=== PATIENT | female | born 1955 | race Caucasian/White ===

== ENCOUNTER 2020-02-04 13:52 | Emergency (ER) | payer OTHER, SELFPAY ==
[2020-02-04 14:08] VITALS: BP 178/94; PULSE 66; RESP 18; TEMP 35.6; O2SAT 98; BMI 22.8
--- NOTE | 2020-02-04 14:20 | ED.ALCOHOL ---
HPI - Alcohol General Chief Complaint: ETOH/Substance Use Stated Complaint: etoh Time Seen by Provider: 02/04/20 13:58 Source: EMS Mode of arrival: EMS History of Present Illness HPI narrative: 64-year-old female with a past medical history of ETOH abuse presenting to ED brought in by EMS after being found intoxicated in front of liquor store. Patient was with a friend who reported patient had been drinking all day. Patient reports ETOH use, denies illicit drugs. Denies fall/trauma, abdominal pain, nausea/vomiting, CP/SOB, SI/HI MD complaint: alcohol intoxication Related Data Allergies Allergy/AdvReac Type Severity Reaction Status Date / Time No Known Allergies Allergy Verified 02/04/20 14:13 [No Known Allergies*] Review of Systems Review of Systems: Constitutional: No Weight loss, No Fever, No Chills Cardiovascular: No Chest Pain, No SOB Respiratory: No Cough, No Dyspnea Gastrointestinal: No Nausea, No Vomiting, No Diarrhea, No Constipation, No Abdominal pain Musculoskeletal: No joint pain Skin: No Skin Lesions, No rash Neuro: No Headache Psych: No SI/HI Yes all other systems are reviewed and are negative [facility] Past Medical History Medical History (Updated 02/04/20 @ 17:01 by JASON Eddy) No known health problems Social History Social History Advance Directives: No Advance Directives Information Provided: No Physical Exam Vital Signs: Vital Signs: Last Vital Signs Temp 96.0 F L 02/04/20 14:08 Pulse 66 02/04/20 14:08 Resp 18 02/04/20 14:08 BP 178/94 H 02/04/20 14:08 Pulse Ox 98 02/04/20 14:08 Body Mass Index 22.8 Const: Other: Intoxicated General: cooperative Orientation/consciousness: patient oriented x3 Limitations: no limitations HENMT: Head: Yes normal to inspection Ears: hearing grossly normal bilaterally General nose exam: Normal external nose present Face and sinus: Yes normal facial exam Eyes: General: appearance normal, both eyes and all related structures Pupils: Equal, round and reactive pupils present EOM: EOMs intact bilaterally Neck: Neck: Yes normal visual inspection Resp: Effort & Inspection: normal respiratory effort Cardio: Rate: regular rate GI: Inspection: Yes normal to inspection Palpation (GI): Soft to palpation, nontender, no guarding and not rigid Skin: Rashes: no rashes Wounds: no wounds Neuro: General: patient oriented x3 Cranial nerves: Yes Equal, round and reactive pupils present Extrem: General: Yes normal to inspection Course Course Course Narrative: -patient awake and alert, ambulating with steady gait in the ED with her walker Patient's son is picking her up MDM - Alcohol MDM Narrative Medical decision making narrative: 64-year-old female with a past medical history of ETOH abuse presenting to ED brought in by EMS after being found intoxicated in front of liquor store. On exam VSS, NAD, intoxicated, no evidence of trauma. Plan: Observe and reassess for clinical sobriety Discharge Plan Discharge Clinical Impression: Alcoholic intoxication Patient Disposition: Home, Self-Care Instructions: Abuse of Alcohol (ED) Additional Instructions: Do not drink alcohol or take drugs as a can kill you Follow up with her doctor If you have thoughts of hurting herself or hurting others return to the ED Referrals: Physician,Unknown [Primary Care Provider] - 2 days
--- NOTE | 2020-02-04 15:56 | MHC.CARE ---
Recovery Support note: Patient is a 64 year old [place]an speaking Female who presented to [facility] ED via EMS after being found outside a liquor store intoxicated. This screenplay writer offered patient the opportunity to go to detox and patient declined. Offered patient resources on recovery supports and patient declined. Informed patient to let RN know if she changes her mind about treatment.
== END 2020-02-04 17:21 | disposition home or self-care (01) ==
PROVIDERS: Emergency Provider Emergency Medicine Emergency Medical Services
DX: F10.129 Alcohol abuse with intoxication, unspecified (principal); Y90.9 Presence of alcohol in blood, level not specified; Z71.41 Alcohol abuse counseling and surveillance of alcoholic
CPT/HCPCS: 99283

== ENCOUNTER 2020-04-18 08:57 | Outpatient (REF) | payer OTHER, SELFPAY ==
--- NOTE | ~2020-04-18 | US_ITS ---
EXAMINATION: US COMPLETE ABDOMEN WITH LIVER ELASTOGRAPHY CLINICAL INFORMATION: Hepatitis C COMPARISON: Previous abdominal ultrasound April 2016 TECHNIQUE: Real-time imaging of the abdominal viscera. Noninvasive ultrasound liver fibrosis assessment is performed using Damien ElastPQ point quantification shear wave elastography (pSWE) with a 5 MHz transducer. Multiple elastography samples are obtained. FINDINGS: PANCREAS: Normal. ABDOMINAL AORTA: There is evidence of atherosclerotic disease. The proximal, middle, and distal aortic segments are normal in caliber. INFERIOR VENA CAVA: Visualized portions are normal. LIVER: Liver echotexture is increased. The liver is normal in contour. No focal lesion or intrahepatic biliary duct dilatation. The right lobe measures 16 cm in length. The left lobe measures 10 cm in length. Portal flow is normal/hepatopedal. Shear wave liver elastography median stiffness is 2.4 m/s (reference: normal median stiffness is 1.3 m/s or less). IQR/median stiffness to assess sampling precision is 0.1 (reference: optimal IQR/median stiffness is 0.15 or less). GALLBLADDER: Surgically removed. COMMON BILE DUCT: Normal in caliber post cholecystectomy measuring 1 cm in diameter. RIGHT KIDNEY: Normal. No hydronephrosis. No renal calculi or focal parenchymal lesions. The kidney measures 9.8 cm in maximum dimension. LEFT KIDNEY: Normal. No hydronephrosis. No renal calculi or focal parenchymal lesions. The kidney measures 9.7 cm in maximum dimension. SPLEEN: Normal. The spleen measures 7.4 cm in maximum dimension. FREE FLUID: None. US/US abdomen comp w elastography IMPRESSION: 1. Impression; Echogenic liver. Post cholecystectomy. Atherosclerotic disease. 2. Liver elastography: Metavir score F3 to F4 suggestive of moderate to severe increased risk of developing liver fibrosis.
[2020-04-18 09:23] LABS: MANUAL DIFF FLAG NO
[2020-04-18 09:27] LABS: Basophils Absolute Auto 0.1 X10*3/uL (0.0-0.2); Basophils Percent Auto 0.4 % (0-2); Eosinophils Percent Auto 0.3 % (0-4); Hematocrit 45.6 % (37-47); Hemoglobin 15.8 g/dl (12.0-16.0); Imm Gran Abs Auto 0.08 X10*3/uL (0.00-0.03); Imm Gran Pct Auto 0.6 % (0.0-0.4); Lymphocytes Percent Auto 15.7 % (20-40); Mean Corpuscular HGB Conc 34.6 g/dl (31.0-35.0); Mean Corpuscular Volume 92.3 fL (80-98); Mean Platelet Volume 10.5 fL (9.4-12.3); Monocytes Absolute Auto 1.1 X10*3/uL (0.1-1.2); Monocytes Percent Auto 8.7 % (2-11); Neutrophils Absolute Auto 9.3 X10*3/uL (2.0-8.3); Neutrophils Percent Auto 74.3 % (45-73); Platelet Count 262 X10*3/uL (160-400); Red Blood Count 4.94 X10*6/uL (4.20-5.50); Red Cell Distribution Width 13.6 % (11.0-16.0); White Blood Count 12.5 X10*3/uL (4.8-10.8)
[2020-04-18 09:48] LABS: Ammonia 30 umol/L (13-55)
== END 2020-04-18 08:58 | disposition home or self-care (01) ==
LOC: HO.LAB 08:57
PROVIDERS: PCP Emergency Medicine; Visit Provider Emergency Medicine
DX: B17.10 Acute hepatitis C without hepatic coma (principal); F10.20 Alcohol dependence, uncomplicated
CPT/HCPCS: 36415; 76705; 76981; 82140; 82693; 85025

== ENCOUNTER → 2020-05-17 15:48 | Outpatient (BNVA) | payer OTHER, SELFPAY | PROVIDERS: PCP Emergency Medicine; Visit Provider Internal Medicine Gastroenterology | DX: Z13.89 Encounter for screening for other disorder (principal) | CPT/HCPCS: Q3014 ==

== ENCOUNTER 2020-05-26 10:16 | Outpatient (REF) | payer OTHER, SELFPAY ==
[2020-05-26 10:49] LABS: MANUAL DIFF FLAG NO
[2020-05-26 11:05] LABS: Basophils Absolute Auto 0.1 X10*3/uL (0.0-0.2); Basophils Percent Auto 0.5 % (0-2); Eosinophils Percent Auto 0.3 % (0-4); Hematocrit 42.3 % (37-47); Hemoglobin 14.1 g/dl (12.0-16.0); Imm Gran Abs Auto 0.06 X10*3/uL (0.00-0.03); Imm Gran Pct Auto 0.6 % (0.0-0.4); Lymphocytes Absolute Auto 1.5 X10*3/uL (1.2-4.9); Lymphocytes Percent Auto 16.6 % (20-40); Mean Corpuscular HGB Conc 33.3 g/dl (31.0-35.0); Mean Corpuscular Hemoglobin 31.3 pg (27.0-33.0); Mean Platelet Volume 10.3 fL (9.4-12.3); Monocytes Absolute Auto 0.8 X10*3/uL (0.1-1.2); Monocytes Percent Auto 8.5 % (2-11); Neutrophils Absolute Auto 6.8 X10*3/uL (2.0-8.3); Neutrophils Percent Auto 73.5 % (45-73); Platelet Count 328 X10*3/uL (160-400); Red Cell Distribution Width 13.5 % (11.0-16.0); White Blood Count 9.2 X10*3/uL (4.8-10.8)
[2020-05-26 11:10] LABS: INTERNATIONAL NORM RATIO 1.1 (0.9-1.1); Prothrombin Time 13.6 SEC (10.8-13.0)
[2020-05-26 11:16] LABS: Ammonia 37 umol/L (13-55)
[2020-05-26 11:23] LABS: Alanine Aminotransferase 37 U/L (0-31); Albumin Level 3.9 g/dL (3.5-5.0); Alkaline Phosphatase 165 U/L (39-117); Anion Gap 12 (12-20); Aspartate Amino Transferase 77 U/L (5-31); Bilirubin Total 0.9 mg/dL (0.0-1.0); Blood Urea Nitrogen 21 mg/dL (9-16); Calcium 9.5 mg/dL (8.4-10.2); Carbon Dioxide 31 mmol/L (22-29); Chloride 99 mmol/L (96-108); Estimated Glomerular Filt Rate > 60; Gamma Glutamyl Transpeptidase 490 U/L (7-33); Glucose Random 112 mg/dL (60-115); Potassium 4.8 mmol/L (3.3-5.1); Sodium 137 mmol/L (135-145); Total Protein 7.8 g/dL (6.5-8.0)
[2020-05-26 11:48] LABS: Vitamin D 25-OH Total 28.9 ng/mL (>30)
[2020-05-26 11:51] LABS: Ferritin 492 ng/mL (10-250)
[2020-05-28 18:52] LABS: HCV Log PCR 5.32 Log IU/mL (NOT DETECTED); HepC Viral Load 209000 IU/mL (NOT DETECTED)
[2020-05-29 14:37] LABS: Alpha Fetoprotein 2.8 ng/mL
[2020-06-01 10:12] LABS: Vitamin B1 <6 nmol/L (8-30)
== END 2020-05-26 10:17 | disposition home or self-care (01) ==
LOC: HO.LAB 10:16
PROVIDERS: PCP Internal Medicine; Visit Provider Internal Medicine Gastroenterology
DX: B17.10 Acute hepatitis C without hepatic coma (principal); F10.20 Alcohol dependence, uncomplicated
CPT/HCPCS: 36415; 80053; 82105; 82140; 82306; 82728; 82977; 84425; 85025; 85610; 87522

== ENCOUNTER 2020-06-01 11:32 | Outpatient (REF) | payer OTHER, SELFPAY ==
--- NOTE | ~2020-06-01 | MM_ITS ---
EXAMINATION: BONE DENSITOMETRY CLINICAL INDICATION: Screening for osteoporosis. COMPARISON: None (current study represents initial baseline exam). TECHNIQUE: Using a [employer] DXA System (software version: 13.1) manufactured by [employer], dual-energy x-ray absorptiometry was performed of the lumbar spine and left hip. The images are of good technical quality. Summary results are attached. FINDINGS: AP SPINE L1-L3: Vertebral body L4 is excluded from final measurement calculation due generative changes which may cause overestimation of lumbar spine density. BMD 1.020 g/cm2, Z-score 0.8, T-score -1.3, osteopenia. LEFT FEMUR, NECK: BMD 0.775 g/cm2, Z-score -0.1, T-score -1.9, osteopenia. LEFT FEMUR, TOTAL: BMD 0.857 g/cm2, Z-score 0.3, T-score -1.2, osteopenia. IDENTIFIED RISK FACTORS: Early menopause, family history (parent hip fracture), osteoporosis, recurrent falls, secondary osteoporosis, tobacco use (current smoker). HISTORY OF FRACTURE: None listed. MEDICATIONS: None listed. MM/XR DEXA axial skeleton IMPRESSION: 1. DIAGNOSIS: Osteopenia based on the lowest T-score value of -1.9 in the femoral neck applying World Health Organization criteria. 2. 10-YEAR FRACTURE RISK PREDICTION, FRAX: Major osteoporotic fracture (clinical spine, forearm, hip or shoulder) 10.4%. Hip fracture 1.6%. 3. Treatment Recommendations: NOF guidelines recommend consideration for treatment in postmenopausal women and men age 50 and older presenting with the following: -A hip or vertebral (clinical or morphometric) fracture. -T-score less than or equal to -2.5 at the femoral neck or spine after appropriate evaluation to exclude secondary causes. -Low bone mass at the hip or spine and a 10-year fracture probability by FRAX of greater than or equal to 3% for hip fracture or greater than or equal to 20% for major osteoporotic fracture based on the [place] adapted WHO algorithm. 4. Other Recommendations: All treatment decisions require clinical judgment and consideration of individual patient factors, including patient preferences, comorbidities, previous drug use, risk factors not captured in the FRAX model (e.g. frailty, falls, vitamin D deficiency, increased bone turnover, interval significant decline in bone density) and possible under or overestimation of fracture risk by FRAX. Additional medical evaluation for secondary cause of low bone mineral density may be appropriate. FUTURE SCAN RECOMMENDATION: People with diagnosed cases of osteoporosis or at high risk for fracture should have regular bone mineral density tests. For patients eligible for Medicare, routine testing is allowed once every 2 years. The testing frequency can be increased to one year for patients who have rapidly progressing disease, those who are receiving or discontinuing medical therapy to restore bone mass, or have additional risk factors.
--- NOTE | ~2020-06-01 | MM_ITS ---
EXAMINATION: MM SCREENING DIGITAL BREAST TOMOSYNTHESIS, BILATERAL CLINICAL INFORMATION: Screening. Asymptomatic. The lifetime risk of breast cancer based on the Tyrer-Cuzick Model is 4.0%. COMPARISON: Mammography: December 20, 2016 and studies dating back to December 07, 2009 TECHNIQUE: Digital breast tomosynthesis is performed in both the craniocaudal and mediolateral oblique views along with computer-aided detection (CAD). Synthesized 2D images are generated from the tomosynthesis. FINDINGS: The breasts are almost entirely fatty (ACR BI-RADS breast composition Category a). There are no significant masses, abnormal calcifications, or other abnormalities. MM/MM tomosynthesis screening BI IMPRESSION: There are no significant changes from prior study. ASSESSMENT: BI-RADS 1: Negative RECOMMENDATION: Routine annual mammography screening. This patient's information was entered into a reminder system with a target due date for their next mammogram.
== END 2020-06-01 11:33 | disposition home or self-care (01) ==
LOC: HO.MAMMO 11:32
PROVIDERS: Visit Provider Internal Medicine
DX: Z12.31 Encounter for screening mammogram for malignant neoplasm of breast (principal); M81.0 Age-related osteoporosis without current pathological fracture; F17.210 Nicotine dependence, cigarettes, uncomplicated; Z78.0 Asymptomatic menopausal state
CPT/HCPCS: 77063; 77067; 77080

== ENCOUNTER 2020-07-24 09:08 | Outpatient (REF) | payer OTHER, SELFPAY ==
--- NOTE | ~2020-07-24 | XR_ITS ---
EXAMINATION: XR FOOT, LEFT CLINICAL INFORMATION: Dropped car battery on the foot COMPARISON: None TECHNIQUE: AP, lateral, and oblique views of the left foot. FINDINGS: There is a nondisplaced fracture distal phalanx great toe with mild dorsal soft tissue swelling. Also visualized is minimally displaced fracture with intra-articular extension distal segment proximal phalanx first digit. No additional fractures seen. There is a small retrocalcaneal enthesophyte. The ankle mortise and subtalar joints are normal. XR/XR foot LT min 3V IMPRESSION: There are 2 fractures. A nondisplaced fracture terminal phalanx mid segment first digit. A oblique fracture distal segment proximal phalanx first digit with intra-articular extension.
== END 2020-07-24 09:09 | disposition home or self-care (01) ==
LOC: HO.XRAY 09:08
PROVIDERS: PCP Internal Medicine; Visit Provider Nurse Practitioner Primary Care
DX: M79.672 Pain in left foot (principal)
CPT/HCPCS: 73630

== ENCOUNTER 2020-08-31 11:06 | Outpatient (REF) | payer OTHER, SELFPAY ==
[2020-09-01 08:02] LABS: Hepatitis A Antibody IgG REACTIVE (Nonreactive); ~Hepatitis A Antibody IgG 11.85 S/CO (0.00-0.99)
[2020-09-01 08:06] LABS: HIV AB/AG Nonreactive (Nonreactive); HIV Num 1 0.08 S/CO (0.00-0.99)
[2020-09-01 09:01] LABS: Hepatitis A Antibody IgM 0.29 Index (0-0.79); ~Hepatitis A Antibody IgM Nonreactive (Nonreactive)
== END 2020-08-31 11:07 | disposition home or self-care (01) ==
LOC: HO.LAB 11:06
PROVIDERS: PCP Internal Medicine; Visit Provider Nurse Practitioner
DX: Z01.84 Encounter for antibody response examination (principal); Z11.4 Encounter for screening for human immunodeficiency virus [HIV]; B18.2 Chronic viral hepatitis C
CPT/HCPCS: 36415; 86708; 86709; 87389; 99212

== ENCOUNTER 2020-09-12 13:00 | Outpatient (REF) | payer OTHER, SELFPAY ==
[2020-09-14 11:38] LABS: HBc Num1 0.41 S/CO (0.00-0.79); Hepatitis B Core Antibody Nonreactive (Nonreactive)
[2020-09-15 08:42] LABS: HBS Num1 29.18 mIU/mL (0-7.99); ~Hepatitis B Surface Antibody REACTIVE (Nonreactive)
[2020-09-17 23:57] LABS: Hepatitis C Genotype 1
== END 2020-09-12 13:01 | disposition home or self-care (01) ==
LOC: HO.LAB 13:00
PROVIDERS: Visit Provider Nurse Practitioner
DX: B18.2 Chronic viral hepatitis C (principal)
CPT/HCPCS: 36415; 86704; 86706; 87902

== ENCOUNTER → 2020-10-10 14:12 | Outpatient (BNVA) | payer OTHER, SELFPAY | PROVIDERS: Visit Provider Nurse Practitioner | DX: Z13.89 Encounter for screening for other disorder (principal) | CPT/HCPCS: Q3014 ==

== ENCOUNTER 2021-06-27 09:37 | Outpatient (REF) | payer OTHER, SELFPAY ==
--- NOTE | ~2021-06-27 | MM_ITS ---
EXAMINATION: MM SCREENING DIGITAL BREAST TOMOSYNTHESIS, BILATERAL CLINICAL INFORMATION: Screening. Asymptomatic. The lifetime risk of breast cancer based on the Tyrer-Cuzick Model is 4%. COMPARISON: Mammography: 06/01/2020, 12/20/2016, 12/05/2015 TECHNIQUE: Digital breast tomosynthesis is performed in both the craniocaudal and mediolateral oblique views along with computer-aided detection (CAD). Synthesized 2D images are generated from the tomosynthesis. Additional bilateral CC views are provided. FINDINGS: The breasts are almost entirely fatty (ACR BI-RADS breast composition Category a). There are no significant masses, abnormal calcifications, or other abnormalities. Background stromal and fibroglandular densities are stable. There are bilateral vascular calcifications. Biopsy clip marker again seen posterior upper inner left breast. MM/MM tomosynthesis screening BI IMPRESSION: No mammographic evidence of malignancy. ASSESSMENT: BI-RADS 1: Negative RECOMMENDATION: Routine annual mammography screening. This patient's information was entered into a reminder system with a target due date for their next mammogram.
== END 2021-06-27 09:38 | disposition home or self-care (01) ==
LOC: HO.MAMMO 09:37
PROVIDERS: Visit Provider Emergency Medicine
DX: Z12.31 Encounter for screening mammogram for malignant neoplasm of breast (principal)
CPT/HCPCS: 77063; 77067

== ENCOUNTER 2022-10-24 10:10 | Emergency (ER) | payer OTHER, SELFPAY ==
--- NOTE | ~2022-10-24 | CT_ITS ---
EXAMINATION: CT HEAD WITHOUT CONTRAST CLINICAL INFORMATION: Headache, hypertension. COMPARISON: Head CT scan dated 11/27/2019. TECHNIQUE: Contiguous axial imaging was performed from the skull base to vertex without intravenous administration of contrast. Coronal and sagittal reformatted images were obtained. This CT examination was performed using dose optimization techniques as appropriate, variously including the following: *Automated exposure control *Adjustment of mA and/or kV according to patient size (this includes techniques or standardized protocols for targeted exams where dose is matched to indication/reason for exam; i.e. extremities or head) *Use of iterative reconstruction technique DLP: 560 mGy-cm FINDINGS: There is mild widening of the cortical sulci and associated ventriculomegaly. The lateral ventricles are symmetrical. The third and fourth ventricles are in their normal midline position. The basilar and prepontine cisterns are unremarkable. Minimal periventricular microvascular changes are seen. There is no acute intra or extracerebral abnormality. There is no mass effect or midline shift. Sections through the bony calvarium are unremarkable. The orbits are intact. The paranasal sinuses are clear. The mastoid air cells are clear. CT/CT head/brain wo IV con IMPRESSION: No acute intracranial pathology.
--- NOTE | 2022-10-24 10:16 | ECG_ITS ---
Test Reason : H/A, HTN Blood Pressure : / mmHG Vent. Rate : 063 BPM Atrial Rate : 063 BPM P-R Int : 126 ms QRS Dur : 090 ms QT Int : 452 ms P-R-T Axes : -21 039 040 degrees QTc Int : 462 ms Normal sinus rhythm Minimal voltage criteria for LVH, may be normal variant ( Sokolow-Bingham ) Borderline ECG When compared with ECG of 15-NOV-2014 14:50, No significant change was found Referred By: Generic ED Physician Electronically Signed By:AKIRA LUBIN
[2022-10-24 11:10] VITALS: BP 236/99; PULSE 59; RESP 17; TEMP 36.2; O2SAT 98; BMI 26.3
--- NOTE | 2022-10-24 11:11 | ED_ITS ---
HPI - General Adult General Chief complaint: Headache Stated complaint: HBP, headache Time Seen by Provider: 10/24/22 12:35 Source: patient and old records reviewed Mode of arrival: ambulatory Limitations: no limitations History of Present Illness HPI narrative: Patient is a 66 year old assigned female at with a history of HTN presenting to the emergency department today with a headache. Patient states that she has not taken her blood pressure medication for 2 days and now she has a headache. Patient denies any dizziness, lightheadedness, abdominal pain, nausea, vomiting, fever, chills, blurry vision, double vision, loss of vision, chest pain, difficulty breathing, shortness of breath, back pain, night sweats, pain with urination, increased urinary frequency, increased urinary urgency, blood in her urine or stool, syncope or a near syncopal episode, recent trauma or falls, bowel incontinence, bladder incontinence, bowel retention, bladder retention, or any other complaints at this time. Location: head Radiation: non-radiation Severity: mild Severity scale (1-10): 3 Quality: aching Pain Consistency: constant Relieving factors: none Exacerbating factors: none Associated symptoms: denies other symptoms Treatments prior to arrival: none Related Data Home Medications Medication Instructions Recorded Confirmed buprenorphine 8 mg-naloxone 2 mg 1 film buccal DAILY 05/17/20 10/10/20 sublingual film (Suboxone) lisinopril 20 1 tab PO DAILY 05/17/20 10/10/20 mg-hydrochlorothiazide 25 mg tablet albuterol sulfate 90 mcg/actuation 2 puff PO Q4-6H PRN 08/31/20 10/10/20 aerosol inhaler clonazepam 1 mg tablet 0 mg PO 08/31/20 10/10/20 cyclobenzaprine 5 mg tablet 5 mg PO TID PRN muscle spasm 08/31/20 10/10/20 fluoxetine 20 mg capsule 20 mg PO QAM 08/31/20 10/10/20 fluticasone propionate 50 1 spray intranasal DAILY PRN 08/31/20 10/10/20 mcg/actuation nasal allergies spray,suspension ibuprofen 400 mg tablet 400 mg PO Q6-8H PRN 08/31/20 10/10/20 oxcarbazepine 300 mg tablet 300 mg PO TID 08/31/20 10/10/20 zolpidem 5 mg tablet 5 mg PO BEDTIME PRN 08/31/20 10/10/20 omeprazole magnesium 20 mg 20 mg PO DAILY PRN heartburn 10/10/20 10/10/20 tablet,delayed release (Prilosec OTC) Previous Rx's Medication Instructions Recorded sofosbuvir 400 mg-velpatasvir 100 1 tab PO DAILY 28 days #28 tabs 10/11/20 mg-voxilaprevir 100 mg tablet (Vosevi) Allergies Allergy/AdvReac Type Severity Reaction Status Date / Time No Known Allergies Allergy Verified 10/10/20 14:12 [No Known Allergies*] Review of Systems Constitutional: Constitutional: Reports no additional constitutional complaints, Denies chills, Denies fever(s), Reports headache(s) and Denies night sweats Eyes: Eyes: Reports no additional eye complaints, Denies blurry vision, Denies change in vision, Denies diplopia, Denies eye discharge, Denies loss of vision and Denies eye pain ENT: Denies dizziness and Reports headache(s) Cardiovascular: Cardiovascular: Reports no additional cardiovascular complaints, Denies chest pain, Denies lightheadedness, Denies Loss of Conscio usness and Denies dyspnea Respiratory: Respiratory: Reports no additional respiratory complaints and Denies dyspnea Gastrointestinal: Gastrointestinal: Reports no additional gastrointestinal c omplaints, Denies abdominal pain, Denies melena, Denies hematochezia, Denies change in bowel habits and Denies change in stool character Genitourinary: Genitourinary: Denies hematuria, Denies urinary frequency, Denies dysuria, Denies urinary incontinence, Denies urinary hesitancy and Denies urinary urgency Musculoskeletal: Musculoskeletal: Reports no additional musculoskeletal complaints, Denies numbness and Denies tingling Neurologic: Denies dizziness, Reports headache(s), Denies loss of vision, Denies numbness and Denies tingling Psychiatric: Psychiatric: Reports no additional psychiatric complaints Endocrine: Endocrine: Reports no additional endocrine complaints Hematologic/Lymphatic: Hematologic/Lymphatic: Reports no additional hematologic/lymphatic complaints Allergic/Immunologic: Allergic/Immunologic: Reports no additional aller gic/immunologic complaints PMFSH Past Medical History Attestation statement: The following information was validated with the patient. Source: old records reviewed and nursing notes reviewed Medical History Bipolar 1 disorder Bipolar disorder Chronic hepatitis C virus infection Chronic pain Cigarette smoker Hx of substance abuse Hypertension No known health problems Surgical History H/O colonoscopy History of esophagogastroduodenoscopy (EGD) Social History Social History Household Members: Other Household Members Other:: homeless, stays with someone Alcohol intake: current Alcohol intake frequency: does not drink Advance Directives: No Physical Exam ED Vital Signs: Vital Signs - 24 hr 10/24/22 11:10 10/24/22 12:14 10/24/22 13:52 Temperature 97.2 F 98.5 F Pulse Rate 59 54 59 Respiratory Rate 17 18 12 Blood Pressure 236/99 H 184/88 H 169/84 H Pulse Oximetry 98 98 97 Oxygen Delivery Method Room Air Room Air BMI result Body Mass Index 26.3 Const General: cooperative, no acute distress, alert and awake Nutritional Appearance: well nourished Orientation/consciousness: patient oriented x3 Limitations: no limitations HENMT Head: Yes normal to inspection and Yes atraumatic Ears: hearing grossly normal bilaterally and external ears normal General nose exam: Normal external nose present, no nasal discharge noted and no epistaxis Face and sinus: Yes normal facial exam, No abrasion and No laceration Mouth: Normal oral and palatal mucosa present, no drooling and no muffled voice Eyes General: appearance normal, both eyes and all related structures Periorbital: periorbital findings normal Eyelids: Yes eyelids normal Conjunctivae: conjunctivae normal Pupils: Equal, round and reactive pupils present EOM: EOMs intact bilaterally Neck Neck: Yes normal visual inspection, Yes full ROM and Yes no lymphadenopathy Chest Chest palpation & inspection: normal inspection of the chest Resp Effort & Inspection: normal respiratory effort and able to speak in complete sentences Auscultation: clear to auscultation bilaterally Cardio Rate: regular rate Rhythm: regular rhythm GI Inspection: Yes normal to inspection Palpation (GI): Soft to palpation, not firm, nontender and no guarding Neuro General: patient oriented x3 and moves all extremities Cranial nerves: Yes Equal, round and reactive pupils present Cognition (Neuro): normal cognition Motor exam (neuro): 5/5 motor strength present throughout Sensory Exam: Normal double simultaneous stimulation for sensation Coordination: [id number] test normal Extrem General: Yes normal to inspection, Yes full ROM and Yes capillary refill normal Psych Appearance: grossly normal Mental Status: mental status grossly normal Affect: normal affect Attitude: cooperative Thought process: Normal thought process present Thought content: Normal thought content present Insight: Good insight present (Psych) Course Course Course Narrative: RME: 66yo F w/PMHx HTN, DM c/o WATTS and elevated BP in PCP's office today sent to ED for HTN. Admits to headache since waking this morning w/ nausea. WATTS not maximal at onset. Denies taking her BP meds this AM. Denies taking AC. Admits was previously on Lisinopril 20mg but was reduced after being in DM Coma at [facility] x months. BP 236/99 in triage EKG, Labs, Head CT ordered 20mn PO Lisinopril ordered Full HPI, ROS and PE to be performed by primary ED provider. Medications Administered Discontinued Medications Generic Name Dose Route Start Last Admin Trade Name Freq PRN Reason Stop Dose Admin Lisinopril 20 mg 10/24/22 11:17 10/24/22 11:23 Lisinopril 20 Mg Tablet PO 10/24/22 11:18 20 mg ONCE ONE Administration Protocol Medical Decision Making Medical Decision Making [facility] Narrative: Patient is a 66 year old assigned female at with a history of HTN presenting to the emergency department today with a headache and medication non- compliance. Patient's physical exam was unremarkable. Patient's blood work was unremarkable. Patient's EKG was unremarkable. Patient's head CT showed no acute process. I explained my physical exam findings as well as all test results to the patient. I answered all questions asked by the patient. Patient received a dose of her HTN medication which she stated helped her symptoms significantly. I stressed the importance of the patient taking her medication as prescribed. I stressed the importance of the patient following up with her primary care provider. I stressed the importance of the patient returning to the emergency department immediately if her symptoms were to worsen or if she were to develop any dizziness, shortness of breath, difficulty breathing, chest pain, blurry vision, loss of vision, nausea, vomiting, abdominal pain, fever, chills, back pain, or any other complaints. Patient verbalized agreement and understanding with this treatment plan and discharge. Differential Diagnosis Differential Diagnoses: The differential diagnosis associated with the presentation includes HTN Headache Medication non-compliance Admission/Observation Consideration of admission/observation: Escalation of care including admission/observation considered Patient would have been admitted to the hospital had her work up had any findings where hospital admission was appropriate and her clinical presentation warranted hospital admission. Lab Data MDM Lab Attestation statement: I reviewed the patient's lab results. My interpretation of these studies and their corresponding values is that they are grossly normal. 10/24/22 11:38 10/24/22 11:38 Labs: Lab Results 10/24/22 10/24/22 10/24/22 Range/Units 11:38 11:38 11:38 WBC 8.3 (4.8-10.8) X10*3/uL RBC 4.93 (4.20-5.50) X10*6/uL Hgb 14.3 (12.0-16.0) g/dl Hct 42.5 (37.0-47.0) % MCV 86.2 (80.0-98.0) fL MCH 29.0 (27.0-33.0) pg MCHC 33.6 (31.0-35.0) g/dl RDW 15.6 (11.0-16.0) % Plt Count 189 (160-400) X10*3/uL MPV 10.8 (9.4-12.3) fL Immature Gran % (Auto) 0.4 (0.0-0.4) % Neut % (Auto) 67.4 (45-73) % Lymph % (Auto) 22.5 (20-40) % [place] % (Auto) 8.2 (2-11) % Eos % (Auto) 0.8 (0-4) % Baso % (Auto) 0.7 (0-2) % Lymph # (Auto) 1.9 (1.2-4.9) X10*3/uL [place] # (Auto) 0.7 (0.1-1.2) X10*3/uL Eos # (Auto) 0.1 (0.0-0.4) X10*3/uL Baso # (Auto) 0.1 (0.0-0.2) X10*3/uL Abs Immat Gran (auto) 0.03 (0.00-0.03) X10*3/uL Absolute Neuts (auto) 5.6 (2.0-8.3) x10*3/uL Absolute Nucleated RBC 0.000 (0.0-0.012) X10*3/uL Nucleated RBC % (auto) 0.0 (0.0-0.2) /100WBC PT 15.7 H (11.1-13.3) SEC INR 1.3 H (0.9-1.1) Sodium 142 (135-145) mmol/L Potassium 5.0 (3.3-5.1) mmol/L Chloride 106 (96-108) mmol/L Carbon Dioxide 27 (22-29) mmol/L Anion Gap 14 (12-20) BUN 8 L (9-16) mg/dL Creatinine 0.75 (0.5-1.4) mg/dL Estim Creat Clear Calc 59.4 Estimated GFR > 60 Random Glucose 150 H (60-115) mg/dL Calcium 9.8 (8.4-10.2) mg/dL Troponin I High Sens (<3.5-17.0) ng/L 10/24/22 Range/Units 11:38 WBC (4.8-10.8) X10*3/uL RBC (4.20-5.50) X10*6/uL Hgb (12.0-16.0) g/dl Hct (37.0-47.0) % MCV (80.0-98.0) fL MCH (27.0-33.0) pg MCHC (31.0-35.0) g/dl RDW (11.0-16.0) % Plt Count (160-400) X10*3/uL MPV (9.4-12.3) fL Immature Gran % (Auto) (0.0-0.4) % Neut % (Auto) (45-73) % Lymph % (Auto) (20-40) % [place] % (Auto) (2-11) % Eos % (Auto) (0-4) % Baso % (Auto) (0-2) % Lymph # (Auto) (1.2-4.9) X10*3/uL [place] # (Auto) (0.1-1.2) X10*3/uL Eos # (Auto) (0.0-0.4) X10*3/uL Baso # (Auto) (0.0-0.2) X10*3/uL Abs Immat Gran (auto) (0.00-0.03) X10*3/uL Absolute Neuts (auto) (2.0-8.3) x10*3/uL Absolute Nucleated RBC (0.0-0.012) X10*3/uL Nucleated RBC % (auto) (0.0-0.2) /100WBC PT (11.1-13.3) SEC INR (0.9-1.1) Sodium (135-145) mmol/L Potassium (3.3-5.1) mmol/L Chloride (96-108) mmol/L Carbon Dioxide (22-29) mmol/L Anion Gap (12-20) BUN (9-16) mg/dL Creatinine (0.5-1.4) mg/dL Estim Creat Clear Calc Estimated GFR Random Glucose (60-115) mg/dL Calcium (8.4-10.2) mg/dL Troponin I High Sens < 2.7 (<3.5-17.0) ng/L Independent Interpretation I performed an independent interpretation of an: CT Scan Interpretation: My interpretation is in agreement with the radiologist's impression of this imaging study. EXAMINATION: CT HEAD WITHOUT CONTRAST CLINICAL INFORMATION: Headache, hypertension. COMPARISON: Head CT scan dated 11/27/2019. TECHNIQUE: Contiguous axial imaging was performed from the skull base to vertex without intravenous administration of contrast. Coronal and sagittal reformatted images were obtained. This CT examination was performed using dose optimization techniques as appropriate, variously including the following: *Automated exposure control *Adjustment of mA and/or kV according to patient size (this includes techniques or standardized protocols for targeted exams where dose is matched to indication/reason for exam; i.e. extremities or head) *Use of iterative reconstruction technique DLP: 560 mGy-cm FINDINGS: There is mild widening of the cortical sulci and associated ventriculomegaly. The lateral ventricles are symmetrical. The third and fourth ventricles are in their normal midline position. The basilar and prepontine cisterns are unremarkable. Minimal periventricular microvascular changes are seen. There is no acute intra or extracerebral abnormality. There is no mass effect or midline shift. Sections through the bony calvarium are unremarkable. The orbits are intact. The paranasal sinuses are clear. The mastoid air cells are clear. IMPRESSION: No acute intracranial pathology. Read by Abel Jones. Radiology Impression Discussion of test interpretation with radiology: I have reviewed the radiologist's reading. Discharge Plan Discharge Clinical Impression: Hypertension Patient Disposition: Home, Self-Care Instructions: Hypertension (ED) Additional Instructions: TAKE YOUR MEDICATION PRESCRIBED. Follow up with your primary care provider. Return to the emergency department immediately if your symptoms worsen or if you develop any dizziness, shortness of breath, difficulty breathing, chest pain, blurry vision, loss of vision, nausea, vomiting, abdominal pain, fever, chills, back pain, or any other complaints. Prescriptions: No Action Vosevi 400-100-100 mg tablet 1 tab PO DAILY 28 Days Qty: 28 2RF Rx Instructions: must administer with a meal/food albuterol sulfate 90 mcg/actuation HFA aerosol inhaler 2 puff PO Q4-6H PRN ibuprofen 400 mg tablet 400 mg PO Q6-8H PRN fluoxetine 20 mg capsule 20 mg PO QAM cyclobenzaprine 5 mg tablet 5 mg PO TID PRN (Reason: muscle spasm) fluticasone propionate 50 mcg/actuation spray,suspension 1 spray intranasal DAILY PRN (Reason: allergies) clonazepam 1 mg tablet 0 mg PO zolpidem 5 mg tablet 5 mg PO BEDTIME PRN oxcarbazepine 300 mg tablet 300 mg PO TID omeprazole magnesium [Prilosec OTC] 20 mg tablet,delayed release (DR/EC) 20 mg PO DAILY PRN (Reason: heartburn) Patient Comments: Patient buys OTC she was instructed to keep this far away from her hepatitis C medications because it can activate treatment. She should take this in the morning if she needs it and hep C medications at night before bed lisinopril-hydrochlorothiazide 20-25 mg tablet 1 tab PO DAILY buprenorphine-naloxone [Suboxone] 8-2 mg film 1 film buccal DAILY Referrals: Deana Warren STUDENT LOAN COUNSELOR [Primary Care Provider] - Print Language: Trinidadian
[2022-10-24] MEDS: lisinopriL 20 MG TABLET PO (11:23)
[2022-10-24 11:45] LABS: MANUAL DIFF FLAG NO
[2022-10-24 11:46] LABS: Basophils Absolute Auto 0.1 X10*3/uL (0.0-0.2); Basophils Percent Auto 0.7 % (0-2); Eosinophils Absolute Auto 0.1 X10*3/uL (0.0-0.4); Eosinophils Percent Auto 0.8 % (0-4); Hematocrit 42.5 % (37.0-47.0); Hemoglobin 14.3 g/dl (12.0-16.0); Imm Gran Abs Auto 0.03 X10*3/uL (0.00-0.03); Imm Gran Pct Auto 0.4 % (0.0-0.4); Lymphocytes Absolute Auto 1.9 X10*3/uL (1.2-4.9); Lymphocytes Percent Auto 22.5 % (20-40); Mean Corpuscular HGB Conc 33.6 g/dl (31.0-35.0); Mean Corpuscular Volume 86.2 fL (80.0-98.0); Mean Platelet Volume 10.8 fL (9.4-12.3); Monocytes Absolute Auto 0.7 X10*3/uL (0.1-1.2); Monocytes Percent Auto 8.2 % (2-11); Neutrophils Absolute Auto 5.6 x10*3/uL (2.0-8.3); Neutrophils Percent Auto 67.4 % (45-73); Platelet Count 189 X10*3/uL (160-400); Red Blood Count 4.93 X10*6/uL (4.20-5.50); Red Cell Distribution Width 15.6 % (11.0-16.0); White Blood Count 8.3 X10*3/uL (4.8-10.8)
[2022-10-24 11:51] LABS: INTERNATIONAL NORM RATIO 1.3 (0.9-1.1); Prothrombin Time 15.7 SEC (11.1-13.3)
[2022-10-24 11:58] LABS: Anion Gap 14 (12-20); Blood Urea Nitrogen 8 mg/dL (9-16); Calcium 9.8 mg/dL (8.4-10.2); Carbon Dioxide 27 mmol/L (22-29); Chloride 106 mmol/L (96-108); Creatinine Clr Calc Pharmacy 59.4; Estimated Glomerular Filt Rate > 60; Glucose Random 150 mg/dL (60-115); Sodium 142 mmol/L (135-145)
--- OUTSIDE RECORDS SUMMARY | 2022-10-24 12:05 | XMS_ITS | Continuity of Care Document ---
Author Name Unknown Organization [facility] ter Address [address] [place] [address]- Care Team Providers Care Poultry Cleaner Name Role Phone Not on Staff, PCP Primary Care Physician Unavail able [place] [facility] [place] - 12/19/[address] [address]- [facility] Discharge Disposition: A-D/C Home Attending Physician: Tenzin Jaquez DO Admitting Physician: Tenzin Jaquez DO Referring Physician: Not on Staff, Referring MD Allergies, Adverse Reactions, Alerts Substance Reaction Severity Status codeine Active naproxen Active Immunizations Given and Recorded Vaccine Date Status Refusal Reason FluLaval (oldterm) 1 11/30/10 Given pneumococcal 23-valent vaccine 09/16/10 Given 1Admin Note: vis given Medications fluoxetine 20 mg oral capsule 1 capsule = 20 mg, By Mouth, Daily, # 30 capsule, 5 Refills, Maintenance, 08/24/13 10:56:30, Capsule, 1 capsule By Mouth Daily Start Date: 08/24/13 Status: Ordered hydrochlorothiazide-lisinopril 25 mg-20 mg oral tablet 1 tablet, By Mouth, Daily, # 30 tablet, 11 Refills, Maintenance, Tablet, 1 tablet By Mouth Daily,x30 days Start Date: 03/26/13 Stop Date: 03/21/14 Status: Ordered naproxen 500 mg oral tablet 1 tablet = 500 mg, By Mouth, 2 times a day, with food, # 60 tablet, 0 Refills, Maintenance, 01/25/14 10:51:12, Tablet, 1 tablet By Mouth 2 times a day,Instr:with food Start Date: 01/25/14 Status: Ordered omeprazole 40 mg oral enteric coated capsule 1 capsule = 40 mg, By Mouth, Daily, # 30 capsule, 1 Refills, Maintenance, 01/17/14 20:05:58, EC Capsule, 1 capsule By Mouth Daily Start Date: 01/17/14 Status: Ordered oxcarbazepine 150 mg oral tablet 1 tablet = 150 mg, By Mouth, 2 times a day, # 60 tablet, 0 Refills, Maintenance, 08/24/13 10:57:59,Tablet Start Date: 08/24/13 Status: Ordered ProAir HFA 90 mcg/inh inhalation aerosol with adapter 1 puffs, Inhalation, Every 4 hours, PRN for wheezing, # 8.5 Gm, 2 Refills, Maintenance, Aerosol, 1 puffs Inhalation Every 4 hours,PRN:for wheezing Start Date: 03/26/13 Status: Ordered Problem List Condition Effective Dates Status Health Status Inform ant Abnormal glucose level(Confirmed) Active Bipolar disorder(Confirmed) Active Chronic pain(Confirmed) Active Essential hypertension(Confirmed) Active GERD - Gastro-esophageal ref lux disease(Confirmed) Active Viral hepatitis C-genotype 1b(Confirmed) Active Vital Signs Most recent to oldest [Reference Range]: 1 2 Oxygen Saturation [94-100 %] 98 % (12/19/19 7:12 PM) 97 % (12/19/19 2:48 PM) Pulse Rate [55-90 bpm] 82 bpm (12/19/19 7:12 PM) 68 bpm (12/19/19 2:48 PM) Blood Pressure [90-138/55-84 mm Hg] 185/ 82mm Hg *H* (12/19/19 7:12 PM) 127/74mm Hg (12/19/19 2:48 PM) Respiratory Rate [16-30 br/min] 18 br/mi n (12/19/19 7:12 PM) 16 br/min (12/19/19 2:48 PM) Temperature [96.8-100.4 DegF] 98.0 DegF (12/19/19 7:12 PM) 98.9 DegF (12/19/19 2:48 PM) Mode of Delivery (Oxygen) Room air (12/19/19 7:12 PM) Room air (12/19/19 2:48 PM) Blood pressure sites Arm, right (12/19/19 7:12 PM) Arm, left (12/19/19 2:48 PM) Temperature Route Oral (12/19/19 7:12 PM) Oral (12/19/19 2:48 PM)
--- OUTSIDE RECORDS SUMMARY | 2022-10-24 12:05 | XMS_ITS | Continuity of Care Document ---
Author Name Unknown Organization [facility] ter Address [address] [place] [id number]- Care Team Providers Care Tower Director Name Role Phone Not on Staff, PCP Primary Care Physician Unavail able [place] [facility] [facility] [place] 07/03/[address] [address]- Discharge Disposition: A-D/C Home Attending Physician: Karri Cheek MD Admitting Physician: Karri Cheek MD Referring Physician: Not on Staff, Referring MD [...] Range]: 1 2 Oxygen Saturation [94-100 %] 100 % (07/03/21 6:59 PM) 97 % (07/03/21 2:24 PM) Pulse Rate [55-90 bpm] 72 bpm (07/03/21 6:59 PM) 74 bpm (07/03/21 2:24 PM) Blood Pressure [90-138/55-84 mm Hg] 117/ 72mm Hg (07/03/21 6:59 PM) 106/63mm Hg (07/03/21 2:24 PM) Respiratory Rate [16-30 br/min] 20 br/mi n (07/03/21 6:59 PM) 18 br/min (07/03/21 2:24 PM) Temperature [96.8-100.4 DegF] 98.4 DegF (07/03/21 2:24 PM) Mode of Delivery (Oxygen) Room air (07/03/21 6:59 PM) Room air (07/03/21 2:24 PM) Blood pressure sites Arm, right (07/03/21 2:24 PM) Temperature Route Oral (07/03/21 2:24 PM)
--- OUTSIDE RECORDS SUMMARY | 2022-10-24 12:06 | XMS_ITS | Continuity of Care Document ---
Author Name Unknown Organization [facility] ter Address [address] [place] [id number]- Care Team Providers Care Regional Engineer Name Role Phone Not on Staff, PCP Primary Care Physician Unavail able [place] [facility] [place] [facility] [place] - 09/18/[address] [address]- Encounter Diagnosis Opiate overdose(Final) - 09/15/21 Discharge Disposition: Transfer to [facility] Facility Attending Physician: Abner Maradiaga MD Admitting Physician: Abner Maradiaga MD Referring Physician: Not on Staff, Referring [...] recent to oldest [Reference Range]: 1 2 3 Weight 54.5 kg (09/18/21 3:59 PM) 54.5 kg (09/17/21 8:00 AM) Oxygen Saturation [94-100 %] 95 % (09/18/21 3:59 PM) 97 % (09/18/21 9:32 AM) 95 % (09/18/21 5:12 AM) Pulse Rate [55-90 bpm] 77 bpm (09/18/21 3:59 PM) 85 bpm (09/18/21 9:32 AM) 74 bpm (09/18/21 5:12 AM) Blood Pressure [90-138/55-84 mm Hg] 157/81mm Hg *H* (09/18/21 3:59 PM) 142/86mm Hg *H* (09/18/21 9:32 AM) 134/78mm Hg (09/18/21 5:12 AM) Respiratory Rate [16-30 br/min] 18 br/min (09/18/21 3:59 PM) 18 br/min (09/18/21 9:32 AM) 16 br/min (09/18/21 5:12 AM) Temperature [96.8-100.4 DegF] 98.2 DegF (09/18/21 3:59 PM) 98.3 DegF (09/18/21 9:32 AM) 98 DegF (09/18/21 5:12 AM) Liters per Minute 2 L/min (09/16/21 4:45 AM) 2 L/min (09/16/21 2:50 AM) 2 L/min (09/15/21 11:28 PM) Mode of Delivery (Oxygen) Room air (09/18/21 3:59 PM) Room air (09/18/21 9:32 AM) Room air (09/18/21 5:12 AM) Blood pressure sites Arm, right (09/18/21 3:59 PM) Arm, right (09/18/21 5:12 AM) Arm, right (09/17/21 8:14 PM) Temperature Route Oral (09/18/21 3:59 PM) Oral (09/18/21 9:32 AM) Oral (09/18/21 5:12 AM)
[2022-10-24 12:07] LABS: Troponin-I High Sensitivity < 2.7 ng/L (<3.5-17.0)
[2022-10-24 12:14] VITALS: BP 184/88; PULSE 54; RESP 18; O2SAT 98
[2022-10-24 13:52] VITALS: BP 169/84; PULSE 59; RESP 12; TEMP 36.9; O2SAT 97
[2022-10-24 14:25] VITALS: BP 164/82; PULSE 68; RESP 19; O2SAT 98
== END 2022-10-24 15:03 | disposition home or self-care (01) ==
PROVIDERS: Physician Assistant; Emergency Provider Emergency Medicine; PCP Nurse Practitioner Primary Care
DX: I10 Essential (primary) hypertension (principal); F19.10 Other psychoactive substance abuse, uncomplicated; F11.20 Opioid dependence, uncomplicated; B18.2 Chronic viral hepatitis C; F17.210 Nicotine dependence, cigarettes, uncomplicated; Z79.899 Other long term (current) drug therapy
CPT/HCPCS: 36415; 70450; 80048; 84484; 85025; 85610; 93005; 99284

== ENCOUNTER 2022-11-04 13:19 | Outpatient (REF) | payer OTHER, SELFPAY ==
--- NOTE | ~2022-11-04 | XR_ITS ---
EXAMINATION: XR SHOULDER, RIGHT CLINICAL INFORMATION: 1 week right shoulder pain COMPARISON: None available. TECHNIQUE: Four views of the right shoulder. FINDINGS: No acute visible fracture or dislocation. Arthritic changes of the acromioclavicular glenohumeral joint greatest along the distal clavicle. Joint spaces and alignment are otherwise maintained. Soft tissues are unremarkable. Utilized portions of the right chest are unremarkable. XR/XR shoulder RT min 2V IMPRESSION: 1. No acute visible fracture or dislocation. 2. Arthritic changes of the acromioclavicular glenohumeral joint greatest along the distal clavicle.
== END 2022-11-04 13:20 | disposition home or self-care (01) ==
LOC: HO.HHCX 13:19
PROVIDERS: Visit Provider Nurse Practitioner Primary Care
DX: M25.511 Pain in right shoulder (principal); F10.20 Alcohol dependence, uncomplicated
CPT/HCPCS: 73030

== ENCOUNTER 2022-11-29 14:26 | Outpatient (REF) | payer OTHER, SELFPAY ==
[2022-11-29 16:12] LABS: INTERNATIONAL NORM RATIO 1.2 (0.9-1.1); Prothrombin Time 14.5 SEC (11.1-13.3)
[2022-11-29 16:33] LABS: Alanine Aminotransferase 35 U/L (0-31); Alkaline Phosphatase 147 U/L (39-117); Anion Gap 14 (12-20); Aspartate Amino Transferase 61 U/L (5-31); Bilirubin Total 0.4 mg/dL (0.0-1.0); Blood Urea Nitrogen 12 mg/dL (9-16); Calcium 9.3 mg/dL (8.4-10.2); Carbon Dioxide 22 mmol/L (22-29); Chloride 107 mmol/L (96-108); Estimated Glomerular Filt Rate > 60; Glucose Random 214 mg/dL (60-115); Potassium 3.4 mmol/L (3.3-5.1); Sodium 140 mmol/L (135-145); Total Protein 8.7 g/dL (6.5-8.0)
[2022-11-29 16:57] LABS: Folate 7.7 ng/mL (> or = 4.0); Vitamin B12 547 pg/mL (200-900)
[2022-12-01 22:28] LABS: TS Negative Control Passed; TS Panel A 0; TS Panel B 0; TS Positive Control Passed; TSpotTB Negative (Negative)
[2022-12-02 03:49] LABS: ~HepC Num1 8.99 S/CO (0.00-0.79); ~Hepatitis C Antibody Reactive (Nonreactive)
[2022-12-04 14:54] LABS: HCV Log PCR 4.89 Log IU/mL (NOT DETECTED); HepC Viral Load 78400 IU/mL (NOT DETECTED)
== END 2022-11-29 14:27 | disposition home or self-care (01) ==
LOC: HO.HHCL 14:26
PROVIDERS: Visit Provider Family Medicine
DX: F10.20 Alcohol dependence, uncomplicated (principal); Z11.1 Encounter for screening for respiratory tuberculosis
CPT/HCPCS: 36415; 80053; 82607; 82746; 85610; 86481; 86803; 87522

== ENCOUNTER 2022-12-27 13:38 | Outpatient (REF) | payer OTHER, SELFPAY ==
[2022-12-27 16:24] LABS: INTERNATIONAL NORM RATIO 1.2 (0.9-1.1); Prothrombin Time 14.6 SEC (11.1-13.3)
[2022-12-30 03:45] LABS: HIV AB/AG Nonreactive (Nonreactive); HIV Num 1 0.09 S/CO (0.00-0.99)
[2022-12-30 12:52] LABS: Alpha Fetoprotein 3.8 ng/mL
[2023-01-03 01:39] LABS: FIB-ALT 30 U/L (6-29); FIB-Alpha-2-Macroglobulin 311 mg/dL (106-279); FIB-Apolipoprotein A1 128 mg/dL (101-198); FIB-GGT 330 U/L (3-65); FIB-Haptoglobin 124 mg/dL (43-212); FIB-Total Bilirubin 0.5 mg/dL (0.2-1.2); Liver Fibrosis Score 0.75; Liver Fibrosis Stage F4; Nec Inflam Act Grade A0-A1; Nec Inflam Act Score 0.26
== END 2022-12-27 13:39 | disposition home or self-care (01) ==
LOC: HO.HHCL 13:38
PROVIDERS: Visit Provider Nurse Practitioner Primary Care
DX: Z11.4 Encounter for screening for human immunodeficiency virus [HIV] (principal); B18.2 Chronic viral hepatitis C
CPT/HCPCS: 36415; 81596; 82105; 85610; 87389

== ENCOUNTER 2023-04-24 08:57 | Outpatient (REF) | payer OTHER, SELFPAY ==
--- NOTE | ~2023-04-24 | US_ITS ---
EXAMINATION: US COMPLETE ABDOMEN WITH LIVER ELASTOGRAPHY CLINICAL INFORMATION: Chronic viral hepatitis C. COMPARISON: None available. TECHNIQUE: Real-time imaging of the abdominal viscera. Noninvasive ultrasound liver fibrosis assessment is performed using Damien ElastPQ point quantification shear wave elastography (2D-SWE) with a C5-2 MHz transducer. Multiple elastography samples are obtained. FINDINGS: PANCREAS: The pancreas is obscured by overlying gas. ABDOMINAL AORTA: The proximal and middle aortic segments are normal in caliber. The distal segment is not visualized. INFERIOR VENA CAVA: Visualized portions are normal. LIVER: The liver demonstrates normal size, lobulated contour left hepatic lobe and diffuse increased echogenicity. No focal lesion or intrahepatic biliary duct dilatation. The right lobe measures 18.5 cm in length. The left lobe measures 11.3 cm in length. Portal flow is hepatopedal. Shear wave liver elastography median stiffness is 1.89 m/s (reference: normal median stiffness is 1.3 m/s or less). IQR/median stiffness to assess sampling precision is 0.07 (reference: good quality data set is IQR/median stiffness of 0.15 or less). GALLBLADDER: Normal. The gallbladder is physiologically distended without evidence of stones, sludge, polyps, wall thickening or pericholecystic fluid. COMMON BILE DUCT: Normal in caliber measuring 1.0 cm in diameter. RIGHT KIDNEY: Normal. No hydronephrosis. No renal calculi or focal parenchymal lesions. The kidney measures 10.0 cm in maximum dimension. LEFT KIDNEY: Normal. No hydronephrosis. No renal calculi or focal parenchymal lesions. The kidney measures 9.1 cm in maximum dimension. SPLEEN: Normal. The spleen measures 8.2 cm in maximum dimension. FREE FLUID: None. US/US abdomen comp w elastography IMPRESSION: 1. Mild hepatic steatosis without focal lesion. Slightly lobulated left hepatic lobe contour was noted. Rest of the abdominal ultrasound is unremarkable. 2. Liver elastography: Median liver stiffness measured 1.89 m/s corresponding to cACLD (suggestive). REFERENCE: Society of Radiologists in Ultrasound Liver Stiffness Thresholds (2020): LIVER STIFFNESS THRESHOLDS: *Liver Stiffness equal or less than 1.3 m/s: High probability of being normal. *Liver Stiffness less than 1.7 m/s: In the absence of other known clinical signs, rules out compensated advanced chronic liver disease. *Liver Stiffness 1.7-2.1 m/s: Suggestive of compensated advanced chronic liver disease but need further test for confirmation. *Liver Stiffness over 2.1 m/s: Rules in compensated advanced chronic liver disease. *Liver Stiffness over 2.4 m/s: Suggestive of clinically significant portal hypertension. QUALITY OF DATA SET: *IQR/Median value equal or less than 0.15 implies a quality data set. *IQR/Median value over 0.15 implies a poor quality data set. SIGNIFICANT CHANGE FROM PRIOR EXAM: Significant change if liver stiffness measurement is 10% or greater from prior exam. OTHER CONSIDERATIONS: The stage of liver fibrosis may be overestimated in the setting of acute hepatitis, liver inflammation, liver function tests, hepatic vascular congestion, obstructive cholestasis, non-fasting state, and infiltrative diseases such as amyloidosis and lymphoma. In some patients with NAFLD, the liver stiffness thresholds for compensated advanced chronic liver disease may be lower. In causes other than viral hepatitis and NAFLD, liver stiffness thresholds are not well established.
== END 2023-04-24 08:58 | disposition home or self-care (01) ==
LOC: HO.US 08:57
PROVIDERS: PCP Nurse Practitioner Primary Care; Visit Provider Nurse Practitioner Primary Care
DX: B18.2 Chronic viral hepatitis C (principal)
CPT/HCPCS: 76700; 76981

== ENCOUNTER 2023-05-15 09:48 | Outpatient (REF) | payer OTHER, SELFPAY ==
[2023-05-15 12:19] LABS: Alanine Aminotransferase 19 U/L (0-31); Albumin Level 3.9 g/dL (3.5-5.0); Alkaline Phosphatase 122 U/L (39-117); Anion Gap 12 (12-20); Aspartate Amino Transferase 28 U/L (5-31); Bilirubin Total 0.4 mg/dL (0.0-1.0); Blood Urea Nitrogen 16 mg/dL (9-16); Calcium 9.8 mg/dL (8.4-10.2); Carbon Dioxide 29 mmol/L (22-29); Chloride 103 mmol/L (96-108); Estimated Glomerular Filt Rate > 60; Glucose Random 120 mg/dL (60-115); Magnesium 1.8 mg/dL (1.6-2.6); Phosphorus 3.2 mg/dL (2.7-4.5); Potassium 3.7 mmol/L (3.3-5.1); Sodium 140 mmol/L (135-145); Total Protein 8.4 g/dL (6.5-8.0)
== END 2023-05-15 09:49 | disposition home or self-care (01) ==
LOC: HO.HHCL 09:48
PROVIDERS: Visit Provider Nurse Practitioner Primary Care
DX: E83.42 Hypomagnesemia (principal); E83.39 Other disorders of phosphorus metabolism; E11.59 Type 2 diabetes mellitus with other circulatory complications; I15.2 Hypertension secondary to endocrine disorders; E87.6 Hypokalemia
CPT/HCPCS: 36415; 80053; 83735; 84100

== ENCOUNTER 2024-01-23 09:59 | Outpatient (REF) | payer OTHER, SELFPAY ==
[2024-01-23 11:32] LABS: Alanine Aminotransferase 27 U/L (0-31); Alkaline Phosphatase 136 U/L (39-117); Anion Gap 13 (12-20); Aspartate Amino Transferase 38 U/L (5-31); Bilirubin Direct 0.2 mg/dL (0.0-0.5); Bilirubin Total 0.5 mg/dL (0.0-1.0); Blood Urea Nitrogen 17 mg/dL (9-16); Calcium 9.9 mg/dL (8.4-10.2); Carbon Dioxide 25 mmol/L (22-29); Chloride 106 mmol/L (96-108); Cholesterol 174 mg/dL (<200); Estimated Glomerular Filt Rate > 60; Glucose Random 144 mg/dL (60-115); HDL Cholesterol 53 mg/dL (>40); LDL Cholesterol Calculated 110 mg/dL (<100); Magnesium 1.9 mg/dL (1.6-2.6); Sodium 140 mmol/L (135-145); Total Protein 8.2 g/dL (6.5-8.0); Triglycerides 59 mg/dL (<150)
[2024-01-23 11:51] LABS: TSH reflex Free T4 2.18 uIU/mL (0.32-4.0)
== END 2024-01-23 10:00 | disposition home or self-care (01) ==
LOC: HO.HHCL 09:59
PROVIDERS: Visit Provider Nurse Practitioner Primary Care
DX: I15.2 Hypertension secondary to endocrine disorders (principal); E11.59 Type 2 diabetes mellitus with other circulatory complications
CPT/HCPCS: 36415; 80048; 80061; 80076; 83735; 84443

== ENCOUNTER 2024-05-24 14:36 | Outpatient (REF) | payer OTHER, SELFPAY ==
[2024-05-27 04:58] LABS: TS Negative Control Passed; TS Panel A 0; TS Panel B 1; TS Positive Control Passed; TSpotTB Negative (Negative)
== END 2024-05-24 14:37 | disposition home or self-care (01) ==
LOC: HO.HHCL 14:36
PROVIDERS: Visit Provider Internal Medicine
DX: Z11.1 Encounter for screening for respiratory tuberculosis (principal)
CPT/HCPCS: 36415; 86481

== ENCOUNTER 2024-06-04 13:12 | Outpatient (REF) | payer OTHER, SELFPAY ==
[2024-06-04 16:59] LABS: Creatinine Urine 207.63 mg/dL; Microalbum/Creatinine Ratio Ur 16.8 ug/mg cr (<30)
== END 2024-06-04 13:13 | disposition home or self-care (01) ==
LOC: HO.HHCL 13:12
PROVIDERS: Visit Provider Internal Medicine
DX: E11.65 Type 2 diabetes mellitus with hyperglycemia (principal)
CPT/HCPCS: 82043; 82570

== ENCOUNTER 2024-07-14 08:51 | Outpatient (REF) | payer OTHER, SELFPAY ==
--- OUTSIDE RECORDS SUMMARY | 2024-07-14 09:18 | XMS_ITS | Encounter Summary ---
Author Organization [employer] Address [address] [facility] 7t [place] [address] Care Team Providers Care Hot Mill Observer Name Role Phone Deana Warren Primary Care Provider [phone] Reason for Visit * Reason Onset Date Comments Nurse Triage 12/30/2023 Encounter Details Date Type Department Care Team ([facility] st Contact Info) Description 12/30/2023 Telephone [facility] [address] [place], [place] [phone] Deana Warren ANP 230 [place], [place] [phone] Nurse Triage Social History Tobacco Use Types Packs/Day Years Used Date Smoking Tobacco: Every Day Cigarettes Smokeless Tobacco: Never Alcohol Use Standard Drinks/Week Comments Not Currently 0 (1 standard drink = 0.6 oz pur e alcohol) Housing Stability Answer Date Recorded What is your housing situation today? I have adeline coles 12/27/[address] you li ve. Do you have problems with any of the following? None of the above 12/27/2022 Food Insecurity Answer Date Recorded Within the past 12 months, y ou worried that your food would run out before you got money to buy more: Never True 12/27/2022 Within the past 12 months,th e food you bought just didn't last and you didn't have enough money to get more: Never True Transportation Answer Date Recorded In the past 12 months, has l ack of transportation kept you from medical appts, meetings, work or from getting things needed for daily living? No 12/27/2022 Utilities Answer Date Recorded In the past 12 months, has t he electric, gas, oil or water company threatened to shut off services in your home? No 12/27/2022 Depression Answer Date Recorded Patient Health Questionnaire-2 Score 0 05/15/2023 Comments No Sex and Gender Information Value Date Recorded Sex Assigned at Female 01/07/2022 10:18 AM EDT Legal Sex Female 10:18 AM EDT Gender Identity Female 01/07/2022 10:18 AM EDT Sexual Orientation Straight 01/07/2022 10 :18 AM EDT documented as of this encounter Miscellaneous Notes * Telephone Encounter - Katherine Funes RN - 12/30/2023 1:48 PM EDT Triage call Pt reports headache for 2 days or more, Am and PM Pt has this headache. Pt is diabetic and hasn't checked BS yet today. Advised to check BS first thing in the morning and Pt agrees. Pt reports drinking adequate liquids. Pt reports pain is constant over the forehead area and sides of head over ears. Pt has not vomited but, is experiencing nausea. Pt is neg for fever. Pt is taking tylenol which doesn't reduce pain at all. ASK apt with SUSAN May 01/02/24 @ 915am. Pt is offered to come to [facility] today but, declines due to lack of transportation. Pt agrees with disposition and homecare is reviewed. Protocol Used: Headache (Adult) Protocol-Based Disposition: See in Office or Video Visit within 3 Days Video visit not offered Positive Triage Question: * Mild - Moderate headache present > 3 days (72 hours) * All higher-acuity triage questions were negative Care Advice Discussed: * Pain Medicines * Cold Pack for Headache * Reasons To Call Back - Severe headache lasts over 2 hours after pain medicine - Headache lasts over 72 hours - Stiff neck occurs (can't touch chin to chest) - You become worse * Telephone Encounter - Christie Umaña - 12/30/2023 1:17 PM EDT Symptom: Headache Outcome: Schedule an urgent appointment (within 4 hours) or talk to a nurse or provider soon Reason: Started within the past 3 days The caller accepted this outcome. documented in this encounter Plan of Treatment Upcoming Encounters Date Type Department Care Team (Late st Contact Info) Description 07/19/2024 9:15 AM EDT Office Visit [facility] [address] [place] [address] Katt Lazcano, OD [address] [place] [address] 08/10/2024 11:30 AM EDT Office Visit [facility] [address] [place] [address] Deana Warren ANP 230 [place] [address] 10/08/2024 4:00 PM EDT Office Visit [facility] [address] [place] [address] Troy Cueto MD 230 [place] [address] documented as of this encounter Visit Diagnoses Not on filedocumented in this encounter Care Teams Hot Mill Observer Relationship Specialty Start Date End Date Deana Warren ANP [address] [place] [address] PCP - General Family Medicine 03/29/22 documented as of this encounter
--- OUTSIDE RECORDS SUMMARY | 2024-07-14 09:18 | XMS_ITS | Encounter Summary ---
Author Organization [employer] Address [address] [facility] 7t [place] [address] Care Team Providers Care Regulator Tester Name Role Phone Deana Warren Primary Care Provider [phone] Reason for Visit * Reason Onset Date Comments Appointment Request 09/02/2023 Encounter Details Date Type Department Care Team ([facility] st Contact Info) Description 09/02/2023 Telephone [facility] [address] [place], [place] [phone] Deana Warren ANP 230 [place], [place] [phone] Appointment Request Social History Tobacco Use Types Packs/Day Years [...] encounter Miscellaneous Notes * Telephone Encounter - Grupo Geoffrey - 09/02/2023 4:21 PM EDT Tc from pt requesting to reschedule OV ext 07/16. Assembler Arranger offered 12/03 but pt refused and is requesting a sooner appt if possible. Please contact pt at [phone]. documented in this encounter Plan of Treatment Upcoming Encounters Date Type Department Care Team (Late st Contact Info) Description 07/19/2024 9:15 AM EDT Office Visit [facility] [address] [place] [address] Katt Lazcano, MARLENE [address] [place] [address] 08/10/2024 11:30 AM EDT Office Visit [facility] [address] [place] [address] Deana Warren ANP [address] [place] [address] 10/08/2024 4:00 PM EDT Office Visit [facility] [address] [place] [address] Troy Cueto MD [address] [place] [address] documented as of this encounter Visit Diagnoses Not on filedocumented in this encounter Care Teams Regulator Tester Relationship Specialty Start Date End Date Deana Warren ANP [address] [place] [phone] PCP - General Family Medicine 03/29/22 documented as of this encounter
--- OUTSIDE RECORDS SUMMARY | 2024-07-14 09:18 | XMS_ITS | Encounter Summary ---
Author Organization [employer] Address [address] [facility] 7t [place] [address] Care Team Providers Care Global Position System Technician Name Role Phone Deana Warren Primary Care Provider [phone] Reason for Visit * Reason Onset Date Comments triage 05/22/2022 Encounter Details Date Type Department Care Team (Late st Contact Info) Description 05/22/2022 Telephone [facility] 230 [place], [place] [phone] Deana Warren ANP 230 [place] [address] triage Social History Tobacco Use Types Packs/Day Years Used Date Smoking Tobacco: Never Assessed Comments Unknown Sex and Gender Information Value Date Recorded Sex Assigned at Female 01/07/2022 10:18 AM EDT Legal Sex Female 10:18 AM EDT Gender Identity Female 01/07/2022 10:18 AM EDT Sexual Orientation Straight 01/07/2022 10 :18 AM EDT documented as of this encounter Miscellaneous Notes * Telephone Encounter - Nicho Calhoun - 05/22/2022 11:24 AM EDT Symptom: Medication Question Outcome: Schedule a same-day appointment or talk to a nurse or provider today Reason: No high acuity concerns reported by caller The caller accepted this outcome documented in this encounter Plan of Treatment Upcoming Encounters Date Type Department Care Team (Late st Contact Info) Description 07/19/2024 9:15 AM EDT Office Visit [facility] [address] [place], [place] [phone] Katt Lazcano, OD [address] [place], [place] [phone] 08/10/2024 11:30 AM EDT Office Visit [address] [address] Deana Warren ANP [address] [place] [address] 10/08/2024 4:00 PM EDT Office Visit [address] [address] Troy Cueto MD [address] [place] [address] documented as of this encounter Visit Diagnoses Not on filedocumented in this encounter Care Teams Global Position System Technician Relationship Specialty Start Date End Date Deana Warren ANP [address] [place] [phone] PCP - General Family Medicine 03/29/22 documented as of this encounter
--- OUTSIDE RECORDS SUMMARY | 2024-07-14 09:18 | XMS_ITS | Encounter Summary ---
Author Organization [employer] Address [address] [facility] 7t [place] [address] Care Team Providers Care Salt Maker Name Role Phone Deana Warren Primary Care Provider [phone] Reason for Visit * Reason Onset Date Comments Nurse Triage 10/13/2023 Encounter Details Date Type Department Care Team ([facility] st Contact Info) Description 10/13/2023 Telephone [facility] 230 [place], [place] [phone] Deana Warren ANP [address] [place], [place] [phone] Nurse Triage Social History Tobacco Use Types [...] encounter Miscellaneous Notes * Telephone Encounter - Jose Keller - 10/13/2023 2:44 PM EDT Symptom: Urination Pain Outcome: Schedule an urgent appointment (within 1 hour) or talk to a nurse or provider soon Reason: Severe pain now The caller accepted this outcome documented in this encounter Plan of Treatment Upcoming Encounters Date Type Department Care Team (Late st Contact Info) Description 07/19/2024 9:15 AM EDT Office Visit [facility] [address] [place] [address] Katt Lazcano OD [address] [place] [address] 08/10/2024 11:30 AM EDT Office Visit [facility] [address] [place] [address] Deana Warren ANP [address] [place] [address] 10/08/2024 4:00 PM EDT Office Visit [facility] [address] [place] [address] Troy Cueto MD [address] [place] [address] documented as of this encounter Visit Diagnoses Not on filedocumented in this encounter Care Teams Salt Maker Relationship Specialty Start Date End Date Deana Warren ANP [address] [place] [address] PCP - General Family Medicine 03/29/22 documented as of this encounter
--- OUTSIDE RECORDS SUMMARY | 2024-07-14 09:18 | XMS_ITS | Encounter Summary ---
Author Organization [employer] Address [address] [facility] 7t [place] [address] Care Team Providers Care Director Market Intelligence Name Role Phone Deana Warren Primary Care Provider Reason for Visit * Reason Onset Date Comments new script 06/21/2022 Encounter Details Date Type Department Care Team ([facility] st Contact Info) Description 06/21/2022 Telephone [facility] [address] [place], [place] [phone] Deana Warren ANP 230 [place], [place] [phone] new script Social History Tobacco Use Types Packs/Day Years Used Date Smoking Tobacco: Every Day Cigarettes Smokeless Tobacco: Never Alcohol Use Standard Drinks/Week Comments Not Currently 0 (1 standard drink = 0.6 oz pur e alcohol) Comments Unknown Sex and Gender Information Value Date Recorded Sex Assigned at Female 01/07/2022 10:18 AM EDT Legal Sex Female 10:18 AM EDT Gender Identity Female 01/07/2022 10:18 AM EDT Sexual Orientation Straight 01/07/2022 10 :18 AM EDT COVID-19 Exposure Response Date Recorded In the last 10 days, have yo u been in contact with someone who was confirmed or suspected to have Coronavirus/COVID-19? No / Unsure 06/13/2022 10:51 AM EDT documented as of this encounter Miscellaneous Notes * Telephone Encounter - Roro Ng - 06/21/2022 11:18 AM EDT TC from [facility] Pharmacy stated insurance do not covered admelog insulin but insurance will be cover Novolog flexpen. Pt without insulin. PCP DR. Warren documented in this encounter Plan of Treatment Upcoming Encounters Date Type Department Care Team (Late st Contact Info) Description 07/19/2024 9:15 AM EDT Office Visit [facility] [address] [place] [address] Katt Lazcano, OD [address] [place] [address] 08/10/2024 11:30 AM EDT Office Visit [facility]INE [address] [place] [address] Deana Warren ANP [address] [place] [address] 10/08/2024 4:00 PM EDT Office Visit [facility] MEDICINE [address] [place] [address] Troy Cueto MD [address] [place] [address] documented as of this encounter Visit Diagnoses Not on filedocumented in this encounter Care Teams Director Market Intelligence Relationship Specialty Start Date End Date Deana Warren ANP [address] [place] [phone] PCP - General Family Medicine 03/29/22 documented as of this encounter
--- OUTSIDE RECORDS SUMMARY | 2024-07-14 09:19 | XMS_ITS | Encounter Summary ---
Author Organization [employer] Address [address] [facility] 7t [place] [address] Care Team Providers Care Hall Director Name Role Phone Deana Warren Primary Care Provider Encounter Details Date Type Department Care Team (Late st Contact Info) Description 04/04/2022 Telephone [facility] [address] [place] [address] Deana Warren ANP [address] [place] [address] Social History Tobacco Use Types Packs/Day Years [...] suspected to have Coronavirus/COVID-19? No / Unsure 04/03/2022 9:09 AM EST documented as of this encounter Plan of Treatment Upcoming Encounters Date Type Department Care Team (Late st Contact Info) Description 07/19/2024 9:15 AM EDT Office Visit [facility] [address] [place] [address] Katt Lazcano OD [address] [place] [address] 08/10/2024 11:30 AM EDT Office Visit [facility] [address] [place] [address] Deana Warren ANP 230 [place] [address] 10/08/2024 4:00 PM EDT Office Visit [facility] [address] [place], [place] [phone] Troy Cueto MD [address] [place], [place] [phone] documented as of this encounter Visit Diagnoses Not on filedocumented in this encounter Care Teams Hall Director Relationship Specialty Start Date End Date Deana Warren ANP [address] [place] [phone] PCP - General Family Medicine 03/29/22 documented as of this encounter
--- OUTSIDE RECORDS SUMMARY | 2024-07-14 09:19 | XMS_ITS | Encounter Summary ---
Author Organization [employer] Address [address] [facility] 7t [place] [address] Care Team Providers Care Stone Polisher Name Role Phone Deana Warren Primary Care Provider [phone] Encounter Details Date Type Department Care Team (Late st Contact Info) Description 04/20/2024 Orders Only [facility] [address] [place], [place] [phone] Deana Warren ANP [address] [place], [place] [phone] Social History Tobacco Use Types Packs/Day Years Used Date Smoking Tobacco: Every Day Cigarettes Smokeless Tobacco: Never Alcohol Use Standard Drinks/Week Comments Not Currently 0 (1 standard drink = 0.6 oz pur e alcohol) Depression Answer Date Recorded Patient Health Questionnaire-9 Score 24 03/16/2024 Patient Health Questionnaire-9 Score 24 03/16/2024 Last PHQ-9: Questionnaire Data Not on file 0 03/16/2024 Housing Stability Answer Date Recorded What is your housing situation today? I have adeline coles 03/16/[address] you li ve. Do you have problems with any of the following? None of the above 03/16/2024 Food Insecurity Answer Date Recorded Within the past 12 months, y ou worried that your food would run out before you got money to buy more: Never True 2024 Within the past 12 months,th e food you bought just didn't last and you didn't have enough money to get more: Sometimes True 03/16/2024 Transportation Answer Date Recorded In the past 12 months, has l ack of transportation kept you from medical appts, meetings, work or from getting things needed for daily living? I am not sure 03/16/2024 Utilities Answer Date Recorded In the past 12 months, has t he [email or web address], gas, oil or water company threatened to shut off services in your home? No 03/16/2024 Depression Answer Date Recorded Patient Health Questionnaire-2 Score 6 03/16/2024 Internet Access Answer Date Recorded Internet Access Q1 Yes 03/16/2024 Internet Access Q2 Not on file 03/16/2024 Comments No Sex and Gender Information Value Date Recorded Sex Assigned at Female 01/07/2022 10:18 AM EDT Legal Sex Female 10:18 AM EDT Gender Identity Female 01/07/2022 10:18 AM EDT Sexual Orientation Straight 01/07/2022 10 :18 AM EDT documented as of this encounter Plan of Treatment Upcoming Encounters Date Type Department Care Team (Late st Contact Info) Description 07/19/2024 9:15 AM EDT Office Visit [facility] [address] [place] [address] Katt Lazcano, OD [address] [place] [address] 08/10/2024 11:30 AM EDT Office Visit [facility] [address] [place] [address] Deana Warren ANP [address] [place] [address] 10/08/2024 4:00 PM EDT Office Visit [facility] [address] [place] [address] Troy Cueto MD [address] [place] [address] documented as of this encounter Visit Diagnoses Not on filedocumented in this encounter Additional Health Concerns Assessment Noted Time PHQ-9 Depression Total Score: 24 025 9:43 AM EST documented as of this encounter Care Teams Stone Polisher Relationship Specialty Start Date End Date Deana Warren ANP [address] [place] [address] PCP - General Family Medicine 03/29/22 documented as of this encounter
--- OUTSIDE RECORDS SUMMARY | 2024-07-14 09:19 | XMS_ITS | Encounter Summary ---
Author Organization [employer] Address [address] [facility] 7t [place] [address] Care Team Providers Care Insurance Representative Name Role Phone Deana Warren Primary Care Provider [phone] Encounter Details Date Type Department Care Team (Late st Contact Info) Description 07/08/2024 Telephone [facility] 230 [place], [place] [phone] Deana Warren ANP [address] [place], [place] [phone] Social History Tobacco Use Types Packs/Day Years [...] the past 12 months, has t he [employer], [employer], oil or water [place] threatened to shut off services in your [...] Description 07/19/2024 9:15 AM EDT Office Visit [facility] [address] [place] [address] Katt Lazcano, OD [address] [place] [address] 08/10/2024 11:30 AM EDT Office Visit [facility] [address] [place] [address] Deana Warren ANP [address] [place] [address] 10/08/2024 4:00 PM EDT Office Visit [facility] [address] [place] [address] Troy Cueto MD [address] [place] [address] documented as of this encounter Visit Diagnoses Not on filedocumented in this encounter Additional Health Concerns Assessment Noted Time PHQ-9 Depression Total Score: 24 025 9:43 AM EST documented as of this encounter Care Teams Insurance Representative Relationship Specialty Start Date End Date Deana Warren ANP [address] [place] [address] PCP - General Family Medicine 03/29/22 documented as of this encounter
--- OUTSIDE RECORDS SUMMARY | 2024-07-14 09:19 | XMS_ITS | Encounter Summary ---
Author Organization [employer] Address [address] [facility] [address] [place] [address] Care Team Providers Care Globe Changer Name Role Phone Deana Warren Primary Care Provider [phone] Reason for Visit * Reason Onset Date Comments Appointment Request 07/28/2023 Encounter Details Date Type Department Care Team ([facility] st Contact Info) Description 07/28/2023 Telephone [facility] [address] [place], [place] [phone] Deana Warren ANP [address] [place], [place] [phone] Appointment Request Social History Tobacco Use Types [...] * Telephone Encounter - Jose Keller - 07/28/2023 1:54 PM EDT Tc from patient calling to request a post-op appt stated had a procedure done on 07/20 [facility] patient had a Hip surgery and would like to follow up with the provider documented in this encounter Plan of Treatment Upcoming Encounters Date Type Department Care Team (Late st Contact Info) Description 07/19/2024 9:15 AM EDT Office Visit [facility] [address] [place] [address] Katt Lazcano, MARLENE [address] [place] [address] 08/10/2024 11:30 AM EDT Office Visit [facility] [address] [place] [phone] Deana Warren ANP [address] [place] [address] 10/08/2024 4:00 PM EDT Office Visit [facility] [address] [place] [phone] Troy Cueto MD [address] [place] [address] documented as of this encounter Visit Diagnoses Not on filedocumented in this encounter Care Teams Globe Changer Relationship Specialty Start Date End Date Deana Warren ANP [address] [place] [phone] PCP - General Family Medicine 03/29/22 documented as of this encounter
--- OUTSIDE RECORDS SUMMARY | 2024-07-14 09:19 | XMS_ITS | Data Portability ---
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 I have reviewed and agree with the Assessment and Plan as documented by the Peace Officer. Patient given the opportunity to ask questions. Our service contacted for an assessment of: Urinary symptom As per above, patient developed urinary symptoms of frequency dysuria last week. Things got better without treatment. Calls the service today for evaluation. Denies fever chills. Denies flank pain or abdominal pain. Resolved lower tract symptoms. Per human resources project manager on the scene, five hundred stable the patient is afebrile. UA as noted in human resources project manager evaluation is overall negative. Impression: Resolved urinary tract symptoms that were lower tract in nature and likely self resolve cystitis. Plan: Continue observation Allergies: Reviewed and updated PCP f/u: We discussed the diagnostic uncertainty of home visits and the risk associated with this. In this case, the patient and I felt this to be an acceptable and reasonable amount of risk given the benefit of avoiding an ED visit. We discussed the need to seek care urgently/emerge ntly in the setting of any new or worsening serious symptoms, particularly fever chills [email or web address] Not available 12/08/2023 21:18:11 Plan of Treatment Reminders Order Date Submit Date Provider Last Modified By Organization Details Last Modified Time Details Appointments None recorded. Lab urinalysis , dipstick 2023 024 [facility], [address] [place] [address], [phone] 21:17:32 Referral None recorded. Procedures None recorded. Surgeries None recorded. Imaging None recorded. Medication Orders None recorded. Patient TargetsNo targets recorded. Patient InstructionsNo instructions recorded. Reason for Referral None Reported. Results Created Date Observation Date Name Description Value Unit Range Abnormal Flag Note LastModifiedBy Organization Detail LastModifiedTime Result Notes None recorded. Medical Equipment None Reported. Allergies No known drug allergies Medications Name Sig Start Date Stop Date Status Note LastModified by Organization Details LastModified Time nicotine 14 mg/[address] patch [address] 1 PATCH ON THE SKIN 1 TIME EACH DAY AT THE SAME TIME. active Not Available Not Available N ot Available albuterol sulfate 2.5 mg/3 mL (0.083 %) solution for nebulization TAKE 3 ML (2.5 MG) VIA NEBULIZATIO N EVERY 6 HOURS NEEDED FOR WHEEZE active Not Available Not Available No t Available azithromycin 250 mg tablet TAKE 2 TABLETS BY MOUTH TODAY, THEN TAKE 1 TABLET DAILY FOR 4 DAYS DIRECTED active Not Available Not Available No t Available aspirin 325 mg tablet TAKE 1 TABLET BY MOUTH EVERY DAY active Not Available Not Available No t Available Glucagon Emergency Kit 1 mg solution for injection PLEASE SEE ATTACHED FOR DETAILED DIRECTIONS active Not Available Not Available N ot Available naltrexone 50 mg tablet TAKE 1/2 TAB (=25MG) BY MOUTH DAILY FOR 4 DAYS THEN INCREASE TO 1 TAB (=50MG) DAILY active Not Available Not Available No t Available thiamine HCl (vitamin B1) 100 mg tablet TAKE 1 TABLET BY MOUTH EVERY DAY IN THE MORNING active Not Available Not Available No t Available olanzapine 10 mg tablet TAKE 1 TABLET BY MOUTH EVERY DAY AT NIGHT active Not Available Not Available No t Available amlodipine 2.5 mg tablet active Not Available Not Available Not Available ciprofloxaci n 500 mg tablet TAKE 1 TABLET BY MOUTH TWICE A DAY active Not Available Not Available No t Available omeprazole 40 mg capsule,camlia yed release TAKE 1 CAPSULE BY MOUTH EVERY DAY BEFORE A MEAL active Not Available Not Available No t Available olanzapine 7.5 mg tablet TAKE 1 TABLET BY MOUTH AT BEDTIME. active Not Available Not Available No t Available OneTouch Ultra Test strips TEST BLOOD SUGAR THREE TIMES A DAY active Not Available Not Available Not Available erythromycin 5 mg/gram (0.5 %) eye ointment PLACE 0.5 INCHES INTO EACH EYE 2 (TWO) TIMES A DAY FOR 13 DOSES. active Not Available Not Available No t Available lisinopril 10 mg tablet TAKE 1 TABLET BY MOUTH EVERY DAY active Not Available Not Available No t Available nicotine 21 mg/[address]dermal patch [address]ACE 1 PATCH ON THE SKIN 1 TIME EACH DAY AT THE SAME TIME. active Not Available Not Available N ot Available ibuprofen 200 mg tablet TAKE 1 TABLET (200 MG TOTAL) BY MOUTH EVERY 6 (SIX) HOURS NEEDED. active Not Available Not Available N ot Available lisinopril 30 mg tablet TAKE 1 TABLET (30 MG) BY MOUTH IN THE MORNING active Not Available Not Available Not Available gabapentin 300 mg capsule TAKE 1 CAPSULE BY MOUTH TWICE A DAY active Not Available Not Available No t Available levetiraceta m 750 mg tablet TAKE 2 TABLETS (1,500 MG TOTAL) BY MOUTH 2 (TWO) TIMES A DAY. active Not Available Not Available No t Available lisinopril 5 mg tablet TAKE 1 TABLET BY MOUTH EVERY DAY active Not Available Not Available No t Available zolpidem 5 mg tablet TAKE 1 TABLET BY MOUTH EVERY DAY AT BEDTIME NEEDED active Not Available Not Available No t Available albuterol sulfate HFA 90 mcg/actuatio n aerosol inhaler INHALE 1 PUFF INTO THE LUNGS EVERY 4 HOURS NEEDED FOR WHEEZING. active Not Available Not Available No t Available oxycodone 5 mg tablet TAKE 1-2 TABLETS BY MOUTH EVERY 6 HOURS NEEDED *E* active Not Available Not Available N ot Available bupropion HCl SR 200 mg tablet,12 hr sustained-re lease TAKE 1 TABLET BY MOUTH EVERY DAY IN THE MORNING active Not Available Not Available No t Available Novolog FlexPen U-100 Insulin aspart 100 unit/mL (3 mL) subcutaneous INJECT 6 UNITS WITH MEALS, UP TO 3 TIMES A DAY. DO NOT ADMINISTER IF BLOOD SUGAR IS < 120. active Not Available Not Available No t Available BD Ultra-Fine Mini Pen Needle 31 gauge x 3/16 USE THREE TIMES DAILY WITH INSULIN active Not Available Not Available No t Available Glutose-15 40 % oral gel PLEASE SEE ATTACHED FOR DETAILED DIRECTIONS active Not Available Not Available N ot Available Lantus Solostar U-100 Insulin 100 unit/mL (3 mL) subcutaneous pen ADMINISTER 32 UNITS SUBCUTANEOU SLY AT BEDTIME active Not Available Not Available No t Available OneTouch Delica Plus Lancet 33 gauge TEST BLOOD SUGAR THREE TIMES A DAY active Not Available Not Available Not Available Semglee (insulin glargine-yfg n) Pen 100 unit/mL (3 mL) subcutaneous ADMINISTER 32 UNITS SUBCUTANEOU SLY AT BEDTIME active Not Available Not Available No t Available Vitals Date Recorded Body temperature Respiratory rate Heart rate Oxygen saturation Oxygen saturation in Arterial blood by Pulse oximetry Systolic blood pressure Diastolic blood pressure Provider Name and Address Organization Details Last Updated DateTime 4 97.9 [degF] 16 /min 92 /min 99 % 99 % 130 mm[Hg] 72 mm[Hg] Not Available [facility] - production 4 21:16:18 Social History None recorded. Functional Status None recorded. Mental Status None recorded. Family History Nothing Reported. Medical History No medical history recorded. Gynecological HistoryNo gynecological history recorded. Obstetrics History GPAL:G 0 P 0 0 0 0 Past Encounters Encounter ID Performer Location Encounter Start Date Encounter Closed Date Diagnosis/Indication Diagnosis SNOMED-CT Code Diagnosis ICD10 Code Diagnosis Note [id number] Anjana Obando MD [facility] [address] [place] [phone] 12/08/2023 21:16:16 12/09/2023 12:54:16 Urinary symptoms 300903860 R39.9 Health Concerns Section Related Observation LastModified by Organization Detai ls LastModified Time None Recorded Concern Status LastModified by Organization Details LastModified Time None Recorded Advance Directives Directive None Recorded Payers Insurance Date Sequence Insurance Name Policy Number Policy Blanca Covered Member ID Blanca Member ID Guarantor Name 12/10/2023 1 [facility] - DOS ON OR AFTER 2022 - DUAL ELIGIBLE - [employer] OPT[employer] AND ONE CARE (MEDICARE REPLACEMENT/ADV ANTAGE - HMO) Cora Moranana [id number] [facility] Notes Date Note Type Note Provider Name and Address Organization Details Recorded Time 12/08/2023 text/html HPI: PMHx: Chronic hep c, RANJIT, Call returned to Corajamarcus Smith to triage below. Reports having pain with passing urine x 1 week. Not dark color. Pt having flank pain. Denies any fever. Pt denies any blood in urine. Pt also endorses vaginal discharge. Per pt has been checking BS. Reports BS was 113mg/dL. Pt denies any nausea vomiting or fever. Pt advised of disposition, agrees to [facility] referral for exam. As not able to come into [facility]. Confirmed address and phone number. .................. .................. .................. .................. .................. .................. .................. ............... [facility] Nurse Triage Notes (Saleem Sears): Chief Complaints: UTI/Pyelonephritis PMH: COPD/Asthma, Hypertension, Diabetes Comments: Reviewed HPI Peace Officer Organization Information for Anjel Gracia Office [employer] Legal Name: [employer] ([employer] Address: [address] [place] [id number], Electrical Prospecting Engineer: Luis EMERY No.: [id number] Peace Officer POC Test Results from Anjel Gracia Urine Dipstick (19:54:02) Urine leukocytes: - MARIAM Urine nitrites: - NIT Urine urobilinogen: - URO Urine protein: - PRO Urine pH: - pH Urine blood: - BLO Urine specific gravity: 1.005 SG Urine ketones: + KET Urine bilirubin: - INOCENCIA Urine glucose: - GLU .................. .................. .................. .................. .................. .................. .................. ............... Peace Officer Note From Anjel Gracia: Dispatched to the call address for the female with UTI symptoms. Pt states for a week she had mild burning when urinating and lower back pain. She has been drinking as much water as she can tolerate and urinating a lot. Today she feels a lot better and no longer has that pain. She states she does get UTIs and had one last month. She denies n/v/d, CP, sob or abd pain at this time. Pt was found opening door, CAOx4, airway open and patent, breathing non labored, able to speak in full sentences, -JVD, -HEENT, skin WPD with good turgor, abd soft non tender/distended, pupils PERRL, -EDEMA, lungs CTA, mucous membranes pink and moist. UA (-). [facility] consulted. Red flags discussed. ALL times are approx. .................. .................. .................. .................. .................. .................. .................. ............... Disposition: Fulfilled Anjana Obando MD [address] [facility], [place], [phone], KILLIAN - [employer] 12/08/2023 21:18:40 OBGyn Episode No OBEpisode recorded.
--- OUTSIDE RECORDS SUMMARY | 2024-07-14 09:19 | XMS_ITS | Clinical Summary ---
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 acetaminophen (Tylenol) 325 MG tablet TAKE 2 TABLETS BY MOUTH EVERY 6 HOURS NEEDED FOR MILD PAIN 12/08/19 22 Active albuterol 108 (90 Base) MCG/ACT inhaler INHALE 1 PUFF BY MOUTH EVERY 4 HOURS NEEDED FOR WHEEZING 12/08/19 22 Active glucose (Glutose) 40 % gel oral gelIndications: Type 2 diabetes mellitus with hyperglycemia, with long-term current use of insulin ([facility]) Administer 15 g orally as needed for blood glucose < 60 mg/dl. Use glucagon if pt cannot swallow or is unresponsive. Call emergency if pt is lethargic or unresponsive. 45 g 3 03/30/19 23 Active glucagon (Gvoke HypoPen) 1 MG/0.2ML injectionIndica tions:Type 2 diabetes mellitus with hyperglycemia, with long-term current use of insulin ([facility]) Administer 1 mg subcutaneously when pt has low blood glucose and cannot swallow or is unresponsive. May repeat in 15 min. Call emergency service if pt is unresponsive or lethargic. 2 each 3 03/30/19 23 Active Blood Glucose Monitoring Suppl (ONE TOUCH ULTRA 2) w/Device kit USE TOCHECK BLOOD SUGAR THREE TIMES DAILY 03/30/19 23 Active insulin aspart FlexPen (NovoLOG) 100 UNIT/ML pen Inject 6 units with meals, up to TID. Do not administer if blood sugar is < 120. 15 mL 3 06/22/19 23 Active lidocaine (Lidoderm) 5 % patchIndication s:Acute pain of right shoulder Apply 1 patch topically in the morning. Remove & discard patch within 12 hours or as directed by MD. 30 patch 2 11/05/19 23 Active albuterol (2.5 MG/3ML) 0.083% nebulizer solutionIndicat ions:Shortness of breath Take 3 mL (2.5 mg) by nebulization every 6 (six) hours if needed for wheezing. 75 mL 11 11/05/19 23 Active nicotine (Nicoderm, Step 1) 21 MG/24HR patchIndication s:Nicotine Dependence Place 1 patch on the skin 1 (one) time each day at the same time. 28 patch 1 05/15/19 24 Active nicotine (Nicoderm, Step 2) 14 MG/24HR patchIndication s:Nicotine Dependence Place 1 patch on the skin 1 (one) time each day at the same time. 28 patch 05/15/19 24 Active aspirin 325 MG tablet Take 1 tablet by mouth Once per day. 07/01/19 24 Active amLODIPine (Norvasc) 2.5 MG tabletIndicatio ns:Hypertension associated with diabetes (CMS/HCC) TAKE 1 TABLET BY MOUTH EVERY DAY 90 tablet 1 12/16/19 24 Active gabapentin (Neurontin) 300 MG capsuleIndicati ons:Seizure (CMS/HCC) Take 1 capsule (300 mg) by mouth 2 times daily. 60 capsule 2 03/16/19 25 Active Continuous Glucose Top Cleaner (FreeStyle Nivia 2 [place]) deviceIndicatio ns:Hypertension associated with diabetes (CMS/HCC) Scan sensor every 8 hours 1 each 03/16/19 25 Active Continuous Glucose Sensor (FreeStyle Invia 2 Sensor) miscIndications :Hypertension associated with diabetes (CMS/HCC) Apply 1 sensor every 14 days 2 each 03/16/19 25 Active glucose blood (FreeStyle Precision Shin Test) test stripIndication s:Hypertension associated with diabetes (CMS/HCC) Use to test blood sugar 3 times daily 100 each 12 03/16/19 25 026 Active insulin pen needle (B-D UF III MINI PEN NEEDLES) 31G x 5 mm miscIndications :Type 2 diabetes mellitus with hyperglycemia, with long-term current use of insulin (CMS/HCC) USE THREE TIMES DAILY WITH INSULIN 100 each 3 03/16/19 25 Active omeprazole (PriLOSEC) [address] capsuleIndicati ons:Gastroesoph ageal reflux disease, unspecified whether esophagitis present TAKE 1 CAPSULE BY MOUTH EVERY DAY BEFORE A MEAL 90 capsule 1 03/16/19 25 Active rosuvastatin (Crestor) 20 MG tabletIndicatio ns:Dyslipidemia Take 1 tablet (20 mg) by mouth Once per day. 90 tablet 3 03/16/19 25 026 Active insulin degludec (Tresiba FlexTouch) 100 UNIT/ML injectionIndica tions:Type 2 diabetes mellitus with hyperglycemia, with long-term current use of insulin (CMS/HCC) Inject 32 Units under the skin Once daily. 15 mL 3 04/19/19 25 Active lisinopril 30 MG tabletIndicatio ns:Hypertension associated with diabetes (CMS/HCC) TAKE 1 TABLET BY MOUTH EVERY DAY 90 tablet 1 04/20/19 25 Active ciclopirox (Penlac) 8 % solutionIndicat ions:Onycholysi s Apply topically at bedtime. 6 mL 05/25/19 25 Active OneTouch Ultra test strip TEST BLOOD SUGAR THREE TIMES A DAY 300 strip 1 05/26/19 25 Active OLANZapine (ZyPREXA) 10 MG tabletIndicatio ns:Bipolar affective disorder, remission status unspecified (CMS/HCC) Take 1 tablet (10 mg) by mouth at bedtime. 30 tablet 1 06/01/19 25 025 Active zolpidem (Ambien) 5 MG tabletIndicatio ns:Insomnia, unspecified type Take 1 tablet (5 mg) by mouth if needed at bedtime for sleep. 30 tablet 06/01/19 25 Active FLUoxetine (PROzac) 10 MG capsuleIndicati ons:Severe episode of recurrent major depressive disorder, without psychotic features (CMS/HCC) Take 1 capsule (10 mg) by mouth in the morning. 30 capsule 1 06/01/19 25 025 Active Active Problems Problem Noted Date Diagnosed Date Asymptomatic menopausal state 05/24/2024 Onycholysis 05/24/2024 Tuberculosis screening 05/24/2024 Current severe episode of ma jason depressive disorder without psychotic features 03/16/2024 Assessment & Plan (03/16/2024 11:00 AM EST): During IBH Consult Cora presenting with depressed mood, Tearful, crying spells , hopelessness, irritable mood, loss of interests/pleasure , sense of isolation/loneliness , isolating, change in appetite or weight reduce appetite, changes in sleep difficulty falling asleep and difficulty staying asleep , psychomotor retardation, fatigue/loss of energy, worthlessness, inappropriate/excessive guilt , difficulty concentrating, indecisiveness; for a period of 0-6 mo, for most or all symptoms in the context of illness or family illness. Cora reported feeling overwhelmed with strong sadness emotions. She feels very depressed lately. It is difficult for patient to share with her emotions with family. Triggers associated with her medical condition. Pt was connected with a therapist and psychiatrist (agency unknown). Per patient's report they stopped calling. She didn't have more refills. PCP will do a month med supply until she gets connected with psychiatry. clinician engaged with active/reflective listening. Reviewed and assessed for risk, current stressors and protective factors using open-ended questions. Empathized and validated patient's emotions. Explored coping strategies that she can incorporate into her daily routine. Referral for OP therapy and psychiatry services will be place. Seizure 05/15/2023 RANJIT (acute kidney injury) 06/13/2022 Type 2 diabetes mellitus with hyperglycemia 03/11 Assessment & Plan (05/24/2024 4:12 PM EDT): Diabetes is: almost at goal - Lab Results Component Value Date HGBA1C 7.5 (A) 05/13/2024 HGBA1C 7.6 (A) 01/21/2024 HGBA1C 6.8 (A) 05/15/2023 - Lab Results Component Value Date CREATININE 0.70 01/23/2024 -Changes: None - Diabetic eye exam: Up-to-date - Diabetic foot exam: Pending- Continue lifestyle modifications - Continue current medications - Follow up: 3 months Assessment & Plan (04/03/2022 9:45 AM EST): New dx on admission 01/2022. Dishcarge from Rehab on with Insulin glargine dose was increased from 24 to 32 units daily Insulin lispro dose was changed from 0-12 units before meals to 6 units before meals; sliding scale did not change (6+2 scale). It is unclear dose she got this am. Will connect family with pharmacist today for insulin teaching. Hx of sepsis 04/03/2022 Hypoglycemia 04/03/2022 Assessment & Plan (04/03/2022 9:48 AM EST): BS 43 on arrival to clinic with altered mental status, weakness and diaphoresis. Glucose gel 15% given 1 and 1/2 and BS repeat 83 with improvment in mental status. It is unclear the dose and formulation of insulin pt got this am. Family repots they were not given any teaching on insulin use. Will connect family now with pharmacy for insulin teaching. -pt transferred to hospital for symptomatic Hypoglycemia in the setting of unknown insulin dose/formulation this am. Alcoholism 03/29/2022 Bipolar disorder 03/29/2022 Chronic hepatitis C 03/29/2022 Dyspnea on exertion 03/29/2022 Hypertension associated with diabetes 03/29/2022 Overview (03/29/2022): On lisinopril which she reports compliance to BP elevated today as did not take her pills continue current regimen Readings at home have been WNL. Will f/u in 6 months Assessment & Plan (03/29/2022 11:27 AM EST): On lisinopril which she reports compliance to BP elevated today as did not take her pills continue current regimen Readings at home have been WNL. Will f/u in 6 months Functional gait abnormality 03/29/2022 Hepatitis A immune 03/29/2022 Hepatitis B immune 03/29/2022 Hx of drug abuse 03/29/2022 Homeless 03/29/2022 Psychoactive substance use disorder 03/29/2022 Tobacco dependence 03/29/2022 COPD with exacerbation 03/29/2022 Overview (03/29/2022): + increased SOB and sputum. Rapid COVID negative O2 sat: 95% at rest Rx Azithro Z-adonis and 5 day prednisone burst Pt to continue w/ all home treatments - I have Rx'd Flovent and Flonase and counseled her to initiate these once she has completed the antibiotics and oral prednisone Counseled supportive measures including humidifier, honey and cough drops for sore throat, fluids, rest. Watch OTC meds containing APAP in conjunction w/ Tylenol. RTC if no improvement in 4 days, increased cough or SOB, fever, or severe headache. ED precautions reviewed. Assessment & Plan (03/29/2022 11:26 AM EST): + increased SOB and sputum. Rapid COVID negative O2 sat: 95% at rest Rx Azithro Z-adonis and 5 day prednisone burst Pt to continue w/ all home treatments - I have Rx'd Flovent and Flonase and counseled her to initiate these once she has completed the antibiotics and oral prednisone Counseled supportive measures including humidifier, honey and cough drops for sore throat, fluids, rest. Watch OTC meds containing APAP in conjunction w/ Tylenol. RTC if no improvement in 4 days, increased cough or SOB, fever, or severe headache. ED precautions reviewed. Mild intermittent asthma without complication Overview (03/29/2022): - Well controlled - Rarely uses her nebulizer machine Assessment & Plan (03/29/2022 11:27 AM EST): - Well controlled - Rarely uses her nebulizer machine Opioid dependence 03/29/2022 Encounters * This document contains information received from the source organization and may not represent a complete record from that organization. Date Type Department Care Team Description 07/08/[address] [address] Deana Warren ANP 07/05/[address] [address] Deana Warren ANP R/s pre-op appt 06/25/[address] [address] Deana Warren ANP No Show (Patient no show for pre-op ) 06/16/[address] [address] Deana Warren ANP Chart Prep 06/04/2024 Patient Outreach [address] [phone] Kristy Han Recovery Supports 05/31/[address] [facility] [address] [place] [address] Deana Warren ANP Pre-op Exam 05/25/2024 Refill [facility] [address] [place] [address] Deana Warren ANP 05/24/2024 2:00 PM EDT Office Visit [address] [phone] Meagan Brewer MD Asymptomatic menopausal state (Primary Dx); Type 2 diabetes mellitus with hyperglycemia, unspecified whether penitentiary insulin use (CMS/HCC); Onycholysis; Tuberculosis screening 05/24/2024 Travel 05/17/2024 9:00 AM EDT Office Visit [facility] [address] [place] [address] Katt Lazcano OD Type 2 diabetes mellitus without ophthalmic manifestations (CMS/HCC) (Primary Dx); Combined forms of age-related cataract of both eyes; Benign neoplasm of left lower eyelid; Presbyopia 05/17/2024 Refill [facility] [address] [place] [address] Deana Warren ANP 05/17/[address] [address] Deana Warren ANP Lab Orders; FYI 05/17/2024 Travel 05/13/2024 11:00 AM EST Office Visit [address] [address] Deana Warren ANP Screening mammogram for breast cancer (Primary Dx); Type 2 diabetes mellitus with hyperglycemia, with long-term current use of insulin (CMS/HCC); Smoking; Current severe episode of major depressive disorder without psychotic features, unspecified whether recurrent (CMS/HCC) 05/13/2024 Travel 05/13/2024 Patient Outreach [address] [address] Kristy Han Recovery Supports 04/20/[address] [facility] [address] [place] [phone] Deana Warren ANP 04/20/[address] [facility] [address] [place] [address] Deana Warren ANP Hypertension associated with diabetes ([facility]/HCC) ([facility]) 04/18/[address] [facility] [address] [place] [address] Deana Warren ANP Type 2 diabetes mellitus with hyperglycemia, with long-term current use of insulin ([facility]) from Last 3 Months Immunizations Name Administration Dates Next Due Influenza High-dose Quadriva lent Preservative Free 01/12/2023,12/21/2020 Influenza Quadrivalent Adjuvanted 12/24/2019 Influenza Whole 11/30/2010 Influenza injectable quadriv alent IIV4 with preservative 01/08/2019,12/16/2017,12/09/2016 Influenza injectable quadriv alent preservative free 11/30/2021 Influenza, High Dose Seasona l, Preservative Free 03/16/2024 Pfizer Covid-19 Vaccine 12+ 03/16/2024 Pneumococcal Conjugate PCV 20 03/16/2024 Pneumococcal Polysaccharide PPSV23 08/01/2015,,09/16/2010 TD (adult), 2 Lf tetanus tox oid, preservative free, adsorbed 11/14/2017 Td (adult), 5 Lf tetanus tox oid, preservative free, adsorbed 11/15/2014 Tdap 08/01/2015 Zoster, Recombinant 03/10/2020,01/08/2020 Zoster, live 08/01/2015 Social History Tobacco Use Types Packs/Day Years Used Date Smoking Tobacco: Every Day Cigarettes Smokeless Tobacco: Never Tobacco Cessation:Ready to Q uit: Not Asked; Counseling Given: Not Answered Alcohol Use Standard Drinks/Week Comments Not Currently [...] Orientation Straight 01/07/2022 10 :18 AM EDT Last Filed Vital Signs Vital Sign Reading Time Taken Comments Blood Pressure 143/78 05/24/2024 1:59 PM EDT Pulse 74 05/24/2024 1:59 PM EDT Temperature 36.6 ??C (97.9 ??F) 05/24/2024 1:59 PM ED T Respiratory Rate 16 05/24/2024 1:59 PM EDT Oxygen Saturation 96% 05/24/2024 1:59 PM EDT Inhaled Oxygen Concentration - - Weight 64.9 kg (143 lb 2 oz) 05/24/2024 1:59 PM EDT Height 152.4 cm (5') 05/24/2024 1:59 PM EDT Body Mass Index 27.95 05/24/2024 1:59 PM EDT Plan of Treatment Upcoming Encounters Date Type Department Care Team (Late st Contact Info) Description 07/19/2024 9:15 AM EDT Office Visit [facility] [address] [place] [address] Katt Lazcano, MARLENE [address] [place] [address] 08/10/2024 11:30 AM EDT Office Visit [facility] [address] [place], [place] [phone] Deana Warren ANP [address] [place], [place] [phone] 10/08/2024 4:00 PM EDT Office Visit [facility] [address] [place], [place] [phone] Troy Cueto MD [address] [place], [place] [phone] Health Maintenance Due Date Last Done Comments CT Colonography 1954 FIT DNA/Cologuard 1954 FIT 1954 FOBT 1954 Sigmoidoscopy 1954 Diabetes: Foot Exam 1964 Hepatitis A Vaccines (1 of 2 - Risk 2-dose series) 1973 Hepatitis B Vaccines (1 of 3 - Risk 3-dose series) 2014 RSV Patients and Patients Aged 60 years or older (1 - Risk 60-74 years 1-dose series) 2014 Mammogram 06/28/2023 06/27/2021, 05/09, 06/01/2020 Diabetes: Hemoglobin A1C 08/13/2024 025, 01/21/2024, 05/15/2023, Additional history exists Lipid Panel 01/22/2025 01/23/2024, 05/09, 05/22/2020 Depression Screening 03/16/2025 03/16/2024, 03/16/19 SDOH Screening 03/16/2025 03/16/2024 Alcohol/Substance Use Screening 05/13/2025 05/13/2024 Tobacco Screening 05/31/2025 05/31/2024 Diabetes: Urine Protein Screening 06/04/2025 06/04/2024 Eye Exam 05/17/2026 05/17/2024, 05/08, 05/17/2024, Additional history exists Colonoscopy 08/23/2026 08/23/2021, 08/23/2021 Colorectal Cancer Screening 08/23/2026 DTaP/Tdap/Td Vaccines (3 - Td or Tdap) 11/15/2027 11/14/2017, 08/01/2015, 11/15/2014 Zoster Vaccines Completed 03/10/2020, 12/10, 08/01/2015 COVID-19 Vaccine Completed 03/16/2024, , 07/20/2021, Additional history exists Influenza Vaccine Completed 03/16/2024, , 11/30/2021, Additional history exists Pneumococcal Vaccine: 50+ Years Completed 03/16/2024, 08/01/2015, 11/16/2014, Additional history exists HIB Vaccines Aged Out No longer eligi ble based on patient's age to complete this topic HPV Vaccines Aged Out No longer eligi ble based on patient's age to complete this topic IPV Vaccines Aged Out No longer eligi ble based on patient's age to complete this topic Meningococcal Vaccine Aged Out No julia shaheed eligible based on patient's age to complete this topic RSV under 20 months Aged Out No longe r eligible based on patient's age to complete this topic Rotavirus Vaccines Aged Out No longer eligible based on patient's age to complete this topic Procedures Procedure Name Priority Date/Time Associated Diagnosis Comments ALBUMIN, RANDOM URINE W/CREATININE Routine 06/04/2024 1:15 PM EDT Type 2 diabetes mellitus with hyperglycemia, unspecified whether terminal operator insulin use ([facility]) T-SPOT(R).TB Routine 05/24/2024 2:39 PM EDT Tuberculosis screening POCT GLUCOSE Routine 05/24/2024 2:06 PM EDT Type 2 diabetes mellitus with hyperglycemia, unspecified whether penitentiary insulin use (CMS/[facility]) SLIT LAMP PHOTOGRAPHY - OD - RIGHT EYE Routine 05/17/2024 10:36 AM EDT Benign neoplasm of left lower eyelid POCT GLYCATED HEMOGLOBIN, TOTAL Routine 05/13/2024 11:05 AM EST Type 2 diabetes mellitus with hyperglycemia, with long-term current use of insulin ([facility]) POCT GLUCOSE Routine 05/13/2024 11:05 AM EST Type 2 diabetes mellitus with hyperglycemia, with long-term current use of insulin ([facility]) LIPID PANEL, STANDARD Routine 01/23/2024 10:02 AM EST Hypertension associated with diabetes (CMS/HCC) ([facility]) HM COLONOSCOPY Routine 08/23/2021 MAMMOGRAM GENERIC Routine 06/27/2021 10: 03 AM EDT from Last 3 Months or Most Recently Relevant to Health Maintenance Results * Albumin, Random Urine W/Creatinine (06/04/2024 1:15 PM EDT) Creatinine, Urine 207.63 mg/dL [facility] Microalbumin Urine 35.0 mg/L [facility] Microalbum Creatinine Ratio Ur 16.8 <30 ug/mg cr [facility] Comment:Albumin/Creatinine R atio Reference Ranges: Normal: < 30 ug/mg creatinine Microalbuminuria: 30 - 300 ug/mg creatinineClinical Albuminuria: > 300 ug/mg creatinine Urine (Urine, Random) 06/04/2024 1:15 PM EDT 06/04/2024 4:09 PM EDT us Meagan Bello MD LAB URINE ORDERABLES Final Result [facility] [address] [place] [phone] * T-SPOT??.TB (05/24/2024 2:39 PM EDT) T Spot TB Negative Negative [facility] Comment:A negative test resu lt does not exclude the possibilityof exposure to or infection with Mycobacteriumtuberculosis (M. tuberculosis). Patients with recentexposure to TB infected individuals exhibiting anegative T-SPOT.TB result should be considered forretesting within 6 weeks or if other relevant clinicalsymptoms indicate. Results from T-SPOT.TB testing mustbe used in conjunction with each individual'sepidemiological history, current medical status,and results of other diagnostic evaluations.The T-SPOT.TB test is qualitative and results arereported as positive, borderline, or negative, giventhat the test controls perform as expected. In linewith the Centers for Disease Control and Prevention's2010 recommendation to report quantitative measurementsalongside the qualitative result, the laboratoryprovides spot counts for informational purposes only.The T-SPOT.TB test should not be interpreted as aquantitative test. TS PANEL A 0 [facility] TS PANEL B 1 [facility] Negative Control Passed [facility] Positive Control Passed [facility] Comment:For additional infor bhavin, please refer tohttp://education.Novafora/faq/MAT637(This link is being provided for informational/educational purposes only.)REPORT COMMENT:[facility] WAS PERFORMED AT:[employer] [id number] [place] [address]ORYKLLMKELLIE LOYA MD,PHD 05/24/2024 2:39 PM EDT 05/24/2024 4:24 PM EDT Meagan Bello MD LAB BLOOD ORDERABLES Final Result [facility] [address] [place] [phone] * POCT Glucose (05/24/2024 2:06 PM EDT) Only the most recent of2 resultswithin the time period is included. Glucose Blood, POC 108 60 - 200 mg/dL QC Media Lot # [id number] Lot# Expiration Date [id number] Blood Capillary blood specimen / Unknown 05/24/2024 2:06 PM EDT us Meagan Bello MD POINT OF CARE TEST EN TER/EDIT ORDERABLES Final Result * Slit Lamp Photography - OD - Right Eye (05/17/2024 10:36 AM EDT) Narrative Katt Lazcano, OD - 05/17/2024 10:36 AM EDT Anterior Segment Photo Interpretation Reliability: OS: Good quality image Test Details OS: 1mm nevus with variable pigmentation and irregular margins. (-) madarosis, (-) ulceration, (-) feeder vessels, (-) elevated Note that lid margin adjacent to photo appear injected/inflamed. This is an effect of the camera, does not appear like this on exam. 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 Monitor in 2 months. Katt Lazcano OD [employer]OTO[employer] Final Result * (ABNORMAL) POCT HGB A1C (05/13/2024 11:05 AM EST) Hemoglobin A1C 7.5(A) 4.0 - 6.0 % QC Media Lot # [id number] Lot# Expiration Date [id number] Blood 05/13/2024 11:0 5 AM EST Deana HENLEY POINT OF CARE TEST ENTER/EDIT OR DERABLES Final Result * (ABNORMAL) Lipid Panel, Standard (01/23/2024 10:02 AM EST) Triglycerides 59 <150 mg/dL [facility] Comment:Desirable Triglyceri de: less than 150 mg/dLBorderline High Triglyceride 150-199 mg/dLHigh Triglyceride: 200-499 mg/dLVery High Triglyceride: greater than or equal to 5OO mg/dL Cholesterol 174 <200 mg/dL [facility] Comment:Desirable Cholestero l: less than 200 mg/dLBorderline High Cholesterol: 200-239 mg/dLHigh Cholesterol: greater than 239 mg/dL LDL Cholesterol Calculated 110(H) <100 mg/dL [facility] Comment:Desirable LDL: less than 100 mg/dLNear Optimal/Above Optimal LDL: 110- 129 mg/dLBorderline High LDL: 130-159 mg/dLHigh LDL: 160-189 mg/dLVery High LDL: greater than or equal to 190 mg/dL HDL Cholesterol 53 >40 mg/dL [facility] Comment:Desirable HDL: great er than 40 mg/dL Note: This HDL assay may give artificially low results in patients with liver disease. Blood Venous blood specimen / Unknown 01/23/2024 10:02 AM EST 01/23/2024 11:00 AM EST Deana [facility] LAB BLOOD ORDERABLES Final Resul t [facility] [address] [place] [phone] * (ABNORMAL) Colonoscopy (08/23/2021) Colonoscopy Abnormal(A ) Normal [facility] Final Result * Mammography Report 1 (06/27/2021 10:03 AM EDT) Anatomical Region Laterality Modality Breast Bilateral Mammography 06/27/2021 10:0 3 AM EDT Narrative 06/28/2021 10:38 AM EDT Refer to the Notes tab for result details [facility] Procedure: Mammography Report 1 Procedure Note ProviderJemima MD - 06/02/2022 Refer to the Notes tab for result details [facility] Procedure: Mammography Report 1 Wilmar Norton MD IMG BI PROCEDURES Final Result from Last 3 Months or Most Recently Relevant to Health Maintenance Insurance [place] [id number] [facility] [employer]) JASON CAMEJO [id number] 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
--- OUTSIDE RECORDS SUMMARY | 2024-07-14 09:19 | XMS_ITS | Encounter Summary ---
Author Organization [employer] Address [address] [facility] 7t [place] [address] Care Team Providers Care Chinchilla Farmer Name Role Phone Deana Warren Primary Care Provider [phone] Reason for Visit * Reason Onset Date Comments FYI 02/12/2023 Encounter Details Date Type Department Care Team ([facility] st Contact Info) Description 02/12/2023 Telephone [facility] MEDICINE [address] [place], [place] [phone] Deana Warren ANP [address] [place], [place] [phone] FYI Social History Tobacco Use Types Packs/Day Years [...] off services in your home? No 12/27/2022 Comments Unknown Sex and Gender Information Value Date Recorded Sex Assigned at Female 01/07/2022 10:18 AM EDT Legal Sex Female 10:18 AM EDT Gender Identity Female 01/07/2022 10:18 AM EDT Sexual Orientation Straight 01/07/2022 10 :18 AM EDT documented as of this encounter Miscellaneous Notes * Telephone Encounter - Jason Spauldingro - 02/12/2023 2:36 PM EST Tc from [place] [facility] stating that pt missed her second appt today due to clinician being out and will be seeing pt today or tomorrow. If any questions please contact at [phone] documented in this encounter Plan of Treatment Upcoming Encounters Date Type Department Care Team (Late st Contact Info) Description 07/19/2024 9:15 AM EDT Office Visit [facility] OPTOMETRY [address] [place] [address] Katt Lazcano, MARLENE [address] [place] [address] 08/10/2024 11:30 AM EDT Office Visit [facility] MEDICINE [address] [place] [address] Deana Warren ANP [address] [place] [address] 10/08/2024 4:00 PM EDT Office Visit [facility] MEDICINE [address] [place] [address] Troy Cueto MD [address] [place] [address] documented as of this encounter Visit Diagnoses Not on filedocumented in this encounter Care Teams Chinchilla Farmer Relationship Specialty Start Date End Date eDana Warren ANP [address] [place] [phone] PCP - General Family Medicine 03/29/22 documented as of this encounter
--- OUTSIDE RECORDS SUMMARY | 2024-07-14 09:19 | XMS_ITS | Encounter Summary ---
Author Organization [employer] Address [address] [facility] 7t [place] [address] Care Team Providers Care Cardiovascular Tech Name Role Phone Deana Warren Primary Care Provider [phone] Reason for Visit * Reason Onset Date Comments Med Refill 03/29/2022 Encounter Details Date Type Department Care Team (Late st Contact Info) Description 03/29/2022 Telephone [facility] MEDICINE [address] [place], [place] [phone] Deana Warren ANP [address] [place], [place] [phone] Med Refill Social History Tobacco Use Types Packs/Day Years Used Date Smoking Tobacco: Never Assessed Comments Unknown Sex and Gender Information Value Date Recorded Sex Assigned at Female 01/07/2022 10:18 AM EDT Legal Sex Female 10:18 AM EDT Gender Identity Female 01/07/2022 10:18 AM EDT Sexual Orientation Straight 01/07/2022 10 :18 AM EDT documented as of this encounter Miscellaneous Notes * Telephone Encounter - Rosalva Barillas LPN - 03/29/2022 2:51 PM EST Patient was hospitalized in December 2021 at [facility] and was discharged on 12/18/21. Meds requested above were prescribed at discharge.Patient No showed on 12/26/21 For Hospital discharge appt.Please review and advise. * Telephone Encounter - Christie Umaña - 03/29/2022 2:26 PM EST Tc from pt requesting med refill for medication admelog insulin, olanzapine 7.5 , olanzapine 2.5 , gabapentin 100 , lisinopril and omeprazole 40 mg. documented in this encounter Plan of Treatment Upcoming Encounters Date Type Department Care Team ([facility] st Contact Info) Description 07/19/2024 9:15 AM EDT Office Visit [facility] OPTOMETRY [address] [place] [address] Katt Lazcano, OD [address] [place] [address] 08/10/2024 11:30 AM EDT Office Visit [facility] MEDICINE [address] [place] [address] Deana Warren ANP [address] [place] [address] 10/08/2024 4:00 PM EDT Office Visit [facility] MEDICINE [address] [place] [phone] Troy Cueto MD [address] [place] [address] documented as of this encounter Visit Diagnoses Not on filedocumented in this encounter Care Teams Cardiovascular Tech Relationship Specialty Start Date End Date Deana Warren ANP [address] [place] [address] PCP - General Family Medicine 03/29/22 documented as of this encounter
--- OUTSIDE RECORDS SUMMARY | 2024-07-14 09:19 | XMS_ITS | Encounter Summary ---
Author Organization [employer] Address 75 [facility] 7t [place] [address] Care Team Providers Care Poster Name Role Phone Deana Warren Primary Care Provider [phone] Reason for Visit * Reason Onset Date Comments FYI 07/25/2023 Encounter Details Date Type Department Care Team ([facility] st Contact Info) Description 07/25/2023 Telephone [facility] MEDICINE [address] [place], [place] [phone] Deana Warren ANP [address] [place], [place] [phone] Social History Tobacco Use Types Packs/Day Years [...] Miscellaneous Notes * Telephone Encounter - Grupo Hale - 07/25/2023 2:04 PM EDT Tc form [facility] with [facility] want to let pcp know pt's blood pressure Is 154/94 sittingup. Bethany stated per protocol they will call when pt's blood pressure is higher than 140/90. Bethany is unsure on pcps parameters or if he deems these calls necessary but requested investment underwriter forward as KAITLYNN. If any questions you can contact Bethany at [phone]. documented in this encounter Plan of Treatment Upcoming Encounters Date Type Department Care Team (Late st Contact Info) Description 07/19/2024 9:15 AM EDT Office Visit [facility] OPTOMETRY [address] [place] [address] Katt Lazcano OD [address] [place] [address] 08/10/2024 11:30 AM EDT Office Visit [facility] MEDICINE [address] [place] [address] Deana Warren ANP [address] [place] [address] 10/08/2024 4:00 PM EDT Office Visit [facility] MEDICINE [address] [place] [address] Troy Cueto MD [address] [place] [address] documented as of this encounter Visit Diagnoses Not on filedocumented in this encounter Care Teams Poster Relationship Specialty Start Date End Date Deana Warren ANP [address] [place] [address] PCP - General Family Medicine 03/29/22 documented as of this encounter
--- OUTSIDE RECORDS SUMMARY | 2024-07-14 09:19 | XMS_ITS | Encounter Summary ---
Author Organization [employer] Address [address] [facility] 7t [place] [address] Care Team Providers Care Production Control Clerk Name Role Phone Deana Warren Primary Care Provider [phone] Reason for Visit * Reason Comments Med Refill Encounter Details Date Type Department Care Team (Late st Contact Info) Description 01/04/2023 Refill [facility] MEDICINE [address] [place], [place] [phone] Sonia Chase MD 230 [place], [place] [phone] Type 2 diabetes mellitus with hyperglycemia, with long-term current use of insulin ([facility]) Social History Tobacco Use Types Packs/Day Years Used Date Smoking Tobacco: Every Day Cigarettes Smokeless Tobacco: Never Alcohol Use Standard Drinks/Week Comments Not Currently 0 (1 standard drink = 0.6 oz pur e alcohol) Housing Stability Answer Date Recorded What is your housing situation today? I have adelinejose coles 12/27/[address] you [...] 9:15 AM EDT Office Visit [facility] OPTOMETRY [address] [place] [address] Tarka Katt, OD [address] [place] [address] 08/10/2024 11:30 AM EDT Office Visit [facility] MEDICINE [address] [place] [address] Deana Warren ANP [address] [place] [address] 10/08/2024 4:00 PM EDT Office Visit [facility] MEDICINE [address] [place] [address] Troy Cueto MD [address] [place] [address] documented as of this encounter Visit Diagnoses Diagnosis Type 2 diabetes mellitus with hyperglycemia, with long-term current use of insulin ([facility]) documented in this encounter Care Teams Production Control Clerk Relationship Specialty Start Date End Date Deana Warren ANP [address] [place] [phone] PCP - General Family Medicine 03/29/22 documented as of this encounter
--- OUTSIDE RECORDS SUMMARY | 2024-07-14 09:19 | XMS_ITS | Encounter Summary ---
Author Organization [employer] Address [address] [facility] 7t [place] [address] Care Team Providers Care Employment Instructional Associate Name Role Phone Deana Warren Primary Care Provider [phone] Reason for Visit * Reason Onset Date Comments Med Refill 05/22/2022 Encounter Details Date Type Department Care Team (Late st Contact Info) Description 05/22/2022 Telephone [facility] MEDICINE 230 [place], [place] [phone] Deana Warren ANP [address] [place], [place] [phone] Med Refill Social History Tobacco Use Types [...] encounter Miscellaneous Notes * Telephone Encounter - Natasha Vale LPN - 05/22/2022 11:35 AM EDT Medications were sent to [id number] on 03/30/22 with 11 refills on Lantus and 3 refills on Lispro. * Telephone Encounter - Nicho Calhoun - 05/22/2022 11:18 AM EDT Tc from pt requesting med refill Insulin lispro Insulin glargine documented in this encounter Plan of Treatment Upcoming Encounters Date Type Department Care Team (Late st Contact Info) Description 07/19/2024 9:15 AM EDT Office Visit [facility] OPTOMETRY [address] [place] [address] Emiliojoy Katt, OD [address] [place] [address] 08/10/2024 11:30 AM EDT Office Visit [facility] MEDICINE 230 [place] [address] Deana Warren ANP [address] [place] [address] 10/08/2024 4:00 PM EDT Office Visit [facility] MEDICINE [address] [place] [address] Troy Cueto MD [address] [place] [address] documented as of this encounter Visit Diagnoses Not on filedocumented in this encounter Care Teams Employment Instructional Associate Relationship Specialty Start Date End Date Deana Warren ANP [address] [place] [phone] PCP - General Family Medicine 03/29/22 documented as of this encounter
== END 2024-07-14 08:52 | disposition home or self-care (01) ==
LOC: HO.MAMMO 08:51
PROVIDERS: PCP Internal Medicine; Visit Provider Nurse Practitioner Primary Care
DX: Z12.31 Encounter for screening mammogram for malignant neoplasm of breast (principal)
CPT/HCPCS: 77063; 77067

== ENCOUNTER → 2024-07-14 09:30 | Outpatient (BNV) | payer OTHER, SELFPAY | PROVIDERS: PCP Internal Medicine; Visit Provider Internal Medicine | DX: Z12.31 Encounter for screening mammogram for malignant neoplasm of breast (principal) | CPT/HCPCS: 77063; 77067 ==

== ENCOUNTER 2024-07-29 09:50 | Outpatient (REF) | payer OTHER, SELFPAY ==
--- NOTE | ~2024-07-29 | MM_ITS ---
EXAMINATION: DXA BONE DENSITY AXIAL HISTORY: osteoporosis screening TECHNIQUE: [employer] Dual energy absorptiometry (DEXA) of the lumbar spine, total right hip, and femoral neck was performed. COMPARISON: Comparison is made with the prior examination dated 06/01/2020. FINDINGS: The bone mineral density of the lumbar spine is 0.846, corresponding to a T-score of -2.7, and a Z-score of -0.9. This is indicative of osteoporosis. This represents a BMD change of -12.5% compared to the prior exam. This is statistically significant. The bone mineral density of the right total hip is 0.838, corresponding to a T-score of -1.3, and a Z-score of 0.1. This is indicative of osteopenia. The bone mineral density of the right femoral neck is 0.812, corresponding to a T-score of -1.6, and a Z-score of 0.1. This is indicative of osteopenia. MM/XR DEXA axial skeleton IMPRESSION: Based on bone mineral density, and according to World Health Organization (WHO) criteria, the diagnosis is consistent with osteoporosis. All bone density values are in grams per centimeter squared (g/cm2). Statistically, 68% of repeat scans fall within 1 SD (+/- 0.010 g/cm2 for AP spine L1-L4) and 1 SD (+/- 0.012 g/cm2 for femur total) FRAX is a trademark of the [employer]'s [place] for Metabolic Bone Disease, a World Health Organization (WHO) Collaborating Center. Electronically signed by: Mal Babin MD 07/29/2024 11:34 AM EDT
--- OUTSIDE RECORDS SUMMARY | 2024-07-29 10:10 | XMS_ITS | Encounter Summary ---
Author Organization [employer] Address [address] [facility] 7 [place] [address] Care Team Providers Care Fuel System Maintenance Supervisor Name Role Phone Deana Warren Primary Care Provider [phone] Reason for Visit * Reason Onset Date Comments new script 06/21/2022 Encounter Details Date Type Department Care Team ([facility] st Contact Info) Description 06/21/2022 Telephone [facility] MEDICINE [address] [place] [address] Deana Warren ANP [address] [place] [address] new script Social History Tobacco Use Types [...] - 06/21/2022 11:18 AM EDT TC from [facility] stated insurance do not covered admelog insulin but insurance will be cover Novolog flexpen. Pt without insulin. PCP DR. Warren documented in this encounter Plan of Treatment Upcoming Encounters Date Type Department Care Team (Late st Contact Info) Description 08/10/2024 11:15 AM EDT Office Visit [facility] MEDICINE [address] [place] [address] Deana Warren ANP [address] [place] [address] 10/08/2024 4:00 PM EDT Office Visit [address] [address] Troy Cueto MD [address] [place] [address] documented as of this encounter Visit Diagnoses Not on filedocumented in this encounter Care Teams Fuel System Maintenance Supervisor Relationship Specialty Start Date End Date Deana Warren ANP [address] [place] [address] [phone] PCP - General Family Medicine 03/29/22 documented as of this encounter
--- OUTSIDE RECORDS SUMMARY | 2024-07-29 10:11 | XMS_ITS | Clinical Summary ---
Author Organization [employer] Address [address] [facility] 7t [place] [address] Care Team Providers Care Integration Specialist Name Role Phone Rafia Mary Primary Care Provider [phone] Allergies No known active allergies Medications * This document contains information received from the source organization and may not represent a complete record from that organization. acetaminophen (Tylenol) 325 MG tablet TAKE 2 TABLETS BY MOUTH EVERY 6 HOURS NEEDED FOR MILD PAIN Active albuterol 108 (90 Base) MCG/ACT inhaler INHALE 1 PUFF BY MOUTH EVERY 4 HOURS NEEDED FOR WHEEZING 022 Active glucose (Glutose) 40 % gel oral gelIndications :Type 2 diabetes mellitus with hyperglycemia, with long-term current use of insulin ([facility]) Administer 15 g orally as needed for blood glucose < 60 mg/dl. Use glucagon if pt cannot swallow or is unresponsive. Call emergency if pt is lethargic or unresponsive. 45 g 3 023 Active glucagon (Gvoke HypoPen) 1 MG/0.2ML injectionIndic ations:Type 2 diabetes mellitus with hyperglycemia, with long-term current use of insulin ([facility]) Administer 1 mg subcutaneously when pt has low blood glucose and cannot swallow or is unresponsive. May repeat in 15 min. Call emergency service if pt is unresponsive or lethargic. 2 each 3 023 Active Blood Glucose Monitoring Suppl (ONE TOUCH ULTRA 2) w/Device kit USE TOCHECK BLOOD SUGAR THREE TIMES DAILY 023 Active insulin aspart FlexPen (NovoLOG) 100 UNIT/ML pen Inject 6 units with meals, up to TID. Do not administer if blood sugar is < 120. 15 mL 3 023 Active lidocaine (Lidoderm) 5 % patchIndicatio ns:Acute pain of right shoulder Apply 1 patch topically in the morning. Remove & discard patch within 12 hours or as directed by MD. 30 patch 2 023 Active albuterol (2.5 MG/3ML) 0.083% nebulizer solutionIndica tions:Shortnes s of breath Take 3 mL (2.5 mg) by nebulization every 6 (six) hours if needed for wheezing. 75 mL 11 023 Active nicotine (Nicoderm, Step 1) 21 MG/24HR patchIndicatio ns:Nicotine Dependence Place 1 patch on the skin 1 (one) time each day at the same time. 28 patch 1 024 Active nicotine (Nicoderm, Step 2) 14 MG/24HR patchIndicatio ns:Nicotine Dependence Place 1 patch on the skin 1 (one) time each day at the same time. 28 patch 024 Active aspirin 325 MG tablet Take 1 tablet by mouth Once per day. 024 Active amLODIPine (Norvasc) 2.5 MG tabletIndicati ons:Hypertensi on associated with diabetes (CMS/HCC) TAKE 1 TABLET BY MOUTH EVERY DAY 90 tablet 1 024 Active gabapentin (Neurontin) 300 MG capsuleIndicat ions:Seizure (CMS/HCC) Take 1 capsule (300 mg) by mouth 2 times daily. 60 capsule 2 025 Active Continuous Glucose Environmental Planner (FreeStyle Nivia 2 [place]) deviceIndicati ons:Hypertensi on associated with diabetes ([facility]/HCC) Scan sensor every 8 hours 1 each 025 Active Continuous Glucose Sensor (FreeStyle Nivia 2 Sensor) miscIndication s:Hypertension associated with diabetes (CMS/HCC) Apply 1 sensor every 14 days 2 each 025 Active glucose blood (FreeStyle Precision Shin Test) test stripIndicatio ns:Hypertensio n associated with diabetes ([facility]) Use to test blood sugar 3 times daily 100 each 12 025 2025 Active insulin pen needle (B-D UF III MINI PEN NEEDLES) 31G x 5 mm miscIndication s:Type 2 diabetes mellitus with hyperglycemia, with long-term current use of insulin ([facility]) USE THREE TIMES DAILY WITH INSULIN 100 each 3 Active omeprazole (PriLOSEC) [address] capsuleIndicat ions:Gastroeso phageal reflux disease, unspecified whether esophagitis present TAKE 1 CAPSULE BY MOUTH EVERY DAY BEFORE A MEAL 90 capsule 1 025 Active rosuvastatin (Crestor) 20 MG tabletIndicati ons:Dyslipidem ia Take 1 tablet (20 mg) by mouth Once per day. 90 tablet 3 025 2025 Active insulin degludec (Tresiba FlexTouch) 100 UNIT/ML injectionIndic ations:Type 2 diabetes mellitus with hyperglycemia, with long-term current use of insulin ([facility]) Inject 32 Units under the skin Once daily. 15 mL 3 025 Active lisinopril 30 MG tabletIndicati ons:Hypertensi on associated with diabetes (CMS/HCC) TAKE 1 TABLET BY MOUTH EVERY DAY 90 tablet 1 025 Active ciclopirox (Penlac) 8 % solutionIndica tions:Onycholy sis Apply topically at bedtime. 6 mL 025 Active OLANZapine (ZyPREXA) 10 MG tabletIndicati ons:Bipolar affective disorder, remission status unspecified (CMS/HCC) Take 1 tablet (10 mg) by mouth at bedtime. 30 tablet 1 025 2024 Active zolpidem (Ambien) 5 MG tabletIndicati ons:Insomnia, unspecified type Take 1 tablet (5 mg) by mouth if needed at bedtime for sleep. 30 tablet 025 Active FLUoxetine (PROzac) 10 MG capsuleIndicat ions:Severe episode of recurrent major depressive disorder, without psychotic features ([facility]CC) Take 1 capsule (10 mg) by mouth in the morning. 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 Glucose gel 15% given 1 and 03/11 and BS repeat 83 with improvment in [...] organization. 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) 07/19/2024 Travel 07/16/2024 Patient Outreach [facility] [address] [place] [address] Kristy Han Recovery Supports 07/14/2024 Orders Only [facility] [address] [place] [address] Rafia Mary ANP 07/08/2024 Telephone [facility] [address] [place] [address] Rafia Mary ANP 07/05/[address] [address] Rafia Mary ANP R/s pre-op appt 06/25/[address] [address] Rafia Mary ANP No Show (Patient no show for pre-op ) 06/16/[address] [address] Rafia Mary ANP Chart Prep 06/04/2024 Patient Outreach [address] [address] Kristy Han Recovery Supports 05/31/[address] [address] Rafia Mary ANP Pre-op Exam 05/25/2024 Refill [facility] [address] [place] [address] Rafia Mary ANP 05/24/2024 2:00 PM EDT Office Visit [facility] [address] [place] [address] Meagan Brewer MD Asymptomatic menopausal state (Primary Dx); Type 2 diabetes mellitus with hyperglycemia, 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 (CMS/HCC); Onycholysis; Tuberculosis screening 05/24/2024 Travel 05/17/2024 9:00 AM EDT Office Visit [facility] [address] [place] [address] Katt Lazcano, OD Type 2 diabetes mellitus without ophthalmic manifestations ([facility]/HCC) (Primary Dx); Combined forms of age-related cataract of both eyes; Benign neoplasm of left lower eyelid; Presbyopia 05/17/2024 Refill [facility] [address] [place], [place] [phone] Rafia Mary ANP 05/17/2024 Telephone [facility] [address] [place] [address] Rafia Mary ANP Lab Orders; FYI 05/17/2024 Travel 05/13/2024 11:00 AM EST Office Visit [facility] [address] [place] [address] Rafia Mary ANP Screening mammogram for breast cancer (Primary Dx); Type 2 diabetes mellitus with hyperglycemia, with long-term current use of insulin ([facility]); Smoking; Current severe episode of major depressive disorder without psychotic features, unspecified whether recurrent (CMS/HCC) 05/13/2024 Travel 05/13/2024 Patient Outreach [facility] [address] [place], [place] [phone] Kristy Han Recovery Supports from Last 3 Months Immunizations Immunization Administration Dates Next Due Influenza High-dose Quadriva [...] Description 08/10/2024 11:15 AM EDT Office Visit [facility] [address] [place] [address] [phone] Rafia Mary ANP [address] [place] [address] 10/08/2024 4:00 PM EDT Office Visit [facility] [address] [place] [address] Troy Cueto MD [address] [place], [place] [phone] Health Maintenance Due Date Last Done Comments CT Colonography 1955 FIT DNA/Cologuard 1955 FIT 1955 FOBT 1955 Sigmoidoscopy 1955 Diabetes: Foot Exam 1964 Hepatitis A Vaccines (1 of 2 - Risk 2-dose series) 1973 Hepatitis B Vaccines (1 of 3 - Risk 3-dose series) 2014 RSV Patients and Patients Aged 60 years or older (1 - Risk 60-74 years 1-dose series) 2014 Diabetes: Hemoglobin A1C 08/13/2024 025, 01/21/2024, 05/15/2023, Additional history exists COVID-19 Vaccine ( season) 2024 03/16/2024, 12/25/2021, 07/20/2021, Additional history exists Lipid Panel 01/22/2025 01/23/2024, 0303/2021, 05/22/2020 Depression Screening 03/16/2025 03/16/2024, 03/16/19 SDOH Screening 03/16/2025 03/16/2024 Alcohol/Substance Use Screening 05/13/2025 05/13/2024 Tobacco Screening 05/31/2025 05/31/2024 Diabetes: Urine Protein Screening 06/04/2025 06/04/2024 Mammogram 07/14/2025 07/14/2024, 042 , 06/01/2020, Additional history exists Eye Exam 05/17/2026 05/17/2024, 05/08, 05/17/2024, Additional history exists Colonoscopy 08/23/2026 08/23/2021, 08/23/2021 Colorectal Cancer Screening 08/23/2026 DTaP/Tdap/Td Vaccines (3 - Td or Tdap) 11/15/2027 11/14/2017, 08/01/2015, 11/15/2014 Zoster Vaccines Completed 03/10/2020, 12/10, 08/01/2015 Influenza Vaccine Completed 03/16/2024, , 11/30/2021, Additional [...] patient's age to complete this topic Meningococcal B Vaccine Aged Out No l onger eligible based on patient's age to complete [...] Procedure Name Priority Date/Time Associated Diagnosis Comments BI MAMMOGRAM SCREENING TOMOSYNTHESIS BILATERAL Routine 07/14/2024 8:55 AM EDT ALBUMIN, RANDOM URINE W/CREATININE Routine 06/04/2024 1:15 PM EDT Type 2 diabetes mellitus with hyperglycemia, 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 (CMS/HCC) T-SPOT(R).TB Routine 05/24/2024 2:39 PM EDT Tuberculosis screening POCT GLUCOSE Routine 05/24/2024 2:06 PM EDT Type 2 diabetes mellitus with hyperglycemia, 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 (CMS/HCC) SLIT LAMP PHOTOGRAPHY - OD - RIGHT EYE Routine 05/17/2024 10:36 AM EDT Benign neoplasm of left lower eyelid POCT GLYCATED HEMOGLOBIN, TOTAL Routine 05/13/2024 11:05 AM EST Type 2 diabetes mellitus with hyperglycemia, with long-term current use of insulin (CMS/HCC) POCT GLUCOSE Routine 05/13/2024 11:05 AM EST Type 2 diabetes mellitus with hyperglycemia, with long-term current use of insulin (CMS/HCC) LIPID PANEL, STANDARD Routine 01/23/2024 10:02 AM EST Hypertension associated with diabetes (CMS/HCC) (CMS/HCC) HM COLONOSCOPY Routine 08/23/2021 from Last 3 Months or Most Recently Relevant to Health Maintenance Results * BI Mammogram Screening Tomosynthesis Bilateral (07/14/2024 8:55 AM EDT) Anatomical Region Laterality Modality Breast Bilateral Mammography 07/14/2024 8:55 AM EDT Narrative 07/19/2024 3:20 PM EDT ? [facility] ? [address] ?[place] [address] ?[phone] ? Mammography Report ? Signed ? Patient: Sarah,Cora ?MR#: [id number] ? : 1955 ?Acct:[id number] ? Age/Sex: 68 / F ?ADM Date: 05/07/25 ? Loc: HO.MAMMO ? Attending Dr: Rafia Mary RAILROAD CROSSING PROTECTION MAINTAINER ? Ordering Physician: RAFIA MARY RAILROAD CROSSING PROTECTION MAINTAINER ?Results: 2Benign Fin ?? dings ? Date of Service: 07/14/24 ?Follow Up: 1 Year From Orig ?? inal Mammogram ? Procedure(s): MM tomosynthesis screening BI ?? Accession Number(s): [id number] ? cc: Meagan Brewer MD; RAFIA MARY NP ? EXAMINATION: ?? MM SCREENING DIGITAL BREAST TOMOSYNTHESIS, BILATERAL ? CLINICAL INFORMATION: ? Screening. Asymptomatic. ? COMPARISON: ?? Mammography: Comparison is made with available priors ? TECHNIQUE: ?? Digital breast mammography with tomosynthesis is performed in both the ?? craniocaudal and mediolateral oblique views along with computer-aided ?? detection (CAD). ? FINDINGS: ?? There are scattered areas of fibroglandular density (ACR BI-RADS breast ?? composition Category b). ?? Left marker clip. ?? There are no significant masses, abnormal calcifications, or other ?? abnormalities. ? MM/MM tomosynthesis screening BI ?? IMPRESSION: ?? No mammographic evidence of malignancy. ? ASSESSMENT: ? BI-RADS BI-RADS 2 - Benign Findings ? RECOMMENDATION: ?? Routine annual mammography screening. ? 1 year F/U ? This examination should not preclude the clinical evaluation of a ?? suspicious palpable abnormality. ? This patient's information was entered into a reminder system with a ?? target due date for their next mammogram. ? Electronically signed by: ??Sita Baker DO ??07/19/2024 03:17 PM EDT ? Dictated By: ?Sita Baker DO ? Signed By: ?<Electronically signed by Sita Baker, DO in OV> ? 07/19/241516 ? DD/ 0855 ? TD/TT: 07/14/24 0930 ? [employer]: ? Procedure Note Donotuseinterpreter, Image - 07/19/20[facility] [address] [place] [address] Mammography Report Signed Patient: Di Smith#: [id number] : 5Acct:[id number] Age/Sex: 68 / FADM Date: 07/14/24 Loc: HO.MAMMO Attending Dr: Rafia Mary NP Ordering Physician: RAFIA MARY NPResults: 2Benign Reginaldo izquierdo Date of Service: 07/14/24Follow Up: 1 Year From Orig inal Mammogram Procedure(s): MM tomosynthesis screening BI Accession Number(s): [id number] cc: Meagan Brewer MD; RAFIA MARY NP EXAMINATION: MM SCREENING DIGITAL BREAST TOMOSYNTHESIS, BILATERAL CLINICAL INFORMATION: Screening. Asymptomatic. COMPARISON: Mammography: Comparison is made with available priors TECHNIQUE: Digital breast mammography with tomosynthesis is performed in both the craniocaudal and mediolateral oblique views along with computer-aided detection (CAD). FINDINGS: There are scattered areas of fibroglandular density (ACR BI-RADS breast composition Category b). Left marker clip. There are no significant masses, abnormal calcifications, or other abnormalities. MM/MM tomosynthesis screening BI IMPRESSION: No mammographic evidence of malignancy. ASSESSMENT: BI-RADS BI-RADS 2 - Benign Findings RECOMMENDATION: Routine annual mammography screening. 1 year F/U This examination should not preclude the clinical evaluation of a suspicious palpable abnormality. This patient's information was entered into a reminder system with a target due date for their next mammogram. Electronically signed by: Sita Baker DO 07/19/2024 03:17 PM EDT RP Dictated By: Sita Baker DO Signed By: <Electronically signed by Sita Baker DO in OV> 07/19/24 1517 DD/ 0855 TD/TT: 07/14/24 0930 [employer]: us Rafia TOMLIN BI PROCEDURES Final Result * Albumin, Random Urine W/Creatinine (06/04/2024 1:15 PM EDT) Creatinine, Urine 207.63 mg/dL [facility] Microalbumin Urine 35.0 mg/L [facility] Microalbum Creatinine Ratio Ur 16.8 <30 ug/mg cr [facility] Comment:Albumin/Creatinine R atio Reference Ranges: Normal: < 30 ug/mg creatinine Microalbuminuria: 30 - 300 ug/mg creatinineClinical Albuminuria: > 300 ug/mg creatinine Urine (Urine, Random) 06/04/2024 1:15 PM EDT 06/04/2024 4:09 PM EDT us Meagan Bello MD LAB URINE ORDERABLES Final Result [facility] [address] [place] [phone] * T-SPOT??.TB (05/24/2024 2:39 PM EDT) T Spot TB Negative Negative [facility] Comment:A negative test resu lt does [...] as aquantitative test. TS PANEL A 0 [facility] TS PANEL B 1 [facility] Negative Control Passed [facility] Positive Control Passed [facility] Comment:For additional infor mation, please refer tohttp://education.Livelens/faq/GVX986(This link is being provided for informational/educational purposes only.)REPORT COMMENT:RECD IN BERYL TEST WAS PERFORMED AT:[email or web address] [id number] [place] [address]WRRECCX W. MASON,MD,PHD 05/24/2024 2:39 PM EDT 05/24/2024 4:24 PM EDT us Meagan Bello MD LAB BLOOD ORDERABLES Final Result [facility] [address] [place] [phone] * POCT Glucose (05/24/2024 2:06 PM EDT) Only the most recent of2 resultswithin the time period is included. Glucose Blood, POC 108 60 - 200 mg/dL QC Media Lot # [id number] Lot# Expiration Date [id number] Blood Capillary blood specimen / Unknown 05/24/2024 2:06 PM EDT Meagan Bello MD POINT OF CARE TEST [...] Media Lot # [id number] Lot# Expiration Date 584 Blood 05/13/2024 11:0 5 AM EST Critical access hospital POINT OF CARE TEST ENTER/EDIT OR DERABLES Final Result * (ABNORMAL) Lipid Panel, Standard (01/23/2024 10:02 AM EST) Triglycerides 59 <150 mg/dL [facility] Comment:Desirable Triglyceri de: less than 150 mg/dLBorderline High Triglyceride 150-199 mg/dLHigh Triglyceride: 200-499 mg/dLVery High Triglyceride: greater than or equal to 5OO mg/dL Cholesterol 174 <200 mg/dL [facility] Comment:Desirable Cholestero l: less than 200 mg/dLBorderline High Cholesterol: 200-239 mg/dLHigh Cholesterol: greater than 239 mg/dL LDL Cholesterol Calculated 110(H) <100 mg/dL [facility] Comment:Desirable LDL: less than 100 mg/dLNear Optimal/Above Optimal LDL: 110- 129 mg/dLBorderline High LDL: 130-159 mg/dLHigh LDL: 160-189 mg/dLVery High LDL: greater than or equal to 190 mg/dL HDL Cholesterol 53 >40 mg/dL [facility] Comment:Desirable HDL: great er than 40 mg/dL Note: This HDL assay may give artificially low results in patients with liver disease. Blood Venous blood specimen / Unknown 01/23/2024 10:02 AM EST 01/23/2024 11:00 AM EST Rafia HENLEY LAB BLOOD ORDERABLES Final Resul t [facility] [address] [place] [phone] * (ABNORMAL) Colonoscopy (08/23/2021) Colonoscopy Abnormal(A ) Normal [facility] Final Result from Last 3 Months or Most Recently Relevant to Health Maintenance Insurance [facility] CORRECTION OPTIONS (O D-SNP) JASON CAMEJO [id number] Care Teams Integration Specialist Relationship Specialty Start Date End Date Rafia Mary ANP [address] [place] [phone] PCP - General Family Medicine 03/29/22
--- OUTSIDE RECORDS SUMMARY | 2024-07-29 10:11 | XMS_ITS | Encounter Summary ---
Author Organization [employer] Address [address] [facility] [address]t [place] [address] Care Team Providers Care Court Worker Name Role Phone Deana Warren Primary Care Provider [phone] Encounter Details Date Type Department Care Team (Late st Contact Info) Description 07/08/2024 Telephone [facility] [address] [place], [place] [phone] Deana Warren ANP [address] [place] [address] Social History Tobacco Use Types Packs/Day Years [...] t he electric, gas, oil or water [employer] threatened to shut off services in your [...] 08/10/2024 11:15 AM EDT Office Visit [facility] [address] [place] [phone] Deana Warren ANP [address] [place] [address] 10/08/2024 4:00 PM EDT Office Visit [address] [address] Troy Cueto MD [address] [place] [phone] documented as of this encounter Visit Diagnoses Not on filedocumented in this encounter Additional Health Concerns Assessment Noted Time PHQ-9 Depression Total Score: 24 025 9:43 AM EST documented as of this encounter Care Teams Court Worker Relationship Specialty Start Date End Date Deana Warren ANP [address] [place] [phone] PCP - General Family Medicine 03/29/22 documented as of this encounter
--- OUTSIDE RECORDS SUMMARY | 2024-07-29 10:11 | XMS_ITS | Encounter Summary ---
Author Organization [employer] Address [address] [facility] 7t [place] [address] Care Team Providers Care Barrel Inspector Tight Name Role Phone Deana Warren Primary Care Provider [phone] Reason for Visit * Reason Comments Med Refill Encounter Details Date Type Department Care Team (Late st Contact Info) Description 01/04/2023 Refill [facility] [address] [place], [place] [phone] Sonia Chase MD [address] [place], [place] [phone] Type 2 diabetes mellitus with hyperglycemia, with long-term current use of insulin ([facility]) Social History Tobacco Use Types [...] Description 08/10/2024 11:15 AM EDT Office Visit [facility] [address] [place] [phone] Deana Warren ANP [address] [place] [address] 10/08/2024 4:00 PM EDT Office Visit [address] [address] Troy Cueto MD [address] [place] [address] documented as of this encounter Visit Diagnoses Diagnosis Type 2 diabetes mellitus with hyperglycemia, with long-term current use of insulin ([facility]) documented in this encounter Care Teams Barrel Inspector Tight Relationship Specialty Start Date End Date Deana Warren ANP [address] [place] [phone] PCP - General Family Medicine 03/29/22 documented as of this encounter
--- OUTSIDE RECORDS SUMMARY | 2024-07-29 10:11 | XMS_ITS | Encounter Summary ---
Author Organization [employer] Address [address] [facility] [address]t [place] [address] Care Team Providers Care Unindentured Apprentice Name Role Phone Deana Warren Primary Care Provider [phone] Reason for Visit * Reason Onset Date Comments Appointment Request 07/28/2023 Encounter Details Date Type Department Care Team ([facility] st Contact Info) Description 07/28/2023 Telephone [facility] [address] [place], [place] [phone] Deana Warren ANP [address] [place], [place] [phone] Appointment Request Social History Tobacco Use Types [...] stated had a procedure done on 07/20 [facility] patient had a Hip surgery and would like to follow up with the provider documented in this encounter Plan of Treatment Upcoming Encounters Date Type Department Care Team (Late st Contact Info) Description 08/10/2024 11:15 AM EDT Office Visit [facility] [address] [place] [phone] Deana Warren ANP [address] [place] [address] 10/08/2024 4:00 PM EDT Office Visit [facility] [address] [place] [phone] Troy Cueto MD [address] [place] [address] documented as of this encounter Visit Diagnoses Not on filedocumented in this encounter Care Teams Unindentured Apprentice Relationship Specialty Start Date End Date Deana Warren ANP [address] [place] [address] PCP - General Family Medicine 03/29/22 documented as of this encounter
--- OUTSIDE RECORDS SUMMARY | 2024-07-29 10:11 | XMS_ITS | Encounter Summary ---
Author Organization [employer] Address 75 [facility] 7 [place] [address] Care Team Providers Care Plant Chief Name Role Phone Deana Warren Primary Care Provider Reason for Visit * Reason Onset Date Comments Med Refill 03/29/2022 Encounter Details Date Type Department Care Team (Late st Contact Info) Description 03/29/2022 Telephone [facility] MEDICINE 230 [place], [place] [phone] Deana Warren ANP 230 [place], [place] [phone] Med Refill Social History Tobacco Use Types [...] Patient was hospitalized in December 2021 at [facility] and was discharged on 12/18/21. Meds requested [...] Description 08/10/2024 11:15 AM EDT Office Visit [address] [address] Deana Warren ANP [address] [place] [address] 10/08/2024 4:00 PM EDT Office Visit [address] [phone] Troy Cueto MD [address] [place] [address] documented as of this encounter Visit Diagnoses Not on filedocumented in this encounter Care Teams Plant Chief Relationship Specialty Start Date End Date Deana Warren ANP [address] [place] [address] PCP - General Family Medicine 03/29/22 documented as of this encounter
--- OUTSIDE RECORDS SUMMARY | 2024-07-29 10:11 | XMS_ITS | Encounter Summary ---
Author Organization [employer] Address 75 [facility] 7t [place] [address] Care Team Providers Care Dietary Manager Name Role Phone Deana Warren Primary Care Provider [phone] Reason for Visit * Reason Onset Date Comments Appointment Request 09/02/2023 Encounter Details Date Type Department Care Team ([facility] st Contact Info) Description 09/02/2023 Telephone [facility] MEDICINE 230 [place], [place] [phone] Deana Warren ANP 230 [place], [place] [phone] Appointment Request Social History Tobacco Use Types [...] pt requesting to reschedule OV ext 07/16. Manager Of Financial Planning offered 12/03 but pt refused and is requesting a sooner appt if possible. Please contact pt at [phone]. documented in this encounter Plan of Treatment Upcoming Encounters Date Type Department Care Team (Late st Contact Info) Description 08/10/2024 11:15 AM EDT Office Visit [facility] MEDICINE [address] [place] [address] Deana Warren ANP 230 [place] [address] 10/08/2024 4:00 PM EDT Office Visit [facility] MEDICINE [address] [place] [address] Troy Cueto MD [address] [place] [address] documented as of this encounter Visit Diagnoses Not on filedocumented in this encounter Care Teams Dietary Manager Relationship Specialty Start Date End Date Deana Warren ANP [address] [place] [address] PCP - General Family Medicine 03/29/22 documented as of this encounter
--- OUTSIDE RECORDS SUMMARY | 2024-07-29 10:11 | XMS_ITS | Encounter Summary ---
Author Organization [employer] Address 75 [facility] 7t [place] [address] Care Team Providers Care Manager Utilities Name Role Phone Deana Warren Primary Care Provider Reason for Visit * Reason Onset Date Comments Med Refill 05/22/2022 Encounter Details Date Type Department Care Team (Late st Contact Info) Description 05/22/2022 Telephone [facility] MEDICINE 230 [place], [place] [phone] Deana aWrren ANP 230 [place], [place] [phone] Med Refill Social History Tobacco Use Types [...] 11:35 AM EDT Medications were sent to [facility] #[id number] on 03/30/22 with 11 refills on Lantus and 3 refills on Lispro. * Telephone Encounter - Nicho Calhoun - 05/22/2022 11:18 AM EDT Tc from pt requesting med refill Insulin lispro Insulin glargine documented in this encounter Plan of Treatment Upcoming Encounters Date Type Department Care Team (Late st Contact Info) Description 08/10/2024 11:15 AM EDT Office Visit [address] [address] Deana Warren ANP [address] [place] [address] 10/08/2024 4:00 PM EDT Office Visit [address] [address] Troy Cueto MD [address] [place] [address] documented as of this encounter Visit Diagnoses Not on filedocumented in this encounter Care Teams Manager Utilities Relationship Specialty Start Date End Date Deana Warren ANP [address] [place] [address] [phone] PCP - General Family Medicine 03/29/22 documented as of this encounter
--- OUTSIDE RECORDS SUMMARY | 2024-07-29 10:11 | XMS_ITS | Encounter Summary ---
Author Organization [employer] Address 75 [facility] 7t [place] [address] Care Team Providers Care Free Lance Artist Name Role Phone Deana Warren Primary Care Provider [phone] Encounter Details Date Type Department Care Team (Late st Contact Info) Description 04/20/2024 Orders Only [facility] MEDICINE 230 [place], [place] [phone] Deana Warren ANP 230 [place] [address] Social History Tobacco Use Types Packs/Day Years [...] Description 08/10/2024 11:15 AM EDT Office Visit [facility] MEDICINE [address] [place] [address] Deana Warren ANP [address] [place] [address] 10/08/2024 4:00 PM EDT Office Visit [address] [address] Troy Cueto MD [address] [place] [address] documented as of this encounter Visit Diagnoses Not on filedocumented in this encounter Additional Health Concerns Assessment Noted Time PHQ-9 Depression Total Score: 24 025 9:43 AM EST documented as of this encounter Care Teams Free Lance Artist Relationship Specialty Start Date End Date Deana Warren ANP [address] [place] [address] PCP - General Family Medicine 03/29/22 documented as of this encounter
--- OUTSIDE RECORDS SUMMARY | 2024-07-29 10:11 | XMS_ITS | Encounter Summary ---
Author Organization [employer] Address 75 [facility] 7t [place] [address] Care Team Providers Care Instrument Maintenance Supervisor Name Role Phone Deana Warren Primary Care Provider Encounter Details Date Type Department Care Team (Late st Contact Info) Description 04/04/[address] [address] Deana Warren ANP [address] [place] [address] Social History Tobacco Use Types Packs/Day Years [...] Description 08/10/2024 11:15 AM EDT Office Visit [address] [address] Deana Warren ANP [address] [place] [address] 10/08/2024 4:00 PM EDT Office Visit [address] [address] Troy Cueto MD [address] [place] [address] documented as of this encounter Visit Diagnoses Not on filedocumented in this encounter Care Teams Instrument Maintenance Supervisor Relationship Specialty Start Date End Date Deana Warren ANP 230 [place] [address] PCP - General Family Medicine 03/29/22 documented as of this encounter
--- OUTSIDE RECORDS SUMMARY | 2024-07-29 10:11 | XMS_ITS | Data Portability ---
Author Organization [employer] [facility], [facility] [employer] Address [address] [place] [phone] Care Team Providers Care Travel Consultant Name Role Phone HIM CCA OTHER Assessment Encounter Date Assessment Date Assessment LastModified by Organization Details LastModified Time 12/08/2023 12/08/2023 I provided real -time medical direction via phone for this encounter and was available for additional phone-based assistance as needed. I have reviewed and agree with the Assessment and Plan as documented by the Associate Programmer Analyst. Patient given the opportunity to ask questions. Our service contacted for an assessment of: Urinary symptom As per above, patient developed urinary symptoms of frequency dysuria last week. Things got better without treatment. Calls the service today for evaluation. Denies fever chills. Denies flank pain or abdominal pain. Resolved lower tract symptoms. Per communications senior associate on the scene, five hundred stable the patient is afebrile. UA as noted in communications senior associate evaluation is overall negative. Impression: Resolved urinary [...] Lab urinalysis , dipstick 2023 024 ZULEIMA [facility], [address] [place] [address], [phone] 21:17:32 Referral None recorded. Procedures None recorded. [...] Available No t Available omeprazole 40 mg capsule,camila yed release TAKE 1 CAPSULE BY MOUTH [...] SNOMED-CT Code Diagnosis ICD10 Code Diagnosis Note 62082 Anjana Obando MD Main - instED [address] [place] [address] [id number] 12/08/2023 21:16:16 12/09/2023 12:54:16 Urinary symptoms 248875486 R39.9 Health Concerns Section Related Observation LastModified by Organization Detai ls LastModified Time None Recorded Concern Status LastModified by Organization Details LastModified Time None Recorded Advance Directives Directive None Recorded Payers Insurance Date Sequence Insurance Name Policy Number Policy Blanca Covered Member ID Blanca Member ID Guarantor Name 12/10/2023 1 [facility] - DOS ON OR AFTER 2022 - DUAL ELIGIBLE - SNF OPTIONS AND ONE CARE (MEDICARE REPLACEMENT/ADV ANTAGE - HMO) Cora Moranana [id number] [facility] Notes Date Note Type Note Provider Name [...] exam. As not able to come into [facility]. Confirmed address and phone number. .................. .................. .................. .................. .................. .................. .................. ............... CRC Nurse Triage Notes (Saleem Sears): Chief Complaints: UTI/Pyelonephritis PMH: COPD/Asthma, Hypertension, Diabetes Comments: Reviewed HPI Associate Programmer Analyst Organization Information for Anjel Gracia As[employer] Name: [employer]? Address: [address] [place] [address], Cloth Shearing Supervisor: Luis EMERY No.: [id number] Associate Programmer Analyst POC Test Results from Anjel Gracia Urine Dipstick (19:54:02) Urine leukocytes: - MARIAM Urine nitrites: - NIT Urine urobilinogen: - URO Urine protein: - PRO Urine pH: - pH Urine blood: - BLO Urine specific gravity: 1.005 SG Urine ketones: + KET Urine bilirubin: - INOCENCIA Urine glucose: - GLU .................. .................. .................. .................. .................. .................. .................. ............... Associate Programmer Analyst Note From Anjel Gracia: Dispatched to the [...] ............... Disposition: Fulfilled Anjana Obando MD [address] [facility],[address], [place], [address], KILLIAN - [employer] 12/08/2023 21:18:40 OBGyn Episode No OBEpisode recorded.
--- OUTSIDE RECORDS SUMMARY | 2024-07-29 10:11 | XMS_ITS | Encounter Summary ---
Author Organization [employer] Address 75 [facility] 7t [place] [address] Care Team Providers Care Section Forest Fire Warden Name Role Phone Deana Warren Primary Care Provider [phone] Reason for Visit * Reason Onset Date Comments FYI 07/25/2023 Encounter Details Date Type Department Care Team ([facility] st Contact Info) Description 07/25/2023 Telephone [facility] MEDICINE 230 [place], [place] [phone] Deana Warren ANP 230 [place], [place] [phone] Social History Tobacco Use Types Packs/Day Years [...] - 07/25/2023 2:04 PM EDT Tc form Bethany, [facility] with [facility] want to let pcp know pt's blood pressure Is 154/94 sittingup. Bethany stated per protocol they will call when pt's blood pressure is higher than 140/90. Bethany is unsure on pcps parameters or if he deems these calls necessary but requested insurance underwriter forward as KAITLYNN. If any questions you can contact Bethany at [phone]. documented in this encounter Plan of Treatment Upcoming Encounters Date Type Department Care Team (Late st Contact Info) Description 08/10/2024 11:15 AM EDT Office Visit [facility] MEDICINE [address] [place] [address] Deana Warren ANP 230 [place] [address] 10/08/2024 4:00 PM EDT Office Visit [facility] MEDICINE [address] [place] [address] Troy Cueto MD 230 [place] [address] documented as of this encounter Visit Diagnoses Not on filedocumented in this encounter Care Teams Section Forest Fire Warden Relationship Specialty Start Date End Date Deana Warren ANP [address] [place] [address] PCP - General Family Medicine 03/29/22 documented as of this encounter
--- OUTSIDE RECORDS SUMMARY | 2024-07-29 10:11 | XMS_ITS | Encounter Summary ---
Author Organization [employer] Address 75 [facility] 7t [place] [address] Care Team Providers Care Precision Assembler Bench Name Role Phone Deana Warren Primary Care Provider [phone] Reason for Visit * Reason Onset Date Comments Nurse Triage 10/13/2023 Encounter Details Date Type Department Care Team ([facility] st Contact Info) Description 10/13/2023 Telephone [facility] MEDICINE 230 [place], [place] [phone] Deana Warren ANP 230 [place], [place] [phone] Nurse Triage Social History Tobacco Use Types [...] Description 08/10/2024 11:15 AM EDT Office Visit [facility] MEDICINE [address] [place] [address] Deana Warren ANP 230 [place] [address] 10/08/2024 4:00 PM EDT Office Visit [facility] [address] [place] [address] Troy Cueto MD [address] [place] [address] documented as of this encounter Visit Diagnoses Not on filedocumented in this encounter Care Teams Precision Assembler Bench Relationship Specialty Start Date End Date Deana Warren ANP [address] [place] [address] PCP - General Family Medicine 03/29/22 documented as of this encounter
--- OUTSIDE RECORDS SUMMARY | 2024-07-29 10:11 | XMS_ITS | Encounter Summary ---
Author Organization [employer] Address 75 [facility] 7t [place] [address] Care Team Providers Care University Relations Director Name Role Phone Deana Warren Primary Care Provider [phone] Reason for Visit * Reason Onset Date Comments Nurse Triage 12/30/2023 Encounter Details Date Type Department Care Team ([facility] st Contact Info) Description 12/30/[address] [facility] MEDICINE 230 [place], [place] [phone] Deana Warren ANP 230 [place], [place] [phone] Nurse Triage Social History Tobacco Use Types [...] 915am. Pt is offered to come to [facility] today but, declines due to lack of [...] Description 08/10/2024 11:15 AM EDT Office Visit [address] [address] Deana Warren ANP 230 [place] [address] 10/08/2024 4:00 PM EDT Office Visit [address] [address] Troy Cueto MD 230 [place] [address] documented as of this encounter Visit Diagnoses Not on filedocumented in this encounter Care Teams University Relations Director Relationship Specialty Start Date End Date Deana Warren ANP [address] [place] [address] PCP - General Family Medicine 03/29/22 documented as of this encounter
--- OUTSIDE RECORDS SUMMARY | 2024-07-29 10:11 | XMS_ITS | Encounter Summary ---
Author Organization [employer] Address 75 [facility] 7t [place] [address] Care Team Providers Care Wood Stock Blank Handler Name Role Phone Deana Warren Primary Care Provider [phone] Reason for Visit * Reason Onset Date Comments FYI 02/12/2023 Encounter Details Date Type Department Care Team ([facility] st Contact Info) Description 02/12/2023 Telephone [facility] MEDICINE 230 [place], [place] [phone] Deana Warren ANP 230 [place], [place] [phone] FYI Social History Tobacco Use Types Packs/Day [...] Miscellaneous Notes * Telephone Encounter - Jason Schulz - 02/12/2023 2:36 PM EST Tc from [place] [facility] stating that pt missed her second appt today due to clinician being out and will be seeing pt today or tomorrow. If any questions please contact at [phone] documented in this encounter Plan of Treatment Upcoming Encounters Date Type Department Care Team (Late st Contact Info) Description 08/10/2024 11:15 AM EDT Office Visit [facility] MEDICINE [address] [place] [address] Deana Warren ANP 230 [place] [address] 10/08/2024 4:00 PM EDT Office Visit [facility] MEDICINE [address] [place] [address] Troy Cueto MD [address] [place] [address] documented as of this encounter Visit Diagnoses Not on filedocumented in this encounter Care Teams Wood Stock Blank Handler Relationship Specialty Start Date End Date Deana Warren ANP [address] [place] [address] PCP - General Family Medicine 03/29/22 documented as of this encounter
--- OUTSIDE RECORDS SUMMARY | 2024-07-29 10:11 | XMS_ITS | Encounter Summary ---
Author Organization [employer] Address [address] [place] [address] 7 [place] [address] Care Team Providers Care Motor Vehicle Field Representative Name Role Phone Deana Warern Primary Care Provider Reason for Visit * Reason Onset Date Comments triage 05/22/2022 Encounter Details Date Type Department Care Team (Late st Contact Info) Description 05/22/2022 Telephone [facility] MEDICINE [address] [place] [address] Deana Warren ANP [address] [place] [address] [phone] triage Social History Tobacco Use Types Packs/Day [...] 11:15 AM EDT Office Visit [facility] MEDICINE [address] [place] [address] Deana Warren ANP 230 [place] [address] 10/08/2024 4:00 PM EDT Office Visit [facility] MEDICINE 230 [place] [address] Troy Cueto MD 230 [place], [place] [phone] documented as of this encounter Visit Diagnoses Not on filedocumented in this encounter Care Teams Motor Vehicle Field Representative Relationship Specialty Start Date End Date Deana Warren ANP [address] [place] [address] [phone] PCP - General Family Medicine 03/29/22 documented as of this encounter
== END 2024-07-29 09:51 | disposition home or self-care (01) ==
LOC: HO.MAMMO 09:50
PROVIDERS: PCP Nurse Practitioner Primary Care; Visit Provider Internal Medicine
DX: Z13.820 Encounter for screening for osteoporosis (principal); Z78.0 Asymptomatic menopausal state
CPT/HCPCS: 77080

== ENCOUNTER → 2024-07-29 10:30 | Outpatient (BNV) | payer OTHER, SELFPAY | PROVIDERS: PCP Nurse Practitioner Primary Care; Visit Provider Radiology Diagnostic Radiology | DX: E28.39 Other primary ovarian failure (principal) | CPT/HCPCS: 77080 ==

== ENCOUNTER 2024-11-15 09:35 | Outpatient (REF) | payer OTHER, SELFPAY ==
--- OUTSIDE RECORDS SUMMARY | 2024-11-15 10:55 | XMS_ITS | Encounter Summary ---
Author Organization [facility] Address [address] [place] [address] Phone Care Team Providers Care Audio/Video Technician Name Role Phone Deana Warren NP Primary Care Provider Encounter Details Date Type Department Care Team (Late st Contact Info) Description 06/15/2023 Procedure Pass [facility], Ct Scan - [facility] [address] [place] [address] Social History Tobacco Use Types Packs/Day Years Used Date Smoking Tobacco: Every Day Cigarettes Smokeless Tobacco: Never Alcohol Use Standard Drinks/Week Comments Yes 0 (1 standard drink = 0.6 oz pure alcohol) Drinks Vodka, states only 1 with BAL of >250 Home Health Assessment: Transportation Answer Date Recorded Lack of Transportation (Medical) No 02/26/2023 Lack of Transportation (Non-Medical) No 02/26/2023 Patient Unable or Declines to Respond No 02/26/2023 Education Answer Date Recorded Are you interested in more education? Not on linda e 07/06/2022 Are you concerned about learning? Not on file 07/06/2022 No 07/06/2022 No 07/06/2022 Food Answer Date Recorded Within the past 6 months we worried whether our food would run out before we got money to buy more. Never True 06/15/2023 Within the past 6 months the food we bought just didn't last and we didn't have enough money to get more. Never True Residential Stability Answer Date Recor ded What is your housing situation today? I have adeline coles 06/15/2023 How many times have you move d in the past 12 months? Zero (I did not move) 06/15/2023 Paying for Meds Answer Date Recorded Do you have trouble paying for medicines? No 06/15/2023 Paying Utility Bills Answer Date Record ed Do you have trouble paying your heating or elect ricity bill? No 06/15/2023 Transportation Answer Date Recorded Has the lack of transportati on kept you from medical appointments or from getting medications? No 06/15/2023 Digital Access Answer Date Recorded No 06/15/2023 Yes 06/15/2023 Do you have reliable internet access at home? Ye s 06/15/2023 Do you have a device (e.g., phone, tablet, computer) with a working camera? Yes 06/15/2023 Comments Unknown Sex and Gender Information Value Date Recorded Sex Assigned at Female 01/09/2022 1:30 PM EDT Legal Sex Female 12:51 PM EDT Gender Identity Female 01/09/2022 1:30 PM EDT Sexual Orientation Straight 01/09/2022 5: 09 PM EDT documented as of this encounter Functional Status * Calculated C-SSRS Risk Score (Lifetime/Recent) Answer Date of Assessment Author No Risk Indicated 06/15/2023 12:48 PM EDT Addison Angulo RN * [place] Suicide Severity Rating Scale (Screener/Recent Self-Report) Question Answer Date of Assessment Author 1. Wish to be (Past 1 Month) No 06/15/2023 12:48 PM EDT Addison Angulo RN 2. Non-Specific Active Suicidal Thoughts (Past 1 Month) No 06/15/2023 12:48 PM EDT Addison Angulo RN 6. Suicidal Behavior (Lifetime) No 06/15/2023 12:48 PM EDT Addison Angulo RN documented as of this encounter Plan of Treatment Not on file documented as of this encounter Visit Diagnoses Not on filedocumented in this encounter Care Teams Audio/Video Technician Relationship Specialty Start Date End Date Deana Warren NP 230 [place] [address] PCP - General Nurse Practitioner 01/14/23 documented as of this encounter Additional Source Comments The information contained in this document represents components of the legal health record. It is not the complete legal health record.[facility]
--- OUTSIDE RECORDS SUMMARY | 2024-11-15 10:55 | XMS_ITS | Encounter Summary ---
Author Organization [facility] Address [address] [place] [address] Phone Care Team Providers Care Smasher Name Role Phone Deana Warren NP Primary Care Provider [phone] Encounter Details Date Type Department Care Team (Late st Contact Info) Description 06/17/2023 Procedure Pass [place] Admitting Dept - Virtual Department [address] [place] [address] Social History Tobacco Use Types Packs/Day Years [...] PM EDT documented as of this encounter Plan of Treatment Not on file documented as of this encounter Visit Diagnoses Not on filedocumented in this encounter Care Teams Smasher Relationship Specialty Start Date End Date Deana Warren NP 230 [place] [address] PCP - General Nurse Practitioner 01/14/23 documented as of this encounter Additional Source Comments The information contained in this document represents components of the legal health record. It is not the complete legal health record.[facility]
--- OUTSIDE RECORDS SUMMARY | 2024-11-15 10:55 | XMS_ITS | Encounter Summary ---
Author Organization [facility] Address [address] [place] [address] Phone Care Team Providers Care Bending Frame Operator Name Role Phone Deana Warren NP Primary Care Provider [phone] Encounter Details Date Type Department Care Team (Late st Contact Info) Description 11/16/2023 Procedure Pass [facility], Ct Scan - [facility] [address] [place] [address] Social History Tobacco Use Types Packs/Day Years Used Date Smoking Tobacco: Every Day Cigarettes Smokeless Tobacco: Never Alcohol Use Standard Drinks/Week Comments Yes 0 (1 standard drink = 0.6 oz pure alcohol) Drinks Vodka, states only 1 with BAL of >250 during her last visit, denies alcohol currently Home Health Assessment: Transportation Answer Date Recorded Lack of Transportation (Medical) No 09/15/2023 Lack of Transportation (Non-Medical) No 09/15/2023 Patient Unable or Declines to Respond No 09/15/2023 Education Answer Date Recorded Are you interested [...] computer) with a working camera? Yes 06/15/2023 Intimate Partner Violence Answer Date R ecorded Are you denied basic needs s uch as food, clothing, or medical care? No 11/16/2023 In the past 12 months have y ou been in a relationship with a person who hurts, threatens, or tries to control you? No 11/16/2023 Are you denied basic needs s uch as food, clothing, or medical care? No 11/16/2023 In the past 12 months have y ou been in a relationship with a person who hurts, threatens, or tries to control you? No 11/16/2023 Comments Unknown Sex and Gender Information Value Date Recorded Sex Assigned at Female 01/09/2022 1:30 PM EDT Legal Sex Female 12:51 PM EDT Gender Identity Female 01/09/2022 1:30 PM EDT Sexual Orientation Straight 01/09/2022 5: 09 PM EDT documented as of this encounter Functional Status * Calculated C-SSRS Risk Score (Lifetime/Recent) Answer Date of Assessment Author No Risk Indicated 11/16/2023 5:19 PM EDT Maribell Olguin RN * [place] Suicide Severity Rating Scale (Screener/Recent Self-Report) Question Answer Date of Assessment Author 1. Wish to be (Past 1 Month) No 11/16/2023 5:19 PM EDT Maribell Olguin RN 2. Non-Specific Active Suici shamika Thoughts (Past 1 Month) No 11/16/2023 5:19 PM EDT Kae Olguin RN 6. Suicidal Behavior (Lifetime) No 5:19 PM EDT Maribell Olguin RN documented as of this encounter Plan of Treatment Not on file documented as of this encounter Visit Diagnoses Not on filedocumented in this encounter Care Teams Bending Frame Operator Relationship Specialty Start Date End Date Deana Warren NP [address] [place] [id number] PCP - General Nurse Practitioner 01/14/23 documented as of this encounter Additional Source Comments The information contained in this document represents components of the legal health record. It is not the complete legal health record.[facility]
--- OUTSIDE RECORDS SUMMARY | 2024-11-15 10:55 | XMS_ITS | Encounter Summary ---
Author Organization [facility] Address [address] [place] [address] Phone Care Team Providers Care Embryology Professor Name Role Phone Deana Warren NP Primary Care Provider [phone] Encounter Details Date Type Department Care Team (Late st Contact Info) Description 06/15/2023 Procedure Pass [facility], Ct Scan - [facility] [address] [place] [address] Social History Tobacco Use Types Packs/Day Years [...] 12:48 PM EDT Addison Angulo RN * [place] Suicide Severity Rating Scale (Screener/Recent Self-Report) Question [...] on filedocumented in this encounter Care Teams Embryology Professor Relationship Specialty Start Date End Date Deana Warren NP [address] [place] [address] PCP - General Nurse Practitioner 01/14/23 documented as of this encounter Additional Source Comments The information contained in this document represents components of the legal health record. It is not the complete legal health record.[facility]
--- OUTSIDE RECORDS SUMMARY | 2024-11-15 10:55 | XMS_ITS | Clinical Summary ---
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 2 Active omeprazole (PRILOSEC) 40 MG capsule Take 40 mg by mouth daily. 2 Active albuterol 2.5 mg /3 mL (0.083 %) nebulizer solution Take 2.5 mg by nebulization every 6 (six) hours as needed for wheezing. 3 Active thiamine (VITAMIN B-1) 100 MG tablet Take 100 mg by mouth daily. 3 Active lisinopril (PRINIVIL,ZESTR IL) 10 MG tablet [The details of the medication are not available because there are pending changes by a home health clinician.] 30 tablet 3 Active Additional Information Patient taking differently: 30 mgOral Daily,Takes 1 30mg tablet in the AM., Reported on 07/23/2023 gabapentin (NEURONTIN) 300 MG capsule Take 1 capsule (300 mg total) by mouth 2 (two) times a day. 30 capsule 3 Active albuterol 90 mcg/actuation inhaler Inhale 1 puff into the lungs every 4 (four) hours as needed for wheezing. 10 g 3 Active buPROPion (WELLBUTRIN SR) 200 MG SR 12 hr tablet Take 200 mg by mouth every morning. 4 Active insulin glargine (LANTUS) 100 unit/mL injection vial Inject 18 Units under the skin daily. 5.4 mL 4 Active insulin lispro (ADMELOG, HUMALOG) 100 unit/mL injection vial Inject 0-6 Units under the skin 3 (three) times a day before meals. 5.4 mL 4 Active traZODone (DESYREL) 50 MG tablet Take 0.25 tablets (12.5 mg total) by mouth nightly at bedtime. 7 tablet 4 Active oxyCODONE 5 MG immediate release tablet Take 1-2 tablets (5-10 mg total) by mouth every 6 (six) hours as needed. Partial fill ok 20 tablet 4 Active Additional Information Patient not taking.Reported on 08/05/2023 aspirin 325 MG tablet Take 325 mg by mouth daily. 4 Active insulin glargine (LANTUS) 100 unit/mL injection vial Inject 28 Units under the skin nightly at bedtime. 4 Active insulin aspart U-100 (NOVOLOG FLEXPEN U-100 INSULIN) 100 unit/mL (3 mL) injection pen Inject 6 Units under the skin 3 (three) times a day before meals. if BS >150 Take 6 Units PLUS number indicated on Sliding Scale. 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 4 Active Active Problems Problem Noted Date Diagnosed Date Hypomagnesemia 06/16/2023 Assessment & Plan (06/17/2023 4:02 PM EDT): Magnesium level is 1.5. Likely nutritional given history of EtOH consumption. - Replenished with IV magnesium 2 g. - Repeat magnesium levels now wnl at 1.8 Closed displaced comminuted fracture of shaft of left femur with delayed healing 06/15/2023 Assessment & Plan (06/19/2023 5:46 PM EDT): Patient has been stable pain well-controlled with as needed Dilaudid half a milligrams every 4 hours. Underwent surgical repair on 06/17/[address] Reyes of orthopedic surgery. -Postop patient is partial weightbearing left lower extremity with use of walker. -Started on aspirin 325 mg daily by orthopedic surgery for DVT prophylaxis. -PT OT as per orthopedic surgery. Pain management -Dilaudid to 0.8 mg IV every 4 hours as needed severe pain. Oxycodone 10 mg q6 hours scheduled for now as we transition her from IV to PO opiates. Acetaminophen for mild pain. -Case management involved in search for short-term rehab/acute rehab. Likely ready for discharge on 06/20/2023 to [facility]. Tobacco abuse 06/15/2023 Assessment & Plan (06/16/2023 2:13 PM EDT): Counseled regarding cessation. Agreeable to patch and gum ordered. Seizure 01/09/2023 Assessment & Plan (01/12/2023 7:15 PM EST): -Patient presented to [facility] with AMS thought to be due to hypoglycemia, had a seizure in the ED and EEG the following day was concerning for status epilepticus therefore she was transferred to [facility] -Repeat EEG shows slowing, no epileptiform discharges -MRI brain done, shows a possible infarct however as per neurology team it is more consistent with T2 shine through -Continue keppra, increased to 1.5g bid -Seizure precautions Chronic hepatitis C 03/29/2022 Assessment & Plan (06/15/2023 4:38 AM EDT): With cirrhosis Standard precautions COPD with exacerbation 03/29/2022 Overview (06/15/2023): + increased SOB and sputum. Rapid COVID [...] fever, or severe headache. ED precautions reviewed. Last Assessment & Plan: + increased SOB and sputum. Rapid COVID [...] fever, or severe headache. ED precautions reviewed. Alcohol abuse 03/29/2022 Assessment & Plan (06/19/2023 5:44 PM EDT): Chronic alcohol abuse. History of alcohol withdrawal seizures several months ago. Patient now stating that she drinks several drinks daily. EtOH on admission was 241. Treated with IV phenobarbital 8mg/kg load on 06/15/23 Patient remains awake alert oriented x 3 no signs of withdrawal. No tremors. Monitor with CIWA's - low consult for services after discharge Primary hypertension 01/20/2022 Assessment & Plan (06/18/2023 1:57 PM EDT): HTN usually managed with lisinopril. CAMILLA inhibitor held on admission anticipation of surgery as there is some studies that suggest excess risk of intraoperative hypotension with use of CAMILLA inhibitor. BP has rebounded to 172/85 as has surgery now scheduled for 06/17/2023 treated with one dose of amlodipine 5 mg. Patient now in the postoperative period - Restarted on lisinopril 20 mg daily with improved blood pressure control. - Treat underlying pain. Assessment & Plan (01/13/2023 10:00 AM EST): -BP persistently we will increase home lisinopril to 30 mg Assessment & Plan (01/07/2023 6:29 AM EDT): Continue lisinopril with holding parameters Assessment & Plan (01/20/2022 8:40 AM EST): Diagnosed as an outpatient. Previously on lisinopril. Will consider restarting lisinopril if her blood pressure remains elevated. She is now hemodynamically stable. Electrolytes are still improving and stabilizing with supplementation of magnesium and potassium. Depression 01/20/2022 Assessment & Plan (06/18/2023 2:00 PM EDT): On olanzapine 10 mg p.o. nightly prescribed by JOE Brock. No record of recent trazodone prescription since 12/07/2021. Olanzapine has been on hold as patient has received significant doses of Dilaudid. She remained stable with no oversedation or worsening of her depression or behaviors. -No complaints of increased depressive symptoms. - Continue to hold trazodone as patient is on high-dose opiate's and at risk for oversedation. -Restart olanzapine 10 mg at bedtime. Patient has been on this medication long- term since 2021 with up titration to 10 mg in November 2022. Assessment & Plan (01/28/2022 1:44 PM EST): - Wellbutrin Assessment & Plan (01/20/2022 8:40 AM EST): Will restart the patient's Wellbutrin. We will hold off on duloxetine for now. Type 2 diabetes mellitus, wi th long-term current use of insulin 01/20/2022 Assessment & Plan (06/19/2023 5:44 PM EDT): Patient is managed on insulin Lantus 28 units subcu at bedtime at home; Lantus dose decreased to 5 units as patient was n.p.o. Diet is now resumed and blood sugars elevated into the high 200s. -Continue Lantus to 18 units subcu nightly. Goal is for RBS to be<180 for wound healing. -POC Q6hrs with SSI correction Assessment & Plan (01/13/2023 10:01 AM EST): -Continue lantus 28 units -Monitor point of care, cover with insulin sliding scale as needed -hba1c 6.2 Assessment & Plan (01/08/2023 2:29 PM EDT): Further episodes of hypoglycemia. -Continue D5 normal saline at 100 cc an hour, may be able to dc soon -We will place on low-dose insulin sign scale with [id number] testing -Continue to hold long-acting as patient is encephalopathic and not taking in much PO Assessment & Plan (02/07/2022 10:00 AM EST): DKA at time of presentation, resolved. Hemoglobin A1c 14.1. BG now in 100-200 range. -Continue Lantus insulin 24 units qd - POC/ISS Assessment & Plan (01/20/2022 8:42 AM EST): Continue with insulin. Continue with [id number]'s. Patient has had her diabetic ketoacidosis resolved. We will likely transition off of dextrose as the patient's oral intake improves. She still on some aspirations precautions. Dysphagia 01/20/2022 Assessment & Plan (01/13/2023 10:02 AM EST): -CATH LAB consulted, cleared for reg diet Assessment & Plan (02/07/2022 9:54 AM EST): ERIKA Izquierdo From CATH LAB 02/01, well with solids. Needs moderately thick liquids. Her voice remains weak since she was in the ICU. This was reviewed with Pulm/ICU: as long as there is no stridor, no solano to see ENT, likely not much to do) S/p MBS 01/28. - Dysphagia diet with safety precautions including chin tuck, Pt doing well with it. Assessment & Plan (01/20/2022 8:43 AM EST): We will continue with modified diet. Slowly progress. Speech and language pathology to continue to follow. Aspiration precautions in place. Oral secretions improved with a dose of glycopyrrolate low yesterday. Encephalopathy acute 01/12/2022 Assessment & Plan (01/08/2023 2:27 PM EDT): Related to hypoglycemia, recent witnessed seizures and possible underlying infection in the setting of cognitive impairment at baseline. Son describes some memory difficulty ever since her last hospitalization a year ago with hyperglycemic coma Overall improving. Continue supportive care and treatment of underlying issues -Continue home dose Zyprexa -Delirium precautions Assessment & Plan (01/31/2022 10:14 AM EST): Likely multifactorial. Repeat CT head without CVA. Appears to be improving. Pt has been on geripsych unit at [place] recently but then back home after. MS much better after NGT removal and since she is able to eat. In fact patient quite pleasant and self sufficient. - Cont Olanzapine Assessment & Plan (01/20/2022 8:39 AM EST): Likely multifactorial. Initially from metabolic derangements. Could also be from outpatient medications at the patient was on for what appears to be treating left eye pain, possibly trigeminal neuralgia. She was on Neurontin for this. Will limit the patient's opiates at this point given her degree of obtundation. She seems more appropriate today. We will continue to monitor closely. Patient does not have any acute focality on her neurologic exam to necessitate further imaging studies at this point. Therefore, I will discontinue the MRI for now however with herpes encephalopathy on the differential given the patient's oral lesions, an MRI may be useful for diagnosis of temporal changes that can be associated with herpes encephalitis. We will see how the patient does over the next few hours or days before reconsidering imaging. Differential diagnosis will include Warnicke's encephalopathy for which we are treating with high-dose vitamins. Other infectious etiologies could also be at play. HIV pending. Resolved Problems Problem Noted Date Diagnosed Date Resolved Date Acute bacterial conjunctivitis of left eye 01/13/2023 06/15/2023 Assessment & Plan (01/13/2023 10:04 AM EST): Evaluated by ophthalmology at [facility] Recommended erythromycin ointment, will continue Pneumonia due to infectious organism, unspecified laterality, unspecified part of lung 01/07/2023 06/15/2023 Assessment & Plan (01/13/2023 10:02 AM EST): -Completed Rocephin and doxy for a 7 day course from 01/06 to 01/12. Assessment & Plan (01/08/2023 2:31 PM EDT): Patient met sepsis criteria given leukocytosis of 15, hypothermia, and mild lactic acidosis of 2.39 possibly due to lower lobe pneumonia. Chest x-ray showed left basilar opacity. Exam was difficult as patient is not taking with good inspiration. Although patient remains hemodynamically stable and saturating well on room air. 01/07: fever to 100.6 x1. procalcitonin slightly elevated. Possible pneumonia. -Continue IV ceftriaxone and doxycycline (due to prolonged QT) -Repeat CBC, CMP, CRP, ESR,procalcitonin -Sputum culture, Legionella and strep antigen -Follow-up blood cultures Tension type headache 02/03/20222021 Assessment & Plan (02/06/2022 5:11 PM EST): Discharge planning issues 01/31/2022 Assessment & Plan (01/31/2022 10:18 AM EST): Pt needs safe discharge plan. Home situation not safe. - SW and CM following for LTC Hypoxia 01/21/2022 01/23/2022 Septic shock 01/12/2022 01/20/2022 Bacteremia due to group B Streptococcus 01/12/2022 02/08/2022 Assessment & Plan (01/30/2022 12:54 PM EST): Source unlcear. JENNI no vegetation. Bacteremia cleared quickly. Pt completed course of IV Ceftriaxone on 01/25/22. Assessment & Plan (01/20/2022 8:37 AM EST): Source is still unknown. On day 9 of a total 14-day course. Antibiotics were adjusted early in the course and it looks like a day of antibiotics was missed. No fevers overnight to suggest need for antibiotic adjustment at this time. DKA (diabetic ketoacidosis) 01/09/2022 01/20/2022 Encounters Date Type Department Care Team Description 10/19/2024 5:37 PM EDT - 10/20/2024 9:00 AM EDT Emergency [facility] [address] [place] [id number] Thierno Howard MD Savage, Justin G, Lynette Naidu MD Discharge Disposition: Home or Self Care 10/19/2024 Procedure Pass [facility], [address] [address] 10/19/2024 Procedure Pass [address] [address] from Last 3 Months Immunizations Immunization Administration Dates Next Due Influenza High-Dose Quadriva lent Preservative Free IM 01/12/2023,02/08/2022(Deferred: Contraindication - patient reports she already got flu shot) Social History Tobacco Use Types Packs/Day Years [...] got money to buy more. Never True 10/19/2024 Within the past 6 months the food we bought just didn't last and we didn't have enough money to get more. Never True Residential Stability Answer Date Recor ded What is your housing situation today? I have adeline coles 10/19/2024 How many times have you move d in the past 12 months? Zero (I did not move) 10/19/2024 Paying for Meds Answer Date Recorded Do you have trouble paying for medicines? No 10/19/2024 Paying Utility Bills Answer Date Record ed Do you have trouble paying your heating or elect ricity bill? No 10/19/2024 Transportation Answer Date Recorded Has the lack of transportati on kept you from medical appointments or from getting medications? No 10/19/2024 Digital Access Answer Date Recorded No 10/19/2024 Yes 10/19/2024 Do you have reliable internet access at home? Ye s 10/19/2024 Do you have a device (e.g., phone, tablet, computer) with a working camera? Yes 10/19/2024 Intimate Partner Violence Answer Date R ecorded Are you denied basic needs s uch as food, clothing, or medical care? No 10/19/2024 In the past 12 months have y ou been in a relationship with a person who hurts, threatens, or tries to control you? No 10/19/2024 Are you denied basic needs s uch as food, clothing, or medical care? No 10/19/2024 In the past 12 months have y ou been in a relationship with a person who hurts, threatens, or tries to control you? No 10/19/2024 Comments Unknown Sex and Gender Information Value Date Recorded Sex Assigned at Female 01/09/2022 1:30 PM EDT Legal Sex Female 12:51 PM EDT Gender Identity Female 01/09/2022 1:30 PM EDT Sexual Orientation Straight 01/09/2022 5: 09 PM EDT Last Filed Vital Signs Vital Sign Reading Time Taken Comments Blood Pressure 151/61 10/20/2024 8:50 AM EDT Pulse 75 10/20/2024 8:50 AM EDT Temperature 36.7 C (98 F) 10/20/2024 8:50 AM EDT Respiratory Rate 18 10/20/2024 8:50 AM EDT Oxygen Saturation 97% 10/20/2024 8:50 AM EDT Inhaled Oxygen Concentration 30% 01/18/2022 4 :00 PM EST Weight 59 kg (130 lb) 10/19/2024 5:27 PM EDT Height 149.9 cm (4' 11 ) 10/19/2024 5:27 PM EDT Body Mass Index 26.26 10/19/2024 5:27 PM EDT Plan of Treatment Health Maintenance Due Date Last Done Comments DEPRESSION SCREENING 1966 SMOKING Hx and SMOKELESS TOBACCO SCREENING 11/03/1967 HEPATITIS A VACCINES (1 of 2 - Risk 2-dose series) 1973 COLOGUARD 11/03/1999 COLONOSCOPY 11/03/1999 COLORECTAL CANCER SCREENING 11/03/1999 FIT TEST 11/03/1999 FOBT 11/03/1999 SIGMOIDOSCOPY 11/03/1999 VIRTUAL COLONOSCOPY 11/03/1999 ZOSTER VACCINES (1 of 2) 2004 RSV VACCINE (1 - Risk 60-74 years 1-dose series) 2014 PNEUMOCOCCAL VACCINES (50+ years) (2 of 2 - PCV) 07/31/2016 08/01/2015, 11/16/2014, 09/16/2010 MAMMOGRAM 06/28/2023 06/27/2021 BLOOD PRESSURE 03/17/2024 09/15/2023 INFLUENZA VACCINE (#1) 2024 01/12/2023 COVID-19 VACCINE ( season) 2024 LIPID PANEL 01/22/2025 01/23/2024, 11/0 08/2022, 05/28/2021 HEMOGLOBIN A1C 02/09/2025 08/10/2024, 03/0 09/2023, 01/13/2023, Additional history exists Adult Td,Tdap Booster 07/31/2025 08/01/2015 DIABETIC EYE EXAM 09/15/2025 09/15/2024, , 01/11/2023, Additional history exists CREATININE LEVEL 10/19/2025 10/19/2024, , 06/20/2023, Additional history exists POTASSIUM LEVEL 10/19/2025 10/19/2024, 07/08, 06/20/2023, Additional history exists OSTEOPOROSIS SCREENING INITIAL (ONE-TIME) Completed 07/29/2024 HIB VACCINES Aged Out No longer eligi ble based on patient's age to complete this topic MENINGOCOCCAL VACCINES (ACWY) Aged Out No longer eligible based on patient's age to complete this topic MENINGOCOCCAL VACCINES (B) Aged Out N o longer eligible based on patient's age to complete this topic Medical Devices Implanted Type Area [employer]airman Device Identifier Shelf Expiration Date Model / Serial / Lot Nail Bone [id number] 125deg Tfn Advanced Ti Cannulated Left - [id number] Implanted:Qty : 1 on 06/17/2023 by Mal Reyes MD at [facility] Left: Acetabulum [employer] [id number] 11/07/2032 04.037.12 5S / / [id number] Blade Bone 10.5x85mm Helical Tfn Advanced - [id number] Implanted:Qty : 1 on 06/17/2023 by Mal Reyes MD at [facility] Left: Acetabulum [employer] SPINE [id number] 10/07/2032 04.038.38 5S / / [id number] Screw Bone 5x46mm Locking Im Nail - [id number] Implanted:Qty : 1 on 06/17/2023 by Mal Reyes MD at [facility] Left: Femur [employer] [id number] 03/09/2032 04.045.04 6S / / [id number] Screw Bone 5x44mm Locking Im Nail - [id number] Implanted:Qty : 1 on 07/21/2023 by Mal Reyes MD at [facility] Left: Hip [employer] [id number] 01/07/2033 04.045.04 4S / / [id number] Screw Bone 5x42mm Locking Xl25 Recess Medullary Nail Compatible - [id number] Implanted:Qty : 1 on 07/21/2023 by Mal Reyes MD at [facility] Left: Hip [employer] [id number] 07/07/2032 04.045.04 2S / / [id number] Procedures Procedure Name Priority Date/Time Associated Diagnosis Comments ETHANOL, BLOOD STAT 10/19/2024 5:58 PM EDT PHOSPHORUS STAT 10/19/2024 5:58 PM EDT MAGNESIUM STAT 10/19/2024 5:58 PM EDT LFTS (HEPATIC PANEL) STAT 10/19/2024 5:58 PM EDT BASIC METABOLIC PANEL STAT 10/19/2024 5:58 PM EDT CBC AND DIFFERENTIAL STAT 10/19/2024 5:[address] CERVICAL SPINE (NEURO) WITHOUT CONTRAST STAT 10/19/2024 5:[address] HEAD WITHOUT CONTRAST STAT 10/19/2024 5:44 PM EDT ECG 12-LEAD STAT 10/19/2024 5:30 PM EDT POCT GLUCOSE Routine 10/19/2024 5:27 PM EDT HEMOGLOBIN A1C Routine 01/13/2023 5:45 AM EST LIPID PANEL Routine 01/13/2023 5:45 AM EST from Last 3 Months or Most Recently Relevant to Health Maintenance Results * (ABNORMAL) Ethanol, blood (10/19/2024 5:58 PM EDT) Pathologist [facility] ETHANOL 273(H) <10 mg/dL [facility] Blood 10/19/2024 5:58 PM EDT 10/19/2024 6:09 PM EDT us Thierno Howard MD LAB BLOOD ORDERABLES Final Resu lt [address] [address] * (ABNORMAL) LFTs (hepatic panel) (10/19/2024 5:58 PM EDT) Pathologist [facility] ALKALINE PHOSPHATASE 114 39 - 117 U/L [facility] TOTAL BILIRUBIN 0.3 0.0 - 1.2 mg/dL [facility] DIRECT BILIRUBIN 0.1 0.0 - 0.2 mg/dL [facility] Bilirubin (Indirect) NOT CALCULATED 0 - 1.5 mg/dL [facility] AST 29 0 - 37 U/L [facility] ALT 16 0 - 40 U/L [facility] TOTAL PROTEIN 8.2(H) 6.5 - 8.0 g/dL [facility] ALBUMIN 4.1 3.9 - 4.8 g/dL [facility] GLOBULIN 4.1 1 - 4.8 g/dL [facility] A/G Ratio 1.00 1.00 - 4.80 RATIO [facility] Blood 10/19/2024 5:58 PM EDT 10/19/2024 6:09 PM EDT us Thierno Howard MD LAB BLOOD ORDERABLES Final Resu lt Performing Organization Address City/State/[facility] Co de Phone Number [address] [address] * (ABNORMAL) CBC and differential (10/19/2024 5:58 PM EDT) WBC 9.87 4.00 - 11.00 K/uL [facility] RBC 5.18 4.00 - 5.20 M/uL [facility] HGB 15.0 12.0 - 16.0 g/dL [facility] HCT 45.2 36.0 - 46.0 % [facility] PLT 190 150 - 450 K/uL [facility] MCV 87.3 80.0 - 100.0 [facility] MCH 29.0 27.0 - 31.0 pg [facility] MCHC 33.2 32.0 - 36.0 g/dL [facility] RDW 14.8(H) 11.5 - 14.5 % [facility] MPV 10.8 8.4 - 12.0 [facility] NRBC 0.00 0.00 /100 WBCs [facility] ABSOLUTE NRBC 0.00 0.00 K/uL [facility] DIFF METHOD Auto [facility] NEUTS 54.5 48.0 - 76.0 % [facility] LYMPHS 36.7 18.0 - 41.0 % [facility] MONOS 5.7 4.0 - 11.0 % [facility] EOS 1.9 0.0 - 5.0 % [facility] BASOS 0.8 0.0 - 1.5 % [facility] Granulocytes, immature (%) 0.4 0.0 - 0.9 % [facility] ABSOLUTE NEUTS 5.38 1.92 - 7.60 K/uL [facility] ABSOLUTE LYMPHS 3.62 0.72 - 4.10 K/uL [facility] ABSOLUTE MONOS 0.56 0.16 - 1.10 K/uL [facility] ABSOLUTE EOS 0.19 0.00 - 0.50 K/uL [facility] ABSOLUTE BASOS 0.08 0.00 - 0.15 K/uL [facility] Granulocytes, immature 0.04 0.00 - 0.09 K/uL [facility] Blood 10/19/2024 5:58 PM EDT 10/19/2024 6:09 PM EDT Thierno Howard MD LAB BLOOD ORDERABLES Final Resu lt [address] [address] * Phosphorus (10/19/2024 5:58 PM EDT) PHOSPHORUS 3.0 2.7 - 4.5 mg/dL [facility] Blood 10/19/2024 5:58 PM EDT 10/19/2024 6:09 PM EDT Thierno Howard MD LAB BLOOD ORDERABLES Final Resu lt [address] [address] * Magnesium (10/19/2024 5:58 PM EDT) MAGNESIUM 2.0 1.6 - 2.6 mg/dL [facility] Blood 10/19/2024 5:58 PM EDT 10/19/2024 6:09 PM EDT Thierno Howard MD LAB BLOOD ORDERABLES Final Resu lt Performing Organization Address [facility]/ZIP Co de Phone Number [address] [address] * (ABNORMAL) Basic metabolic panel (10/19/2024 5:58 PM EDT) SODIUM 144 133 - 146 mmol/L [facility] CHLORIDE 107 96 - 108 mmol/L [facility] POTASSIUM 3.4 3.3 - 5.1 mmol/L [facility] CO2 20(L) 21 - 35 mmol/L [facility] BUN 13 6 - 19 mg/dL [facility] CREATININE 0.50 0.5 - 1.5 mg/dL [facility] GLUCOSE 119(H) 70 - 99 mg/dL [facility] CALCIUM 9.7 8.4 - 10.3 mg/dL [facility] EGFR 101 >59 mL/min/1.7 3m2 [facility] Comment:Estimated glomerular filtration rate calculated using the CKD-EPI refit equation. ANION GAP 20 10 - 20 mmol/L [facility] Blood 10/19/2024 5:58 PM EDT 10/19/2024 6:09 PM EDT Thierno Howard MD LAB BLOOD ORDERABLES Final Resu lt Performing Organization Address [facility]/ZIP Co de Phone Number [address] [address] * CT CERVICAL SPINE (NEURO) WITHOUT CONTRAST (10/19/2024 5:44 PM EDT) Anatomical Region Laterality Modality C-spine Computed Tomogra phy 10/19/2024 5:52 PM EDT Impressions 10/19/2024 6:42 PM EDT 1. No acute intracranial findings. 2. No acute fracture or traumatic malalignment of the cervical spine. ATTESTATION: Chris Guzman as teaching physician, have reviewed the images for this case and if necessary edited the report originally created by Stacie Major. Narrative 10/19/2024 6:[address] CERVICAL SPINE (NEURO) WITHOUT CONTRAST, CT HEAD WITHOUT CONTRAST Referring clinician's provided indication for this examination in [facility]: Head trauma, minor (Age >= 65y); Neck trauma (Age >= 65y); EtOH, fell multiple times, found face down on the ground TECHNIQUE: CTs of the head and cervical spine were performed without intravenous contrast using tailored dose modulation techniques. Images were reconstructed in the axial, coronal, and sagittal planes. COMPARISON: CT HEAD WITHOUT CONTRAST ; CT CERVICAL SPINE WITHOUT CONTRAST FINDINGS: HEAD: Brain Parenchyma: No midline shift, mass effect, parenchymal hemorrhage, or evidence of acute territorial infarct. Ventricular System and Extra-Axial Spaces: The ventricles and sulci are prominent. No extra-axial fluid collections. Basilar cisterns are patent. No hydrocephalus. Osseous and Extracranial Structures: No calvarial fracture or significant soft tissue hematoma. Similar small scarring of the median parietal scalp. No significant paranasal sinus disease. Left lens replacement. CERVICAL SPINE: Alignment and Vertebrae: No acute fracture or traumatic malalignment. Mild anterolisthesis of C3 on C4 and C4 on C5, which are likely secondary to degenerative changes. Unchanged sclerosis of the C5 and C6 vertebral bodies. Discs and Endplates: Mild to moderate multilevel degenerative changes, most marked at C5-C6. Other Findings: Mild biapical paraseptal emphysema. Arteriovascular calcifications. Bilateral palatine tonsilloliths. Procedure Note Chris Mehta MD - 10/19/2024 CT CERVICAL SPINE (NEURO) WITHOUT CONTRAST, CT HEAD WITHOUT CONTRAST Referring clinician's provided indication for this examination in [facility]:Head trauma, minor (Age >= 65y); Neck trauma (Age >= 65y); EtOH, fellmultiple times, found face down on the ground TECHNIQUE: CTs of the head and cervical spine were performed withoutintravenous contrast using tailored dose modulation techniques. Imageswere reconstructed in the axial, coronal, and sagittal planes. COMPARISON: CT HEAD WITHOUT CONTRAST ; CT CERVICAL SPINEWITHOUT CONTRAST FINDINGS: HEAD: Brain Parenchyma: No midline shift, mass effect, parenchymal hemorrhage,or evidence of acute territorial infarct. Ventricular System and Extra-Axial Spaces: The ventricles and sulci areprominent. No extra-axial fluid collections. Basilar cisterns are patent.No hydrocephalus. Osseous and Extracranial Structures: No calvarial fracture or significantsoft tissue hematoma. Similar small scarring of the median parietal scalp.No significant paranasal sinus disease. Left lens replacement. CERVICAL SPINE: Alignment and Vertebrae: No acute fracture or traumatic malalignment. Mildanterolisthesis of C3 on C4 and C4 on C5, which are likely secondary todegenerative changes. Unchanged sclerosis of the C5 and C6 vertebralbodies. Discs and Endplates: Mild to moderate multilevel degenerative changes,most marked at C5-C6. Other Findings: Mild biapical paraseptal emphysema. Arteriovascularcalcifications. Bilateral palatine tonsilloliths. IMPRESSION: 1. No acute intracranial findings. 2. No acute fracture or traumatic malalignment of the cervical spine. ATTESTATION: Chris Guzman as teaching physician, have reviewed theimages for this case and if necessary edited the report originally createdby Stacie Major. Thierno Howard MD IMG CT XSPECIALTY ORDERABLES Fi nal Result * CT HEAD WITHOUT CONTRAST (10/19/2024 5:44 PM EDT) Anatomical Region Laterality Modality Head Computed Tomogra phy 10/19/2024 5:52 PM EDT Impressions 10/19/2024 6:42 PM EDT 1. No acute intracranial findings. 2. No acute fracture or traumatic malalignment of the cervical spine. ATTESTATION: Chris Guzman as teaching physician, have reviewed the images for this case and if necessary edited the report originally created by Stacie Major. Narrative 10/19/2024 6:[address] CERVICAL SPINE (NEURO) WITHOUT CONTRAST, CT HEAD WITHOUT CONTRAST Referring clinician's provided indication for this examination in Epic: Head trauma, minor (Age >= 65y); Neck trauma (Age >= 65y); EtOH, fell multiple times, found face down on the ground TECHNIQUE: CTs of the head and cervical spine were performed without intravenous contrast using tailored dose modulation techniques. Images were reconstructed in the axial, coronal, and sagittal planes. COMPARISON: CT HEAD WITHOUT CONTRAST ; CT CERVICAL SPINE WITHOUT CONTRAST FINDINGS: HEAD: Brain Parenchyma: No midline shift, mass effect, parenchymal hemorrhage, or evidence of acute territorial infarct. Ventricular System and Extra-Axial Spaces: The ventricles and sulci are prominent. No extra-axial fluid collections. Basilar cisterns are patent. No hydrocephalus. Osseous and Extracranial Structures: No calvarial fracture or significant soft tissue hematoma. Similar small scarring of the median parietal scalp. No significant paranasal sinus disease. Left lens replacement. CERVICAL SPINE: Alignment and Vertebrae: No acute fracture or traumatic malalignment. Mild anterolisthesis of C3 on C4 and C4 on C5, which are likely secondary to degenerative changes. Unchanged sclerosis of the C5 and C6 vertebral bodies. Discs and Endplates: Mild to moderate multilevel degenerative changes, most marked at C5-C6. Other Findings: Mild biapical paraseptal emphysema. Arteriovascular calcifications. Bilateral palatine tonsilloliths. Procedure Note Chris Mehta MD - 10/19/2024 CT CERVICAL SPINE (NEURO) WITHOUT CONTRAST, CT HEAD WITHOUT CONTRAST Referring clinician's provided indication for this examination in [facility]:Head trauma, minor (Age >= 65y); Neck trauma (Age >= 65y); EtOH, fellmultiple times, found face down on the ground TECHNIQUE: CTs of the head and cervical spine were performed withoutintravenous contrast using tailored dose modulation techniques. Imageswere reconstructed in the axial, coronal, and sagittal planes. COMPARISON: CT HEAD WITHOUT CONTRAST ; CT CERVICAL SPINEWITHOUT CONTRAST FINDINGS: HEAD: Brain Parenchyma: No midline shift, mass effect, parenchymal hemorrhage,or evidence of acute territorial infarct. Ventricular System and Extra-Axial Spaces: The ventricles and sulci areprominent. No extra-axial fluid collections. Basilar cisterns are patent.No hydrocephalus. Osseous and Extracranial Structures: No calvarial fracture or significantsoft tissue hematoma. Similar small scarring of the median parietal scalp.No significant paranasal sinus disease. Left lens replacement. CERVICAL SPINE: Alignment and Vertebrae: No acute fracture or traumatic malalignment. Mildanterolisthesis of C3 on C4 and C4 on C5, which are likely secondary todegenerative changes. Unchanged sclerosis of the C5 and C6 vertebralbodies. Discs and Endplates: Mild to moderate multilevel degenerative changes,most marked at C5-C6. Other Findings: Mild biapical paraseptal emphysema. Arteriovascularcalcifications. Bilateral palatine tonsilloliths. IMPRESSION: 1. No acute intracranial findings. 2. No acute fracture or traumatic malalignment of the cervical spine. ATTESTATION: I, Chris Mehta as teaching physician, have reviewed theimages for this case and if necessary edited the report originally createdby Stacie Major. Thierno Howard MD IMG CT HEAD/NECK Final Result * ECG 12-LEAD (10/19/2024 5:30 PM EDT) Ventricular Rate EKG/MIN 54 BPM [facility] Atrial Rate 54 BPM [facility] WV Interval 128 ms [facility] QRS Duration 94 ms [facility] QT Interval 468 ms [facility] QTC Interval 443 ms [facility] P [place] 48 degrees [facility] R Wave [place] 54 degrees [facility] T Wave [place] 57 degrees [facility] 10/19/2024 5:30 PM EDT 10/20/2024 5:59 PM EDT Narrative [facility] - 10/20/2024 5:59 PM EDT Sinus bradycardia Otherwise normal ECG When compared with ECG of 27-Jul-2023 01:33, Vent. rate has decreased by [address] no longer depressed in Inferior leads Confirmed by Emkea BUTCHER ([id number]) on 10/20/2024 5:59:48 PM Thierno Howard MD ECG ORDERABLES Final Result [facility] * (ABNORMAL) POCT Glucose (10/19/2024 5:27 PM EDT) Glucose, POCT 111(H) 70 - 100 mg/dL [facility] 10/19/2024 5:27 PM EDT 10/19/2024 5:46 PM EDT us Thierno Howard MD POINT OF CARE TEST ORDERABLES F inal Result Performing Organization Address [facility] Co de Phone Number [address] [address] * (ABNORMAL) Hemoglobin A1c (01/13/2023 5:45 AM EST) HEMOGLOBIN A1C 6.2(H) 4.3 - 5.8 % [facility] Blood 01/13/2023 5:45 AM EST 01/13/2023 6:01 AM EST us Sue Bhatt DO LAB BLOOD ORDERABLES Final Re sult Performing Organization Address [facility] Co de Phone Number [address] [address] * Lipid panel (01/13/2023 5:45 AM EST) HDL 36 mg/dL [facility] Comment: Interpretation <40 mg/dL: Low HDL cholesterol (major risk factor for CHD) Greater than or equal to 60 mg/dL: High HDL cholesterol ( negative risk factor for CHD) HDL - cholesterol is affected by a number of factors, e.g. smoking, excerise, hormones, sex and age. CHOLESTEROL 149 0 - 240 mg/dL [facility] TRIGLYCERIDES 74 30 - 160 mg/dL [facility] LDL 98 50 - 129 mg/dL [facility] Comment: LDL levels in terms of risk for coronary heart disease: <100 mg/dL: Optimal 100-129 mg/dL: Near or above optimal 130-159 mg/dL: Borderline high 160-189 mg/dL: High >190 mg/dL: Very High CARDIAC RISK RATIO 4.1 3.3 - 4.4 [facility] Blood 01/13/2023 5:45 AM EST 01/13/2023 6:00 AM EST us Sue Bhatt DO LAB BLOOD ORDERABLES Final Re sult [facility] [address] [place] [address] from Last 3 Months or Most Recently Relevant to Health Maintenance Insurance MEDICARE [place] [id number] MEDICARE REPLACEMENT MEDICARE REPLACEMENT MEDICARE REPLACEMENT MEDICARE REPLACEMENT MEDICARE REPLACEMENT MEDICARE REPLACEMENT MEDICARE REPLACEMENT Advance Directives For more information, please contact: [phone] (9AM - 5PM [facility], Friday-Friday) Documents on File Type Date Recorded Patient Cornice Upholsterer Expl jose Healthcare Proxy 01/24/2022 10:49 AM Sign ed: 01/23/22 HCP * Full Code (Latest Code Status on File) Date Activated Date Inactivated Comments 06/15/2023 4:58 AM Question Answer Comments Code Status Confirmed With: Patient * Full Code Date Activated Date Inactivated Comments 01/12/2023 5:45 PM 06/15/2023 4:58 AM Question Answer Comments Code Status Confirmed With: Patient * Full Code Date Activated Date Inactivated Comments 01/09/2023 4:13 PM 01/12/2023 5:45 PM Question Answer Comments Code Status Confirmed With: Patient Code Status Communicated To: Other (specify belo w) * Full Code Date Activated Date Inactivated Comments 01/07/2023 6:42 AM 01/09/2023 4:13 PM Question Answer Comments Code Status Confirmed With: Other (specify below ) Code Status Communicated To: Inpatient Attending Code Discussion Comments: presumed * Full Code Date Activated Date Inactivated Comments 01/09/2022 6:08 PM 01/07/2023 6:42 AM Question Answer Comments Code Status Confirmed With: Other (specify below ) Healthcare Agents on File Name Relationship Healthcare Agent Relationshi p Communication Ron Millan Alternate Health care Agent (Proxy form on file) Dre Millan .Primary Health Care Agent (Proxy form on file) Care Teams Agile Scrum Coach Relationship Specialty Start Date End Date Deana Warren NP [address] [place] [id number] PCP - General Nurse Practitioner 01/14/23 Additional Source Comments The information contained in this document represents components of the legal health record. It is not the complete legal health record.[facility]
--- OUTSIDE RECORDS SUMMARY | 2024-11-15 10:56 | XMS_ITS | Encounter Summary ---
Author Organization [employer] Address [address] [facility] 7t [place] [address] Care Team Providers Care Engineering Faculty Name Role Phone Deana Warren Primary Care Provider Reason for Visit * Reason Onset Date Comments FYI 07/25/2023 Encounter Details Date Type Department Care Team ([facility] st Contact Info) Description 07/25/2023 Telephone [facility] MEDICINE [address] [place], [place] [phone] Deana Warren ANP [address] [place], [place] [phone] Social History Tobacco Use Types Packs/Day Years [...] he deems these calls necessary but requested ticket writer forward as FYI. If any questions you can contact Bethany at [phone]. documented in this encounter Plan of Treatment Not on file documented as of this encounter Visit Diagnoses Not on filedocumented in this encounter Care Teams Engineering Faculty Relationship Specialty Start Date End Date Deana Warren ANP [address] [place] [id number] PCP - General Family Medicine 03/29/22 documented as of this encounter
--- OUTSIDE RECORDS SUMMARY | 2024-11-15 10:56 | XMS_ITS | Encounter Summary ---
Author Organization [employer] Address [address] [place] [address] 7 [place] [address] Care Team Providers Care Diploma Medical Assistant Name Role Phone Deana Warren Primary Care Provider [phone] Reason for Visit * Reason Onset Date Comments triage 05/22/2022 Encounter Details Date Type Department Care Team ([facility] st Contact Info) Description 05/22/[address] [facility] MEDICINE [address] [place], [place] [phone] Deana Warren ANP [address] [place] [address] triage Social History Tobacco Use Types Packs/Day [...] on filedocumented in this encounter Care Teams Diploma Medical Assistant Relationship Specialty Start Date End Date Deana Warren ANP [address] [place] [address] PCP - General Family Medicine 03/29/22 documented as of this encounter
--- OUTSIDE RECORDS SUMMARY | 2024-11-15 10:56 | XMS_ITS | Encounter Summary ---
Author Organization [facility] Address [address] [place] [address] Phone Care Team Providers Care Construction Administrator Name Role Phone Deana Warren NP Primary Care Provider [phone] Encounter Details Date Type Department Care Team (Late st Contact Info) Description 07/21/2023 Procedure Pass OR Admitting Dept - Virtual Department [address] [place] [address] Social History Tobacco Use Types Packs/Day Years Used Date Smoking Tobacco: Every Day Cigarettes Smokeless Tobacco: Never Alcohol Use Standard Drinks/Week Comments Yes 0 (1 standard drink = 0.6 oz pure alcohol) Drinks Vodka, states only 1 with BAL of >250 during her last visit, denies alcohol currently Home Health Assessment: Transportation Answer Date Recorded Lack of Transportation (Medical) No 07/23/2023 Lack of Transportation (Non-Medical) No 07/23/2023 Patient Unable or Declines to Respond No 07/23/2023 Education Answer Date Recorded Are you interested [...] your housing situation today? I have adeline sing 06/15/2023 How many times have you move [...] on filedocumented in this encounter Care Teams Construction Administrator Relationship Specialty Start Date End Date Deana Warren NP [address] [place] [address] PCP - General Nurse Practitioner 01/14/23 documented as of this encounter Additional Source Comments The information contained in this document represents components of the legal health record. It is not the complete legal health record.[facility]
--- OUTSIDE RECORDS SUMMARY | 2024-11-15 10:56 | XMS_ITS | Encounter Summary ---
Author Organization [employer] Address [address] [facility] 7[address] [place] [address] Care Team Providers Care Repeat Chief Name Role Phone Deana Warren Primary Care Provider [phone] Reason for Visit * Reason Onset Date Comments Appointment Request 07/28/2023 Encounter Details Date Type Department Care Team ([facility] st Contact Info) Description 07/28/2023 Telephone [facility] MEDICINE [address] [place], [place] [phone] Deana Warren ANP [address] [place], [place] [phone] Appointment Request Social History Tobacco Use Types [...] stated had a procedure done on 07/20 [facility] patient had a Hip surgery and would like to follow up with the provider documented in this encounter Plan of Treatment Not on file documented as of this encounter Visit Diagnoses Not on filedocumented in this encounter Care Teams Repeat Chief Relationship Specialty Start Date End Date Deana Warren ANP [address] [place] [id number] PCP - General Family Medicine 03/29/22 documented as of this encounter
--- OUTSIDE RECORDS SUMMARY | 2024-11-15 10:56 | XMS_ITS | Encounter Summary ---
Author Organization [employer] Address [address] [facility] 7 [place] [address] Care Team Providers Care Regional Airline Pilot Name Role Phone Deana Warren Primary Care Provider Reason for Visit * Reason Onset Date Comments new script 06/21/2022 Encounter Details Date Type Department Care Team ([facility] st Contact Info) Description 06/21/2022 Telephone [facility] MEDICINE [address] [place] [address] Deana Warren ANP [address] [place] [address] new script Social History Tobacco Use Types [...] - 06/21/2022 11:18 AM EDT TC from [facility] Pharmacy stated insurance do not covered admelog insulin but insurance will be cover Novolog flexpen. Pt without insulin. PCP DR. Warren documented in this encounter Plan of Treatment Not on file documented as of this encounter Visit Diagnoses Not on filedocumented in this encounter Care Teams Regional Airline Pilot Relationship Specialty Start Date End Date Deana Warren ANP [address] [place] [address] PCP - General Family Medicine 03/29/22 documented as of this encounter
--- OUTSIDE RECORDS SUMMARY | 2024-11-15 10:56 | XMS_ITS | Encounter Summary ---
Author Organization [facility] Address [address] [place] [address] Phone Care Team Providers Care Dry Man Name Role Phone Briana Deana DAVIS Primary Care Provider [phone] Encounter Details Date Type Department Care Team (Latest Contact Info) Description 07/08/2023 Ancillary Orders [facility] Orthopedics & Sports Medicine [address] [place] [phone] Shelli Billy PA-C [address] [place] [address] Orthopedics & Sports Medicine, [facility] [place] [address] [email or web address] Closed displaced comminuted fracture of shaft of left femur with delayed healing (Primary Dx) Social History Tobacco Use Types Packs/Day Years [...] on file documented as of this encounter Results * XR HIP 2 VW LEFT PLUS PELVIS (07/08/2023 10:59 AM EDT) Narrative SYSTEMGENERATED, DOCUMENTATION - 07/08/2023 10:59 AM EDT This image report has been auto-finalized and has not been read by a Radiologist. Interpretation has been included in the provider encounter note for this date of service. us Shelli Billy PA-C IMG XR PELVIS Final Re sult documented in this encounter Visit Diagnoses Diagnosis Closed displaced comminuted fracture of shaft of left femur with delayed healing Closed displaced comminuted fracture of shaft of left femur with delayed healing- Primary documented in this encounter Care Teams Dry Man Relationship Specialty Start Date End Date Deana Warren NP [address] [place] [address] PCP - General Nurse Practitioner 01/14/23 documented as of this encounter Additional Source Comments The information contained in this document represents components of the legal health record. It is not the complete legal health record.[facility]
--- OUTSIDE RECORDS SUMMARY | 2024-11-15 10:56 | XMS_ITS | Clinical Summary ---
Author Organization [employer] Address [address] [facility] [address] [place] [address] Care Team Providers Care Academic Manager Name Role Phone Rafia Mary Primary Care Provider [phone] Allergies No known active allergies Medications * This document contains information received from the source organization and may not represent a complete record from that organization. acetaminophen (Tylenol) 325 MG tablet 022 Active glucagon (Gvoke HypoPen) 1 MG/0.2ML injectionIndica tions:Type 2 diabetes mellitus with hyperglycemia, with long-term current use of insulin ([facility]) Administer 1 mg subcutaneously when pt has low blood glucose and cannot swallow or is unresponsive. May repeat in 15 min. Call emergency service if pt is unresponsive or lethargic. 2 each 3 023 Active Blood Glucose Monitoring Suppl (ONE TOUCH ULTRA 2) w/Device kit 023 Active lidocaine (Lidoderm) 5 % patchIndication s:Acute pain of right shoulder Apply 1 patch topically in the morning. Remove & discard patch within 12 hours or as directed by MD. 30 patch 2 023 Active albuterol (2.5 MG/3ML) 0.083% nebulizer solutionIndicat ions:Shortness of breath Take 3 mL (2.5 mg) by nebulization every 6 (six) hours if needed for wheezing. 75 mL 11 023 Active gabapentin (Neurontin) 300 MG capsuleIndicati ons:Seizure (CMS/HCC) Take 1 capsule (300 mg) by mouth 2 times daily. 60 capsule 2 025 Active Continuous Glucose Inpatient Auditor (OffSite VISIONStyle Nivia 2 [place]) deviceIndicatio ns:Hypertension associated with diabetes ([facility]) Scan sensor every 8 hours 1 each 025 Active glucose blood (FreeStyle Precision Shin Test) test stripIndication s:Hypertension associated with diabetes ([facility]) Use to test blood sugar 3 times daily 100 each 12 025 2025 Active insulin pen needle (B-D UF III MINI PEN NEEDLES) 31G x 5 mm miscIndications :Type 2 diabetes mellitus with hyperglycemia, with long-term current use of insulin ([facility]) USE THREE TIMES DAILY WITH INSULIN 100 each 3 025 Active rosuvastatin (Crestor) 20 MG tabletIndicatio ns:Dyslipidemia Take 1 tablet (20 mg) by mouth Once per day. 90 tablet 3 025 2025 Active lisinopril 30 MG tabletIndicatio ns:Hypertension associated with diabetes ([facility]) TAKE 1 TABLET BY MOUTH EVERY DAY 90 tablet 1 025 Active ciclopirox (Penlac) 8 % solutionIndicat ions:Onycholysi s Apply topically at bedtime. 6 mL 025 Active OLANZapine (ZyPREXA) 10 MG tabletIndicatio ns:Bipolar affective disorder, remission status unspecified ([facility]) Take 1 tablet (10 mg) by mouth at bedtime. 30 tablet 1 025 Active zolpidem (Ambien) 5 MG tabletIndicatio ns:Insomnia, unspecified type Take 1 tablet (5 mg) by mouth if needed at bedtime for sleep. 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 Take in the morning with a full glass of water, on an empty stomach, and do not take anything else by mouth or lie down for the next 30 min. 4 tablet 025 2025 Active albuterol 108 (90 Base) MCG/ACT inhalerIndicati ons:Dyspnea on exertion Inhale 2 puffs every 6 (six) hours if needed for wheezing or shortness of breath. 18 g 1 Active glucose 4 g chewable tabletIndicatio ns:Type 2 diabetes mellitus with hyperglycemia, with long-term current use of insulin (CMS/HCC) Chew 4 tabs if needed for low blood sugar 60 or less. Check BG in 15 min, if remains low, repeat. If remains low, call clinic or go to ED. 50 tablet 12 Active nicotine polacrilex (Nicorette) 4 MG gumIndications: Smoking trying to quit Chew 1 each (4 mg) if needed for smoking cessation. 100 each Active aspirin 81 MG EC tabletIndicatio ns:Type 2 diabetes mellitus with hyperglycemia, with long-term current use of insulin (CMS/HCC),Cardi ovascular event risk Take 1 tablet (81 mg) by mouth Once per day. 90 tablet 3 025 2025 Active amLODIPine (Norvasc) 2.5 MG tabletIndicatio ns:Hypertension associated with diabetes (CMS/HCC) TAKE 1 TABLET BY MOUTH EVERY DAY 90 tablet Active Continuous Glucose Sensor (FreeStyle Nivia 3 Sensor) miscIndications :Hypertension associated with diabetes (CMS/HCC) 1 each every 14 (fourteen) days. Apply 1 sensor every 14 days 2 each Active FLUoxetine (PROzac) 10 MG capsuleIndicati ons:Severe episode of recurrent major depressive disorder, without psychotic features (CMS/HCC) Take 1 capsule (10 mg) by mouth in the morning. 30 capsule Active Continuous Glucose Sensor (FreeStyle Nivia 3 Plus Sensor) miscIndications :Type 2 diabetes mellitus with hyperglycemia, unspecified whether fpc insulin use (CMS/HCC) 1 each every 15 days. Apply 1 every 15 days as directed for CGM 2 each Active Continuous Glucose Inpatient Auditor (FreeStyle Nivia 3 [place]) deviceIndicatio ns:Type 2 diabetes mellitus with hyperglycemia, unspecified whether fpc insulin use (CMS/HCC) 1 each Once per day. Use as directed for CGM 1 each 025 Active omeprazole (PriLOSEC) [address] capsuleIndicati ons:Gastroesoph ageal reflux disease, unspecified whether esophagitis present TAKE 1 CAPSULE BY MOUTH EVERY DAY BEFORE A MEAL 90 capsule 025 Active nicotine (Nicoderm, Step 1) 21 MG/24HR patchIndication s:Nicotine Dependence Place 1 patch on the skin 1 (one) time each day at the same time. 28 patch 1 025 Active Tresiba FlexTouch 100 UNIT/ML injectionIndica tions:Type 2 diabetes mellitus with hyperglycemia, with long-term current use of insulin (CMS/HCC) INJECT 32 UNITS UNDER THE SKIN ONCE DAILY. 15 mL 3 025 Active insulin degludec (Tresiba FlexTouch) 100 UNIT/ML injectionIndica tions:Type 2 diabetes mellitus with hyperglycemia, with long-term current use of insulin (CMS/[facility]) Inject 32 Units under the skin Once daily. 15 mL 3 025 2024 Discontinued Active Problems Problem Noted Date Diagnosed Date Anxiety 10/27/2024 Cannabis use disorder 10/27/2024 Age-related osteoporosis wit hout current pathological fracture 07/29/2024 Asymptomatic menopausal state 05/24/2024 Onycholysis 05/24/2024 Seizure 05/15/2023 Type 2 diabetes mellitus with hyperglycemia 03/11 [...] Bipolar disorder 03/29/2022 Chronic hepatitis C 03/29/2022 Hypertension associated with diabetes 03/29/2022 Overview (08/10/2024): Assessment & Plan (03/29/2022 11:27 AM EST): On lisinopril which she reports compliance to BP elevated today as did not take her pills continue current regimen Readings at home have been WNL. Will f/u in 6 months Functional gait abnormality 03/29/2022 Hepatitis A immune 03/29/2022 Hepatitis B immune 03/29/2022 Hx of drug abuse 03/29/2022 Psychoactive substance use disorder 03/29/2022 Tobacco dependence 03/29/2022 COPD without exacerbation 03/29/2022 Assessment & Plan (03/29/2022 11:26 AM EST): [...] uses her nebulizer machine Opioid dependence 03/29/2022 Resolved Problems Problem Noted Date Diagnosed Date Resolved Date Tuberculosis screening 05/24/202408/10 Current severe episode of ma jason depressive disorder without psychotic features 03/16/2024 08/2 Assessment & Plan (03/16/2024 11:00 AM EST): [...] therapy and psychiatry services will be place. Closed displaced comminuted fracture of shaft of left femur with delayed healing 06/15/202308/10 RANJIT (acute kidney injury) 06/13/2022 Dyspnea on exertion 03/29/2022 08/11/19 25 Homeless 03/29/2022 08/10/2024 Encounters * This document contains information received from the source organization and may not represent a complete record from that organization. Date Type Department Care Team Description 11/12/2024 Patient Outreach [facility] [place] [address] Morgan Bardy [facility]orts 11/04/2024 Patient Outreach [place] [address] Randy Patel Recovery Supports 11/01/2024 Telephone [place] [address] Julisa Restrepo RN ER Follow-up; Appointment Request 10/28/2024 Refill [place] [address] Rafia Mary, KALE Type 2 diabetes mellitus with hyperglycemia, with long-term current use of insulin ([facility]) 10/26/2024 Patient Outreach [facility] [place] [address] Jose Keller Recovery [facility] 10/26/2024 Patient Outreach [place] [address] Morgan Brady [facility] 10/26/2024 Telephone [facility] [place] [address] Rafia Mary ANP Telephone Call 10/25/2024 Telephone [facility] [place] [address] Rafia Mary ANP Chart Prep 10/22/2024 Patient Outreach [facility] [place] [address] Pipo Moreno Recovery Supports 10/15/2024 Patient Outreach [facility] [place] [address] Pipo Moreno Recovery Supports 10/15/2024 Patient Outreach [place] [address] Pipo Moreno Recovery Supports 10/14/2024 Telephone [facility] [address] [place], [place] [address] Rafia Mary ANP Appointment Request 10/12/2024 Patient Outreach [facility] [address] [place], [place] [address] Morgan Brady [facility] 10/12/2024 Patient Outreach [facility] [address] [place] [address] Jose Keller Recovery Supports 10/08/2024 Patient Outreach [facility] [address] [place] [address] Morgan Brady [facility] Supp[facility] 10/05/2024 Patient Outreach [facility] [address] [place] [address] Morgan Brady [facility] 09/28/2024 Patient Outreach [facility] [address] [place] [address] Morgan Brady Recovery Supports 09/28/2024 Patient Outreach [facility] [address] [place] [address] Jose Keller [facility] Supp[facility] 09/27/2024 Telephone [facility] [address] [place] [address] Rafia Mary ANP Med Refill 09/27/2024 Refill [facility] [address] [place] [address] Rafia Mary, KALE Type 2 diabetes mellitus with hyperglycemia, unspecified whether fpc insulin use ([facility]) 09/24/2024 Patient Outreach [facility] [address] [place] [address] Kristy Han RC Recovery Supports 09/21/2024 Patient Outreach [facility] [address] [place] [address] Jose Keller [facility] 09/17/2024 9:30 AM EDT Clinical Support [facility] [address] [place] [address] Julisa Restrepo, RN Type 2 diabetes mellitus with hyperglycemia, 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 [place] [address] Julisa Restrepo RN Tobacco dependence 09/17/2024 Travel 09/15/2024 2:15 PM EDT Office Visit [facility] [address] [place] [address] TarKatt hamilton, OD Hordeolum externum of right lower eyelid (Primary Dx) 09/15/2024 Travel 09/14/2024 Patient Outreach [facility] [address] [facility] [place] [address] Morgan Brady [facility] 09/14/2024 Telephone [facility] [address] [place] [address] Katt Lazcano, OD 09/11/2024 Refill [facility] [address] [facility] [place] [address] Rafia Mary ANP Gastroesophageal reflux disease, unspecified whether esophagitis present 09/09/2024 Patient Outreach [facility] [address] [facility] [place] [address] Pipo Moreno Recovery Supports 09/03/2024 Patient Outreach [facility] [address] [facility] [place] [address] Morgan Brady [facility] 09/03/2024 Telephone [facility] [address] [facility] [place] [address] Rafia Mary ANP 09/02/2024 Refill [facility] [address] [facility] [place] [address] Rafia Mary, KALE Type 2 diabetes mellitus with hyperglycemia, unspecified whether fpc insulin use (CMS/HCC) 09/01/2024 Refill [facility] [address] [facility] [place] [address] Rafia Mary ANP Hypertension associated with diabetes (CMS/HCC) 09/01/2024 Refill [facility] [address] [place] [address] Rafia Mary, ANP Hypertension associated with diabetes (CMS/HCC); Severe episode of recurrent major depressive disorder, without psychotic features (CMS/HCC) 08/27/2024 Patient Outreach [facility] [address] [place] [address] Morgan Brady [facility] (I met with Cora hinojosa.//Setting: /in person at [facility] ///Recovery Wellness Goals worked on: /Social Stability///Action taken/next steps: /Attended alcohol and drug free activity/ //Additional comments: ////) 08/20/2024 Patient Outreach [facility] [address] [place] [address] Morgan Brady [facility] 08/16/2024 Telephone [facility] [address] [place] [address] Red Barahona [place] Nov Recall from Last 3 Months Immunizations Immunization Administration [...] Tobacco: Never Tobacco Cessation:Ready to Q uit: Yes; Counseling Given: Yes Comments:Wants refill on nicotine patches Alcohol Use Standard Drinks/Week Comments Not Currently 0 (1 standard drink = 0.6 oz pur e alcohol) drinks socially for holidays Depression Answer Date Recorded Patient Health Questionnaire-9 Score 12 10/27/2024 Patient Health Questionnaire-9 Score 12 10/27/2024 Last PHQ-9: Questionnaire Data Not on file 0 10/27/2024 Housing Stability Answer Date Recorded What is [...] Answer Date Recorded Patient Health Questionnaire-2 Score 4 10/27/2024 Internet Access Answer Date Recorded Internet Access [...] Sign Reading Time Taken Comments Blood Pressure 139/66 08/10/2024 11:27 AM EDT Pulse 69 08/10/2024 11:27 AM EDT Temperature 36.6 C (97.9 F) 05/24/2024 1:59 PM EDT Respiratory Rate 20 08/10/2024 11:27 AM EDT Oxygen Saturation 96% 05/24/2024 1:59 PM EDT Inhaled Oxygen Concentration - - Weight 58.5 kg (129 lb) 08/10/2024 11:27 AM EDT Height 152.4 cm (5') 08/10/2024 11:27 AM EDT Body Mass Index 25.19 08/10/2024 11:27 AM EDT Plan of Treatment Health Maintenance Due [...] - Risk 60-74 years 1-dose series) 2014 COVID-19 Vaccine ( season) 2024 03/16/2024, 12/25/2021, 07/20/2021, Additional history exists Influenza Vaccine (#1) 2024 , 01/12/2023, 11/30/2021, Additional history exists Diabetes: Hemoglobin A1C 11/10/2024 025, 05/13/2024, 01/21/2024, Additional history exists Lipid Panel 01/22/2025 01/23/2024, 032 03/2021, 05/22/2020 SDOH Screening 03/16/2025 03/16/2024 Depression Monitoring 04/29/2025 10/27/2024, 025 Alcohol/Substance Use Screening 05/13/2025 05/13/2024 Diabetes: Urine Protein Screening 06/04/2025 06/04/2024 Mammogram 07/14/2025 07/14/2024, 06/09, 06/01/2020, Additional history exists Tobacco Screening 09/17/2025 09/17/2024 HPV/Cotest 12/21/2025 12/21/2020 Pap Smear 12/21/2025 12/21/2020 Colonoscopy 08/23/2026 08/23/2021, 08/23/2021 Colorectal Cancer Screening 08/23/2026 Eye Exam 09/15/2026 09/15/2024, 05/08, 05/17/2024, Additional history exists DTaP/Tdap/Td Vaccines (3 - Td or Tdap) 11/15/2027 11/14/2017, 08/01/2015, 11/15/2014 Zoster Vaccines Completed 03/10/2020, 12/10, 08/01/2015 Pneumococcal Vaccine: 50+ Years Completed 03/16/2024, 08/01/2015, [...] Procedure Name Priority Date/Time Associated Diagnosis Comments POCT GLYCATED HEMOGLOBIN, TOTAL Routine 08/10/2024 11:43 AM EDT Hypertension associated with diabetes (CMS/HCC) BI MAMMOGRAM SCREENING TOMOSYNTHESIS BILATERAL Routine 07/14/2024 8:55 AM EDT ALBUMIN, RANDOM URINE W/CREATININE Routine 06/04/2024 1:15 PM EDT Type 2 diabetes mellitus with hyperglycemia, unspecified whether fpc insulin use (CMS/HCC) LIPID PANEL, STANDARD Routine 01/23/2024 10:02 AM EST Hypertension associated with diabetes (CMS/HCC) (CMS/HCC) HM COLONOSCOPY Routine 08/23/2021 HPV MRNA E6/E7 Routine 12/21/2020 10:32 AM EDT THINPREP IMAGING SYSTEM PAP Routine 12/21/2020 10:32 AM EDT from Last 3 Months or Most Recently Relevant to Health Maintenance Results * (ABNORMAL) POCT HGB A1C (08/10/2024 11:43 AM EDT) Hemoglobin A1C 6.4(A) 4.0 - 6.0 % QC Media Lot # [id number] Lot# Expiration Date Blood 08/10/2024 11:4 3 AM EDT us Rafia HENLEY POINT OF CARE TEST ENTER/EDIT OR DERABLES Final Result * BI Mammogram Screening Tomosynthesis Bilateral (07/14/2024 8:55 AM EDT) Anatomical Region Laterality Modality Breast Bilateral Mammography 07/14/2024 8:55 AM EDT Narrative 07/19/2024 3:20 PM EDT [facility]'[address] [place] [address] Mammography Report Signed Patient: Cora Smith MR#: [id number] : 1955 Acct:[id number] Age/Sex: 68 / F ADM Date: 07/14/24 Loc: HO.MAMMO Attending Dr: Rafia Mary NP Ordering Physician: RAFIA MARY NP Results: 2[facility] Date of Service: 07/14/24 Follow Up: 1 Year From Orig ina Mammogram Procedure(s): MM tomosynthesis screening BI Accession Number(s): [id number] cc: Meagan Brewer MD; RAFIA MARY NP [...] Sita Baker DO 07/19/2024 03:17 PM EDT Dictated By: Sita Baker DO Signed By: <Electronically signed by Sita Baker DO in OV> 07/19/24 1517 DD/ 0855 TD/TT: 07/14/24 0930 Lathe Setup Operator: Procedure Note Donotuseinterpreter, Image - 07/19/2024 [facility]'s [address] [place] [address] Mammography Report Signed Patient: Di Smith#: [id number] : 5Acct:[id number] Age/Sex: 68 / FADM Date: 07/14/24 Loc: HO.MAMMO Attending Dr: Rafia Mary NP Ordering Physician: RAFIA MARY NPResults: 2Benign Reginaldo izquierdo Date of Service: 07/14/24Follow Up: 1 Year From Orig inal Mammogram Procedure(s): MM tomosynthesis screening BI Accession Number(s): [id number] cc: Meagan Brewer MD; RAFIA MARY NP [...] 07/19/24 1517 DD/ 0855 TD/TT: 07/14/24 0930 Lathe Setup Operator: us Rafia HENLEY IMPreston BI PROCEDURES Final Result * Albumin, Random Urine W/Creatinine (06/04/2024 1:15 PM EDT) Creatinine, Urine 207.63 mg/dL [facility] Microalbumin Urine 35.0 mg/L [facility] Microalbum Creatinine Ratio Ur 16.8 <30 ug/mg cr [facility] Comment:Albumin/Creatinine R atio Reference Ranges: Normal: < 30 ug/mg creatinine Microalbuminuria: 30 - 300 ug/mg creatinineClinical Albuminuria: > 300 ug/mg creatinine Urine (Urine, Random) 06/04/2024 1:15 PM EDT 06/04/2024 4:09 PM EDT us Meagan Bello MD LAB URINE ORDERABLES Final Result [facility] [address] [place] [address] [phone] * (ABNORMAL) Lipid Panel, Standard (01/23/2024 10:02 AM EST) Triglycerides 59 <150 mg/dL [facility] Comment:Desirable Triglyceri de: less than 150 mg/dLBorderline High Triglyceride 150-199 mg/dLHigh Triglyceride: 200-499 mg/dLVery High Triglyceride: greater than or equal to 5OO mg/dL Cholesterol 174 <200 mg/dL [facility] Comment:Desirable Cholestero l: less than 200 mg/dLBorderline High Cholesterol: 200-239 mg/dLHigh Cholesterol: greater than 239 mg/dL LDL Cholesterol Calculated 110(H) <100 mg/dL [facility] Comment:Desirable LDL: less than 100 mg/dLNear Optimal/Above Optimal LDL: 110- 129 mg/dLBorderline High LDL: 130-159 mg/dLHigh LDL: 160-189 mg/dLVery High LDL: greater than or equal to 190 mg/dL HDL Cholesterol 53 >40 mg/dL [facility] Comment:Desirable HDL: great er than 40 mg/dL Note: This HDL assay may give artificially low results in patients with liver disease. Blood Venous blood specimen / Unknown 01/23/2024 10:02 AM EST 01/23/2024 11:00 AM EST [facility] LAB BLOOD ORDERABLES Final Resul t [facility] [address] [place] [phone] * (ABNORMAL) Colonoscopy (08/23/2021) Colonoscopy Abnormal(A ) Normal [facility] Final Result * THINPREP TIS PAP (12/21/2020 10:32 AM EDT) Clinical Information: [facility] COMMENT SEE COMMENT [facility] Comment: EXPLANATORY NOTE: The Pap is a screening test for cervical cancer. It is not a diagnostic test and is subject to false negative and false positive results. It is most reliable when a satisfactory sample, regularly obtained, is submitted with relevant clinical findings and history, and when the Pap result is evaluated along with historic and current clinical information. COMMENT: This Pap test has been evaluated with computer assisted technology. [facility] [employer]: SEE COMMENT [facility] Comment: MXD, CT (ASCP) CT screening location: [place] [address] Interpretation/Res ult: SEE COMMENT [facility] Comment: Negative for intraepithelial lesion or malignancy. Atrophic pattern; predominantly parabasal cells LMP: 11/2015 [facility] Prev. BX: NONE GIVEN [facility] Prev. PAP: NIL NEG [facility] SOURCE: None given [facility] Statement Of Adequacy: SATISFACTORY FOR EVALUATION [facility] 12/21/2020 10:3 2 AM EDT Ni BILL LAB PATHOLOGY ORDERABLES Final Result Performing Organization Address [facility] Co de Phone Number [facility] [address] * HPV mRNA E6/E7 (12/21/2020 10:32 AM EDT) HPV nRNA E6/E7 Not Detected Not Detected [facility] Comment: Methodology: Operator [employer]-Mediated Amplification This assay detects E6/E7 viral messenger RNA (mRNA) from 14 high-risk HPV types (16,18,31,33,35,39,45,51,52,56,58,59,66,68). The analytical performance characteristics of this assay have been determined by [employer]. The modifications have not been cleared or approved by the FDA. This assay has been validated pursuant to the CLIA regulations and is used for clinical purposes. For additional information, please refer to [email or web address]/faq/[email or web address] (This link if provided for information/ educational purposes only.) 12/21/2020 10:3 2 AM EDT Ni BILL LAB BLOOD ORDERABLES Xena l Result Performing Organization Address [facility] de Phone Number [facility] [address] from Last 3 Months or Most Recently Relevant to Health Maintenance Insurance [place] GARCIA [id number] [facility] [employer] OPT[employer] (O D-SNP) Care Teams Academic Manager Relationship Specialty Start Date End Date Rafia Mary ANP [address] [place] [phone] PCP - General Family Medicine 03/29/22
--- OUTSIDE RECORDS SUMMARY | 2024-11-15 10:56 | XMS_ITS | Encounter Summary ---
Author Organization [employer] Address [address] [facility] 7t [place] [address] Care Team Providers Care Supervisor Carbon Electrodes Name Role Phone Deana Warren Primary Care Provider [phone] Reason for Visit * Reason Comments [facility] Recovery Supports Encounter Details Date Type Department Care Team (Late st Contact Info) Description 11/12/2024 Patient Outreach [facility] MEDICINE [address] [place] [address] Morgan Brady Recovery Supports Social History Tobacco Use Types Packs/Day Years Used Date Smoking Tobacco: Every Day Cigarettes Smokeless Tobacco: Never Comments:Wants refill on les otine patches Alcohol Use Standard Drinks/Week Comments Not [...] the past 12 months, has t he [employer], gas, oil or water company threatened to [...] AM EDT documented as of this encounter Progress Notes * Morgan Brady - 11/12/2024 2:39 PM EDT I met with Cora today. Setting: in person at [facility] Recovery Wellness Goals worked on: Social Stability Action taken/next steps: Attended alcohol and drug free activity Additional comments: Morgan Brady documented in this encounter Plan of Treatment Not on file documented as of this encounter Visit Diagnoses Not on filedocumented in this encounter Additional Health Concerns Assessment Noted Time PHQ-9 Depression Total Score: 12 025 1:15 PM EDT documented as of this encounter Care Teams Supervisor Carbon Electrodes Relationship Specialty Start Date End Date Deana Warren ANP [address] [place] [address] PCP - General Family Medicine 03/29/22 documented as of this encounter
--- OUTSIDE RECORDS SUMMARY | 2024-11-15 10:56 | XMS_ITS | Encounter Summary ---
Author Organization [employer] Address 75 [facility] 7t [place] [address] Care Team Providers Care Ditch Tender Name Role Phone Deana Warren Primary Care Provider [phone] Reason for Visit * Reason Onset Date Comments Med Refill 03/29/2022 Encounter Details Date Type Department Care Team (Late st Contact Info) Description 03/29/2022 Telephone [facility] MEDICINE 230 [place], [place] [phone] Deana Warren ANP 230 [place], [place] [phone] Med Refill Social History Tobacco Use Types [...] Patient was hospitalized in December 2021 at [facility] and was discharged on 12/18/21. Meds requested [...] on filedocumented in this encounter Care Teams Ditch Tender Relationship Specialty Start Date End Date Deana Warren ANP [address] [place] [address] PCP - General Family Medicine 03/29/22 documented as of this encounter
--- OUTSIDE RECORDS SUMMARY | 2024-11-15 10:56 | XMS_ITS | Encounter Summary ---
Author Organization [facility] Address [address] [place] [address] Phone Care Team Providers Care Director Network Development Name Role Phone Deana Warren NP Primary Care Provider [phone] Encounter Details Date Type Department Care Team (Late st Contact Info) Description 10/19/2024 Procedure Pass [facility], Ct Scan - [facility] 30 [place] [address] Social History Tobacco Use Types Packs/Day Years [...] Date of Assessment Author No Risk Indicated 10/19/2024 5:28 PM EDT Gely Lubin, [place] * [place] Suicide Severity Rating Scale (Screener/Recent Self-Report) Question Answer Date of Assessment Author 1. Wish to be (Past 1 Month) No 025 5:28 PM EDT Gely Lubin, [place] 2. Non-Specific Active Suici shamika Thoughts (Past 1 Month) No 10/19/2024 5:28 PM EDT Gely Lubin RN 6. Suicidal Behavior (Lifetime) No 5:28 PM EDT Gely Lubin, RN documented as of this encounter Plan of Treatment Not on file documented as of this encounter Visit Diagnoses Not on filedocumented in this encounter Care Teams Director Network Development Relationship Specialty Start Date End Date Deana Warren NP [address] [place] [address] PCP - General Nurse Practitioner 01/14/23 documented as of this encounter Additional Source Comments The information contained in this document represents components of the legal health record. It is not the complete legal health record.[facility]
--- OUTSIDE RECORDS SUMMARY | 2024-11-15 10:56 | XMS_ITS | Encounter Summary ---
Author Organization [employer] Address 75 [facility] 7t [place] [address] Care Team Providers Care House Steward/Stewardess Name Role Phone Deana Warren Primary Care Provider [phone] Reason for Visit * Reason Onset Date Comments Appointment Request 09/02/2023 Encounter Details Date Type Department Care Team ([facility] st Contact Info) Description 09/02/2023 Telephone [facility] MEDICINE 230 [place], [place] [phone] Deana Warren ANP 230 [place], [place] [phone] Appointment Request Social History Tobacco Use Types [...] pt requesting to reschedule OV ext 07/16. [employer] offered 12/03 but pt refused and is requesting a sooner appt if possible. Please contact pt at [phone]. documented in this encounter Plan of Treatment Not on file documented as of this encounter Visit Diagnoses Not on filedocumented in this encounter Care Teams House Steward/Stewardess Relationship Specialty Start Date End Date Deana Warren ANP [address] [place] [address] PCP - General Family Medicine 03/29/22 documented as of this encounter
--- OUTSIDE RECORDS SUMMARY | 2024-11-15 10:56 | XMS_ITS | Encounter Summary ---
Author Organization [email or web address] Address 75 [facility] 7t [place] [address] Care Team Providers Care Physician Coding Specialist Name Role Phone Deana Warren Primary Care Provider [phone] Reason for Visit * Reason Onset Date Comments Nurse Triage 12/30/2023 Encounter Details Date Type Department Care Team ([facility] st Contact Info) Description 12/30/2023 Telephone [facility] MEDICINE 230 [place], [place] [phone] Deana Warren ANP 230 [place], [place] [phone] Nurse Triage Social History Tobacco Use Types [...] 915am. Pt is offered to come to [facility] today but, declines due to [...] on filedocumented in this encounter Care Teams Physician Coding Specialist Relationship Specialty Start Date End Date Deana Warren ANP 230 [place] [address] PCP - General Family Medicine 03/29/22 documented as of this encounter
--- OUTSIDE RECORDS SUMMARY | 2024-11-15 10:56 | XMS_ITS | Encounter Summary ---
Author Organization [employer] Address 75 [facility] 7t [place] [address] Care Team Providers Care Health Care Manager Name Role Phone Deana Warren Primary Care Provider [phone] Reason for Visit * Reason Onset Date Comments Nurse Triage 10/13/2023 Encounter Details Date Type Department Care Team ([facility] st Contact Info) Description 10/13/2023 Telephone [facility] MEDICINE 230 [place], [place] [phone] Deana Warren ANP 230 [place], [place] [phone] Nurse Triage Social History Tobacco Use Types [...] on filedocumented in this encounter Care Teams Health Care Manager Relationship Specialty Start Date End Date Deana Warren ANP [address] [place] [address] PCP - General Family Medicine 03/29/22 documented as of this encounter
--- OUTSIDE RECORDS SUMMARY | 2024-11-15 10:56 | XMS_ITS | Encounter Summary ---
Author Organization [facility] Address [address] [place] [address] Phone Care Team Providers Care Band Ripsaw Operator Name Role Phone Deana Warren NP Primary Care Provider [phone] Encounter Details Date Type Department Care Team (Late st Contact Info) Description 11/16/2023 Procedure Pass [facility], Ct Scan - [facility] 30 [place] [address] Social History Tobacco Use Types Packs/Day Years [...] 5:19 PM EDT Maribell Olguin RN * [place] Suicide Severity Rating Scale (Screener/Recent Self-Report) Question [...] on filedocumented in this encounter Care Teams Band Ripsaw Operator Relationship Specialty Start Date End Date Deana Warren NP [address] [place] [address] PCP - General Nurse Practitioner 01/14/23 documented as of this encounter Additional Source Comments The information contained in this document represents components of the legal health record. It is not the complete legal health record.[facility]
--- OUTSIDE RECORDS SUMMARY | 2024-11-15 10:56 | XMS_ITS | Encounter Summary ---
Author Organization [facility] Address [address] [place] [address] Phone Care Team Providers Care Customer Care Team Coach Name Role Phone Deana Warren NP Primary Care Provider [phone] Encounter Details Date Type Department Care Team (Late st Contact Info) Description 10/19/2024 Procedure Pass [facility], Ct Scan - [facility] 30 [place] [address] Social History Tobacco Use Types Packs/Day Years [...] 5:28 PM EDT Gely Lubin, [place] * [place] Suicide Severity Rating Scale (Screener/Recent Self-Report) Question [...] on filedocumented in this encounter Care Teams Customer Care Team Coach Relationship Specialty Start Date End Date Deana Warren NP [address] [place] [address] PCP - General Nurse Practitioner 01/14/23 documented as of this encounter Additional Source Comments The information contained in this document represents components of the legal health record. It is not the complete legal health record.[facility]
--- OUTSIDE RECORDS SUMMARY | 2024-11-15 10:57 | XMS_ITS | Encounter Summary ---
Author Organization [facility] Address 399 [facility] [address] [place] [address] Phone Care Team Providers Care Motor Installer Name Role Phone Pcp, Unknown Primary Care Provider Unavailabl e Pcp, Not Required Primary Care Provider Deana Cherry NP Primary Care Provider [phone] Encounter Details Date Type Department Care Team (Late st Contact Info) Description 01/22/2022 Procedure Pass [facility], Ct Scan - [address] [address] Social History Tobacco Use Types Packs/Day Years [...] filedocumented in this encounter Additional Health Concerns Infection Onset Date Last Indicated Resolved Time CoV-Risk Comment:2 Neg covid 01/06/2023 01/06/2023 01/08/2023 11:21 AM EDT CoV-Risk 03/15/2023 03/15/2023 03/26/2023 1:22 AM EST documented as of this encounter Care Teams Motor Installer Relationship Specialty Start Date End Date Pcp, Unknown PCP - General 08/01/22 01/10/23 Pcp, Not Required [address] [place] [address] PCP - General 01/11/23 01/13/23 Deana Warren NP [address] [place] [address] PCP - General Nurse Practitioner 01/14/23 documented as of this encounter Additional Source Comments The information contained in this document represents components of the legal health record. It is not the complete legal health record.[facility]
--- OUTSIDE RECORDS SUMMARY | 2024-11-15 10:57 | XMS_ITS | Encounter Summary ---
Author Organization [facility] Address [address] [facility] [address] [place] [address] Phone Care Team Providers Care Coremaker Floor Name Role Phone Pcp, Unknown Primary Care Provider Unavailabl e Pcp, Not Required Primary Care Provider Deana Cherry NP Primary Care Provider [phone] Encounter Details Date Type Department Care Team (Late st Contact Info) Description 01/10/2022 Procedure Pass [facility], Ct Scan - [facility] 30 [place] [address] Social History Tobacco Use Types Packs/Day Years [...] Date of Assessment Author No Risk Indicated 01/10/2022 8:00 AM EDT Mariam Jordan RN * [place] Suicide Severity Rating Scale (Screener/Recent Self-Report) Question Answer Date of Assessment Author 1. Wish to be (Past 1 Month) No 01/10/2022 8:00 AM EDT Natalia Jordan RN 2. Non-Specific Active Suicidal Thoughts (Past 1 Month) No 01/10/2022 8:00 AM EDT Natalia Jordan RN 6. Suicidal Behavior (Lifetime) No 01/10/2022 8:00 AM EDT Natalia Jordan RN documented as of this encounter Plan of Treatment Not on file documented as of this encounter Visit Diagnoses Not on filedocumented in this encounter Additional Health Concerns Infection Onset Date Last Indicated Resolved Time CoV-Risk Comment:2 Neg covid 01/06/2023 01/06/2023 01/08/2023 11:21 AM EDT CoV-Risk 03/15/2023 03/15/2023 03/26/2023 1:22 AM EST documented as of this encounter Care Teams Coremaker Floor Relationship Specialty Start Date End Date Pcp, Unknown PCP - General 08/01/22 01/10/23 Pcp, Not Required [address] [place] [address] PCP - General 01/11/23 01/13/23 Deana Warren NP [address] [place] [address] PCP - General Nurse Practitioner 01/14/23 documented as of this encounter Additional Source Comments The information contained in this document represents components of the legal health record. It is not the complete legal health record.[facility]
--- OUTSIDE RECORDS SUMMARY | 2024-11-15 10:57 | XMS_ITS | Encounter Summary ---
Author Organization [facility] Address 399 [facility] [address] [place] [address] Phone Care Team Providers Care Electrical Engineering Draftsperson Name Role Phone Pcp, Unknown Primary Care Provider Unavailabl e Pcp, Not Required Primary Care Provider Deana Cherry NP Primary Care Provider [phone] Encounter Details Date Type Department Care Team (Late st Contact Info) Description 01/15/2022 Procedure Pass [facility] 30 [place] [address] Social History Tobacco Use Types Packs/Day Years [...] documented as of this encounter Care Teams Electrical Engineering Draftsperson Relationship Specialty Start Date End Date Pcp, Unknown PCP - General 08/01/22 01/10/23 Pcp, Not Required [address] [place] [address] PCP - General 01/11/23 01/13/23 Deana Warren NP [address] [place] [address] PCP - General Nurse Practitioner 01/14/23 documented as of this encounter Additional Source Comments The information contained in this document represents components of the legal health record. It is not the complete legal health record.[facility]
--- OUTSIDE RECORDS SUMMARY | 2024-11-15 10:57 | XMS_ITS | Encounter Summary ---
Author Organization [employer] Address 75 [facility] 7t [place] [address] Care Team Providers Care Shank Breaker Name Role Phone Deana Warren Primary Care Provider [phone] Reason for Visit * Reason Onset Date Comments FYI 02/12/2023 Encounter Details Date Type Department Care Team ([facility] st Contact Info) Description 02/12/2023 Telephone [facility] MEDICINE 230 [place], [place] [phone] Deana Warren ANP 230 [place], [place] [phone] FYI Social History Tobacco Use Types Packs/Day [...] - 02/12/2023 2:36 PM EST Tc from [place] [facility] stating that pt missed her second appt today due to clinician being out and will be seeing pt today or tomorrow. If any questions please contact at [phone] documented in this encounter Plan of Treatment Not on file documented as of this encounter Visit Diagnoses Not on filedocumented in this encounter Care Teams Shank Breaker Relationship Specialty Start Date End Date Deana Warren ANP [address] [place] [address] PCP - General Family Medicine 03/29/22 documented as of this encounter
--- OUTSIDE RECORDS SUMMARY | 2024-11-15 10:57 | XMS_ITS | Encounter Summary ---
Author Organization [employer] Address 75 [facility] 7t [place] [address] Care Team Providers Care Medical Psychotherapist Name Role Phone Deana Warren Primary Care Provider [phone] Reason for Visit * Reason Comments Med Refill Encounter Details Date Type Department Care Team (Late st Contact Info) Description 01/04/2023 Refill [facility] MEDICINE 230 [place], [place] [phone] Sonia Chase MD 230 [place], [place] [phone] Type 2 diabetes mellitus with hyperglycemia, with long-term current use of insulin ([facility]) Social History Tobacco Use Types Packs/Day Years [...] hyperglycemia, with long-term current use of insulin ([facility]) documented in this encounter Care Teams Medical Psychotherapist Relationship Specialty Start Date End Date Deana Warren ANP 230 [place] [address] PCP - General Family Medicine 03/29/22 documented as of this encounter
--- OUTSIDE RECORDS SUMMARY | 2024-11-15 10:57 | XMS_ITS | Encounter Summary ---
Author Organization [facility] Address [address] [facility] [address] [place] [address] Phone Care Team Providers Care Data Systems Manager Name Role Phone Pcp, Unknown Primary Care Provider Unavailabl e Pcp, Not Required Primary Care Provider Deana Cherry NP Primary Care Provider [phone] Encounter Details Date Type Department Care Team (Late st Contact Info) Description 01/10/2022 Procedure Pass [facility] 30 [place] [address] Social History Tobacco Use Types Packs/Day Years [...] 8:00 AM EDT Mariam Jordan RN * [place] Suicide Severity Rating Scale (Screener/Recent Self-Report) Question Answer Date of Assessment Author 1. Wish to be (Past 1 Month) No 01/10/2022 8:00 AM EDT Natalia Jordan RN 2. Non-Specific Active Suicidal Thoughts (Past 1 Month) No 01/10/2022 8:00 AM EDT Natalia Jordan RN 6. Suicidal Behavior (Lifetime) No 01/10/2022 8:00 AM EDT Natalia oJrdan RN documented as of this encounter Plan of Treatment Not on file documented as of this encounter Visit Diagnoses Not on filedocumented in this encounter Additional Health Concerns Infection Onset Date Last Indicated Resolved Time CoV-Risk Comment:2 Neg covid 01/06/2023 01/06/2023 01/08/2023 11:21 AM EDT CoV-Risk 03/15/2023 03/15/2023 03/26/2023 1:22 AM EST documented as of this encounter Care Teams Data Systems Manager Relationship Specialty Start Date End Date Pcp, Unknown PCP - General 08/01/22 01/10/23 Pcp, Not Required [address] [place] [address] PCP - General 01/11/23 01/13/23 Deana Warren NP [address] [place] [address] PCP - General Nurse Practitioner 01/14/23 documented as of this encounter Additional Source Comments The information contained in this document represents components of the legal health record. It is not the complete legal health record.[facility]
--- OUTSIDE RECORDS SUMMARY | 2024-11-15 10:57 | XMS_ITS | Encounter Summary ---
Author Organization [facility] Address [address] [place] [address] Phone Care Team Providers Care Sleep Tech Name Role Phone Deana Warren NP Primary Care Provider [phone] Encounter Details Date Type Department Care Team (Late st Contact Info) Description 07/14/2023 Procedure Pass [facility] Admitting Dept - Virtual Department 30 [place] [address] Social History Tobacco Use Types Packs/Day Years [...] on filedocumented in this encounter Care Teams Sleep Tech Relationship Specialty Start Date End Date Deana Warren NP 230 [place] [address] PCP - General Nurse Practitioner 01/14/23 documented as of this encounter Additional Source Comments The information contained in this document represents components of the legal health record. It is not the complete legal health record.[facility]
--- OUTSIDE RECORDS SUMMARY | 2024-11-15 10:57 | XMS_ITS | Encounter Summary ---
Author Organization [employer] Address 75 [facility] 7t [place] [address] Care Team Providers Care Debubblizer Name Role Phone Deana Warren Primary Care Provider [phone] Encounter Details Date Type Department Care Team (Late st Contact Info) Description 08/04/2024 Orders Only [facility] MEDICINE 230 [place], [place] [phone] Deana Warren ANP 230 [place] [address] Dyspnea on exertion (Primary Dx) Social History Tobacco Use Types [...] as of this encounter Visit Diagnoses Diagnosis Dyspnea on exertion- Primary Other dyspnea and respiratory abnormality documented in this encounter Additional Health Concerns Assessment Noted Time PHQ-9 Depression Total Score: 24 025 9:43 AM EST documented as of this encounter Care Teams Debubblizer Relationship Specialty Start Date End Date Deana Warren ANP [address] [place] [address] PCP - General Family Medicine 03/29/22 documented as of this encounter
--- OUTSIDE RECORDS SUMMARY | 2024-11-15 10:57 | XMS_ITS | Encounter Summary ---
Author Organization [employer] Address 75 [facility] 7t [place] [address] Care Team Providers Care Syrup Blender Name Role Phone Deana Warren Primary Care Provider Reason for Visit * Reason Onset Date Comments Med Refill 05/22/2022 Encounter Details Date Type Department Care Team (Late st Contact Info) Description 05/22/2022 Telephone [facility] MEDICINE 230 [place], [place] [phone] Deana Warren ANP 230 [place], [place] [phone] Med Refill Social History Tobacco Use Types [...] 11:35 AM EDT Medications were sent to [facility][id number] on 03/30/22 with 11 refills on Lantus and 3 refills on Lispro. * Telephone Encounter - Nicho Calhoun - 05/22/2022 11:18 AM EDT Tc from pt requesting med refill Insulin lispro Insulin glargine documented in this encounter Plan of Treatment Not on file documented as of this encounter Visit Diagnoses Not on filedocumented in this encounter Care Teams Syrup Blender Relationship Specialty Start Date End Date Deana Warren ANP 230 [place] [address] PCP - General Family Medicine 03/29/22 documented as of this encounter
--- OUTSIDE RECORDS SUMMARY | 2024-11-15 10:57 | XMS_ITS | Encounter Summary ---
Author Organization [employer] Address 75 [facility] 7t [place] [address] Care Team Providers Care City Route Driver Name Role Phone Deana Warren Primary Care Provider [phone] Encounter Details Date Type Department Care Team (Late st Contact Info) Description 04/20/2024 Orders Only [facility] MEDICINE 230 [place], [place] [phone] Deana Warren ANP 230 [place] [address] Social History Tobacco Use Types Packs/Day Years [...] documented as of this encounter Care Teams City Route Driver Relationship Specialty Start Date End Date Deana Warren ANP [address] [place] [address] PCP - General Family Medicine 03/29/22 documented as of this encounter
--- OUTSIDE RECORDS SUMMARY | 2024-11-15 10:57 | XMS_ITS | Encounter Summary ---
Author Organization [facility] Address [address] [facility] [address] [place] [address] Phone Care Team Providers Care Boilermaker Apprentice Name Role Phone Pcp, Unknown Primary Care Provider Unavailabl e Pcp, Not Required Primary Care Provider Deana Cherry NP Primary Care Provider [phone] Encounter Details Date Type Department Care Team (Late st Contact Info) Description 01/23/2022 Transcribe Orders [facility] 30 [place] [address] Pcp, Unknown Social History Tobacco Use Types Packs/Day Years [...] documented as of this encounter Care Teams Boilermaker Apprentice Relationship Specialty Start Date End Date Pcp, Unknown PCP - General 08/01/22 01/10/23 Pcp, Not Required [address] [place] [address] PCP - General 01/11/23 01/13/23 Deana Warren NP [address] [place] [address] PCP - General Nurse Practitioner 01/14/23 documented as of this encounter Additional Source Comments The information contained in this document represents components of the legal health record. It is not the complete legal health record.[facility]
--- OUTSIDE RECORDS SUMMARY | 2024-11-15 10:57 | XMS_ITS | Encounter Summary ---
Author Organization [facility] Address [address] [facility] [address] [place] [address] Phone Care Team Providers Care Stranner Name Role Phone Pcp, Unknown Primary Care Provider Unavailabl e Pcp, Not Required Primary Care Provider Deana Cherry NP Primary Care Provider [phone] Encounter Details Date Type Department Care Team (Late st Contact Info) Description 01/10/2022 Procedure Pass [facility] [address] [place] [address] Social History Tobacco Use Types Packs/Day Years [...] 8:00 AM EDT Mariam Jordan RN * [place] Suicide Severity Rating Scale (Screener/Recent Self-Report) Question [...] documented as of this encounter Care Teams Stranner Relationship Specialty Start Date End Date Pcp, Unknown PCP - General 08/01/22 01/10/23 Pcp, Not Required [address] [place] [address] PCP - General 01/11/23 01/13/23 Deana Warren NP [address] [place] [address] PCP - General Nurse Practitioner 01/14/23 documented as of this encounter Additional Source Comments The information contained in this document represents components of the legal health record. It is not the complete legal health record.[facility]
--- OUTSIDE RECORDS SUMMARY | 2024-11-15 10:57 | XMS_ITS | Encounter Summary ---
Author Organization [facility] Address [address] [facility] [address] [place] [address] Phone Care Team Providers Care Timber Selector Name Role Phone Pcp, Unknown Primary Care Provider Unavailabl e Pcp, Not Required Primary Care Provider Deana Cherry NP Primary Care Provider [phone] Encounter Details Date Type Department Care Team (Late st Contact Info) Description 01/14/2022 Procedure Pass [facility] 30 [place] [address] Social History Tobacco Use Types Packs/Day Years [...] documented as of this encounter Care Teams Timber Selector Relationship Specialty Start Date End Date Pcp, Unknown PCP - General 08/01/22 01/10/23 Pcp, Not Required [address] [place] [address] PCP - General 01/11/23 01/13/23 Deana Warren NP [address] [place] [address] PCP - General Nurse Practitioner 01/14/23 documented as of this encounter Additional Source Comments The information contained in this document represents components of the legal health record. It is not the complete legal health record.[facility]
--- OUTSIDE RECORDS SUMMARY | 2024-11-15 10:57 | XMS_ITS | Encounter Summary ---
Author Organization [facility] Address [address] [place] [address] Phone Care Team Providers Care Sheepskin Pickler Name Role Phone Pcp, Unknown Primary Care Provider Unavailabl e Pcp, Not Required Primary Care Provider Deana Cherry NP Primary Care Provider [phone] Encounter Details Date Type Department Care Team (Late st Contact Info) Description 01/09/2022 Procedure Pass [facility], Ct Scan - [facility] 30 [place] [address] Social History Tobacco Use Types Packs/Day Years [...] 8:00 AM EDT Mariam Jordan RN * [place] Suicide Severity Rating Scale (Screener/Recent Self-Report) Question [...] documented as of this encounter Care Teams Sheepskin Pickler Relationship Specialty Start Date End Date Pcp, Unknown PCP - General 08/01/22 01/10/23 Pcp, Not Required [address] [place] [address] PCP - General 01/11/23 01/13/23 Deana Warren NP [address] [place] [address] PCP - General Nurse Practitioner 01/14/23 documented as of this encounter Additional Source Comments The information contained in this document represents components of the legal health record. It is not the complete legal health record.[facility]
--- OUTSIDE RECORDS SUMMARY | 2024-11-15 10:57 | XMS_ITS | Encounter Summary ---
Author Organization [facility] Address [address] [facility] [address] [place] [address] Phone Care Team Providers Care Foundry Supervisor Name Role Phone Pcp, Unknown Primary Care Provider Unavailabl e Pcp, Not Required Primary Care Provider Deana Cherry NP Primary Care Provider [phone] Encounter Details Date Type Department Care Team (Late st Contact Info) Description 01/15/2022 Procedure Pass [facility] 30 [place] [address] Social History Tobacco Use Types Packs/Day Years [...] documented as of this encounter Care Teams Foundry Supervisor Relationship Specialty Start Date End Date Pcp, Unknown PCP - General 08/01/22 01/10/23 Pcp, Not Required [address] [place] [address] PCP - General 01/11/23 01/13/23 Deana Warren NP [address] [place] [address] PCP - General Nurse Practitioner 01/14/23 documented as of this encounter Additional Source Comments The information contained in this document represents components of the legal health record. It is not the complete legal health record.[facility]
--- OUTSIDE RECORDS SUMMARY | 2024-11-15 10:57 | XMS_ITS | Encounter Summary ---
Author Organization [employer] Address [address] [place] [address] 7 [place] [address] Care Team Providers Care Data Conversion Developer Name Role Phone Deana Warren Primary Care Provider Encounter Details Date Type Department Care Team (Late st Contact Info) Description 04/04/2022 Telephone [facility] MEDICINE [address] [place], [place] [phone] Deana Warren ANP [address] [place] [address] Social History Tobacco Use Types Packs/Day Years [...] on filedocumented in this encounter Care Teams Data Conversion Developer Relationship Specialty Start Date End Date Deana Warren ANP [address] [place] [address] PCP - General Family Medicine 03/29/22 documented as of this encounter
--- OUTSIDE RECORDS SUMMARY | 2024-11-15 10:57 | XMS_ITS | Encounter Summary ---
Author Organization [facility] Address [address] [place] [address] Phone Care Team Providers Care Combatant Swimmer Name Role Phone Pcp, Unknown Primary Care Provider Unavailabl e Pcp, Not Required Primary Care Provider Deana Cherry NP Primary Care Provider [phone] Encounter Details Date Type Department Care Team (Late st Contact Info) Description 01/10/2022 Procedure Pass [facility], Ct Scan - [facility] [address] [place] [address] Social History Tobacco Use Types Packs/Day Years [...] 8:00 AM EDT Mariam Jordan RN * [place] Suicide Severity Rating Scale (Screener/Recent Self-Report) Question [...] documented as of this encounter Care Teams Combatant Swimmer Relationship Specialty Start Date End Date Pcp, Unknown PCP - General 08/01/22 01/10/23 Pcp, Not Required [address] [place] [address] PCP - General 01/11/23 01/13/23 Deana Warren NP [address] [place] [address] PCP - General Nurse Practitioner 01/14/23 documented as of this encounter Additional Source Comments The information contained in this document represents components of the legal health record. It is not the complete legal health record.[facility]
--- OUTSIDE RECORDS SUMMARY | 2024-11-15 10:58 | XMS_ITS | Encounter Summary ---
Author Organization [facility] Address [address] [facility] [address] [place] [address] Phone Care Team Providers Care Police Patrol Lieutenant Name Role Phone Pcp, Unknown Primary Care Provider Unavailabl e Pcp, Not Required Primary Care Provider Deana Cherry NP Primary Care Provider [phone] Encounter Details Date Type Department Care Team (Late st Contact Info) Description 01/23/2022 Procedure Pass [facility], Ct Scan - [address] [address] Social History Tobacco Use Types Packs/Day Years [...] documented as of this encounter Care Teams Police Patrol Lieutenant Relationship Specialty Start Date End Date Pcp, Unknown PCP - General 08/01/22 01/10/23 Pcp, Not Required [address] [place] [address] PCP - General 01/11/23 01/13/23 Deana Warren NP [address] [place] [address] PCP - General Nurse Practitioner 01/14/23 documented as of this encounter Additional Source Comments The information contained in this document represents components of the legal health record. It is not the complete legal health record.[facility]
--- OUTSIDE RECORDS SUMMARY | 2024-11-15 10:58 | XMS_ITS | Encounter Summary ---
Author Organization [facility] Address [address] [place] [address] Phone Care Team Providers Care Pin Drafting Machine Operator Name Role Phone Pcp, Unknown Primary Care Provider Unavailabl e Pcp, Not Required Primary Care Provider Deana Cherry NP Primary Care Provider [phone] Encounter Details Date Type Department Care Team (Late st Contact Info) Description 01/06/2023 Procedure Pass [facility], Ct Scan - [address] [address] Social History Tobacco Use Types Packs/Day Years Used Date Smoking Tobacco: Every Day Cigarettes Smokeless Tobacco: Never Education Answer Date Recorded Are you interested in more education? Not on linda e 07/06/2022 Are you concerned about learning? Not on file 07/06/2022 No 07/06/2022 No 07/06/2022 Digital Access Answer Date Recorded No 08/02/2022 No 08/02/2022 Reliable internet access at home? Not on file 08/02/2022 Device with a working camera? Not on file Comments Unknown Sex and Gender Information Value Date Recorded Sex Assigned at Female 01/09/2022 1:30 PM EDT Legal Sex Female 12:51 PM EDT Gender Identity Female 01/09/2022 1:30 PM EDT Sexual Orientation Straight 01/09/2022 5: 09 PM EDT documented as of this encounter Functional Status * Calculated C-SSRS Risk Score (Lifetime/Recent) Answer Date of Assessment Author No Risk Indicated 01/09/2023 5:00 PM EDT Roland Garber, RALEIGH * [place] Suicide Severity Rating Scale (Screener/Recent Self-Report) Question Answer Date of Assessment Author 1. Wish to be (Past 1 Month) No 023 5:00 PM EDT Roland Diaz, RAELIGH 2. Non-Specific Active Suici shamika Thoughts (Past 1 Month) No 01/09/2023 5:00 PM EDT Elkin Diaz RN 6. Suicidal Behavior (Lifetime) No 5:00 PM EDT Roland Diaz RN documented as of this encounter Plan of Treatment Not on file documented as of this encounter Visit Diagnoses Not on filedocumented in this encounter Additional Health Concerns Infection Onset Date Last Indicated Resolved Time CoV-Risk Comment:2 Neg covid 01/06/2023 01/06/2023 01/08/2023 11:21 AM EDT CoV-Risk 03/15/2023 03/15/2023 03/26/2023 1:22 AM EST documented as of this encounter Care Teams Pin Drafting Machine Operator Relationship Specialty Start Date End Date Pcp, Unknown PCP - General 08/01/22 01/10/23 Pcp, Not Required [address] [place] [address] PCP - General 01/11/23 01/13/23 Deana Warren NP [address] [place] [address] PCP - General Nurse Practitioner 01/14/23 documented as of this encounter Additional Source Comments The information contained in this document represents components of the legal health record. It is not the complete legal health record.[facility]
--- OUTSIDE RECORDS SUMMARY | 2024-11-15 10:58 | XMS_ITS | Encounter Summary ---
Author Organization [facility] Address [address] [place] [address] Phone Care Team Providers Care Logistics Lead Name Role Phone Pcp, Unknown Primary Care Provider Unavailabl e Pcp, Not Required Primary Care Provider Deana Cherry NP Primary Care Provider [phone] Encounter Details Date Type Department Care Team (Late st Contact Info) Description 08/01/2022 Procedure Pass [facility], Ct Scan - [address] [address] Social History Tobacco Use Types Packs/Day Years [...] Date of Assessment Author No Risk Indicated 08/01/2022 8:49 PM EDT Brandi Ordoñez RN * [place] Suicide Severity Rating Scale (Screener/Recent Self-Report) Question Answer Date of Assessment Author 1. Wish to be (Past 1 Month) No 023 8:49 PM EDT Brandi Ordoñez RN 2. Non-Specific Active Suici shamika Thoughts (Past 1 Month) No 08/01/2022 8:49 PM EDT Brandi Ordoñez RN 6. Suicidal Behavior (Lifetime) No 8:49 PM EDT Brandi Ordoñez RN documented as of this encounter Plan of Treatment Not on file documented as of this encounter Visit Diagnoses Not on filedocumented in this encounter Additional Health Concerns Infection Onset Date Last Indicated Resolved Time CoV-Risk Comment:2 Neg covid 01/06/2023 01/06/2023 01/08/2023 11:21 AM EDT CoV-Risk 03/15/2023 03/15/2023 03/26/2023 1:22 AM EST documented as of this encounter Care Teams Logistics Lead Relationship Specialty Start Date End Date Pcp, Unknown PCP - General 08/01/22 01/10/23 Pcp, Not Required [address] [place] [address] PCP - General 01/11/23 01/13/23 Deana Warren NP [address] [place] [address] PCP - General Nurse Practitioner 01/14/23 documented as of this encounter Additional Source Comments The information contained in this document represents components of the legal health record. It is not the complete legal health record.[facility]
--- OUTSIDE RECORDS SUMMARY | 2024-11-15 10:58 | XMS_ITS | Encounter Summary ---
Author Organization [facility] Address [address] [place] [address] Phone Care Team Providers Care Abstract Checker Name Role Phone Pcp, Unknown Primary Care Provider Unavailabl e Pcp, Not Required Primary Care Provider Deana Cherry NP Primary Care Provider [phone] Encounter Details Date Type Department Care Team (Late st Contact Info) Description 01/07/2023 Procedure Pass [facility], Ct Scan - [address] [address] Social History Tobacco Use Types Packs/Day Years [...] 5:00 PM EDT Roland Garber, RALEIGH * [place] Suicide Severity Rating Scale (Screener/Recent Self-Report) Question Answer Date of Assessment Author 1. Wish to be (Past 1 Month) No 023 5:00 PM EDT Roland Diaz, RALEIGH 2. Non-Specific Active Suici shamika Thoughts [...] documented as of this encounter Care Teams Abstract Checker Relationship Specialty Start Date End Date Pcp, Unknown PCP - General 08/01/22 01/10/23 Pcp, Not Required [address] [place] [address] PCP - General 01/11/23 01/13/23 Deana Warren NP [address] [place] [address] PCP - General Nurse Practitioner 01/14/23 documented as of this encounter Additional Source Comments The information contained in this document represents components of the legal health record. It is not the complete legal health record.[facility]
--- OUTSIDE RECORDS SUMMARY | 2024-11-15 10:58 | XMS_ITS | Encounter Summary ---
Author Organization [employer] Address [address] [facility] 7t [place] [address] Care Team Providers Care Poultry Husbandman Name Role Phone Deana Warren Primary Care Provider Reason for Visit * Reason Comments Med Refill Encounter Details Date Type Department Care Team ([facility] st Contact Info) Description 09/27/2024 Refill [facility] MEDICINE 230 [place], [place] [phone] Deana Warren ANP [address] [place] [address] Type 2 diabetes mellitus with hyperglycemia, unspecified whether senior care insulin use ([facility]) Social History Tobacco Use Types Packs/Day Years [...] Diagnosis Type 2 diabetes mellitus with hyperglycemia, unspecified whether senior care insulin use ([facility]) documented in this encounter Additional Health Concerns Assessment Noted Time PHQ-9 Depression Total Score: 24 025 9:43 AM EST documented as of this encounter Care Teams Poultry Husbandman Relationship Specialty Start Date End Date Deana Warren ANP [address] [place] [address] PCP - General Family Medicine 03/29/22 documented as of this encounter
--- OUTSIDE RECORDS SUMMARY | 2024-11-15 10:58 | XMS_ITS | Encounter Summary ---
Author Organization [facility] Address [address] [facility] [address] [place] [address] Phone Care Team Providers Care Server Software Engineer Name Role Phone Pcp, Unknown Primary Care Provider Unavailabl e Pcp, Not Required Primary Care Provider Deana Cherry NP Primary Care Provider [phone] Encounter Details Date Type Department Care Team (Late st Contact Info) Description 01/10/2023 Procedure Pass [facility], [facility] [address] [facility], 2nd [place] [address] Social History Tobacco Use Types Packs/Day Years [...] Date of Assessment Author No Risk Indicated 01/12/2023 4:41 PM EST Terrie Echavarria RN * [place] Suicide Severity Rating Scale (Screener/Recent Self-Report) Question Answer Date of Assessment Author 1. Wish to be (Past 1 Month) No 023 4:41 PM Terrie Uribe RN 2. Non-Specific Active Suici shamika Thoughts (Past 1 Month) No 01/12/2023 4:41 PM EST Pj Echavarria RN 6. Suicidal Behavior (Lifetime) No 4:41 PM EST Terrie Echavarria RN documented as of this encounter Plan of Treatment Not on file documented as of this encounter Visit Diagnoses Not on filedocumented in this encounter Additional Health Concerns Infection Onset Date Last Indicated Resolved Time CoV-Risk 03/15/2023 03/15/2023 03/26/2023 1:22 AM EST documented as of this encounter Care Teams Server Software Engineer Relationship Specialty Start Date End Date Pcp, Unknown PCP - General 08/01/22 01/10/23 Pcp, Not Required [address] [place] [address] PCP - General 01/11/23 01/13/23 Deana Warren NP [address] [place] [address] PCP - General Nurse Practitioner 01/14/23 documented as of this encounter Additional Source Comments The information contained in this document represents components of the legal health record. It is not the complete legal health record.[facility]
[2024-11-15 11:55] LABS: Alanine Aminotransferase 24 U/L (0-31); Albumin Level 4.4 g/dL (3.5-5.0); Alkaline Phosphatase 115 U/L (39-117); Anion Gap 15 (12-20); Aspartate Amino Transferase 54 U/L (5-31); Blood Urea Nitrogen 14 mg/dL (9-16); Calcium 8.7 mg/dL (8.4-10.2); Carbon Dioxide 22 mmol/L (22-29); Chloride 112 mmol/L (96-108); Cholesterol 132 mg/dL (<200); Estimated Glomerular Filt Rate > 60; HDL Cholesterol 60 mg/dL (>40); Potassium 3.7 mmol/L (3.3-5.1); Sodium 145 mmol/L (135-145); Total Protein 8.2 g/dL (6.5-8.0); Triglycerides 63 mg/dL (<150)
[2024-11-15 12:08] LABS: Parathyroid Hormone Intact 242.1 pg/mL (8.7-77.1)
== END 2024-11-15 09:36 | disposition home or self-care (01) ==
LOC: HO.HHCL 09:35
PROVIDERS: PCP Nurse Practitioner Primary Care; Visit Provider Nurse Practitioner Primary Care
DX: M81.0 Age-related osteoporosis without current pathological fracture (principal); E78.5 Hyperlipidemia, unspecified
CPT/HCPCS: 36415; 80048; 80061; 80076; 82306; 83970

== ENCOUNTER 2024-11-17 11:28 | Outpatient (REF) | payer OTHER, SELFPAY ==
--- OUTSIDE RECORDS SUMMARY | 2024-11-17 09:00 | XMS_ITS | Encounter Summary ---
Author Organization [employer] Address [address] [facility] 7t [place] [address] Care Team Providers Care Project Coach Name Role Phone Deana Warren Primary Care Provider [phone] Reason for Visit * Reason Comments GBAT Encounter Details Date Type Department Care Team ([facility] st Contact Info) Description 11/17/2024 9:00 AM EDT Office Visit [facility] MEDICINE [address] [place], [place] [phone] Robin Farah MD [address] [place] [address] Alcohol use disorder, severe, dependence (CMS/HCC) (Primary Dx) Social History Tobacco Use Types [...] as of this encounter Progress Notes * Robin Farah MD - 11/17/2024 9:00 AM EDT TODAY GBAT VISIT 11/27/2024 Patient presents for Group-Based Addiction Treatment for AUD Reviewed the group goals, expectations and policies Consented to the group treatment options Actively participated in the group discussion with the topic of: Step Forward/Learning Along the Way Following staff present at the visit: Physician, Minilab Operator, Team RN, Clinician, and MedicalAssistant Opportunities provided to address individual medical/medication/BH concerns States doing well without cravings or relapse Review of Systems Psychiatric/Behavioral: Negative for behavioral problems and dysphoric mood. The patient is not nervous/anxious. Physical Exam Constitutional: Appearance: Normal appearance. Pulmonary: Effort: Pulmonary effort is normal. Neurological: Mental Status: She is alert. Psychiatric: Mood and Affect: Mood normal. Behavior: Behavior normal. Cora was seen today for gbat. Diagnoses and all orders for this visit: Alcohol use disorder, severe, dependence (CMS/HCC) (Primary) Patient presents for Group-Based Addiction Treatment of AUD Reviewed the group goals, expectations and policies Consented to the group treatment options Actively participated in the group discussed Future discussion topics reviewed Reviewed behavioral modification and accessing services Group counseling provided with a focus on support system, tools for achieving/maintaining recovery Reviewed barriers for these goals Discussed strategies to address when faced situations that may trigger use [place] BLUE SPLIT TRIMMER reviewed Following staff present at the visit: Physician, Team RN, Clinician, Minilab Operator and Drying Frame Operator Follow up in 1 week for the next GBAT meeting This information has been disclosed to you from records protected by federal confidentiality rules (42 CFR Part 2). The federal rules prohibit you from making any further disclosure of information inthis record that identifies a patient as having or having had a substance use disorder either directly, by reference to publicly available information, or through verification of such identification by another person unless further disclosure is expressly permitted by the written consent of the individual whose information is being disclosed or as otherwise permitted by (see2.3.1). The federal rules restrict any use of the information to investigate or prosecute with regard to a crime any patient with a substance use disorder, except as provided at 2.12??(5) and 2.65. documented in this encounter Plan of Treatment Not on file documented as of this encounter Visit Diagnoses Diagnosis Alcohol use disorder, severe, dependence (CMS/HCC)- Primary documented in this encounter Additional Health Concerns Assessment Noted Time PHQ-9 Depression Total Score: 12 025 1:15 PM EDT documented as of this encounter Care Teams Project Coach Relationship Specialty Start Date End Date Deana Warren ANP [address] [place] [address] PCP - General Family Medicine 03/29/22 documented as of this encounter
[2024-11-17 14:26] LABS: Anion Gap 11 (12-20); Blood Urea Nitrogen 16 mg/dL (9-16); Calcium 9.2 mg/dL (8.4-10.2); Carbon Dioxide 27 mmol/L (22-29); Chloride 109 mmol/L (96-108); Estimated Glomerular Filt Rate > 60; Potassium 4.1 mmol/L (3.3-5.1); Sodium 143 mmol/L (135-145)
[2024-11-17 14:27] LABS: Parathyroid Hormone Intact 152.4 pg/mL (8.7-77.1)
--- OUTSIDE RECORDS SUMMARY | 2024-11-17 14:36 | XMS_ITS | Clinical Summary ---
Author Organization [facility] Address [address] [facility] [address] [place] [address] Phone Care Team Providers Care Film Historian Name Role Phone Deana Warren NP Primary Care Provider [phone] Allergies No known active allergies Medications OLANZapine [...] = 10 401+ = 12 and call MD/DEVELOPMENTAL SPECIALIST 4 Active zolpidem (AMBIEN) 5 MG tablet [...] (01/12/2023 7:15 PM EST): -Patient presented to [facility] with AMS thought to be due to hypoglycemia, had a seizure in the ED and EEG the following day was concerning for status epilepticus therefore she was transferred to [facility] [place]Repeat EEG shows slowing, no epileptiform discharges [...] place on low-dose insulin sign scale with uhpip-ky-oplv testing -Continue to hold long-acting as patient is encephalopathic and not taking in much PO Assessment & Plan (02/07/2022 10:00 AM EST): DKA at time of presentation, resolved. Hemoglobin A1c 14.1. BG now in 100-200 range. -Continue Lantus insulin 24 units qd - POC/ISS Assessment & Plan (01/20/2022 8:42 AM EST): Continue with insulin. Continue with uzooj-hu-[id number]'s. Patient has had her diabetic ketoacidosis resolved. We will likely transition off of dextrose as the patient's oral intake improves. She still on some aspirations precautions. Dysphagia 01/20/2022 Assessment & Plan (01/13/2023 10:02 AM EST): -CONSULTING NURSE consulted, cleared for reg diet Assessment & Plan (02/07/2022 9:54 AM EST): ERIKA Izquierdo From CONSULTING NURSE 02/01, well with solids. Needs moderately thick [...] Pt has been on geripsych unit at [facility] recently but then back home after. MS [...] 10:04 AM EST): Evaluated by ophthalmology at [facility] Recommended erythromycin ointment, will continue Pneumonia due [...] 10/20/2024 9:00 AM EDT Emergency [facility] [address] [place] [id number] Thierno Howard MD Savage, Justin G, Lynette Naidu MD Discharge Disposition: Home or Self Care 10/19/2024 Procedure Pass [facility], [address] [address] 10/19/2024 Procedure Pass [address] [address] from Last 3 Months Immunizations Immunization Administration [...] this topic Medical Devices Implanted Type Area Ribbon Inker Device Identifier Shelf Expiration Date Model / Serial / Lot Nail Bone [id number] 125deg Tfn Advanced Ti Cannulated Left - [id number] Implanted:Qty : 1 on 06/17/2023 by Mal Reyes MD at [facility] Left: Acetabulum [employer] [id number] 11/07/2032 04.037.12 5S / / [id number] Blade Bone 10.5x85mm Helical Tfn Advanced - [id number] Implanted:Qty : 1 on 06/17/2023 by Mal Reyes MD at [facility] Left: Acetabulum [employer] [id number] 10/07/2032 04.038.38 5S / / [id number] Screw Bone 5x46mm Locking Im Nail - [id number] Implanted:Qty : 1 on 06/17/2023 by Mal Reyes MD at [facility] Left: Femur [employer] [id number] 03/09/2032 04.045.04 6S / / [id number] Screw Bone 5x44mm Locking Im Nail - [id number] Implanted:Qty : 1 on 07/21/2023 by Mal Reyes MD at [facility] Left: Hip [employer] [id number] 01/07/2033 04.045.04 4S / / [id number] Screw Bone 5x42mm Locking Xl25 Recess Medullary Nail Compatible - [id number] Implanted:Qty : 1 on 07/21/2023 by Mal Reyes MD at [facility] Left: Hip [employer] [id number] 07/07/2032 04.045.04 2S / / [id number] Procedures Procedure Name Priority Date/Time Associated Diagnosis [...] Ethanol, blood (10/19/2024 5:58 PM EDT) Pathologist [facility] ETHANOL 273(H) <10 mg/dL [facility] Blood 10/19/2024 5:58 PM EDT 10/19/2024 6:09 PM EDT us Thierno Howard MD LAB BLOOD ORDERABLES Final Resu lt [address] [address] * (ABNORMAL) LFTs (hepatic panel) (10/19/2024 5:58 PM EDT) Pathologist [facility] ALKALINE PHOSPHATASE 114 39 - 117 U/L [facility] TOTAL BILIRUBIN 0.3 0.0 - 1.2 mg/dL [facility] DIRECT BILIRUBIN 0.1 0.0 - 0.2 mg/dL [facility] Bilirubin (Indirect) NOT CALCULATED 0 - 1.5 mg/dL [facility] AST 29 0 - 37 U/L [facility] ALT 16 0 - 40 U/L [facility] TOTAL PROTEIN 8.2(H) 6.5 - 8.0 g/dL [facility] ALBUMIN 4.1 3.9 - 4.8 g/dL [facility] GLOBULIN 4.1 1 - 4.8 g/dL [facility] A/G Ratio 1.00 1.00 - 4.80 RATIO [facility] Blood 10/19/2024 5:58 PM EDT 10/19/2024 6:09 PM EDT us Thierno Howard MD LAB BLOOD ORDERABLES Final Resu lt Performing Organization Address City/State/[facility] Co de Phone Number [address] [address] * (ABNORMAL) CBC and differential (10/19/2024 5:58 PM EDT) WBC 9.87 4.00 - 11.00 K/uL [facility] RBC 5.18 4.00 - 5.20 M/uL [facility] HGB 15.0 12.0 - 16.0 g/dL [facility] HCT 45.2 36.0 - 46.0 % [facility] PLT 190 150 - 450 K/uL [facility] MCV 87.3 80.0 - 100.0 [facility] MCH 29.0 27.0 - 31.0 pg [facility] MCHC 33.2 32.0 - 36.0 g/dL [facility] RDW 14.8(H) 11.5 - 14.5 % [facility] MPV 10.8 8.4 - 12.0 [facility] NRBC 0.00 0.00 /100 WBCs [facility] ABSOLUTE NRBC 0.00 0.00 K/uL [facility] DIFF METHOD Auto [facility] NEUTS 54.5 48.0 - 76.0 % [facility] LYMPHS 36.7 18.0 - 41.0 % [facility] MONOS 5.7 4.0 - 11.0 % [facility] EOS 1.9 0.0 - 5.0 % [facility] BASOS 0.8 0.0 - 1.5 % [facility] Granulocytes, immature (%) 0.4 0.0 - 0.9 % [facility] ABSOLUTE NEUTS 5.38 1.92 - 7.60 K/uL [facility] ABSOLUTE LYMPHS 3.62 0.72 - 4.10 K/uL [facility] ABSOLUTE MONOS 0.56 0.16 - 1.10 K/uL [facility] ABSOLUTE EOS 0.19 0.00 - 0.50 K/uL [facility] ABSOLUTE BASOS 0.08 0.00 - 0.15 K/uL [facility] Granulocytes, immature 0.04 0.00 - 0.09 K/uL [facility] Blood 10/19/2024 5:58 PM EDT 10/19/2024 6:09 PM EDT Thierno Howard MD LAB BLOOD ORDERABLES Final Resu lt [address] [address] * Phosphorus (10/19/2024 5:58 PM EDT) PHOSPHORUS 3.0 2.7 - 4.5 mg/dL [facility] Blood 10/19/2024 5:58 PM EDT 10/19/2024 6:09 PM EDT Thierno Howard MD LAB BLOOD ORDERABLES Final Resu lt [address] [address] * Magnesium (10/19/2024 5:58 PM EDT) MAGNESIUM 2.0 1.6 - 2.6 mg/dL [facility] Blood 10/19/2024 5:58 PM EDT 10/19/2024 6:09 PM EDT Thierno Howard MD LAB BLOOD ORDERABLES Final Resu lt Performing Organization Address [facility]/ZIP Co de Phone Number [address] [address] * (ABNORMAL) Basic metabolic panel (10/19/2024 5:58 PM EDT) SODIUM 144 133 - 146 mmol/L [facility] CHLORIDE 107 96 - 108 mmol/L [facility] POTASSIUM 3.4 3.3 - 5.1 mmol/L [facility] CO2 20(L) 21 - 35 mmol/L [facility] BUN 13 6 - 19 mg/dL [facility] CREATININE 0.50 0.5 - 1.5 mg/dL [facility] GLUCOSE 119(H) 70 - 99 mg/dL [facility] CALCIUM 9.7 8.4 - 10.3 mg/dL [facility] EGFR 101 >59 mL/min/1.7 3m2 [facility] Comment:Estimated glomerular filtration rate calculated using the CKD-EPI refit equation. ANION GAP 20 10 - 20 mmol/L [facility] Blood 10/19/2024 5:58 PM EDT 10/19/2024 6:09 PM EDT Thierno Howard MD LAB BLOOD ORDERABLES Final Resu lt Performing Organization Address [facility]/ZIP Co de Phone Number [address] [address] * CT CERVICAL SPINE (NEURO) WITHOUT CONTRAST [...] clinician's provided indication for this examination in [facility]: Head trauma, minor (Age >= 65y); Neck [...] clinician's provided indication for this examination in [facility]:Head trauma, minor (Age >= 65y); Neck trauma [...] clinician's provided indication for this examination in [facility]:Head trauma, minor (Age >= 65y); Neck trauma [...] BPM [facility] Atrial Rate 54 BPM [facility] NC Interval 128 ms [facility] QRS Duration 94 ms [facility] QT Interval 468 ms [facility] QTC Interval 443 ms [facility] P Emerson 48 degrees [facility] R Wave Emerson 54 degrees [facility] T Wave Emerson 57 degrees [facility] 10/19/2024 5:30 PM EDT 10/20/2024 5:59 PM EDT Narrative [facility] - 10/20/2024 5:59 PM EDT Sinus bradycardia Otherwise normal ECG When compared with ECG of 27-Jul-2023 01:33, Vent. rate has decreased by [address] no longer depressed in Inferior leads Confirmed by Emeka BUTCHER ([id number]) on 10/20/2024 5:59:48 PM Thierno Howard MD ECG ORDERABLES Final Result [facility] * (ABNORMAL) POCT Glucose (10/19/2024 5:27 PM EDT) Glucose, POCT 111(H) 70 - 100 mg/dL [facility] 10/19/2024 5:27 PM EDT 10/19/2024 5:46 PM EDT us Thierno Howard MD POINT OF CARE TEST ORDERABLES F inal Result Performing Organization Address [facility] Co de Phone Number [address] [address] * (ABNORMAL) Hemoglobin A1c (01/13/2023 5:45 AM EST) HEMOGLOBIN A1C 6.2(H) 4.3 - 5.8 % [facility] Blood 01/13/2023 5:45 AM EST 01/13/2023 6:01 AM EST us Sue Bhatt DO LAB BLOOD ORDERABLES Final Re sult Performing Organization Address [facility] Co de Phone Number [address] [address] * Lipid panel (01/13/2023 5:45 AM EST) HDL 36 mg/dL [facility] Comment: Interpretation <40 mg/dL: Low HDL cholesterol (major risk factor for CHD) Greater than or equal to 60 mg/dL: High HDL cholesterol ( negative risk factor for CHD) HDL - cholesterol is affected by a number of factors, e.g. smoking, excerise, hormones, sex and age. CHOLESTEROL 149 0 - 240 mg/dL [facility] TRIGLYCERIDES 74 30 - 160 mg/dL [facility] LDL 98 50 - 129 mg/dL [facility] Comment: LDL levels in terms of risk for coronary heart disease: <100 mg/dL: Optimal 100-129 mg/dL: Near or above optimal 130-159 mg/dL: Borderline high 160-189 mg/dL: High >190 mg/dL: Very High CARDIAC RISK RATIO 4.1 3.3 - 4.4 C [facility] Blood 01/13/2023 5:45 AM EST 01/13/2023 6:00 AM EST us Sue Bhatt DO LAB BLOOD ORDERABLES Final Re sult [facility] [address] [place] [address] from Last 3 Months or Most Recently Relevant to Health Maintenance Insurance MEDIC[place] [id number] MEDICARE REPLACEMENT MEDICARE REPLACEMENT MEDICARE REPLACEMENT MEDICARE REPLACEMENT MEDICARE REPLACEMENT MEDICARE REPLACEMENT MEDICARE REPLACEMENT Advance Directives For more information, please contact: [phone] (9AM - 5PM [facility], Friday-Friday) Documents on File Type Date Recorded Patient Advisory Intern Expl [facility] Proxy 01/24/2022 10:49 AM [...] Agent (Proxy form on file) Care Teams Film Historian Relationship Specialty Start Date End Date Deana Warren NP [address] [place] [address] PCP - General Nurse Practitioner 01/14/23 Additional Source Comments The information contained in this document represents components of the legal health record. It is not the complete legal health record.[facility]
--- OUTSIDE RECORDS SUMMARY | 2024-11-17 14:37 | XMS_ITS | Encounter Summary ---
Author Organization [employer] Address [address] [facility] 7t [place] [address] Care Team Providers Care Manager Cardiology Name Role Phone Deana Warren Primary Care Provider [phone] Reason for Visit * Reason Onset Date Comments Results 11/15/2024 Appointment Request 11/15/2024 Encounter Details Date Type Department Care Team ([facility] st Contact Info) Description 11/15/2024 Results Follow-Up [facility] MEDICINE [address] [place], [place] [phone] Deana Warren ANP [address] [place] [address] Lipid Panel, Standard, Hepatic Function Panel Social History Tobacco Use Types Packs/Day Years [...] encounter Miscellaneous Notes * Telephone Encounter - Julisa Restrepo RN - 11/15/2024 12:58 PM EDT Telephone call placed to pt. No answer, left v/m. * Telephone Encounter - Julisa Restrepo RN - 11/15/2024 12:56 PM EDT ----- Message from Deana aWrren sent at 11/15/2024 12:08 PM EDT ----- Please let pt know, cholesterol improved. Continue statin. LFTs stable, please encourage to abstainfrom alcohol if not already. From previous message, also needs DM follow-up in November. thanks ----- Message ----- From: Interface, Lab Results In Sent: 11/15/2024 11:56 AM EDT To: KALE Goins * Result Encounter Note - KALE Goins - 11/15/2024 12:08 PM EDT Please let pt know, cholesterol improved. Continue statin. LFTs stable, please encourage to abstainfrom alcohol if not already. From previous message, also needs DM follow-up in November. thanks documented in this encounter Plan of Treatment Not on file documented as of this encounter Visit Diagnoses Not on filedocumented in this encounter Additional Health Concerns Assessment Noted Time PHQ-9 Depression Total Score: 12 025 1:15 PM EDT documented as of this encounter Care Teams Manager Cardiology Relationship Specialty Start Date End Date Deana Warren ANP [address] [place] [address] PCP - General Family Medicine 03/29/22 documented as of this encounter
--- OUTSIDE RECORDS SUMMARY | 2024-11-17 14:37 | XMS_ITS | Encounter Summary ---
Author Organization [employer] Address [address] [facility] 7t [place] [address] Care Team Providers Care Flavoring Maker Name Role Phone Deana Wraren Primary Care Provider [phone] Reason for Visit * Reason Onset Date Comments Appointment Request 07/28/2023 Encounter Details Date Type Department Care Team ([facility] st Contact Info) Description 07/28/2023 Telephone [facility] MEDICINE [address] [place], [place] [phone] Deana Warren ANP [address] [place], [place] [phone] Appointment Request Social History Tobacco Use Types [...] stated had a procedure done on 07/20 [facility] patient had a Hip surgery and would like to follow up with the provider documented in this encounter Plan of Treatment Not on file documented as of this encounter Visit Diagnoses Not on filedocumented in this encounter Care Teams Flavoring Maker Relationship Specialty Start Date End Date Deana Warren ANP [address] [place] [address] PCP - General Family Medicine 03/29/22 documented as of this encounter
--- OUTSIDE RECORDS SUMMARY | 2024-11-17 14:37 | XMS_ITS | Encounter Summary ---
Author Organization [employer] Address [address] [place] [address] 7 [place] [address] Care Team Providers Care Crossbar Switch Adjuster Name Role Phone Deana Warren Primary Care Provider [phone] Encounter Details Date Type Department Care Team (Late st Contact Info) Description 04/04/2022 Telephone [facility] MEDICINE [address] [place], [place] [phone] Deana Warren ANP [address] [place] [address] Social History Tobacco Use Types Packs/Day Years [...] on filedocumented in this encounter Care Teams Crossbar Switch Adjuster Relationship Specialty Start Date End Date Deana Warern ANP [address] [place] [address] PCP - General Family Medicine 03/29/22 documented as of this encounter
--- OUTSIDE RECORDS SUMMARY | 2024-11-17 14:37 | XMS_ITS | Encounter Summary ---
Author Organization [facility] Address [address] [place] [address] Phone Care Team Providers Care Walnut Dehydrator Operator Name Role Phone Deana Warren NP Primary Care Provider [phone] Encounter Details Date Type Department Care Team (Late st Contact Info) Description 11/16/2023 Procedure Pass [facility], Ct Scan - [facility] [address] [place] [address] Social History Tobacco Use Types Packs/Day Years [...] No Risk Indicated 11/16/2023 5:19 PM EDT aMribell Olguin RN * [place] Suicide Severity Rating Scale (Screener/Recent Self-Report) Question [...] on filedocumented in this encounter Care Teams Walnut Dehydrator Operator Relationship Specialty Start Date End Date Deana Warren NP [address] [place] [address] PCP - General Nurse Practitioner 01/14/23 documented as of this encounter Additional Source Comments The information contained in this document represents components of the legal health record. It is not the complete legal health record.[facility]
--- OUTSIDE RECORDS SUMMARY | 2024-11-17 14:37 | XMS_ITS | Encounter Summary ---
Author Organization [employer] Address [address] [facility] 7 [place] [address] Care Team Providers Care Building Maintenance Technician Name Role Phone Deana Warren Primary Care Provider [phone] Reason for Visit * Reason Onset Date Comments new script 06/21/2022 Encounter Details Date Type Department Care Team ([facility] st Contact Info) Description 06/21/2022 Telephone [facility] MEDICINE [address] [place] [address] Deana Warren ANP [address] [place] [address] new script Social History Tobacco Use Types [...] - 06/21/2022 11:18 AM EDT TC from [facility] Pharmacy stated insurance do not covered admelog insulin but insurance will be cover Novolog flexpen. Pt without insulin. PCP DR. Warren documented in this encounter Plan of Treatment Not on file documented as of this encounter Visit Diagnoses Not on filedocumented in this encounter Care Teams Building Maintenance Technician Relationship Specialty Start Date End Date Deana Warren ANP [address] [place] [address] PCP - General Family Medicine 03/29/22 documented as of this encounter
--- OUTSIDE RECORDS SUMMARY | 2024-11-17 14:37 | XMS_ITS | Encounter Summary ---
Author Organization [facility] Address [address] [place] [address] Phone Care Team Providers Care Healthcare Applications Analyst Name Role Phone Deana Warren NP Primary Care Provider [phone] Encounter Details Date Type Department Care Team (Late st Contact Info) Description 06/17/2023 Procedure Pass [place] Admitting Dept - Virtual Department [address] [place] [address] Social History Tobacco Use Types Packs/Day Years [...] on filedocumented in this encounter Care Teams Healthcare Applications Analyst Relationship Specialty Start Date End Date Deana Warren NP [address] [place] [address] PCP - General Nurse Practitioner 01/14/23 documented as of this encounter Additional Source Comments The information contained in this document represents components of the legal health record. It is not the complete legal health record.[facility]
--- OUTSIDE RECORDS SUMMARY | 2024-11-17 14:37 | XMS_ITS | Encounter Summary ---
Author Organization [facility] Address [address] [place] [address] Phone Care Team Providers Care Head Swamper Name Role Phone Deana Warren NP Primary Care Provider [phone] Encounter Details Date Type Department Care Team (Late st Contact Info) Description 10/19/2024 Procedure Pass [facility], Ct Scan - [facility] [address] [place] [address] Social History Tobacco Use Types Packs/Day Years [...] 5:28 PM EDT Gely Lubin, [place] * [place] Suicide Severity Rating Scale (Screener/Recent Self-Report) Question [...] on filedocumented in this encounter Care Teams Head Swamper Relationship Specialty Start Date End Date Deana Warren NP [address] [place] [address] PCP - General Nurse Practitioner 01/14/23 documented as of this encounter Additional Source Comments The information contained in this document represents components of the legal health record. It is not the complete legal health record.[facility]
--- OUTSIDE RECORDS SUMMARY | 2024-11-17 14:37 | XMS_ITS | Encounter Summary ---
Author Organization [employer] Address [address] [place] [address] 7 [place] [address] Care Team Providers Care Undercover Cop Name Role Phone Deana Warren Primary Care Provider [phone] Reason for Visit * Reason Onset Date Comments triage 05/22/2022 Encounter Details Date Type Department Care Team ([facility] st Contact Info) Description 05/22/2022 Telephone [facility] MEDICINE [address] [place], [place] [phone] Deana Warren ANP [address] [place] [address] triage Social History Tobacco Use Types Packs/Day [...] on filedocumented in this encounter Care Teams Undercover Cop Relationship Specialty Start Date End Date Deana Warren ANP [address] [place] [address] PCP - General Family Medicine 03/29/22 documented as of this encounter
--- OUTSIDE RECORDS SUMMARY | 2024-11-17 14:37 | XMS_ITS | Encounter Summary ---
Author Organization [facility] Address [address] [place] [address] Phone Care Team Providers Care Estate Attorney Name Role Phone Deana Warren NP Primary Care Provider [phone] Encounter Details Date Type Department Care Team (Late st Contact Info) Description 11/16/2023 Procedure Pass [facility], Ct Scan - [facility] [address] [place] [address] Social History Tobacco Use Types Packs/Day Years [...] 5:19 PM EDT Maribell Olguin RN * [place] Suicide Severity Rating Scale (Screener/Recent Self-Report) Question [...] on filedocumented in this encounter Care Teams Estate Attorney Relationship Specialty Start Date End Date Deana Warren NP [address] [place] [address] PCP - General Nurse Practitioner 01/14/23 documented as of this encounter Additional Source Comments The information contained in this document represents components of the legal health record. It is not the complete legal health record.[facility]
--- OUTSIDE RECORDS SUMMARY | 2024-11-17 14:37 | XMS_ITS | Clinical Summary ---
Author Organization [employer] Address [address] [place] [address] Care Team Providers Care Cloth Desizing Range Tender Name Role Phone Rafia Mary Primary Care Provider [phone] Allergies No known active allergies Medications * This document contains information received from the source organization and may not represent a complete record from that organization. acetaminophen (Tylenol) 325 MG tablet 022 Active glucagon (Gvoke HypoPen) 1 MG/0.2ML injectionIndica tions:Type 2 diabetes mellitus with hyperglycemia, with long-term current use of insulin ([facility]) Administer 1 mg subcutaneously when [...] 60 capsule 2 025 Active Continuous Glucose Packing House Supervisor (Frontier SiliconStyle Nivia 2 [place]) deviceIndicatio ns:Hypertension associated with diabetes ([facility]) Scan sensor every 8 hours 1 each 025 Active glucose blood (FreeStyle Precision Shin Test) test stripIndication s:Hypertension associated with diabetes ([facility]) Use to test blood sugar 3 times daily 100 each 12 025 2025 Active insulin pen needle (B-D UF III MINI PEN NEEDLES) 31G x 5 mm miscIndications :Type 2 diabetes mellitus with hyperglycemia, with long-term current use of insulin ([facility]) USE THREE TIMES DAILY WITH INSULIN 100 each 3 025 Active rosuvastatin (Crestor) 20 MG tabletIndicatio ns:Dyslipidemia Take 1 tablet (20 mg) by mouth Once per day. 90 tablet 3 025 2025 Active lisinopril 30 MG tabletIndicatio ns:Hypertension associated with diabetes ([facility]) TAKE 1 TABLET BY MOUTH EVERY DAY 90 tablet 1 025 Active ciclopirox (Penlac) 8 % solutionIndicat ions:Onycholysi s Apply topically at bedtime. 6 mL 025 Active OLANZapine (ZyPREXA) 10 MG tabletIndicatio ns:Bipolar affective disorder, remission status unspecified ([facility]) Take 1 tablet (10 mg) by mouth at bedtime. 30 tablet 1 025 Active zolpidem (Ambien) 5 MG tabletIndicatio ns:Insomnia, unspecified type Take 1 tablet (5 mg) by mouth if needed at bedtime for sleep. 30 tablet 025 Active glucose blood (OneTouch Ultra) test stripIndication s:Type 2 diabetes mellitus with hyperglycemia, unspecified whether patent law specialist insulin use ([facility]) TEST BLOOD SUGAR THREE TIMES A DAY 300 strip 1 025 Active Blood Glucose Monitoring Suppl (ONE TOUCH ULTRA MINI) w/Device kitIndications: Type 2 diabetes mellitus with hyperglycemia, unspecified whether custodial insulin use ([facility]) Test 3 times daily 1 kit 025 [...] 2 diabetes mellitus with hyperglycemia, unspecified whether patent law specialist insulin use (CMS/HCC) 1 each every 15 days. Apply 1 every 15 days as directed for CGM 2 each Active Continuous Glucose Packing House Supervisor (FreeStyle Nivia 3 [place]) deviceIndicatio ns:Type 2 diabetes mellitus with hyperglycemia, unspecified whether custodial insulin use ([facility]) 1 each Once per day. Use as [...] hyperglycemia, with long-term current use of insulin ([facility]) INJECT 32 UNITS UNDER THE SKIN ONCE DAILY. 15 mL 3 025 Active cholecalciferol (Vitamin D-3) 25 MCG (1000 UT) capsuleIndicati ons:Vitamin D deficiency Take 1 capsule (25 mcg) by mouth Once per day. 90 capsule 1 025 2025 Active insulin degludec (Tresiba FlexTouch) 100 UNIT/ML injectionIndica tions:Type 2 diabetes mellitus with hyperglycemia, with long-term current use of insulin ([facility]) Inject 32 Units under the skin Once [...] screening 05/24/202408/10 Current severe episode of ma jaosn depressive disorder without psychotic features 03/16/2024 08/2 [...] organization. Date Type Department Care Team Description 11/17/2024 9:00 AM EDT Office Visit [address] [address] Robin Farah MD Alcohol use disorder, severe, dependence (CMS/HCC) (Primary Dx) 11/17/2024 Orders Only [address] [address] Eulalia East RN Chronic hepatitis C without hepatic coma (CMS/HCC) 11/17/2024 Travel 11/16/2024 Results Follow-Up [address] [address] Rafia Mary ANP Vitamin D, 25-Hydroxy, Total, Immunoassay, PTH, Intact Without Calcium, Basic Metabolic Panel 11/15/2024 Patient Outreach [address] [address] Randy Patel RC Recovery Supports 11/15/2024 Patient Outreach [address] [address] Kristy Han RC Recovery Supports 11/15/2024 Results Follow-Up [address] [address] Rafia Mary ANP Lipid Panel, Standard, Hepatic Function Panel 11/12/2024 Patient Outreach [address] [address] Morgan Brady Recovery Supports 11/04/2024 Patient Outreach [address] [address] Randy Patel Recovery Supports 11/01/2024 Telephone [facility] [address] [place] [address] Julisa Restrepo, COMMUNITY ASSOCIATION MANAGER Follow-up; Appointment Request 10/28/2024 Refill [facility] [address] [place] [address] Rafia Mary, KALE Type 2 diabetes mellitus with hyperglycemia, with long-term current use of insulin ([facility]) 10/26/2024 Patient Outreach [facility] [address] [place] [address] Jose Keller RC Recovery Supports 10/26/2024 Patient Outreach [facility] [address] [place] [address] Morgan Brady Recovery Supports 10/26/2024 Telephone [facility] [address] [place] [address] Rafia Mary ANP Telephone Call 10/25/2024 Telephone [facility] [address] [place] [address] Rafia Mary ANP Chart Prep 10/22/2024 Patient Outreach [facility] [address] [place] [address] Pipo Moreno Recovery Supports 10/15/2024 Patient Outreach [facility] [address] [place] [address] Pipo Moreno Recovery Supports 10/15/2024 Patient Outreach [facility] [address] [place] [address] Pipo Moreno Recovery Supports 10/14/2024 Telephone [facility] [address], [place] [address] Rafia Mary ANP Appointment Request 10/12/2024 Patient Outreach [facility] [address] [place] [address] Morgan Brady Recovery Supports 10/12/2024 Patient Outreach [facility] [address] [place] [address] Jose Keller Recovery Supports 10/08/2024 Patient Outreach [facility] [address] [place] [address] Morgan Brady Recovery Supports 10/05/2024 Patient Outreach [facility] [address] [place] [address] Morgan Brady Recovery Supports 09/28/2024 Patient Outreach [facility] [address] [place] [address] Morgan Brady Recovery Supports 09/28/2024 Patient Outreach [facility] [address] [place] [address] Jose Keller Recovery Supports 09/27/2024 Telephone [facility] [address] [facility] [place] [address] Rafia Mary ANP Med Refill 09/27/2024 Refill [facility] [address] [facility] [place] [address] Rafia Mary, ANP Type 2 diabetes mellitus with hyperglycemia, unspecified whether custodial insulin use (CMS/HCC) 09/24/2024 Patient Outreach [facility] [address] [place] [address] Kristy Han Recovery Supports 09/21/2024 Patient Outreach [facility] [address] [facility] [place] [address] Jose Keller Recovery Supports 09/17/2024 9:30 AM EDT Clinical Support [facility] [address] [place] [address] Julisa Restrepo, RN Type 2 diabetes mellitus with hyperglycemia, unspecified whether custodial insulin use (CMS/[facility]) 09/17/2024 Patient Outreach [facility] [address] [facility] [place] [address] Morgan Brady Recovery Supports 09/17/2024 Refill [facility] [address] [facility] [place] [address] Julisa Restrepo, RN Tobacco dependence 09/17/2024 Travel 09/15/2024 2:15 PM EDT Office Visit [facility]OMET[facility] [address] [place] [address] Katt Lazcano, OD Hordeolum externum of right lower eyelid (Primary Dx) 09/15/2024 Travel 09/14/2024 Patient Outreach [facility] [address] [facility] [place] [address] Morgan Brady Recovery Supports 09/14/2024 Telephone [facility] [address] [place] [address] Katt Lazcano OD 09/11/2024 Refill [facility] [address] [place] [address] Rafia Mary, KALE Gastroesophageal reflux disease, unspecified whether esophagitis present 09/09/2024 Patient Outreach [facility] [address] [place] [address] Pipo Moreno Recovery Supports 09/03/2024 Patient Outreach [facility] [address] [place] [address] Morgan Brady Recovery Supports 09/03/2024 Telephone [facility] [address] [place] [address] Rafia Mary ANP 09/02/2024 Refill [facility] [address] [place] [address] Rafia Mary, KALE Type 2 diabetes mellitus with hyperglycemia, unspecified whether custodial insulin use ([facility]) 09/01/2024 Refill [facility] [address] [place] [address] Rafia Mary, KALE Hypertension associated with diabetes ([facility]/HCC) 09/01/2024 Refill [facility] [address] [place] [address] Rafia Mary ANP Hypertension associated with diabetes ([facility]); Severe episode of recurrent major depressive disorder, without psychotic features ([facility]) 08/27/2024 Patient Outreach [facility] [address] [place] [address] Morgan Brady Recovery Supports (I met with Cora today.//Setting: /in person at [facility] ///Recovery Wellness Goals worked on: /Social Stability///Action taken/next steps: /Attended alcohol and drug free activity/ //Additional comments: ////) 08/20/2024 Patient Outreach [facility] [address] [place] [address] Morgan Brady Recovery Supports from Last 3 Months Immunizations [...] 11/10/2024 025, 05/13/2024, 01/21/2024, Additional history exists SDOH Screening 03/16/2025 03/16/2024 Depression Monitoring 04/29/2025 10/27/2024, 025 Alcohol/Substance Use Screening 05/13/2025 05/13/2024 Diabetes: Urine Protein Screening 06/04/2025 06/04/2024 Mammogram 07/14/2025 07/14/2024, 06/09, 06/01/2020, Additional history exists Tobacco Screening 09/17/2025 09/17/2024 Lipid Panel 11/15/2025 11/15/2024, 01/08, 05/28/2021, Additional history exists HPV/Cotest 12/21/2025 12/21/2020 Pap Smear 12/21/2025 12/21/2020 [...] Procedure Name Priority Date/Time Associated Diagnosis Comments VITAMIN D,25-OH,TOTAL,IA Routine 11/17/2024 11:54 AM EDT Vitamin D deficiency Age-related osteoporosis without current pathological fracture BASIC METABOLIC PANEL Routine 11/17/2024 11:54 AM EDT Vitamin D deficiency Age-related osteoporosis without current pathological fracture PTH, INTACT WITHOUT CALCIUM Routine 11/17/2024 11:54 AM EDT Vitamin D deficiency Age-related osteoporosis without current pathological fracture BASIC METABOLIC PANEL Routine 11/15/2024 9:40 AM EDT Age-related osteoporosis without current pathological fracture PTH, INTACT WITHOUT CALCIUM Routine 11/15/2024 9:40 AM EDT Age-related osteoporosis without current pathological fracture VITAMIN D,25-OH,TOTAL,IA Routine 11/15/2024 9:40 AM EDT Age-related osteoporosis without current pathological fracture HEPATIC FUNCTION PANEL Routine 11/15/2024 9:40 AM EDT Dyslipidemia LIPID PANEL, STANDARD Routine 11/15/2024 9:40 AM EDT Dyslipidemia POCT GLYCATED HEMOGLOBIN, TOTAL Routine 08/10/2024 11:43 AM EDT Hypertension associated with diabetes (CMS/HCC) BI MAMMOGRAM SCREENING TOMOSYNTHESIS BILATERAL Routine 07/14/2024 8:55 AM EDT ALBUMIN, RANDOM URINE W/CREATININE Routine 06/04/2024 1:15 PM EDT Type 2 diabetes mellitus with hyperglycemia, unspecified whether custodial insulin use (CMS/HCC) HM COLONOSCOPY Routine 08/23/2021 HPV MRNA E6/E7 Routine 12/21/2020 10:32 AM EDT THINPREP IMAGING SYSTEM PAP Routine 12/21/2020 10:32 AM EDT from Last 3 Months or Most Recently Relevant to Health Maintenance Results * (ABNORMAL) Vitamin D, 25-Hydroxy, Total, Immunoassay (11/17/2024 11:54 AM EDT) Only the most recent of2 resultswithin the time period is included. Vitamin D 25-OH Total 25.3(L) >30 ng/mL [facility] Comment: Health Based Reference Values*< 20 ng/mL Txzzujjpi14-17 ng/mL Insufficient> 30 ng/mL Sufficient*Farzana MOLINA. N Engl J Med. 2007;357:266-280There is no well-established upper level of normal vitamin Dlevels. Some laboratories use 50 ng/mL as an upper limit ofnormal. However, toxicity is patient-dependent and may occurat any level. Careful correlation with the patient'spresentation is necessary and, if there is concern forvitamin D toxicity, treatment should be consideredirrespective of the serum level.Care must be taken in interpreting Vitamin D results fromdifferent laboratories and methodologies. Published datademonstrated that results from patients undergoinghemodialysis may show a negative bias when tested withvarious automated 25-OH vitamin D assays when compared toLC-MS/MS.When testing samples from patients whose predominant form ofVitamin D is Vitamin D2, such as patients receiving VitaminD2 supplementation, results that are subtherapeutic shouldbe confirmed with another method such as LC-MS/MS. Blood Venous blood specimen / Unknown 11/17/2024 11:54 AM EDT 11/17/2024 1:47 PM EDT us [facility] LAB BLOOD ORDERABLES Final Resul t [facility] [address] [place] [phone] * (ABNORMAL) PTH, Intact Without Calcium (11/17/2024 11:54 AM EDT) Only the most recent of2 resultswithin the time period is included. Parathyroid Hormone, Intact 152.4(H) 8.7 - 77.1 pg/mL [facility] Blood Venous blood specimen / Unknown 11/17/2024 11:54 AM EDT 11/17/2024 1:47 PM EDT Rafia Mary [facility] BLOOD ORDERABLES Final Resul t Performing Organization Address [facility] de Phone Number [facility] [address] [place] [phone] * (ABNORMAL) Basic Metabolic Panel (11/17/2024 11:54 AM EDT) Only the most recent of2 resultswithin the time period is included. [facility] Sodium 143 135 - 145 mmol/L [facility] Potassium 4.1 3.3 - 5.1 mmol/L [facility] Chloride 109(H) 96 - 108 mmol/L [facility] Carbon Dioxide 27 22 - 29 mmol/L [facility] Anion Gap 11(L) 12 - 20 [facility] Urea Nitrogen (BUN) 16 9 - 16 mg/dL [facility] Creatinine, Serum 0.75 0.5 - 1.4 mg/dL [facility] Estimated Glomerular Filt Rate >60 [facility] Comment:Chronic Kidney Disea se: Estimated GFR < 60 mL/min/1.03j7Vndrok Kidney Disease: Estimated GFR < 15 mL/min/1.73m2 Glucose 114 60 - 115 mg/dL [facility] Calcium 9.2 8.4 - 10.2 mg/dL [facility] Blood Venous blood specimen / Unknown 11/17/2024 11:54 AM EDT 11/17/2024 1:47 PM EDT Rafia Mary ANP LAB BLOOD ORDERABLES Final Resul t Performing Organization Address [facility] Co de Phone Number [facility] [address] [place] [phone] * (ABNORMAL) Hepatic Function Panel (11/15/2024 9:40 AM EDT) Bilirubin, Total 0.3 0.0 - 1.0 mg/dL [facility] Bilirubin, Direct 0.1 0.0 - 0.5 mg/dL [facility] Aspartate Amino Transferase 54(H) 5 - 31 U/L [facility] Alanine Aminotransferase 24 0 - 31 U/L [facility] Total Protein 8.2(H) 6.5 - 8.0 g/dL [facility] Albumin Level 4.4 3.5 - 5.0 g/dL [facility] Alkaline Phosphatase 115 39 - 117 U/L [facility] Blood Venous blood specimen / Unknown 11/15/2024 9:40 AM EDT 11/15/2024 11:21 AM EDT Rafia Mary [facility] BLOOD ORDERABLES Final Resul t [facility] [address] [place] [phone] * Lipid Panel, Standard (11/15/2024 9:40 AM EDT) Pathologist [facility] Triglycerides 63 <150 mg/dL [facility] Comment:Desirable Triglyceri de: less than 150 mg/dLBorderline High Triglyceride 150-199 mg/dLHigh Triglyceride: 200-499 mg/dLVery High Triglyceride: greater than or equal to 5OO mg/dL Cholesterol 132 <200 mg/dL [facility] Comment:Desirable Cholestero l: less than 200 mg/dLBorderline High Cholesterol: 200-239 mg/dLHigh Cholesterol: greater than 239 mg/dL LDL Cholesterol Calculated 60 <100 mg/dL [facility] Comment:Desirable LDL: less than 100 mg/dLNear Optimal/Above Optimal LDL: 110- 129 mg/dLBorderline High LDL: 130-159 mg/dLHigh LDL: 160-189 mg/dLVery High LDL: greater than or equal to 190 mg/dL HDL Cholesterol 60 >40 mg/dL [facility] Comment:Desirable HDL: great er than 40 mg/dL Note: This HDL assay may give artificially low results in patients with liver disease. Blood Venous blood specimen / Unknown 11/15/2024 9:40 AM EDT 11/15/2024 11:21 AM EDT Rafia Mary ANP LAB BLOOD ORDERABLES Final Resul t [facility] [address] [place] [phone] * (ABNORMAL) POCT HGB A1C (08/10/2024 11:43 AM EDT) Hemoglobin A1C 6.4(A) 4.0 - 6.0 % QC Media Lot # [id number] Lot# Expiration Date Blood 08/10/2024 11:4 3 AM EDT Rafia Mary ANP POINT OF CARE TEST ENTER/EDIT OR DERABLES Final Result * BI Mammogram Screening Tomosynthesis Bilateral (07/14/2024 8:55 AM EDT) Anatomical Region Laterality Modality Breast Bilateral Mammography 07/14/2024 8:55 AM EDT Narrative 07/19/2024 3:20 PM EDT [address] [place] [address] Mammography Report Signed Patient: Cora Smith MR#: [id number] : 1955 Acct:[id number] Age/Sex: 68 / F ADM Date: 07/14/24 Loc: HO.MAMMO Attending Dr: Rafia Mary NP Ordering Physician: RAFIA MARY NP Results: 2Benign Reginaldo izquierdo Date of Service: 07/14/24 Follow Up: 1 Year From Orig inal Mammogram Procedure(s): MM tomosynthesis screening BI Accession Number(s): [id number] cc: Meagan Berwer MD; RAFIA MARY NP EXAMINATION: MM SCREENING [...] 07/19/24 1517 DD/ 0855 TD/TT: 07/14/24 0930 Curriculum Counselor: Procedure Note Donotuseinterpreter, Image - 07/19/2024 [facility] [address] [place] [address] Mammography Report Signed Patient: Di Smith#: [id number] : 5Acct:[id number] Age/Sex: 68 / FADM Date: 07/14/24 Loc: HO.MAMMO Attending Dr: Rafia Mary NP Ordering Physician: RAFIA MARY NPResults: 2Benign Reginaldo izquierdo Date of Service: 07/14/24Follow Up: 1 Year From Orig inal Mammogram Procedure(s): MM tomosynthesis screening BI Accession Number(s): [id number] cc: Meagan Brewer MD; RAFIA MARY NP [...] 07/19/24 1517 DD/ 0855 TD/TT: 07/14/24 0930 Curriculum Counselor: us Rafia TOMLIN BI PROCEDURES Final Result * Albumin, Random Urine W/Creatinine (06/04/2024 1:15 PM EDT) Creatinine, Urine 207.63 mg/dL [facility] Microalbumin Urine 35.0 mg/L [facility] Microalbum Creatinine Ratio Ur 16.8 <30 ug/mg cr [facility] Comment:Albumin/Creatinine R atio Reference Ranges: Normal: < 30 ug/mg creatinine Microalbuminuria: 30 - 300 ug/mg creatinineClinical Albuminuria: > 300 ug/mg creatinine Urine (Urine, Random) 06/04/2024 1:15 PM EDT 06/04/2024 4:09 PM EDT us Meagan Bello MD LAB URINE ORDERABLES Final Result [facility] [address] [place] [phone] * (ABNORMAL) Hm Colonoscopy (08/23/2021) Colonoscopy Abnormal(A ) Normal [facility] Final Result * THINPREP TIS PAP (12/21/2020 10:32 AM EDT) Clinical Information: [facility] COMMENT SEE COMMENT [facility] [...] has been evaluated with computer assisted technology. [facility] Scratch Finisher: SEE COMMENT [facility] Comment: MXD, CT (ASCP) CT screening location: [place] [address] Interpretation/Res ult: SEE COMMENT [facility] Comment: Negative for intraepithelial lesion or malignancy. Atrophic pattern; predominantly parabasal cells LMP: 11/2015 [facility] Prev. BX: NONE GIVEN [facility] Prev. PAP: NIL NEG [facility] SOURCE: None given [facility] Statement Of Adequacy: SATISFACTORY FOR EVALUATION [facility] 12/21/2020 10:3 2 AM EDT Ni Curran CNM LAB PATHOLOGY ORDERABLES Final Result [facility] [address] * HPV mRNA E6/E7 (12/21/2020 10:32 AM EDT) HPV nRNA E6/E7 Not Detected Not Detected [facility] Comment: Methodology: Qualitative Executive Researcher-Mediated Amplification This assay detects E6/E7 viral messenger RNA (mRNA) from 14 high-risk HPV types (16,18,31,33,35,39,45,51,52,56,58,59,66,68). The analytical performance characteristics of this assay have been determined by [employer]. The modifications have not been cleared or approved by the FDA. This assay has been validated pursuant to the CLIA regulations and is used for clinical purposes. For additional information, please refer to http://education.bluebottlebiz.[employer]/faq/ACX298f2 (This link if provided for information/ educational purposes only.) 12/21/2020 10:3 2 AM EDT us Ni Curran CNM LAB BLOOD ORDERABLES Xena joe Result [facility] [address] from Last 3 Months or Most Recently Relevant to Health Maintenance Insurance [facility] SKILLED NURSING OPTIONS (O D-SNP) JASON CAMEJO [id number] Care Teams Cloth Desizing Range Tender Relationship Specialty Start Date End Date Rafia Mary ANP [address] [place] [phone] PCP - General Family Medicine 03/29/22
--- OUTSIDE RECORDS SUMMARY | 2024-11-17 14:37 | XMS_ITS | Encounter Summary ---
Author Organization [facility] Address [address] [place] [address] Phone Care Team Providers Care Solvent Plant Operator Name Role Phone Deana Warren NP Primary Care Provider [phone] Encounter Details Date Type Department Care Team (Late st Contact Info) Description 06/15/2023 Procedure Pass [facility], Ct Scan - [facility] [address] [place] [address] Social History Tobacco Use Types Packs/Day Years [...] 12:48 PM EDT Addison Angulo RN * [place] Suicide Severity Rating Scale (Screener/Recent Self-Report) Question [...] on filedocumented in this encounter Care Teams Solvent Plant Operator Relationship Specialty Start Date End Date Deana Warren NP [address] [place] [address] PCP - General Nurse Practitioner 01/14/23 documented as of this encounter Additional Source Comments The information contained in this document represents components of the legal health record. It is not the complete legal health record.[facility]
--- OUTSIDE RECORDS SUMMARY | 2024-11-17 14:37 | XMS_ITS | Encounter Summary ---
Author Organization [employer] Address 75 [facility] 7t [place] [address] Care Team Providers Care Medical Associate Name Role Phone Deana Warren Primary Care Provider [phone] Reason for Visit * Reason Onset Date Comments Nurse Triage 10/13/2023 Encounter Details Date Type Department Care Team ([facility] st Contact Info) Description 10/13/2023 Telephone [facility] MEDICINE 230 [place], [place] [phone] Deana Warren ANP 230 [place], [place] [phone] Nurse Triage Social History Tobacco Use Types [...] on filedocumented in this encounter Care Teams Medical Associate Relationship Specialty Start Date End Date Deana Warren ANP [address] [place] [address] PCP - General Family Medicine 03/29/22 documented as of this encounter
--- OUTSIDE RECORDS SUMMARY | 2024-11-17 14:37 | XMS_ITS | Encounter Summary ---
Author Organization [employer] Address 75 [facility] 7t [place] [address] Care Team Providers Care Oxygen System Tester Name Role Phone Deana Warren Primary Care Provider [phone] Reason for Visit * Reason Comments [facility] Recovery Supports Encounter Details Date Type Department Care Team (Late st Contact Info) Description 11/12/2024 Patient Outreach [facility] MEDICINE 230 [place] [address] Morgan Brady Recovery Supports Social History Tobacco [...] the past 12 months, has t he [employer], gas, oil or water company threatened [...] with Cora today. Setting: in person at [facility] Recovery Wellness Goals worked on: Social [...] documented as of this encounter Care Teams Oxygen System Tester Relationship Specialty Start Date End Date Deana Warren ANP [address] [place] [address] PCP - General Family Medicine 03/29/22 documented as of this encounter
--- OUTSIDE RECORDS SUMMARY | 2024-11-17 14:37 | XMS_ITS | Encounter Summary ---
Author Organization [employer] Address 75 [facility] 7 [place] [address] Care Team Providers Care Stock Associate Name Role Phone Deana Warren Primary Care Provider Reason for Visit * Reason Onset Date Comments Med Refill 03/29/2022 Encounter Details Date Type Department Care Team (Late st Contact Info) Description 03/29/2022 Telephone [facility] MEDICINE 230 [place], [place] [phone] Deana Warren ANP 230 [place], [place] [phone] Med Refill Social History Tobacco Use Types [...] Patient was hospitalized in December 2021 at [facility] and was discharged on 12/18/21. Meds requested [...] on filedocumented in this encounter Care Teams Stock Associate Relationship Specialty Start Date End Date Deana Warren ANP [address] [place] [address] PCP - General Family Medicine 03/29/22 documented as of this encounter
--- OUTSIDE RECORDS SUMMARY | 2024-11-17 14:37 | XMS_ITS | Encounter Summary ---
Author Organization [facility] Address [address] [place] [address] Phone Care Team Providers Care Electrical Products Sales Engineer Name Role Phone Deana Warren NP Primary Care Provider [phone] Encounter Details Date Type Department Care Team (Late st Contact Info) Description 07/21/2023 Procedure Pass OR Admitting Dept - Virtual Department 30 [place] [address] Social History Tobacco Use Types Packs/Day Years [...] on filedocumented in this encounter Care Teams Electrical Products Sales Engineer Relationship Specialty Start Date End Date Deana Warren NP 230 [place] [address] PCP - General Nurse Practitioner 01/14/23 documented as of this encounter Additional Source Comments The information contained in this document represents components of the legal health record. It is not the complete legal health record.[facility]
--- OUTSIDE RECORDS SUMMARY | 2024-11-17 14:37 | XMS_ITS | Encounter Summary ---
Author Organization [employer] Address 75 [facility] 7t [place] [address] Care Team Providers Care Tradeshow Worker Name Role Phone Deana Warren Primary Care Provider [phone] Reason for Visit * Reason Onset Date Comments Appointment Request 09/02/2023 Encounter Details Date Type Department Care Team ([facility] st Contact Info) Description 09/02/2023 Telephone [facility] MEDICINE 230 [place], [place] [phone] Deana Warren ANP 230 [place], [place] [phone] Appointment Request Social History Tobacco Use Types [...] pt requesting to reschedule OV ext 07/16. Electron Microscopist offered 12/03 but pt refused and is requesting a sooner appt if possible. Please contact pt at [phone]. documented in this encounter Plan of Treatment Not on file documented as of this encounter Visit Diagnoses Not on filedocumented in this encounter Care Teams Tradeshow Worker Relationship Specialty Start Date End Date Deana Warren ANP [address] [place] [address] PCP - General Family Medicine 03/29/22 documented as of this encounter
--- OUTSIDE RECORDS SUMMARY | 2024-11-17 14:37 | XMS_ITS | Encounter Summary ---
Author Organization [facility] Address [address] [place] [address] Phone Care Team Providers Care Psychotherapist Name Role Phone Briana Deana DAVIS Primary Care Provider [phone] Encounter Details Date Type Department Care Team (Latest Contact Info) Description 07/08/2023 Ancillary Orders [facility] Orthopedics & Sports Medicine [address] [place] [address] Shelli Billy PA-C [address] [place] [address] Orthopedics & Sports Medicine, [facility] [place] [address] [email or web address] Closed displaced comminuted fracture of [...] Primary documented in this encounter Care Teams Psychotherapist Relationship Specialty Start Date End Date Deana Warren NP [address] [place] [address] PCP - General Nurse Practitioner 01/14/23 documented as of this encounter Additional Source Comments The information contained in this document represents components of the legal health record. It is not the complete legal health record.[facility]
--- OUTSIDE RECORDS SUMMARY | 2024-11-17 14:37 | XMS_ITS | Encounter Summary ---
Author Organization [employer] Address 75 [facility] 7t [place] [address] Care Team Providers Care Chemistry Faculty Member Name Role Phone Deana Warren Primary Care Provider [phone] Reason for Visit * Reason Onset Date Comments Med Refill 05/22/2022 Encounter Details Date Type Department Care Team (Late st Contact Info) Description 05/22/[address] [facility] MEDICINE 230 [place], [place] [phone] Deana Warren ANP 230 [place], [place] [phone] Med Refill Social History Tobacco Use Types [...] Miscellaneous Notes * Telephone Encounter - Natasha aVle LPN - 05/22/2022 11:35 AM EDT Medications were sent to [id number] on 03/30/22 with 11 refills on Lantus and 3 refills on Lispro. * Telephone Encounter - Nicho Calhoun - 05/22/2022 11:18 AM EDT Tc from pt requesting med refill Insulin lispro Insulin glargine documented in this encounter Plan of Treatment Not on file documented as of this encounter Visit Diagnoses Not on filedocumented in this encounter Care Teams Chemistry Faculty Member Relationship Specialty Start Date End Date Deana Warren ANP 230 [place] [address] PCP - General Family Medicine 03/29/22 documented as of this encounter
--- OUTSIDE RECORDS SUMMARY | 2024-11-17 14:37 | XMS_ITS | Encounter Summary ---
Author Organization [employer] Address 75 [facility] 7t [place] [address] Care Team Providers Care Legal Service Specialist Name Role Phone Deana Warren Primary Care Provider [phone] Reason for Visit * Reason Comments [facility] Recovery Supports Encounter Details Date Type Department Care Team (Late st Contact Info) Description 11/15/2024 Patient Outreach [facility] MEDICINE 230 [place], [place] [phone] Kristy Han Recovery Supports Social History Tobacco Use Types [...] the past 12 months, has t he [employer], oil or water company threatened to shut [...] as of this encounter Progress Notes * Kristy Han - 11/15/2024 3:06 PM EDT I met with Cora today. Setting: in person at [facility] Recovery Wellness Goals worked on: Social Stability Action taken/next steps: Attended alcohol and drug free activity Additional comments: Kristy Hna documented in this encounter Plan of Treatment Not on file documented as of this encounter Visit Diagnoses Not on filedocumented in this encounter Additional Health Concerns Assessment Noted Time PHQ-9 Depression Total Score: 12 025 1:15 PM EDT documented as of this encounter Care Teams Legal Service Specialist Relationship Specialty Start Date End Date Deana Warren ANP 230 [place] [address] PCP - General Family Medicine 03/29/22 documented as of this encounter
--- OUTSIDE RECORDS SUMMARY | 2024-11-17 14:37 | XMS_ITS | Encounter Summary ---
Author Organization [facility] Address [address] [place] [address] Phone Care Team Providers Care Water Plant Pump Operator Name Role Phone Deana Warren NP Primary Care Provider [phone] Encounter Details Date Type Department Care Team (Late st Contact Info) Description 10/19/2024 Procedure Pass [facility], Ct Scan - [facility] [address] [place] [address] Social History Tobacco Use Types Packs/Day Years [...] 5:28 PM EDT Gely Lubin, [place] * [place] Suicide Severity Rating Scale (Screener/Recent Self-Report) Question [...] on filedocumented in this encounter Care Teams Water Plant Pump Operator Relationship Specialty Start Date End Date Deana Warren NP [address] [place] [address] PCP - General Nurse Practitioner 01/14/23 documented as of this encounter Additional Source Comments The information contained in this document represents components of the legal health record. It is not the complete legal health record.[facility]
--- OUTSIDE RECORDS SUMMARY | 2024-11-17 14:37 | XMS_ITS | Encounter Summary ---
Author Organization [employer] Address 75 [facility] 7t [place] [address] Care Team Providers Care Cab Worker Name Role Phone Deana Warren Primary Care Provider [phone] Reason for Visit * Reason Onset Date Comments Results 11/16/2024 Lab Orders 11/16/2024 Encounter Details Date Type Department Care Team ([facility] st Contact Info) Description 11/16/2024 Results Follow-Up [facility] MEDICINE 230 [place] [address] Deana Warren ANP 230 [place] [address] Vitamin D, 25-Hydroxy, Total, Immunoassay, PTH, Intact Without Calcium, Basic Metabolic Panel Social History Tobacco Use Types Packs/Day [...] Telephone Encounter - Julisa Restrepo RN - 11/17/2024 9:06 AM EDT Telephone call placed to pt regarding below results and POC. No answer, left v/m. Will retask. * Telephone Encounter - Julisa Restrepo RN - 11/17/2024 9:04 AM EDT ----- Message from Deana Warren sent at 11/16/2024 4:16 PM EDT ----- VERY high PTH - this may be due to her vitamin D level being low, so please advise her to take Vitamin D supplement as directed (sent to pharmacy) and get repeat PTH level in 6 weeks. ----- Message ----- From: Interface, Lab Results In Sent: 11/15/2024 11:56 AM EDT To: KALE Goins * Result Encounter Note - KALE Goins - 11/16/2024 4:16 PM EDT VERY high PTH - this may be due to her vitamin D level being low, so please advise her to take Vitamin D supplement as directed (sent to pharmacy) and get repeat PTH level in 6 weeks. documented in this encounter Plan of Treatment Scheduled Orders Name Type Priority Associated Diagnoses Orde r Schedule Calcium, Ionized Lab Routine Vitamin D deficiency Age-related osteoporosis without current pathological fracture Expected: 11/16/2024 (Approximate), Expires: 11/16/2025 documented as of this encounter Procedures Procedure Name Priority Date/Time Associated Diagnosis Comments VITAMIN D,25-OH,TOTAL,IA Routine 11/17/2024 11:54 AM EDT Vitamin D deficiency Age-related osteoporosis without current pathological fracture PTH, INTACT WITHOUT CALCIUM Routine 11/17/2024 11:54 AM EDT Vitamin D deficiency Age-related osteoporosis without current pathological fracture BASIC METABOLIC PANEL Routine 11/17/2024 11:54 AM EDT Vitamin D deficiency Age-related osteoporosis without current pathological fracture documented in this encounter Results * (ABNORMAL) Vitamin D, 25-Hydroxy, Total, Immunoassay (11/17/2024 11:54 AM EDT) Vitamin D 25-OH Total 25.3(L) >30 ng/mL [facility] Comment: Health Based Reference Values*< 20 ng/mL [id number] ng/mL Insufficient> 30 ng/mL Sufficient*Farzana MOLINA. N [...] 11:54 AM EDT 11/17/2024 1:47 PM EDT Deana Warren ANP LAB BLOOD ORDERABLES Final Resul t Performing Organization Address [facility] Co de Phone Number [facility] [address] [place] [phone] * (ABNORMAL) Basic Metabolic Panel (11/17/2024 11:54 AM EDT) Sodium 143 135 - 145 mmol/L [facility] Potassium 4.1 3.3 - 5.1 mmol/L [facility] Chloride 109(H) 96 - 108 mmol/L [facility] Carbon Dioxide 27 22 - 29 mmol/L [facility] Anion Gap 11(L) 12 - 20 [facility] Urea Nitrogen (BUN) 16 9 - 16 mg/dL [facility] Creatinine, Serum 0.75 0.5 - 1.4 mg/dL [facility] Estimated Glomerular Filt Rate >60 [facility] Comment:Chronic Kidney Disea se: Estimated GFR < 60 mL/min/[id number] Kidney Disease: Estimated GFR < 15 mL/min/1.73m2 Glucose 114 60 - 115 mg/dL [facility] Calcium 9.2 8.4 - 10.2 mg/dL [facility] Blood Venous blood specimen / Unknown 11/17/2024 11:54 AM EDT 11/17/2024 1:47 PM EDT us Deana Warren ANP LAB BLOOD ORDERABLES Final Resul t Performing Organization Address [facility] Co de Phone Number [facility] [address] [place] [phone] * (ABNORMAL) PTH, Intact Without Calcium (11/17/2024 11:54 AM EDT) Parathyroid Hormone, Intact 152.4(H) 8.7 - 77.1 pg/mL [facility] Blood Venous blood specimen / Unknown 11/17/2024 11:54 AM EDT 11/17/2024 1:47 PM EDT us Deana HENLEY LAB BLOOD ORDERABLES Final Resul t [facility] [address] [place] [address] [phone] documented in this encounter Visit Diagnoses Diagnosis Vitamin D deficiency- Primary Age-related osteoporosis without current pathological fracture High serum parathyroid hormone (PTH) documented in this encounter Additional Health Concerns Assessment Noted Time PHQ-9 Depression Total Score: 12 10/27/ 025 1:15 PM EDT documented as of this encounter Care Teams Cab Worker Relationship Specialty Start Date End Date Deana Warren ANP 230 [place] [address] PCP - General Family Medicine 03/29/22 documented as of this encounter
--- OUTSIDE RECORDS SUMMARY | 2024-11-17 14:37 | XMS_ITS | Encounter Summary ---
Author Organization [employer] Address 75 [facility] 7t [place] [address] Care Team Providers Care Wash Oil Pump Operator Helper Name Role Phone Deana Warren Primary Care Provider [phone] Reason for Visit * Reason Onset Date Comments FYI 07/25/2023 Encounter Details Date Type Department Care Team ([facility] st Contact Info) Description 07/25/2023 Telephone [facility] MEDICINE 230 [place], [place] [phone] Deana Warren ANP 230 [place], [place] [phone] Social History Tobacco Use Types Packs/Day Years [...] he deems these calls necessary but requested typewriters functional tester forward as FYI. If any questions you can contact Bethany at [phone]. documented in this encounter Plan of Treatment Not on file documented as of this encounter Visit Diagnoses Not on filedocumented in this encounter Care Teams Wash Oil Pump Operator Helper Relationship Specialty Start Date End Date Deana Warren ANP [address] [place] [address] PCP - General Family Medicine 03/29/22 documented as of this encounter
--- OUTSIDE RECORDS SUMMARY | 2024-11-17 14:37 | XMS_ITS | Encounter Summary ---
Author Organization [employer] Address 75 [facility] 7t [place] [address] Care Team Providers Care Mathematical Engineer Name Role Phone Deana Warren Primary Care Provider [phone] Reason for Visit * Reason Onset Date Comments Nurse Triage 12/30/2023 Encounter Details Date Type Department Care Team ([facility] st Contact Info) Description 12/30/[address] [facility] MEDICINE 230 [place], [place] [phone] Deana Warren ANP 230 [place], [place] [phone] Nurse Triage Social History Tobacco Use Types [...] 915am. Pt is offered to come to [facility] today but, declines due to lack of [...] on filedocumented in this encounter Care Teams Mathematical Engineer Relationship Specialty Start Date End Date Deana Warren ANP 230 [place] [address] PCP - General Family Medicine 03/29/22 documented as of this encounter
--- OUTSIDE RECORDS SUMMARY | 2024-11-17 14:37 | XMS_ITS | Encounter Summary ---
Author Organization [facility] Address [address] [place] [address] Phone Care Team Providers Care Fibreglass Lay Up Worker Name Role Phone Deana Warren NP Primary Care Provider [phone] Encounter Details Date Type Department Care Team (Late st Contact Info) Description 06/15/2023 Procedure Pass [facility], Ct Scan [facility] 30 [place] [address] Social History Tobacco Use Types Packs/Day Years [...] 12:48 PM EDT Addison Angulo RN * [place] Suicide Severity Rating Scale (Screener/Recent Self-Report) Question [...] on filedocumented in this encounter Care Teams Fibreglass Lay Up Worker Relationship Specialty Start Date End Date Deana Warren NP 230 [place] [address] PCP - General Nurse Practitioner 01/14/23 documented as of this encounter Additional Source Comments The information contained in this document represents components of the legal health record. It is not the complete legal health record.[facility]
--- OUTSIDE RECORDS SUMMARY | 2024-11-17 14:37 | XMS_ITS | Encounter Summary ---
Author Organization [employer] Address 75 [facility] 7t [place] [address] Care Team Providers Care News Editor Name Role Phone Deana Warren Primary Care Provider [phone] Encounter Details Date Type Department Care Team (Late st Contact Info) Description 04/20/2024 Orders Only [facility] MEDICINE 230 [place], [place] [phone] Deana Warren ANP 230 [place] [address] Social History Tobacco Use Types Packs/Day Years [...] documented as of this encounter Care Teams News Editor Relationship Specialty Start Date End Date Deana Warren ANP [address] [place] [address] PCP - General Family Medicine 03/29/22 documented as of this encounter
--- OUTSIDE RECORDS SUMMARY | 2024-11-17 14:37 | XMS_ITS | Encounter Summary ---
Author Organization [employer] Address 75 [facility] 7t [place] [address] Care Team Providers Care Water Control Station Engineer Name Role Phone Deana Warren Primary Care Provider [phone] Reason for Visit * Reason Comments [facility] Recovery Supports Encounter Details Date Type Department Care Team (Late st Contact Info) Description 11/15/2024 Patient Outreach [facility] MEDICINE 230 [place] [address] Randy Patel Recovery Supports Social History Tobacco Use Types [...] the past 12 months, has t he [employer], [employer], oil or water company threatened to shut [...] as of this encounter Progress Notes * Randy Patel - 11/15/2024 3:23 PM EDT I met with Cora hinojosa. Setting: in person at [facility] Recovery Wellness Goals worked on: Physical Health/Mental Health Social Stability Spiritual Wellness Action taken/next steps: Attended recovery support group Contingency management Additional comments: Randy Patel documented in this encounter Plan of Treatment Not on file documented as of this encounter Visit Diagnoses Not on filedocumented in this encounter Additional Health Concerns Assessment Noted Time PHQ-9 Depression Total Score: 12 025 1:15 PM EDT documented as of this encounter Care Teams Water Control Station Engineer Relationship Specialty Start Date End Date Deana Warren ANP 230 [place] [address] PCP - General Family Medicine 03/29/22 documented as of this encounter
--- OUTSIDE RECORDS SUMMARY | 2024-11-17 14:38 | XMS_ITS | Encounter Summary ---
Author Organization [facility] Address [address] [facility] [address] [facility] [facility] [address] [place] [phone] Phone Care Team Providers Care Chemist Water Purification Name Role Phone Pcp, Unknown Primary Care Provider Unavailabl e Pcp, Not Required Primary Care Provider Deana Cherry NP Primary Care Provider [phone] Encounter Details Date Type Department Care Team (Late st Contact Info) Description 01/10/2023 Procedure Pass [facility], [facility] 2 [address] [facility], 2nd [place] [address] Social History Tobacco Use Types Packs/Day Years [...] 4:41 PM EST Terrie Echavarria RN * [place] Suicide Severity Rating Scale (Screener/Recent Self-Report) Question [...] documented as of this encounter Care Teams Chemist Water Purification Relationship Specialty Start Date End Date Pcp, Unknown PCP - General 08/01/22 01/10/23 Pcp, Not Required [address] [place] [address] PCP - General 01/11/23 01/13/23 Deana Warren NP [address] [place] [address] PCP - General Nurse Practitioner 01/14/23 documented as of this encounter Additional Source Comments The information contained in this document represents components of the legal health record. It is not the complete legal health record.[facility]
--- OUTSIDE RECORDS SUMMARY | 2024-11-17 14:38 | XMS_ITS | Encounter Summary ---
Author Organization [employer] Address 75 [facility] 7t [place] [address] Care Team Providers Care Traffic Counter Name Role Phone Deana Warren Primary Care Provider [phone] Encounter Details Date Type Department Care Team (Latest Contact Info) Description 11/17/2024 Travel Social History Tobacco Use Types Packs/Day Years [...] documented as of this encounter Care Teams Traffic Counter Relationship Specialty Start Date End Date Deana Warren ANP [address] [place] [address] PCP - General Family Medicine 03/29/22 documented as of this encounter
--- OUTSIDE RECORDS SUMMARY | 2024-11-17 14:38 | XMS_ITS | Encounter Summary ---
Author Organization [facility] Address [address] [place] [address] Phone Care Team Providers Care Calculator Operator Name Role Phone Deaan Warren NP Primary Care Provider [phone] Encounter Details Date Type Department Care Team (Late st Contact Info) Description 07/14/2023 Procedure Pass [place] Admitting Dept - Virtual Department 30 [place] [address] Social History Tobacco Use Types Packs/Day Years [...] on filedocumented in this encounter Care Teams Calculator Operator Relationship Specialty Start Date End Date Deana Warren NP 230 [place] [address] PCP - General Nurse Practitioner 01/14/23 documented as of this encounter Additional Source Comments The information contained in this document represents components of the legal health record. It is not the complete legal health record.[facility]
--- OUTSIDE RECORDS SUMMARY | 2024-11-17 14:38 | XMS_ITS | Encounter Summary ---
Author Organization [facility] Address [address] [facility] [address] [place] [address] Phone Care Team Providers Care Tank Car Loader Name Role Phone Pcp, Unknown Primary Care Provider Unavailabl e Pcp, Not Required Primary Care Provider Deana Cherry NP Primary Care Provider [phone] Encounter Details Date Type Department Care Team (Late st Contact Info) Description 01/10/2022 Procedure Pass [facility] 30 [place] [address] Social History Tobacco Use Types Packs/Day Years [...] 8:00 AM EDT Mariam Jordan RN * [place] Suicide Severity Rating Scale (Screener/Recent Self-Report) Question [...] documented as of this encounter Care Teams Tank Car Loader Relationship Specialty Start Date End Date Pcp, Unknown PCP - General 08/01/22 01/10/23 Pcp, Not Required [address] [place] [address] PCP - General 01/11/23 01/13/23 Deana Warren NP [address] [place] [address] PCP - General Nurse Practitioner 01/14/23 documented as of this encounter Additional Source Comments The information contained in this document represents components of the legal health record. It is not the complete legal health record.[facility]
--- OUTSIDE RECORDS SUMMARY | 2024-11-17 14:38 | XMS_ITS | Encounter Summary ---
Author Organization [facility] Address [address] [place] [address] Phone Care Team Providers Care School Psychologist Name Role Phone Pcp, Unknown Primary Care Provider Unavailabl e Pcp, Not Required Primary Care Provider Deana Cherry NP Primary Care Provider [phone] Encounter Details Date Type Department Care Team (Late st Contact Info) Description 01/07/2023 Procedure Pass [facility], Ct Scan - [address] [address] Social History Tobacco Use Types Packs/Day Years [...] 5:00 PM EDT Roland Garber, [place] * [place] Suicide Severity Rating Scale (Screener/Recent Self-Report) Question [...] documented as of this encounter Care Teams School Psychologist Relationship Specialty Start Date End Date Pcp, Unknown PCP - General 08/01/22 01/10/23 Pcp, Not Required [address] [place] [address] PCP - General 01/11/23 01/13/23 Deana Warren NP [address] [place] [address] PCP - General Nurse Practitioner 01/14/23 documented as of this encounter Additional Source Comments The information contained in this document represents components of the legal health record. It is not the complete legal health record.[facility]
--- OUTSIDE RECORDS SUMMARY | 2024-11-17 14:38 | XMS_ITS | Encounter Summary ---
Author Organization [facility] Address [address] [place] [address] Phone Care Team Providers Care Gardening Supervisor Name Role Phone Pcp, Unknown Primary Care Provider Unavailabl e Pcp, Not Required Primary Care Provider Deana Cherry NP Primary Care Provider [phone] Encounter Details Date Type Department Care Team (Late st Contact Info) Description 01/10/2022 Procedure Pass [facility], Ct Scan - [facility] 30 [place] [address] Social History Tobacco Use Types Packs/Day Years [...] 8:00 AM EDT Mariam Jordan RN * [place] Suicide Severity Rating Scale (Screener/Recent Self-Report) Question [...] documented as of this encounter Care Teams Gardening Supervisor Relationship Specialty Start Date End Date Pcp, Unknown PCP - General 08/01/22 01/10/23 Pcp, Not Required [address] [place] [address] PCP - General 01/11/23 01/13/23 Deana Warren NP [address] [place] [address] PCP - General Nurse Practitioner 01/14/23 documented as of this encounter Additional Source Comments The information contained in this document represents components of the legal health record. It is not the complete legal health record.[facility]
--- OUTSIDE RECORDS SUMMARY | 2024-11-17 14:38 | XMS_ITS | Encounter Summary ---
Author Organization [facility] Address [address] [facility] [address] [place] [address] Phone Care Team Providers Care Bleach Boiler Puller Name Role Phone Pcp, Unknown Primary Care Provider Unavailabl e Pcp, Not Required Primary Care Provider Deana Cherry NP Primary Care Provider [phone] Encounter Details Date Type Department Care Team (Late st Contact Info) Description 01/10/2022 Procedure Pass [facility] 30 [place] [address] Social History Tobacco Use Types Packs/Day Years [...] 8:00 AM EDT Mariam Jordan RN * [place] Suicide Severity Rating Scale (Screener/Recent Self-Report) Question [...] documented as of this encounter Care Teams Bleach Boiler Puller Relationship Specialty Start Date End Date Pcp, Unknown PCP - General 08/01/22 01/10/23 Pcp, Not Required [address] [place] [address] PCP - General 01/11/23 01/13/23 Deana Warren NP [address] [place] [address] PCP - General Nurse Practitioner 01/14/23 documented as of this encounter Additional Source Comments The information contained in this document represents components of the legal health record. It is not the complete legal health record.[facility]
--- OUTSIDE RECORDS SUMMARY | 2024-11-17 14:38 | XMS_ITS | Encounter Summary ---
Author Organization [facility] Address [address] [place] [address] Phone Care Team Providers Care Corporate Logistics Manager Name Role Phone Pcp, Unknown Primary Care Provider Unavailabl e Pcp, Not Required Primary Care Provider Deana Cherry NP Primary Care Provider [phone] Encounter Details Date Type Department Care Team (Late st Contact Info) Description 08/01/2022 Procedure Pass [facility], Ct Scan - [address] [address] Social History Tobacco Use Types Packs/Day Years [...] 8:49 PM EDT Brandi Ordoñez RN * [place] Suicide Severity Rating Scale (Screener/Recent Self-Report) Question [...] documented as of this encounter Care Teams Corporate Logistics Manager Relationship Specialty Start Date End Date Pcp, Unknown PCP - General 08/01/22 01/10/23 Pcp, Not Required [address] [place] [address] PCP - General 01/11/23 01/13/23 Deana Warren NP [address] [place] [address] PCP - General Nurse Practitioner 01/14/23 documented as of this encounter Additional Source Comments The information contained in this document represents components of the legal health record. It is not the complete legal health record.[facility]
--- OUTSIDE RECORDS SUMMARY | 2024-11-17 14:38 | XMS_ITS | Encounter Summary ---
Author Organization [facility] Address [address] [facility] [address] [place] [address] Phone Care Team Providers Care Staff Development Coordinator Name Role Phone Pcp, Unknown Primary Care Provider Unavailabl e Pcp, Not Required Primary Care Provider Deana Cherry NP Primary Care Provider [phone] Encounter Details Date Type Department Care Team (Late st Contact Info) Description 01/23/2022 Transcribe Orders [facility] 30 [place] [address] Pcp, Unknown Social History Tobacco Use Types [...] documented as of this encounter Care Teams Staff Development Coordinator Relationship Specialty Start Date End Date Pcp, Unknown PCP - General 08/01/22 01/10/23 Pcp, Not Required [address] [place] [address] PCP - General 01/11/23 01/13/23 Deana Warren NP [address] [place] [address] PCP - General Nurse Practitioner 01/14/23 documented as of this encounter Additional Source Comments The information contained in this document represents components of the legal health record. It is not the complete legal health record.[facility]
--- OUTSIDE RECORDS SUMMARY | 2024-11-17 14:38 | XMS_ITS | Encounter Summary ---
Author Organization [facility] Address [address] [place] [address] Phone Care Team Providers Care Fleet Director Name Role Phone Pcp, Unknown Primary Care Provider Unavailabl e Pcp, Not Required Primary Care Provider Deana Cherry NP Primary Care Provider [phone] Encounter Details Date Type Department Care Team (Late st Contact Info) Description 01/09/2022 Procedure Pass [facility], Ct Scan - [facility] 30 [place] [address] Social History Tobacco Use Types Packs/Day Years [...] 8:00 AM EDT Mariam Jordan RN * [place] Suicide Severity Rating Scale (Screener/Recent Self-Report) Question [...] documented as of this encounter Care Teams Fleet Director Relationship Specialty Start Date End Date Pcp, Unknown PCP - General 08/01/22 01/10/23 Pcp, Not Required [address] [place] [address] PCP - General 01/11/23 01/13/23 Deana Warren NP [address] [place] [address] PCP - General Nurse Practitioner 01/14/23 documented as of this encounter Additional Source Comments The information contained in this document represents components of the legal health record. It is not the complete legal health record.[facility]
--- OUTSIDE RECORDS SUMMARY | 2024-11-17 14:38 | XMS_ITS | Encounter Summary ---
Author Organization [employer] Address [address] [facility] 7t [place] [address] Care Team Providers Care Radiological Engineer Name Role Phone Deana Warren Primary Care Provider [phone] Reason for Visit * Reason Comments Med Refill Encounter Details Date Type Department Care Team (Late st Contact Info) Description 01/04/2023 Refill [facility] MEDICINE [address] [place], [place] [phone] Sonia Chase MD 230 [place], [place] [phone] Type 2 diabetes mellitus with hyperglycemia, with long-term current use of insulin ([facility]) Social History Tobacco Use Types [...] hyperglycemia, with long-term current use of insulin ([facility]) documented in this encounter Care Teams Radiological Engineer Relationship Specialty Start Date End Date Deana Warren ANP 230 [place] [address] PCP - General Family Medicine 03/29/22 documented as of this encounter
--- OUTSIDE RECORDS SUMMARY | 2024-11-17 14:38 | XMS_ITS | Encounter Summary ---
Author Organization [employer] Address [address] [facility] 7t [place] [address] Care Team Providers Care Scrap Hoist Operator Name Role Phone Deana Warren Primary Care Provider Encounter Details Date Type Department Care Team (Late st Contact Info) Description 11/17/2024 Orders Only [facility] MEDICINE 230 [place] [address] [place], [place] 230 [place] [address] Chronic hepatitis C without hepatic coma (CMS/HCC) Social History Tobacco Use Types Packs/Day Years [...] as of this encounter Plan of Treatment Scheduled Orders Name Type Priority Associated Diagnoses Orde r Schedule Hepatitis C Viral RNA, Quantitative, Real-Time PCR Lab Routine Chronic hepatitis C without hepatic coma (CMS/HCC) Expected: 11/17/2024 (Approximate), Expires: 11/17/2025 documented as of this encounter Visit Diagnoses Diagnosis Chronic hepatitis C without hepatic coma (CMS/HCC) documented in this encounter Additional Health Concerns Assessment Noted Time PHQ-9 Depression Total Score: 12 025 1:15 PM EDT documented as of this encounter Care Teams Scrap Hoist Operator Relationship Specialty Start Date End Date Deana Warren ANP 230 [place] [address] PCP - General Family Medicine 03/29/22 documented as of this encounter
--- OUTSIDE RECORDS SUMMARY | 2024-11-17 14:38 | XMS_ITS | Encounter Summary ---
Author Organization [facility] Address [address] [facility] [address] [place] [address] Phone Care Team Providers Care Film Composer Name Role Phone Pcp, Unknown Primary Care Provider Unavailabl e Pcp, Not Required Primary Care Provider Deana Cherry NP Primary Care Provider [phone] Encounter Details Date Type Department Care Team (Late st Contact Info) Description 01/22/2022 Procedure Pass [facility], Ct Scan - [address] [address] Social History Tobacco Use Types Packs/Day Years [...] documented as of this encounter Care Teams Film Composer Relationship Specialty Start Date End Date Pcp, Unknown PCP - General 08/01/22 01/10/23 Pcp, Not Required [address] [place] [address] PCP - General 01/11/23 01/13/23 Deana Warren NP [address] [place] [address] PCP - General Nurse Practitioner 01/14/23 documented as of this encounter Additional Source Comments The information contained in this document represents components of the legal health record. It is not the complete legal health record.[facility]
--- OUTSIDE RECORDS SUMMARY | 2024-11-17 14:38 | XMS_ITS | Encounter Summary ---
Author Organization [facility] Address [address] [facility] 7t [place] [address] Care Team Providers Care Office Correspondent Name Role Phone Deana Warren Primary Care Provider [phone] Encounter Details Date Type Department Care Team (Late st Contact Info) Description 08/04/2024 Orders Only [facility] MEDICINE 230 [place], [place] [phone] Deana Warren ANP 230 [place] [address] Dyspnea on exertion (Primary Dx) Social History [...] documented as of this encounter Care Teams Office Correspondent Relationship Specialty Start Date End Date Deana Warren ANP [address] [place] [address] PCP - General Family Medicine 03/29/22 documented as of this encounter
--- OUTSIDE RECORDS SUMMARY | 2024-11-17 14:38 | XMS_ITS | Encounter Summary ---
Author Organization [facility] Address [address] [place] [address] Phone Care Team Providers Care Finished Goods Planner Name Role Phone Pcp, Unknown Primary Care Provider Unavailabl e Pcp, Not Required Primary Care Provider Deana Cherry NP Primary Care Provider [phone] Encounter Details Date Type Department Care Team (Late st Contact Info) Description 01/10/2022 Procedure Pass [facility], Ct Scan - [facility] 30 [place] [address] Social History Tobacco Use Types Packs/Day Years [...] 8:00 AM EDT Mariam Jordan RN * [place] Suicide Severity Rating Scale (Screener/Recent Self-Report) Question [...] documented as of this encounter Care Teams Finished Goods Planner Relationship Specialty Start Date End Date Pcp, Unknown PCP - General 08/01/22 01/10/23 Pcp, Not Required [address] [place] [address] PCP - General 01/11/23 01/13/23 Deana Warren NP [address] [place] [address] PCP - General Nurse Practitioner 01/14/23 documented as of this encounter Additional Source Comments The information contained in this document represents components of the legal health record. It is not the complete legal health record.[facility]
--- OUTSIDE RECORDS SUMMARY | 2024-11-17 14:38 | XMS_ITS | Encounter Summary ---
Author Organization [facility] Address [address] [facility] [address] [place] [address] Phone Care Team Providers Care Service Car Operator Name Role Phone Pcp, Unknown Primary Care Provider Unavailabl e Pcp, Not Required Primary Care Provider Deana Cherry NP Primary Care Provider [phone] Encounter Details Date Type Department Care Team (Late st Contact Info) Description 01/15/2022 Procedure Pass [facility] 30 [place] [address] Social History Tobacco Use Types Packs/Day Years [...] documented as of this encounter Care Teams Service Car Operator Relationship Specialty Start Date End Date Pcp, Unknown PCP - General 08/01/22 01/10/23 Pcp, Not Required [address] [place] [address] PCP - General 01/11/23 01/13/23 Deana Warren NP [address] [place] [address] PCP - General Nurse Practitioner 01/14/23 documented as of this encounter Additional Source Comments The information contained in this document represents components of the legal health record. It is not the complete legal health record.[facility]
--- OUTSIDE RECORDS SUMMARY | 2024-11-17 14:38 | XMS_ITS | Encounter Summary ---
Author Organization [facility] Address [address] [facility] [address] [place] [address] Phone Care Team Providers Care Public Address System Mechanic Name Role Phone Pcp, Unknown Primary Care Provider Unavailabl e Pcp, Not Required Primary Care Provider Deana Cherry NP Primary Care Provider [phone] Encounter Details Date Type Department Care Team (Late st Contact Info) Description 01/23/2022 Procedure Pass [facility], Ct Scan - [address] [address] Social History Tobacco Use Types Packs/Day Years [...] documented as of this encounter Care Teams Public Address System Mechanic Relationship Specialty Start Date End Date Pcp, Unknown PCP - General 08/01/22 01/10/23 Pcp, Not Required [address] [place] [address] PCP - General 01/11/23 01/13/23 Deana Warren NP [address] [place] [address] PCP - General Nurse Practitioner 01/14/23 documented as of this encounter Additional Source Comments The information contained in this document represents components of the legal health record. It is not the complete legal health record.[facility]
--- OUTSIDE RECORDS SUMMARY | 2024-11-17 14:38 | XMS_ITS | Encounter Summary ---
Author Organization [employer] Address [address] [facility] 7t [place] [address] Care Team Providers Care Mini Baccarat Dealer Name Role Phone Deana Warren Primary Care Provider [phone] Reason for Visit * Reason Comments Med Refill Encounter Details Date Type Department Care Team ([facility] st Contact Info) Description 09/27/2024 Refill [facility] MED[facility]INE 230 [place], [place] [phone] Deana Warren ANP 230 [place] [address] Type 2 diabetes mellitus with hyperglycemia, unspecified whether detention insulin use ([facility]) Social History Tobacco Use Types [...] 2 diabetes mellitus with hyperglycemia, unspecified whether detention insulin use ([facility]) documented in this encounter Additional Health Concerns Assessment Noted Time PHQ-9 Depression Total Score: 24 025 9:43 AM EST documented as of this encounter Care Teams Mini Baccarat Dealer Relationship Specialty Start Date End Date Deana Warren ANP 230 [place] [address] PCP - General Family Medicine 03/29/22 documented as of this encounter
--- OUTSIDE RECORDS SUMMARY | 2024-11-17 14:38 | XMS_ITS | Encounter Summary ---
Author Organization [facility] Address [address] [place] [address] Phone Care Team Providers Care Recovery Auditor Name Role Phone Pcp, Unknown Primary Care Provider Unavailabl e Pcp, Not Required Primary Care Provider Deana Cherry NP Primary Care Provider [phone] Encounter Details Date Type Department Care Team (Late st Contact Info) Description 01/06/2023 Procedure Pass [facility], Ct Scan - [address] [address] Social History Tobacco Use Types Packs/Day Years [...] 5:00 PM EDT Roland Garber, [place] * [place] Suicide Severity Rating Scale (Screener/Recent Self-Report) Question [...] documented as of this encounter Care Teams Recovery Auditor Relationship Specialty Start Date End Date Pcp, Unknown PCP - General 08/01/22 01/10/23 Pcp, Not Required [address] [place] [address] PCP - General 01/11/23 01/13/23 Deana Warren NP [address] [place] [address] PCP - General Nurse Practitioner 01/14/23 documented as of this encounter Additional Source Comments The information contained in this document represents components of the legal health record. It is not the complete legal health record.[facility]
--- OUTSIDE RECORDS SUMMARY | 2024-11-17 14:38 | XMS_ITS | Encounter Summary ---
Author Organization [facility] Address [address] [facility] [address] [place] [address] Phone Care Team Providers Care Art Handler Name Role Phone Pcp, Unknown Primary Care Provider Unavailabl e Pcp, Not Required Primary Care Provider Deana Cherry NP Primary Care Provider [phone] Encounter Details Date Type Department Care Team (Late st Contact Info) Description 01/15/2022 Procedure Pass [facility] 30 [place] [address] Social History Tobacco Use Types Packs/Day Years [...] documented as of this encounter Care Teams Art Handler Relationship Specialty Start Date End Date Pcp, Unknown PCP - General 08/01/22 01/10/23 Pcp, Not Required [address] [place] [address] PCP - General 01/11/23 01/13/23 Deana Warren NP [address] [place] [address] PCP - General Nurse Practitioner 01/14/23 documented as of this encounter Additional Source Comments The information contained in this document represents components of the legal health record. It is not the complete legal health record.[facility]
--- OUTSIDE RECORDS SUMMARY | 2024-11-17 14:38 | XMS_ITS | Encounter Summary ---
Author Organization [facility] Address [address] [facility] [address] [place] [address] Phone Care Team Providers Care Morning Show Producer Name Role Phone Pcp, Unknown Primary Care Provider Unavailabl e Pcp, Not Required Primary Care Provider Deana Cherry NP Primary Care Provider [phone] Encounter Details Date Type Department Care Team (Late st Contact Info) Description 01/14/2022 Procedure Pass [facility] 30 [place] [address] Social History Tobacco Use Types Packs/Day Years [...] documented as of this encounter Care Teams Morning Show Producer Relationship Specialty Start Date End Date Pcp, Unknown PCP - General 08/01/22 01/10/23 Pcp, Not Required [address] [place] [address] PCP - General 01/11/23 01/13/23 Deana Warren NP [address] [place] [address] PCP - General Nurse Practitioner 01/14/23 documented as of this encounter Additional Source Comments The information contained in this document represents components of the legal health record. It is not the complete legal health record.[facility]
--- OUTSIDE RECORDS SUMMARY | 2024-11-17 14:38 | XMS_ITS | Encounter Summary ---
Author Organization [facility] Address [address] [facility] 7t [place] [address] Care Team Providers Care Fur Clipper Name Role Phone Deana Warren Primary Care Provider [phone] Reason for Visit * Reason Onset Date Comments FYI 02/12/2023 Encounter Details Date Type Department Care Team ([facility] st Contact Info) Description 02/12/2023 Telephone [facility] MEDICINE 230 [place], [place] [phone] Deana Warren ANP 230 [place], [place] [phone] FYI Social History Tobacco Use Types Packs/Day [...] - 02/12/2023 2:36 PM EST Tc from [place] with [facility] stating that pt missed her second appt today due to clinician being out and will be seeing pt today or tomorrow. If any questions please contact at [phone] documented in this encounter Plan of Treatment Not on file documented as of this encounter Visit Diagnoses Not on filedocumented in this encounter Care Teams Fur Clipper Relationship Specialty Start Date End Date Deana Warren ANP [address] [place] [address] PCP - General Family Medicine 03/29/22 documented as of this encounter
[2024-11-18 15:48] LABS: Calcium, Ionized 5.2 mg/dL (4.7-5.5)
[2024-11-18 17:14] LABS: HCV Log PCR <1.18 NOT DETECTED Log IU/mL (NOT DETECTED); HepC Viral Load <15 NOT DETECTED IU/mL (NOT DETECTED)
== END 2024-11-17 11:29 | disposition home or self-care (01) ==
LOC: HO.HHCL 11:28
PROVIDERS: PCP Nurse Practitioner Primary Care; Referring Provider Emergency Medicine; Visit Provider Nurse Practitioner Primary Care
DX: M81.0 Age-related osteoporosis without current pathological fracture (principal); B18.2 Chronic viral hepatitis C; E55.9 Vitamin D deficiency, unspecified
CPT/HCPCS: 36415; 80048; 82306; 82330; 83970; 87522

== ENCOUNTER 2025-02-05 04:08 | Emergency (ER) | payer OTHER, SELFPAY ==
--- NOTE | ~2025-02-05 | XR_ITS ---
CLINICAL HISTORY: cough, r o pna 1 view chest x-ray Comparison: None provided Findings: No dense consolidation to suggest pneumonia. No effusion. Mild interstitial prominence bilaterally which could indicate mild edema or viral infection. Heart size is normal. No acute osseous findings. IMPRESSION: 1. No dense consolidation to suggest pneumonia. This document has been electronically signed by: Juli Levy MD on 02/05/2025 06:09:31
[2025-02-05 04:17] VITALS: BP 181/90; PULSE 78; O2SAT 95
[2025-02-05 04:19] VITALS: BP 142/71; PULSE 60; RESP 23; TEMP 36.7; O2SAT 95; BMI 24.1
--- NOTE | 2025-02-05 04:22 | ED_ITS ---
HPI - General Adult General Chief complaint: Upper Respiratory Symptoms Stated complaint: COUGH X4D Time Seen by Provider: 02/05/25 04:14 Source: patient and EMS Mode of arrival: EMS Limitations: no limitations History of Present Illness ED Provider: Dr. Ursula Bustos HPI narrative: patient comes to the emergency room complaining of cough for 4 days. Patient denies any fever chills, occasional shortness of breath, no chest pain. Patient complaining of occasional runny and stuffy nose. According to EMS, patient's oxygen saturation has been steady at 95% on room air. Related Data Home Medications ?Medication ?Instructions ?Recorded ?Confirmed buprenorphine 8 mg-naloxone 2 mg 1 film buccal DAILY 0 05/17/20 10/10/20 sublingual film (Suboxone) lisinopril 20 1 tab PO DAILY 05/17/2005/28 mg-hydrochlorothiazide 25 mg tablet albuterol sulfate 90 mcg/actuation 2 puff PO Q4-6H PRN 08/31/20 10/10/20 aerosol inhaler clonazepam 1 mg tablet 0 mg PO 08/31/20 10/10/20 cyclobenzaprine 5 mg tablet 5 mg PO TID PRN muscle spa sm 08/31/20 10/10/20 fluoxetine 20 mg capsule 20 mg PO QAM 08/31/20 fluticasone propionate 50 1 spray intranasal DAILY PRN 08/31/20 10/10/20 mcg/actuation nasal allergies spray,suspension ibuprofen 400 mg tablet 400 mg PO Q6-8H PRN 08/31/20 10/10/20 oxcarbazepine 300 mg tablet 300 mg PO TID 08/31/2005/28 zolpidem 5 mg tablet 5 mg PO BEDTIME PRN 08/31/20 10/10/20 omeprazole magnesium 20 mg 20 mg PO DAILY PRN heartbur n 10/10/20 10/10/20 tablet,delayed release (Prilosec OTC) Previous Rx's ?Medication ?Instructions ?Recorded sofosbuvir 400 mg-velpatasvir 100 1 tab PO DAILY 28 da ys #28 tabs 10/11/20 mg-voxilaprevir 100 mg tablet (Vosevi) guaifenesin 100 mg/5 mL oral liquid 200 mg (10 mL) PO Q4H PRN cough 02/05/25 #473 mL Allergies Allergy/AdvReac Type Severity Reaction Status Date / Time No Known Allergies (No Known Allergy Verified 02/05/25 04:45 Allergies*) Review of Systems 2 Review of Systems: Constitutional : No Weight loss, No Fever, No Chills, No Night Sweats, No Fatigue, No Malaise ENT/Mouth : No Hearing loss, No Ear Pain, No Nasal Congestion, No Sinus Pain, No Hoarseness, No sore throat, No Rhinorrhea, No Swallowing Difficulty Eyes: No Eye Pain, No Swelling, No Redness, No Foreign Body, No Discharge, No Vision Changes Cardiovascular : No Chest Pain, No SOB, No Dyspnea on Exertion, No Orthopnea, No Edema, No Palpitations Respiratory : Complaining of productive cough, occasional intermittent Wheezing, No Smoke Exposure, No Dyspnea Gastrointestinal : No Nausea, No Vomiting, No Diarrhea, No Constipation, No abdominal Pain, No Hematochezia, No Melena Genitourinary : no irregular bleeding, No Dysuria, No Urinary Frequency, No Hematuria, No Urinary Incontinence, No Urgency, No Flank Pain, No Urinary Flow Changes, No Hesitancy Musculoskeletal : No joint pain, No Myalgias, No Joint Swelling Skin : No Skin Lesions, No rash Neuro : No Weakness, No Numbness, No Paresthesias, No Loss of Consciousness, No Dizziness, No Headache Psych : No Anxiety/Panic, No Depression, No SI/HI/AH/VH, No Social Issues, Heme/Lymph: No Bruising, No Bleeding,No Lymphadenopathy Endocrine : No Polyuria, No Polydipsia, No Temperature Intolerance [facility] Past Medical History Medical History Bipolar disorder Chronic pain Cigarette smoker Hx of substance abuse Bipolar 1 disorder Hypertension Chronic hepatitis C virus infection No known health problems Surgical History H/O colonoscopy History of esophagogastroduodenoscopy (EGD) Social History Social History Household Members: Other Household Members Other:: homeless, stays with someone Alcohol intake: current Alcohol intake frequency: does not drink Advance Directives: No Advance Directives Information Provided: Yes Physical Exam ED Exam Exam: Appearance: Alert. Oriented X3. No acute distress. Eyes: Pupils equal, round and reactive to light. ENT: Pharynx normal. Neck: Normal inspection. Neck supple. No lymph nodes noted. No crepitus CVS: Normal heart rate and rhythm. Pulses normal. Normal S1 and S2 Respiratory: No respiratory distress. Breath sounds normal. No Wheezing. No rales Abdomen: Soft and nontender. No rigidity. No distention. Skin: Skin warm and dry. Normal skin color. Normal skin turgor. Extremities: No lower extremity edema. No Lacerations. No Rash Neuro: Oriented X 3. No motor deficit. No sensory deficit. Moving all extremities. No slurred speech. CN 2 through 12 grossly intact Psych: calm, cooperative, normal affect Vital Signs: Vital Signs - 24 hr 02/05/25 04:19 Temperature 98.0 F Pulse Rate 60 Respiratory Rate 23 H Blood Pressure 142/71 H Pulse Oximetry 95 Oxygen Delivery Method Room Air BMI result Body Mass Index 24.1 Course Course Course Narrative: all of patient's labs pending, imaging pending. Patient has very mild occasional cough. Medical Decision Making Medical Decision Making [facility] Narrative: My interpretation of labs: No significant abnormality in patient's hematology and chemistry, blood gases within normal limits, troponin normal, pro BNP normal, serology negative for influenza RSV and COVID chest x-ray: my interpretation and see any acute abnormality. Patient was ambulated around the emergency room, oxygen saturation steady 95%. Patient likely having viral bronchitis Differential Diagnosis Differential Diagnoses: The differential diagnosis associated with the presentation includes ( Bronchitis, viral URI, COVID, influenza) Admission/Observation Consideration of admission/observation: Escalation of care including admission/observation considered ( given the patient's age and symptoms, observation was considered.) Lab Data [facility] Lab Attestation statement: I reviewed the patient's lab results. 02/05/25 04:48 02/05/25 04:48 Labs: Lab Results 02/05/25 02/05/25 02/05/25 Range/Units 04:47 04:48 04:55 WBC 9.0 (4.8-10.8) X10*3/uL RBC 4.70 (4.20-5.50) X10*6/uL Hgb 13.4 (12.0-16.0) g/dl Hct 40.8 (37.0-47.0) % MCV 86.8 (80.0-98.0) fL MCH 28.5 (27.0-33.0) pg MCHC 32.8 (31.0-35.0) g/dl RDW 14.1 (11.0-16.0) % Plt Count 171 (160-400) X10*3/uL MPV 10.6 (9.4-12.3) fL Immature Gran % (Auto) 0.4 (0.0-0.4) % Neut % (Auto) 65.1 (45-73) % Lymph % (Auto) 23.4 (20-40) % Jefferson % (Auto) 7.2 (2-11) % Eos % (Auto) 3.2 (0-4) % Baso % (Auto) 0.7 (0-2) % Lymph # (Auto) 2.1 (1.2-4.9) X10*3/uL Jefferson # (Auto) 0.7 (0.1-1.2) X10*3/uL Eos # (Auto) 0.3 (0.0-0.4) X10*3/uL Baso # (Auto) 0.1 (0.0-0.2) X10*3/uL Abs Immat Gran (auto) 0.04 H (0.00-0.03) X10*3/uL Absolute Neuts (auto) 5.8 (2.0-8.3) x10*3/uL Absolute Nucleated RBC 0.000 (0.0-0.012) X10*3/uL Nucleated RBC % (auto) 0.0 (0.0-0.2) /100WBC VBG pH 7.39 (7.32-7.43) VBG pCO2 46 mmHg VBG pO2 81 mmHg VBG HCO3 28 H (22-26) mmol/L VBG O2 Saturation 95.0 % VBG Base Excess 3.2 mmol/L Sodium 145 (135-145) mmol/L Potassium 4.0 (3.3-5.1) mmol/L Chloride 111 H (96-108) mmol/L Carbon Dioxide 24 (22-29) mmol/L Anion Gap 14 (12-20) BUN 17 H (9-16) mg/dL Creatinine 0.83 (0.5-1.4) mg/dL Estim Creat Clear Calc 56.7 Estimated GFR > 60 Random Glucose 67 (60-115) mg/dL Calcium 9.8 D (8.4-10.2) mg/dL Total Bilirubin 0.4 (0.0-1.0) mg/dL Direct Bilirubin 0.2 (0.0-0.5) mg/dL AST 32 H (5-31) U/L ALT 25 (0-31) U/L Alkaline Phosphatase 104 (39-117) U/L Troponin I High Sens < 2.7 (<3.5-17.0) ng/L NT-Pro-B Natriuret Pep 147.4 (<300) pg/mL Total Protein 7.9 (6.5-8.0) g/dL Albumin 4.3 (3.5-5.0) g/dL Influenza Type A (PCR) NEGATIVE (Negative) Influenza Type B (PCR) NEGATIVE (Negative) RSV RNA Qual (PCR) NEGATIVE (Negative) SARS-CoV-2 RNA (RT-PCR) NEGATIVE (Negative) Independent Interpretation I performed an independent interpretation of an: Plain X-Ray Critical Care Time Critical Care Time Critical Care Time: Yes Total Critical Care Time: 35 Attestation: I have personally provided critical care time. Time includes review of lab data, radiology results, discussion with consultants, and monitoring for potential decompensation. Intervention performed as documented. Discharge Plan Discharge Clinical Impression: Bronchitis Patient Disposition: Home, Self-Care Instructions: Acute Bronchitis (ED) Additional Instructions: Please follow-up with your primary care physician tomorrow. If you have any worsening or new symptoms, please return to the emergency room or call 911 Prescriptions: New guaifenesin 100 mg/5 mL liquid 200 mg PO Q4H PRN (Reason: cough) Qty: 473 0RF No Action Vosevi 400-100-100 mg tablet 1 tab PO DAILY 28 Days Qty: 28 2RF Rx Instructions: must administer with a meal/food albuterol sulfate 90 mcg/actuation HFA aerosol inhaler 2 puff PO Q4-6H PRN ibuprofen 400 mg tablet 400 mg PO Q6-8H PRN fluoxetine 20 mg capsule 20 mg PO QAM cyclobenzaprine 5 mg tablet 5 mg PO TID PRN (Reason: muscle spasm) fluticasone propionate 50 mcg/actuation spray,suspension 1 spray intranasal DAILY PRN (Reason: allergies) clonazepam 1 mg tablet 0 mg PO zolpidem 5 mg tablet 5 mg PO BEDTIME PRN oxcarbazepine 300 mg tablet 300 mg PO TID omeprazole magnesium [Prilosec OTC] 20 mg tablet,delayed release (DR/EC) 20 mg PO DAILY PRN (Reason: heartburn) Patient Comments: Patient buys OTC she was instructed to keep this far away from her hepatitis C medications because it can activate treatment. She should take this in the morning if she needs it and hep C medications at night before bed lisinopril-hydrochlorothiazide 20-25 mg tablet 1 tab PO DAILY buprenorphine-naloxone [Suboxone] 8-2 mg film 1 film buccal DAILY Print Language: Swedish
[2025-02-05 04:57] LABS: MANUAL DIFF FLAG NO
[2025-02-05 04:58] LABS: Venous Blood Gas Refer to POC result
[2025-02-05 04:58] LABS: VBG HCO3 28 mmol/L (22-26); VBG O2 % Saturation 95.0 %
[2025-02-05 04:58] LABS: Hematocrit 40.8 % (37.0-47.0); Hemoglobin 13.4 g/dl (12.0-16.0); Imm Gran Abs Auto 0.04 X10*3/uL (0.00-0.03); Imm Gran Pct Auto 0.4 % (0.0-0.4); Lymphocytes Absolute Auto 2.1 X10*3/uL (1.2-4.9); Mean Corpuscular HGB Conc 32.8 g/dl (31.0-35.0); Mean Corpuscular Hemoglobin 28.5 pg (27.0-33.0); Mean Corpuscular Volume 86.8 fL (80.0-98.0); NRBC Abs Auto 0.000 X10*3/uL (0.0-0.012); NRBC Pct Auto 0.0 /100WBC (0.0-0.2); Platelet Count 171 X10*3/uL (160-400); Red Blood Count 4.70 X10*6/uL (4.20-5.50); White Blood Count 9.0 X10*3/uL (4.8-10.8)
--- OUTSIDE RECORDS SUMMARY | 2025-02-05 05:06 | XMS_ITS | Encounter Summary ---
Author Organization [facility] Address [address] [place] [address] Phone Care Team Providers Care Dairy Equipment Mechanic Name Role Phone Deana Warren NP Primary Care Provider [phone] Encounter Details Date Type Department Care Team (Late st Contact Info) Description 11/16/2023 Procedure Pass [facility], Ct Scan - [facility] [address] [place] [address] Social History Tobacco Use Types Packs/Day Years [...] 5:19 PM EDT Maribell Olguin RN * [place] Suicide Severity Rating Scale (Screener/Recent Self-Report) Question [...] on filedocumented in this encounter Care Teams Dairy Equipment Mechanic Relationship Specialty Start Date End Date Deana Warren NP [address] [place] [address] PCP - General Nurse Practitioner 01/14/23 documented as of this encounter Additional Source Comments The information contained in this document represents components of the legal health record. It is not the complete legal health record.[facility]
--- OUTSIDE RECORDS SUMMARY | 2025-02-05 05:06 | XMS_ITS | Encounter Summary ---
Author Organization [employer] Address [address] [place] [address] 7 [place] [address] Care Team Providers Care Machine Ii Coremaker Name Role Phone Deana Warren Primary Care Provider [phone] Reason for Visit * Reason Onset Date Comments triage 05/22/2022 Encounter Details Date Type Department Care Team (Late st Contact Info) Description 05/22/[address] [phone] Deana Warren ANP [address] [place] [phone] triage Social History Tobacco Use Types Packs/Day [...] Care Team (Late st Contact Info) Description 03/31/2025 10:30 AM EST Office Visit [address] [address] Deana Warren ANP [address] [place] [address] 05/30/2025 10:30 AM EDT Office Visit [facility] OPTOMETRY [address] [place], [place] [phone] Katt Lazcano, OD [address] [place] [address] documented as of this encounter Visit Diagnoses Not on filedocumented in this encounter Care Teams Machine Ii Coremaker Relationship Specialty Start Date End Date Deana Warren ANP [address] [place] [address] PCP - General Family Medicine 03/29/22 documented as of this encounter
--- OUTSIDE RECORDS SUMMARY | 2025-02-05 05:06 | XMS_ITS | Encounter Summary ---
Author Organization [employer] Address [address] [facility] 7t [place] [address] Care Team Providers Care Embossing Machine Operator Helper Name Role Phone Deana Warren Primary Care Provider [phone] Reason for Visit * Reason Onset Date Comments Appointment Request 07/28/2023 Encounter Details Date Type Department Care Team (Late st Contact Info) Description 07/28/2023 Telephone [facility] MEDICINE [address] [place], [place] [phone] Deana Warren ANP [address] [place], [place] [phone] Appointment Request Social History Tobacco Use Types [...] stated had a procedure done on 07/20 [facility] orthopedics patient had a Hip surgery and would like to follow up with the provider documented in this encounter Plan of Treatment Upcoming Encounters Date Type Department Care Team (Late st Contact Info) Description 03/31/2025 10:30 AM EST Office Visit [facility] MED[facility] [address] [place] [address] Deana Warren ANP [address] [place] [address] 05/30/2025 10:30 AM EDT Office Visit [facility] OPTOMETRY [address] [place] [address] Tarka, Katt, OD [address] [place] [address] documented as of this encounter Visit Diagnoses Not on filedocumented in this encounter Care Teams Embossing Machine Operator Helper Relationship Specialty Start Date End Date Deana Warren ANP [address] [place] [address] PCP - General Family Medicine 03/29/22 documented as of this encounter
--- OUTSIDE RECORDS SUMMARY | 2025-02-05 05:06 | XMS_ITS | Encounter Summary ---
Author Organization [facility] Address [address] [place] [address] Phone Care Team Providers Care Measurement Operator Name Role Phone Deana Warren NP Primary Care Provider [phone] Encounter Details Date Type Department Care Team (Late st Contact Info) Description 10/19/2024 Procedure Pass [facility], Ct Scan - [facility] [address] [place] [address] Social History Tobacco Use Types Packs/Day Years [...] 5:28 PM EDT Gely Lubin, RALEIGH * [place] Suicide Severity Rating Scale (Screener/Recent Self-Report) Question [...] on filedocumented in this encounter Care Teams Measurement Operator Relationship Specialty Start Date End Date Deana Warren NP [address] [place] [address] PCP - General Nurse Practitioner 01/14/23 documented as of this encounter Additional Source Comments The information contained in this document represents components of the legal health record. It is not the complete legal health record.[facility]
--- OUTSIDE RECORDS SUMMARY | 2025-02-05 05:06 | XMS_ITS | Encounter Summary ---
Author Organization [facility] Address [address] [place] [address] Phone Care Team Providers Care Bottom Crane Operator Name Role Phone Deana Warren NP Primary Care Provider [phone] Encounter Details Date Type Department Care Team (Late st Contact Info) Description 06/15/2023 Procedure Pass [facility], Ct Scan - [facility] [address] [place] [address] Social History Tobacco Use Types Packs/Day Years [...] 12:48 PM EDT Addison Angulo RN * [place] Suicide Severity Rating Scale (Screener/Recent Self-Report) Question [...] on filedocumented in this encounter Care Teams Bottom Crane Operator Relationship Specialty Start Date End Date Deana Warren NP [address] [place] [address] PCP - General Nurse Practitioner 01/14/23 documented as of this encounter Additional Source Comments The information contained in this document represents components of the legal health record. It is not the complete legal health record.[facility]
--- OUTSIDE RECORDS SUMMARY | 2025-02-05 05:06 | XMS_ITS | Encounter Summary ---
Author Organization [facility] Address [address] [place] [address] Phone Care Team Providers Care Laboratory Scientist Name Role Phone Deana Warren NP Primary Care Provider [phone] Encounter Details Date Type Department Care Team (Late st Contact Info) Description 06/17/2023 Procedure Pass [place] Admitting Dept - Virtual Department [address] [place] [address] Social History Tobacco Use Types Packs/Day Years [...] on filedocumented in this encounter Care Teams Laboratory Scientist Relationship Specialty Start Date End Date Deana Warren NP [address] [place] [address] PCP - General Nurse Practitioner 01/14/23 documented as of this encounter Additional Source Comments The information contained in this document represents components of the legal health record. It is not the complete legal health record.[facility]
--- OUTSIDE RECORDS SUMMARY | 2025-02-05 05:06 | XMS_ITS | Encounter Summary ---
Author Organization [email or web address] Address [address] [facility] 7t [place] [address] Care Team Providers Care Dry Wall Plasterer Name Role Phone Deana Warren Primary Care Provider [phone] Reason for Visit * Reason Onset Date Comments Nurse Triage 12/30/2023 Encounter Details Date Type Department Care Team (Late st Contact Info) Description 12/30/2023 Telephone [facility] MEDICINE [address] [place], [place] [phone] Deana Warren ANP [address] [place], [place] [phone] Nurse Triage Social History Tobacco Use Types [...] 915am. Pt is offered to come to [facility] today but, declines due to [...] Description 03/31/2025 10:30 AM EST Office Visit [facility] MEDICINE [address] [place] [address] Deana Warren ANP [address] [place] [address] 05/30/2025 10:30 AM EDT Office Visit [facility] OPTOMETRY [address] [place] [address] Katt Lazcano, OD [address] [place] [address] documented as of this encounter Visit Diagnoses Not on filedocumented in this encounter Care Teams Dry Wall Plasterer Relationship Specialty Start Date End Date Deana Warren ANP [address] [place] [address] PCP - General Family Medicine 03/29/22 documented as of this encounter
--- OUTSIDE RECORDS SUMMARY | 2025-02-05 05:06 | XMS_ITS | Encounter Summary ---
Author Organization [facility] Address [address] [place] [address] Phone Care Team Providers Care Electric Screw Driver Operator Name Role Phone Briana Deana DAVIS Primary Care Provider Encounter Details Date Type Department Care Team (Latest Contact Info) Description 07/08/2023 Ancillary Orders [facility] Orthopedics & Sports Medicine [address] [place] [address] Shelli Billy PA-C [address] [place] [address] Orthopedics & Sports Medicine, [place] [address] [email or web address] Closed displaced comminuted fracture of [...] Primary documented in this encounter Care Teams Electric Screw Driver Operator Relationship Specialty Start Date End Date Deana Warren NP [address] [place] [address] PCP - General Nurse Practitioner 01/14/23 documented as of this encounter Additional Source Comments The information contained in this document represents components of the legal health record. It is not the complete legal health record.[facility]
--- OUTSIDE RECORDS SUMMARY | 2025-02-05 05:06 | XMS_ITS | Encounter Summary ---
Author Organization [employer] Address [address] [place] [address] 7t [place] [address] Care Team Providers Care Clerical Order Filler Name Role Phone Deana Warren Primary Care Provider [phone] Reason for Visit * Reason Onset Date Comments new script 06/21/2022 Encounter Details Date Type Department Care Team (Late st Contact Info) Description 06/21/[address] [facility] MEDICINE [address] [place], [place] [phone] Deana Warren ANP [address] [place] [address] new script Social History Tobacco Use Types [...] - 06/21/2022 11:18 AM EDT TC [facility] Pharm[facility] stated insurance do not covered admelog insulin but insurance will be cover Novolog flexpen. Pt without insulin. PCP DR. Warren documented in this encounter Plan of Treatment Upcoming Encounters Date Type Department Care Team (Late st Contact Info) Description 03/31/2025 10:30 AM EST Office Visit [facility] MEDIC[facility] [address] [place] [address] Deana Warren ANP [address] [place] [address] 05/30/2025 10:30 AM EDT Office Visit [facility] OPTOMETRY [address] [place] [address] Katt Lazcano, OD [address] [place] [address] documented as of this encounter Visit Diagnoses Not on filedocumented in this encounter Care Teams Clerical Order Filler Relationship Specialty Start Date End Date Deana Warren ANP [address] [place] [address] PCP - General Family Medicine 03/29/22 documented as of this encounter
--- OUTSIDE RECORDS SUMMARY | 2025-02-05 05:06 | XMS_ITS | Encounter Summary ---
Author Organization [facility] Address [address] [place] [address] Phone Care Team Providers Care Clarity Developer Name Role Phone Deana Warren NP Primary Care Provider [phone] Encounter Details Date Type Department Care Team (Late st Contact Info) Description 10/19/2024 Procedure Pass [facility], Ct Scan - [facility] [address] [place] [address] Social History Tobacco Use Types Packs/Day Years [...] 5:28 PM EDT Gely Lubin, RALEIGH * [place] Suicide Severity Rating Scale (Screener/Recent Self-Report) Question [...] on filedocumented in this encounter Care Teams Clarity Developer Relationship Specialty Start Date End Date Deana Warren NP [address] [place] [address] PCP - General Nurse Practitioner 01/14/23 documented as of this encounter Additional Source Comments The information contained in this document represents components of the legal health record. It is not the complete legal health record.[facility]
--- OUTSIDE RECORDS SUMMARY | 2025-02-05 05:06 | XMS_ITS | Encounter Summary ---
Author Organization [employer] Address [address] [facility] 7t [place] [address] Care Team Providers Care Activities Counselor Name Role Phone Deana Warren Primary Care Provider [phone] Reason for Visit * Reason Onset Date Comments Nurse Triage 10/13/2023 Encounter Details Date Type Department Care Team (Late st Contact Info) Description 10/13/2023 Telephone [facility] MEDICINE [address] [place], [place] [phone] Deana Warren ANP [address] [place], [place] [phone] Nurse Triage Social History Tobacco Use Types [...] Description 03/31/2025 10:30 AM EST Office Visit [facility] MED[facility]INE [address] [place] [address] Deana Warren ANP [address] [place] [address] 05/30/2025 10:30 AM EDT Office Visit [facility] OPTOMETRY [address] [place] [address] Tarka, Katt, OD [address] [place] [address] documented as of this encounter Visit Diagnoses Not on filedocumented in this encounter Care Teams Activities Counselor Relationship Specialty Start Date End Date Deana Warren ANP [address] [place] [address] PCP - General Family Medicine 03/29/22 documented as of this encounter
--- OUTSIDE RECORDS SUMMARY | 2025-02-05 05:06 | XMS_ITS | Clinical Summary ---
Author Organization [facility] Address [address] [place] [address] Phone Care Team Providers Care Cleaner And Presser Name Role Phone Deana Warren NP Primary Care Provider [phone] Allergies No known active allergies Medications OLANZapine [...] by mouth every morning. 4 Active insulin lispro (ADMELOG, HUMALOG) 100 [...] = 10 401+ = 12 and call MD/VISUAL ASSOCIATE 4 Active zolpidem (AMBIEN) 5 MG tablet [...] (01/12/2023 7:15 PM EST): -Patient presented to [facility] with AMS thought to be due to hypoglycemia, had a seizure in the ED and EEG the following day was concerning for status epilepticus therefore she was transferred to [facility] -Repeat EEG shows slowing, no epileptiform discharges [...] No tremors. Monitor with CIWA's - low SW consult for services after discharge Primary hypertension [...] place on low-dose insulin sign scale with [id number] testing -Continue to hold long-acting as patient is encephalopathic and not taking in much PO Assessment & Plan (02/07/2022 10:00 AM EST): DKA at time of presentation, resolved. Hemoglobin A1c 14.1. BG now in 100-200 range. -Continue Lantus insulin 24 units qd - POC/ISS Assessment & Plan (01/20/2022 8:42 AM EST): Continue with insulin. Continue with mnyim-fu-ifxy's. Patient has had her diabetic ketoacidosis resolved. We will likely transition off of dextrose as the patient's oral intake improves. She still on some aspirations precautions. Dysphagia 01/20/2022 Assessment & Plan (01/13/2023 10:02 AM EST): -EDUCATIONAL ASSISTANT consulted, cleared for reg diet Assessment & Plan (02/07/2022 9:54 AM EST): ERIKA Izquierdo From EDUCATIONAL ASSISTANT 02/01, well with solids. Needs moderately thick liquids. Her voice remains weak since she was in the ICU. This was reviewed with Pulm/ICU: as long as there is no stridor, no solano to see ENT, likely not much to do) S/p MBS 01/28. - Dysphagia diet with safety precautions including laura toure Pt doing well with it. Assessment & [...] Pt has been on geripsych unit at [place] recently but then back home after. MS [...] 10:04 AM EST): Evaluated by ophthalmology at [facility] Recommended erythromycin ointment, will continue Pneumonia due [...] this time. DKA (diabetic ketoacidosis) 01/09/2022 01/20/2022 Immunizations Immunization Administration Dates Next Due Influenza [...] housing situation today? I have adeline sing 10/19/2024 How many times have you move [...] ecorded Are you denied basic needs [facility] as food, clothing, or medical care? No 10/19/2024 In the past 12 months have y ou been in a relationship with a person who hurts, threatens, or tries to control you? No 10/19/2024 Are you denied basic needs [facility] as food, clothing, or medical care? No [...] FOBT 11/03/1999 SIGMOIDOSCOPY 11/03/1999 VIRTUAL COLONOSCOPY 11/03/1999 RSV VACCINE (1 - Risk 50-74 years 1-dose series) 2004 ZOSTER VACCINES (1 of 2) 2004 PNEUMOCOCCAL VACCINES (50+ years) (2 of 2 - PCV) 07/31/2016 08/01/2015, 11/16/2014, 09/16/2010 MAMMOGRAM 06/28/2023 06/27/2021 BLOOD PRESSURE 03/17/2024 09/15/2023 INFLUENZA VACCINE (#1) 2024 01/12/2023 COVID-19 VACCINE (1 - season) 2024 LIPID PANEL 01/22/2025 01/23/2024, 11/0 [...] this topic Medical Devices Implanted Type Area Deputy Clerk Device Identifier Shelf Expiration Date Model / Serial / Lot Nail Bone [id number] 125deg Tfn Advanced Ti Cannulated Left - [id number] Implanted:Qty : 1 on 06/17/2023 by Mal Reyes MD at [facility] Left: Acetabulum [employer] [id number] 11/07/2032 04.037.12 5S / / [id number] Blade Bone 10.5x85mm Helical Tfn Advanced - [id number] Implanted:Qty : 1 on 06/17/2023 by Mal Reyes MD at [facility] Left: Acetabulum [employer] [id number] 10/07/2032 04.038.38 5S / / [id number] Screw Bone 5x46mm Locking Im Nail - [id number] Implanted:Qty : 1 on 06/17/2023 by Mal Reyes MD at [facility] Left: Femur [employer] [id number] 03/09/2032 04.045.04 6S / / [id number] Screw Bone 5x44mm Locking Im Nail - [id number] Implanted:Qty : 1 on 07/21/2023 by Mal Reyes MD at [facility] Left: Hip [employer] [id number] 01/07/2033 04.045.04 4S / / [id number] Screw Bone 5x42mm Locking Xl25 Recess Medullary Nail Compatible - [id number] Implanted:Qty : 1 on 07/21/2023 by Mal Reyes MD at [facility] Left: Hip [employer] [id number] 07/07/2032 04.045.04 2S / / [id number] Procedures Procedure Name Priority Date/Time Associated Diagnosis Comments BASIC METABOLIC PANEL (BMP) STAT 10/19/2024 5:58 PM EDT HEMOGLOBIN A1C Routine 01/13/2023 5:45 AM EST LIPID PANEL Routine 01/13/2023 5:45 AM EST from Last 3 Months or Most Recently Relevant to Health Maintenance Results * (ABNORMAL) Basic metabolic panel (10/19/2024 5:58 PM EDT) SODIUM 144 133 - 146 mmol/L [facility] CHLORIDE 107 96 - 108 mmol/L [facility] POTASSIUM 3.4 3.3 - 5.1 mmol/L [facility] CO2 20(L) 21 - 35 mmol/L [facility] BUN 13 6 - 19 mg/dL [facility] CREATININE 0.50 0.5 - 1.5 mg/dL [facility] GLUCOSE 119(H) 70 - 99 mg/dL [facility] CALCIUM 9.7 8.4 - 10.3 mg/dL [facility] EGFR 101 >59 mL/min/1.7 3m2 [facility] Comment:Estimated glomerular filtration rate calculated using the CKD-EPI refit equation. ANION GAP 20 10 - 20 mmol/L [facility] Blood 10/19/2024 5:58 PM EDT 10/19/2024 6:09 PM EDT us Thierno Howard MD LAB BLOOD BKR ORDERABLES Final Result Performing Organization Address City/[facility]/ZIP Co de Phone Number [address] [address] * (ABNORMAL) Hemoglobin A1c (01/13/2023 5:45 AM EST) HEMOGLOBIN A1C 6.2(H) 4.3 - 5.8 % [facility] Blood 01/13/2023 5:45 AM EST 01/13/2023 6:01 AM EST us Sue Bhatt DO LAB BLOOD BKR ORDERABLES Xena l Result Performing Organization Address City/[facility] Co de Phone Number [address] [address] * Lipid panel (01/13/2023 5:45 AM EST) HDL 36 mg/dL [facility] Comment: Interpretation <40 mg/dL: Low HDL cholesterol (major risk factor for CHD) Greater than or equal to 60 mg/dL: High HDL cholesterol ( negative risk factor for CHD) HDL - cholesterol is affected by a number of factors, e.g. smoking, excerise, hormones, sex and age. CHOLESTEROL 149 0 - 240 mg/dL [facility] TRIGLYCERIDES 74 30 - 160 mg/dL [facility] LDL 98 50 - 129 mg/dL [facility] Comment: LDL levels in terms of risk for coronary heart disease: <100 mg/dL: Optimal 100-129 mg/dL: Near or above optimal 130-159 mg/dL: Borderline high 160-189 mg/dL: High >190 mg/dL: Very High CARDIAC RISK RATIO 4.1 3.3 - 4.4 [facility] Blood 01/13/2023 5:45 AM EST 01/13/2023 6:00 AM EST us Sue Bhatt DO LAB BLOOD BKR ORDERABLES Xena tatyana Result [facility] [address] [place] [address] from Last 3 Months or Most Recently Relevant to Health Maintenance Insurance MEDICARE REPLACEMENT MEDICARE [place] [id number] [place] [id number] [place] [address] MEDICARE REPLACEMENT MEDICARE REPLACEMENT MEDICARE REPLACEMENT MEDICARE REPLACEMENT Advance Directives For more information, please contact: [phone] (9AM - 5PM [facility], Friday-Friday) Documents on File Type Date Recorded 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 It is not the complete legal health record.[facility]
--- OUTSIDE RECORDS SUMMARY | 2025-02-05 05:06 | XMS_ITS | Encounter Summary ---
Author Organization [employer] Address [address] [place] [address] Care Team Providers Care Banking Manager Name Role Phone Deana Warren Primary Care Provider [phone] Reason for Visit * Reason Onset Date Comments Appointment Request 09/02/2023 Encounter Details Date Type Department Care Team (Late st Contact Info) Description 09/02/2023 Telephone [facility] MEDICINE [address] [place], [place] [phone] Deana Warren ANP [address] [place], [place] [phone] Appointment Request Social History Tobacco Use Types [...] pt requesting to reschedule OV ext 07/16. Advanced Practice Registered Nurse offered 12/03 but pt refused and is requesting a sooner appt if possible. Please contact pt at [phone]. documented in this encounter Plan of Treatment Upcoming Encounters Date Type Department Care Team (Late st Contact Info) Description 03/31/2025 10:30 AM EST Office Visit [facility] MEDICINE [address] [place] [address] Deana Warren ANP [address] [place] [address] 05/30/2025 10:30 AM EDT Office Visit [facility] OPTOMETRY [address] [place] [address] Katt Lazcano, OD [address] [place] [address] documented as of this encounter Visit Diagnoses Not on filedocumented in this encounter Care Teams Banking Manager Relationship Specialty Start Date End Date Deana Warren ANP [address] [place] [address] PCP - General Family Medicine 03/29/22 documented as of this encounter
--- OUTSIDE RECORDS SUMMARY | 2025-02-05 05:06 | XMS_ITS | Encounter Summary ---
Author Organization [employer] Address [address] [place] [address] Care Team Providers Care Route Sales Associate Name Role Phone Deana Warren Primary Care Provider [phone] Reason for Visit * Reason Onset Date Comments FYI 07/25/2023 Encounter Details Date Type Department Care Team (Late st Contact Info) Description 07/25/[address] [facility] MEDICINE [address] [place], [place] [phone] Deana Warren ANP [address] [place], [place] [phone] FYI Social History Tobacco Use Types Packs/Day [...] he deems these calls necessary but requested ghost writer forward as KAITLYNN. If any questions you can contact Bethany at [phone]. documented in this encounter Plan of Treatment Upcoming Encounters Date Type Department Care Team (Late st Contact Info) Description 03/31/2025 10:30 AM EST Office Visit [facility] MEDICINE [address] [place] [address] Deana Warren ANP [address] [place] [address] 05/30/2025 10:30 AM EDT Office Visit [facility] OPTOMETRY [address] [place] [address] TarKatt hamilton, OD [address] [place] [address] documented as of this encounter Visit Diagnoses Not on filedocumented in this encounter Care Teams Route Sales Associate Relationship Specialty Start Date End Date Deana Warren ANP [address] [place] [address] PCP - General Family Medicine 03/29/22 documented as of this encounter
--- OUTSIDE RECORDS SUMMARY | 2025-02-05 05:06 | XMS_ITS | Encounter Summary ---
Author Organization [facility] Address [address] [place] [address] Phone Care Team Providers Care Polisher Aluminum Name Role Phone Deana Warren NP Primary Care Provider [phone] Encounter Details Date Type Department Care Team (Late st Contact Info) Description 06/15/2023 Procedure Pass [facility], Ct Scan - [facility] [address] [place] [address] Social History Tobacco Use Types Packs/Day Years [...] 12:48 PM EDT Addison Angulo RN * [place] Suicide Severity Rating Scale (Screener/Recent Self-Report) Question [...] on filedocumented in this encounter Care Teams Polisher Aluminum Relationship Specialty Start Date End Date Deana Warren NP [address] [place] [address] PCP - General Nurse Practitioner 01/14/23 documented as of this encounter Additional Source Comments The information contained in this document represents components of the legal health record. It is not the complete legal health record.[facility]
--- OUTSIDE RECORDS SUMMARY | 2025-02-05 05:06 | XMS_ITS | Encounter Summary ---
Author Organization [facility] Address [address] [place] [address] Phone Care Team Providers Care Clay Products Machine Operator Name Role Phone Deana Warren NP Primary Care Provider [phone] Encounter Details Date Type Department Care Team (Late st Contact Info) Description 07/21/2023 Procedure Pass [place] Admitting Dept - Virtual Department [address] [place] [address] Social History Tobacco Use Types Packs/Day Years [...] on filedocumented in this encounter Care Teams Clay Products Machine Operator Relationship Specialty Start Date End Date Deana Warren NP [address] [place] [address] PCP - General Nurse Practitioner 01/14/23 documented as of this encounter Additional Source Comments The information contained in this document represents components of the legal health record. It is not the complete legal health record.[facility]
--- OUTSIDE RECORDS SUMMARY | 2025-02-05 05:06 | XMS_ITS | Encounter Summary ---
Author Organization [facility] Address [address] [place] [address] Phone Care Team Providers Care Section Maintainer Name Role Phone Deana Warren NP Primary Care Provider [phone] Encounter Details Date Type Department Care Team (Late st Contact Info) Description 11/16/2023 Procedure Pass [facility], Ct Scan - [facility] [address] [place] [address] Social History Tobacco Use Types Packs/Day Years [...] 5:19 PM EDT Maribell Olguin RN * [place] Suicide Severity Rating Scale (Screener/Recent Self-Report) Question [...] filedocumented in this encounter Care Teams Section Maintainer Relationship Specialty Start Date End Date Deana Warren NP [address] [place] [address] PCP - General Nurse Practitioner 01/14/23 documented as of this encounter Additional Source Comments The information contained in this document represents components of the legal health record. It is not the complete legal health record.[facility]
--- OUTSIDE RECORDS SUMMARY | 2025-02-05 05:07 | XMS_ITS | Encounter Summary ---
Author Organization [employer] Address [address] [facility] [place] [address] Care Team Providers Care Passenger Agent Name Role Phone Deana Warren Primary Care Provider [phone] Reason for Visit * Reason Onset Date Comments Med Refill 05/22/2022 Encounter Details Date Type Department Care Team (Late st Contact Info) Description 05/22/2022 Telephone [facility] MEDICINE [address] [place], [place] [phone] Deana Warren ANP [address] [place], [place] [phone] Med Refill Social History Tobacco Use Types [...] sent to [facility] #[id number] on 03/30/22 with 11 refills on Lantus and 3 refills on Lispro. * Telephone Encounter - Nicho Calhoun - 05/22/2022 11:18 AM EDT Tc from pt requesting med refill Insulin lispro Insulin glargine documented in this encounter Plan of Treatment Upcoming Encounters Date Type Department Care Team (Late st Contact Info) Description 03/31/2025 10:30 AM EST Office Visit [facility] MEDICINE [address] [place] [address] Deana Warren ANP [address] [place] [address] 05/30/2025 10:30 AM EDT Office Visit [facility] OPTOMETRY [address] [place] [address] Katt Lazcano, OD [address] [place] [address] documented as of this encounter Visit Diagnoses Not on filedocumented in this encounter Care Teams Passenger Agent Relationship Specialty Start Date End Date Deana Warren ANP [address] [place] [address] PCP - General Family Medicine 03/29/22 documented as of this encounter
--- OUTSIDE RECORDS SUMMARY | 2025-02-05 05:07 | XMS_ITS | Encounter Summary ---
Author Organization [employer] Address [address] [facility] [address] [place] [address] Care Team Providers Care Store Team Leader Name Role Phone Daena Warren Primary Care Provider Encounter Details Date Type Department Care Team ([facility] st Contact Info) Description 08/04/2024 Orders Only [facility] MEDICINE [address] [place], [place] [phone] Deana Warren ANP [address] [place], [place] [phone] Dyspnea on exertion (Primary Dx) Social History [...] Description 03/31/2025 10:30 AM EST Office Visit [facility] MEDICINE [address] [place] [address] Deana Warren ANP [address] [place] [address] 05/30/2025 10:30 AM EDT Office Visit [facility] OPTOMETRY [address] [place] [address] Katt Lazcano, OD [address] [place] [address] documented as of this encounter Visit Diagnoses Diagnosis Dyspnea on exertion- Primary Other dyspnea and respiratory abnormality documented in this encounter Additional Health Concerns Assessment Noted Time PHQ-9 Depression Total Score: 24 025 9:43 AM EST documented as of this encounter Care Teams Store Team Leader Relationship Specialty Start Date End Date Deana Warren ANP [address] [place] [address] PCP - General Family Medicine 03/29/22 documented as of this encounter
--- OUTSIDE RECORDS SUMMARY | 2025-02-05 05:07 | XMS_ITS | Encounter Summary ---
Author Organization [employer] Address [address] [facility] [address] [place] [address] Care Team Providers Care Nail Artist Name Role Phone Deana Warren Primary Care Provider [phone] Reason for Visit * Reason Comments Med Change Request Encounter Details Date Type Department Care Team ([facility] st Contact Info) Description 02/02/2025 Refill [facility] [address] [place], [place] [id number] Deana Warren ANP [address] [place] [address] Bipolar affective disorder, remission status unspecified (CMS/HCC) ([facility]) Social History Tobacco Use Types Packs/Day Years Used Date Smoking Tobacco: Every Day Cigarettes Smokeless Tobacco: Never Comments:Wants refill on les otine patches Alcohol Use Standard Drinks/Week Comments Not Currently 0 (1 standard drink = 0.6 oz pur e alcohol) drinks socially for holidays Alcohol Answer Date Recorded How often do you have a drink containing alcohol ? 3 11/22/2024 How many drinks containing a lcohol do you have on a typical day when you are drinking? 3 11/22/2024 How often do you have six or more drinks on one occasion? 3 11/22/2024 Depression Answer Date Recorded Patient Health Questionnaire-9 Score 11 11/22/2024 Patient Health Questionnaire-9 Score 11 11/22/2024 Last PHQ-9: Questionnaire Data Not on file 0 11/22/2024 Housing Stability Answer Date Recorded What is [...] Answer Date Recorded Patient Health Questionnaire-2 Score 3 11/22/2024 Internet Access Answer Date Recorded Internet Access [...] Description 03/31/2025 10:30 AM EST Office Visit [facility] [address] [place] [address] Deana Warren ANP [address] [place] [address] 05/30/2025 10:30 AM EDT Office Visit [facility] OPTOM[facility] [address] [place] [address] Katt Lazcano, OD [address] [place] [address] documented as of this encounter Goals Goal Patient Goal Type Associated Problems Recent Progress Patient-Stated? Author Help patients manage their type 2 diabetes Care Plan Help patients manage their type 2 diabetes Marie Lou MA Weekly blood pressure task Care Plan Weekly blood pressure task Marie Lou MA Help patients manage their type 2 diabetes Care Plan Help patients manage their type 2 diabetes No Marie Yousif MA Patient has chronic kidney disease Care Plan Patient has chronic kidney disease No Marie Yousif MA Weekly blood pressure task Care Plan Weekly blood pressure task No Marie Yousif MA Patient has chronic kidney disease Care Plan Patient has chronic kidney disease No Marie Yousif MA Weekly blood pressure task Care Plan Weekly blood pressure task No Wilmar Norton MD Weekly blood pressure task Care Plan Weekly blood pressure task No Wilmar Norton MD Patient has chronic kidney disease Care Plan Patient has chronic kidney disease No Wilmar Norton MD Patient has chronic kidney disease Care Plan Patient has chronic kidney disease No Wilmar Norton MD Weekly blood pressure task Care Plan Weekly blood pressure task No Wilmar Norton MD Weekly blood pressure task Care Plan Weekly blood pressure task No Wilmar Norton MD Patient has chronic kidney disease Care Plan Patient has chronic kidney disease No Wilmar Norton MD Patient has chronic kidney disease Care Plan Patient has chronic kidney disease No Wilmar Norton MD Weekly blood pressure task Care Plan Weekly blood pressure task No Freedom Gupta Weekly blood pressure task Care Plan Weekly blood pressure task No Freedom Gupta Patient has chronic kidney disease Care Plan Patient has chronic kidney disease No Freedom Gupta Patient has chronic kidney disease Care Plan Patient has chronic kidney disease No Brenna Guptarylee Weekly blood pressure task Care Plan Weekly blood pressure task No Kristy Han Weekly blood pressure task Care Plan Weekly blood pressure task No Kristy Han Patient has chronic kidney disease Care Plan Patient has chronic kidney disease No Kristy Han Patient has chronic kidney disease Care Plan Patient has chronic kidney disease No Kristy Han Weekly blood pressure task Care Plan Weekly blood pressure task No Deana Warren ANP Weekly blood pressure task Care Plan Weekly blood pressure task No Deana Warren ANP Patient has chronic kidney disease Care Plan Patient has chronic kidney disease No Deana Warren ANP Patient has chronic kidney disease Care Plan Patient has chronic kidney disease No Deana Warren ANP Weekly blood pressure task Care Plan Weekly blood pressure task No Celeste Aaron Weekly blood pressure task Care Plan Weekly blood pressure task No Celeste Aaron Patient has chronic kidney disease Care Plan Patient has chronic kidney disease No Celeste Aaron Patient has chronic kidney disease Care Plan Patient has chronic kidney disease No Celeste Aaron Weekly blood pressure task Care Plan Weekly blood pressure task No Morgan Brady Weekly blood pressure task Care Plan Weekly blood pressure task No Morgan Brady Patient has chronic kidney disease Care Plan Patient has chronic kidney disease No Morgan Brady Patient has chronic kidney disease Care Plan Patient has chronic kidney disease No Morgan Brady documented as of this encounter Visit Diagnoses Diagnosis Bipolar affective disorder, remission status unspecified (CMS/HCC) ([facility]) documented in this encounter Additional Health Concerns Active Problems Noted Date Diagnosed Date Help patients manage their type 2 diabetes 01/19 Weekly blood pressure task 01/19/2025 Help patients manage their type 2 diabetes 01/19 Patient has chronic kidney disease 01/19/2025 Weekly blood pressure task 01/19/2025 Patient has chronic kidney disease 01/19/2025 Weekly blood pressure task 01/19/2025 Weekly blood pressure task 01/19/2025 Patient has chronic kidney disease 01/19/2025 Patient has chronic kidney disease 01/19/2025 Weekly blood pressure task 01/19/2025 Weekly blood pressure task 01/19/2025 Patient has chronic kidney disease 01/19/2025 Patient has chronic kidney disease 01/19/2025 Weekly blood pressure task 01/19/2025 Weekly blood pressure task 01/19/2025 Patient has chronic kidney disease 01/19/2025 Patient has chronic kidney disease 01/19/2025 Weekly blood pressure task 01/20/2025 Weekly blood pressure task 01/20/2025 Patient has chronic kidney disease 01/20/2025 Patient has chronic kidney disease 01/20/2025 Weekly blood pressure task 01/20/2025 Weekly blood pressure task 01/20/2025 Patient has chronic kidney disease 01/20/2025 Patient has chronic kidney disease 01/20/2025 Weekly blood pressure task 01/21/2025 Weekly blood pressure task 01/21/2025 Patient has chronic kidney disease 01/21/2025 Patient has chronic kidney disease 01/21/2025 Weekly blood pressure task 01/28/2025 Weekly blood pressure task 01/28/2025 Patient has chronic kidney disease 01/28/2025 Patient has chronic kidney disease 01/28/2025 Assessment Noted Time PHQ-9 Depression Total Score: 11 025 10:32 AM EDT documented as of this encounter Care Teams Nail Artist Relationship Specialty Start Date End Date Deana Warren ANP [address] [place] [address] PCP - General Family Medicine 03/29/22 documented as of this encounter
--- OUTSIDE RECORDS SUMMARY | 2025-02-05 05:07 | XMS_ITS | Encounter Summary ---
Author Organization [employer] Address [address] [facility] [address] [place] [address] Care Team Providers Care Yarn Weight And Strength Tester Name Role Phone Deana Warren Primary Care Provider [phone] Reason for Visit * Reason Comments Med Refill Encounter Details Date Type Department Care Team ([facility] st Contact Info) Description 09/27/2024 Refill [facility] MEDICINE [address] [place], [place] [phone] Deana Warren ANP [address] [place], [place] [phone] Type 2 diabetes mellitus with hyperglycemia, unspecified whether correction insulin use ([facility]) Social History Tobacco [...] Description 03/31/2025 10:30 AM EST Office Visit [facility] MED[facility]INE [address] [place] [address] Deana Warren ANP [address] [place] [address] 05/30/2025 10:30 AM EDT Office Visit [facility] OPTOMETRY [address] [place] [address] TarKatt hamilton, OD [address] [place] [address] documented as of this encounter Visit Diagnoses Diagnosis Type 2 diabetes mellitus with hyperglycemia, unspecified whether roasterman insulin use (HCC) documented in this encounter Additional Health Concerns Assessment Noted Time PHQ-9 Depression Total Score: 24 025 9:43 AM EST documented as of this encounter Care Teams Yarn Weight And Strength Tester Relationship Specialty Start Date End Date Deana Warren ANP [address] [place] [id number] PCP - General Family Medicine 03/29/22 documented as of this encounter
--- OUTSIDE RECORDS SUMMARY | 2025-02-05 05:07 | XMS_ITS | Clinical Summary ---
Author Organization [employer] Address [address] [place] [address] Care Team Providers Care District Superintendent Name Role Phone Rafia Mary Primary Care Provider [phone] Allergies No known active allergies Medications * This document contains information received from the source organization and may not represent a complete record from that organization. acetaminophen (Tylenol) 325 MG tablet 022 Active glucagon (Gvoke HypoPen) 1 MG/0.2ML injectionIndica tions:Type 2 diabetes mellitus with hyperglycemia, with long-term current use of insulin (HCC) Administer 1 mg subcutaneously when pt has [...] within 12 hours or as directed by . 30 patch 2 023 Active gabapentin (Neurontin) 300 MG capsuleIndicati ons:Seizure (CMS/HCC) ([facility]) Take 1 capsule (300 mg) by mouth 2 times daily. 60 capsule 2 025 Active Continuous Glucose Fish Hatchery Inspector (FreeStyle Nivia 2 Martinton) deviceIndicatio ns:Hypertension associated with diabetes ([facility]) Scan sensor every 8 hours 1 each 025 Active glucose blood (FreeStyle Precision Shin Test) test stripIndication s:Hypertension associated with diabetes ([facility]) Use to test blood sugar 3 times daily 100 each 12 025 2025 Active insulin pen needle (B-D UF III MINI PEN NEEDLES) 31G x 5 mm miscIndications :Type 2 diabetes mellitus with hyperglycemia, with long-term current use of insulin (HCC) USE THREE TIMES DAILY WITH INSULIN 100 each 3 Active rosuvastatin (Crestor) 20 MG tabletIndicatio ns:Dyslipidemia Take 1 tablet (20 mg) by mouth Once per day. 90 tablet 3 025 2025 Active ciclopirox (Penlac) 8 % solutionIndicat ions:Onycholysi s Apply topically at bedtime. 6 mL Active zolpidem (Ambien) 5 MG tabletIndicatio ns:Insomnia, unspecified type Take 1 tablet (5 mg) by mouth if needed at bedtime for sleep. 30 tablet Active glucose blood (MineralTreeuch Ultra) test stripIndication s:Type 2 diabetes mellitus with hyperglycemia, unspecified whether half-way insulin use (HCC) TEST BLOOD SUGAR THREE TIMES A DAY 300 strip 1 Active Blood Glucose Monitoring Suppl (ONE TOUCH ULTRA MINI) w/Device kitIndications: Type 2 diabetes mellitus with hyperglycemia, unspecified whether termite exterminator helper insulin use (HCC) Test 3 times daily 1 kit Active alendronate (Fosamax) 70 MG tabletIndicatio ns:Osteoporosis , unspecified osteoporosis type, unspecified pathological fracture presence Take 1 tablet (70 mg) by mouth every 7 (seven) days. Take in the morning with a full glass of water, on an empty stomach, and do not take anything else by mouth or lie down for the next 30 min. 4 tablet 025 2025 Active glucose 4 g chewable tabletIndicatio ns:Type 2 diabetes mellitus with hyperglycemia, with long-term current use of insulin (HCC) Chew 4 tabs if needed for low blood sugar 60 or less. Check BG in 15 min, if remains low, repeat. If remains low, call clinic or go to ED. 50 tablet 12 Active nicotine polacrilex (Nicorette) 4 MG gumIndications: Smoking trying to quit Chew 1 each (4 mg) if needed for smoking cessation. 100 each 11 06/03/2 025 Active aspirin 81 MG EC tabletIndicatio ns:Type 2 diabetes mellitus with hyperglycemia, with long-term current use of insulin (HCC),Cardiovas cular event risk Take 1 tablet (81 mg) by mouth Once per day. 90 tablet 3 025 2025 Active amLODIPine (Norvasc) 2.5 MG tabletIndicatio ns:Hypertension associated with diabetes (HCC) TAKE 1 TABLET BY MOUTH EVERY DAY 90 tablet 1 025 Active Continuous Glucose Sensor (FreeStyle Nivia 3 Sensor) miscIndications :Hypertension associated with diabetes (HCC) 1 each every 14 (fourteen) days. Apply 1 sensor every 14 days 2 each Active FLUoxetine (PROzac) 10 MG capsuleIndicati ons:Severe episode of recurrent major depressive disorder, without psychotic features (CMS/HCC) (HCC) Take 1 capsule (10 mg) by mouth in the morning. 30 capsule 1 025 Active Continuous Glucose Sensor (FreeStyle Nivia 3 Plus Sensor) miscIndications :Type 2 diabetes mellitus with hyperglycemia, unspecified whether half-way insulin use (HCC) 1 each every 15 days. Apply 1 every 15 days as directed for CGM 2 each 025 Active Continuous Glucose Fish Hatchery Inspector (FreeStyle Nivia 3 Martinton) deviceIndicatio ns:Type 2 diabetes mellitus with hyperglycemia, unspecified whether half-way insulin use (HCC) 1 each Once per day. Use as [...] hyperglycemia, with long-term current use of insulin ([facility]) INJECT 32 UNITS UNDER THE SKIN ONCE DAILY. 15 mL 3 025 Active cholecalciferol (Vitamin D-3) 25 MCG (1000 UT) capsuleIndicati ons:Vitamin D deficiency Take 1 capsule (25 mcg) by mouth Once per day. 90 capsule 1 025 2025 Active lisinopril 30 MG tabletIndicatio ns:Hypertension associated with diabetes (HCC) TAKE 1 TABLET BY MOUTH EVERY DAY 90 tablet 1 Active OLANZapine (ZyPREXA) 10 MG tabletIndicatio ns:Bipolar affective disorder, remission status unspecified (CMS/HCC) (HCC) Take 1 tablet (10 mg) by mouth at bedtime. 30 tablet 1 025 2024 Active albuterol 108 (90 Base) MCG/ACT inhalerIndicati ons:COPD with exacerbation (CMS/HCC) ([facility]) Inhale 2 puffs every 6 (six) hours if needed for wheezing or shortness of breath. 18 g 1 Active albuterol (2.5 MG/3ML) 0.083% nebulizer solutionIndicat ions:COPD with exacerbation (CMS/HCC) ([facility]) Take 3 mL (2.5 mg) by nebulization every 6 (six) hours if needed for wheezing. 75 mL 11 025 2025 Active albuterol (2.5 MG/3ML) 0.083% nebulizer solutionIndicat ions:Shortness of breath Take 3 mL (2.5 mg) by nebulization every 6 (six) hours if needed for wheezing. 75 mL 11 023 2024 Discontinued(R eorder (will not trigger notification to Pharmacy)) albuterol 108 (90 Base) MCG/ACT inhalerIndicati ons:Dyspnea on exertion Inhale 2 puffs every 6 (six) hours if needed for wheezing or shortness of breath. 18 g 1 025 2024 Discontinued(R eorder (will not trigger notification to Pharmacy)) amoxicillin-cla vulanate (Augmentin) 875-125 MG tabletIndicatio ns:Dog bite, initial encounter Take 1 tablet by mouth 2 times daily for 5 days. 10 tablet 025 2024 acetaminophen (Tylenol Extra Strength) 500 MG tabletIndicatio ns:Dog bite, initial encounter Take 1 tablet (500 mg) by mouth every 6 (six) hours if needed for mild pain for up to 10 days. 30 tablet 025 2024 mupirocin (Bactroban) 2 % ointmentIndicat ions:Dog bite, initial encounter Apply topically in the morning, at noon, and at bedtime for 10 days. 30 g 025 2024 predniSONE (Deltasone) 20 MG tabletIndicatio ns:COPD with exacerbation ([facility]) ([facility]) Take 2 tablets (40 mg) by mouth Once per day for 5 days. 10 tablet 025 2024 Hospital, Clinic, or Other Facility Administered Medication Ordered Dose Route Frequency Start Date End Date Status ipratropium-albutero l (Duo-Neb) 0.5-2.5 mg/3 mL nebulizer solution 3 mgIndications:COPD with exacerbation ([facility]) ([facility]) 3 mg NEBULIZATION Once 01/15/2025 01/15/2025 Ended Active Problems Problem Noted Date Diagnosed Date Anxiety 10/27/2024 Cannabis use disorder 10/27/2024 Age-related osteoporosis wit hout current pathological fracture 07/29/2024 Asymptomatic menopausal state 05/24/2024 Onycholysis 05/24/2024 Seizure ([facility]) 05/15/2023 Type 2 diabetes mellitus with hyperglycemia [...] of unknown insulin dose/formulation this am. Alcoholism ([facility]) 03/29/2022 Bipolar disorder 03/29/2022 Chronic hepatitis C ([facility]) 03/29/2022 Hypertension associated with diabetes 03/29/2022 Overview (08/10/2024): Assessment & Plan (03/29/2022 11:27 AM EST): On lisinopril which she reports compliance to BP elevated today as did not take her pills continue current regimen Readings at home have been WNL. Will f/u in 6 months Functional gait abnormality 03/29/2022 Hepatitis A immune 03/29/2022 Hepatitis B immune 03/29/2022 Hx of drug abuse ([facility]) 03/29/2022 Psychoactive substance use disorder 03/29/2022 Tobacco dependence 03/29/2022 COPD without exacerbation ([facility]) 03/29/2022 Assessment & Plan (03/29/2022 11:26 AM [...] ma jason depressive disorder without psychotic features ([facility]) 03/16/2024 10/27/2024 Assessment & Plan (03/16/2024 11:00 AM EST): [...] organization. Date Type Department Care Team Description 02/02/2025 Refill [facility] [address] [place] [address] Rafia Mary ANP Bipolar affective disorder, remission status unspecified (CMS/HCC) (HCC) 01/28/2025 Patient Outreach [address] [address] Morgan Brady Recovery Supports 01/25/[address] [address] Rafia Mary ANP Type 2 diabetes mellitus with hyperglycemia, unspecified whether half-way insulin use (HCC) 01/20/2025 Orders Only [address] [address] Rafia Mary ANP Alcoholism (CMS/HCC) (HCC) (Primary Dx); Type 2 diabetes mellitus with hyperglycemia, unspecified whether termite exterminator helper insulin use (HCC) 01/19/2025 9:00 AM EST Office Visit [address] [address] Robin Farah MD Alcohol use disorder, severe, dependence (CMS/HCC) (HCC) (Primary Dx); Encounter for immunization 01/19/2025 Patient Outreach [address] [address] Kristy Han Recovery Supports 01/19/[address] [address] Wilmar Norton MD 01/19/[address] [address] Wilmar Norton MD 01/19/2025 Travel 01/17/2025 Patient Outreach [address] [address] Randy Patel Recovery Supports 01/17/2025 Patient Outreach [facility] [address] [place] [address] Kristy Han Recovery Supports 01/15/2025 10:40 AM EST Office Visit [facility] [address] [place] [phone] Eder Loera CNP Dog bite, initial encounter (Primary Dx); Acute cough; COPD with exacerbation (CMS/HCC) (HCC) 01/15/2025 Travel 01/14/2025 Patient Outreach [address] [address] Randy Patel Recovery Supports 01/14/[address] [address] Rafia Mary ANP Nurse Triage 01/14/2025 Patient Outreach [address] [address] Kristy Han Recovery Supports 01/13/2025 Patient Outreach [address] [address] Jose Keller Recovery Supports 01/12/2025 9:00 AM EST Office Visit [address] [address] Robin Farah MD Alcohol use disorder, severe, dependence (CMS/HCC) (HCC) (Primary Dx) 01/12/2025 Travel 01/10/2025 Refill [facility] [address] [place] [address] Rafia Mary ANP Hypertension associated with diabetes (HCC) 01/03/2025 Refill [facility] [address] [place] [address] Rafia Mary ANP Bipolar affective disorder, remission status unspecified (CMS/HCC) (HCC) 12/28/2024 Patient Outreach [facility] [address] [place] [address] Jose Keller Recovery Supports 12/28/2024 Patient Outreach [facility] [address] [place] [address] Pipo Moreno RC Recovery Supports 12/28/2024 Patient Outreach [address] [address] Morgan Brady Recovery Supports 12/27/2024 Patient Outreach [address] [address] Kristy Han Recovery Supports 12/27/2024 Patient Outreach [address] [address] Randy Patel Recovery Supports 12/22/2024 9:00 AM EDT Office Visit [address] [address] Robin Farah MD Alcohol use disorder, severe, dependence (CMS/HCC) (HCC) (Primary Dx) 12/22/[address] [address] Julisa Restrepo, assistant wrestling coach Question 12/22/2024 Travel 12/15/2024 9:00 AM EDT Office Visit [address] [address] Robin Farah MD Alcohol use disorder, severe, dependence (CMS/HCC) (HCC) (Primary Dx) 12/15/2024 Travel 12/10/2024 Patient Outreach [address] [address] Randy Patel Recovery Supports 12/08/2024 9:00 AM EDT Office Visit [address] [address] Robin Farah MD Alcohol use disorder, severe, dependence (CMS/HCC) (HCC) (Primary Dx) 12/08/2024 Travel 12/06/2024 Patient Outreach [address] [address] Randy Patel Recovery Supports 12/03/2024 10:30 AM EDT Office Visit [address] [address] Wilmar Norton MD Alcohol use disorder, severe, dependence (CMS/HCC) (Primary Dx); Cocaine abuse (CMS/HCC) 12/03/2024 Patient Outreach [address] [address] Morgan Brady Recovery Supports 12/03/2024 Travel 12/01/2024 9:00 AM EDT Office Visit [facility] [place] [address] Robin Farah MD Alcohol use disorder, severe, dependence (CMS/HCC) (Primary Dx) 12/01/2024 Travel 11/29/2024 Patient Outreach [facility] [place] [address] Pipo Moreno Recovery Supports 11/26/2024 Patient Outreach [facility] [place] [address] Randy Patel Recovery Supports 11/23/2024 Patient Outreach [facility] [place] [address] Jose Keller Recovery Supports 11/23/2024 Patient Outreach [facility] [place] [address] Morgan Brady Recovery Supports 11/23/2024 Patient Outreach [facility] [place] [address] Morgan Brady Recovery Supports 11/23/2024 Travel 11/22/2024 Patient Outreach [facility] [place] [address] Randy Patel Recovery Supports 11/19/2024 Refill [facility] [place] [address] Rafia Mary ANP Hypertension associated with diabetes (CMS/HCC) 11/17/2024 9:00 AM EDT Office Visit [facility] [place] [address] Robin Farah MD Alcohol use disorder, severe, dependence (CMS/HCC) (Primary Dx) 11/17/2024 Orders Only [facility] [place] [address] Eulalia East, bilingual teacher aide hepatitis C without hepatic coma (CMS/HCC) 11/17/2024 Travel 11/16/2024 Results Follow-Up [address] [place] [address] Rafia Mary ANP Vitamin D, 25-Hydroxy, Total, Immunoassay, PTH, Intact Without Calcium, Basic Metabolic Panel, Additional followed-up results: 3 11/15/2024 Patient Outreach [facility] [address] [place] [address] Randy Patel RC Recovery Supports 11/15/2024 Patient Outreach [facility] [address] [place] [address] Kristy Han RC Recovery Supports 11/15/2024 Results Follow-Up [facility] [address] [place] [address] Rafia Mary ANP Lipid Panel, Standard, Hepatic Function Panel 11/12/2024 Patient Outreach [facility] [address] [place] [address] Morgan Brady Recovery Supports from Last 3 Months Immunizations Immunization Administration Dates Next Due Influenza High-dose Quadriva lent Preservative Free 01/12/2023,12/21/2020 Influenza Quadrivalent Adjuvanted 12/24/2019 Influenza Whole 11/30/2010 Influenza injectable quadriv alent IIV4 with preservative 01/08/2019,12/16/2017,12/09/2016 Influenza injectable quadriv alent preservative free 11/30/2021 Influenza, High Dose Seasona l, Preservative Free 01/19/2025,03/16/2024 Pfizer Covid-19 Vaccine 12+ 03/16/2024 Pneumococcal Conjugate [...] Sign Reading Time Taken Comments Blood Pressure 151/92 01/15/2025 10:36 AM EST Pulse 80 01/15/2025 10:36 AM EST Temperature 36.7 C (98.1 F) 01/15/2025 10:36 AM EST Respiratory Rate 18 01/15/2025 10:36 AM EST Oxygen Saturation 96% 01/15/2025 10:36 AM EST Inhaled Oxygen Concentration - - Weight 64 kg (141 lb) 01/15/2025 10:36 AM EST Height 152.4 cm (5') 08/10/2024 11:27 AM EDT Body Mass Index 27.54 08/10/2024 11:27 AM EDT Plan of Treatment Upcoming Encounters Date Type Department Care Team (Late st Contact Info) Description 03/31/2025 10:30 AM EST Office Visit [facility] [address] [place] [address] Rafia Mary, ANP [address] [place] [address] 05/30/2025 10:30 AM EDT Office Visit [facility] [address] [place], [place] [id number] Katt Lazcano, OD [address] [place] [address] Health Maintenance Due Date Last Done Comments CT Colonography 1954 FIT DNA/Cologuard 1954 FIT 1954 FOBT 1954 Sigmoidoscopy 1954 Diabetes: Foot Exam 1964 Hepatitis A Vaccines (1 of 2 - Risk 2-dose series) 1973 RSV Patients and Patients Aged 60 years or older (1 - Risk 50-74 years 1-dose series) 2004 Hepatitis B Vaccines (1 of 3 - Risk 3-dose series) 2014 COVID-19 Vaccine ( season) 2024 03/16/2024, 12/25/2021, 07/20/2021, Additional history exists Diabetes: Hemoglobin A1C 11/10/2024 025, 05/13/2024, 01/21/2024, Additional history exists SDOH Screening 03/16/2025 03/16/2024 Alcohol/Substance Use Screening 05/13/2025 05/13/2024 Depression Monitoring 05/22/2025 11/22/2024, 025 Diabetes: Urine Protein Screening 06/04/2025 06/04/2024 Mammogram 07/14/2025 07/14/2024, /, 06/01/2020, Additional history exists Tobacco Screening 09/17/2025 [...] Completed 03/16/2024, 08/01/2015, 11/16/2014, Additional history exists Influenza Vaccine Completed 01/19/2025, , 01/12/2023, Additional history exists HIB Vaccines Aged Out [...] on patient's age to complete this topic Goals Goal Patient Goal Type Associated Problems [...] Care Plan Weekly blood pressure task No Isadora Guptalee Patient has chronic kidney disease Care Plan Patient has chronic kidney disease No Isadora Guptalee Patient has chronic kidney disease Care Plan [...] Care Plan Weekly blood pressure task No Rafia Mary ANP Weekly blood pressure task Care Plan Weekly blood pressure task No Rafia Mary ANP Patient has chronic kidney disease Care Plan Patient has chronic kidney disease No Rafia Mary ANP Patient has chronic kidney disease Care Plan Patient has chronic kidney disease No Rafia Mary ANP Weekly blood pressure task Care Plan Weekly blood pressure task No Celeste Aaron Weekly blood pressure task Care Plan Weekly blood pressure task No Celeste Aaron Patient has chronic kidney disease Care Plan Patient has chronic kidney disease No GalenCeleste Patient has chronic kidney disease Care Plan [...] has chronic kidney disease No Morgan Brady Procedures Procedure Name Priority Date/Time Associated Diagnosis Comments POCT RAPID COVID ANTIGEN Routine 01/15/2025 11:06 AM EST Acute cough POCT INFLUENZA B (ID NOW RAPID MOLECULAR) Routine 01/15/2025 11:05 AM EST Acute cough POCT INFLUENZA A (ID NOW RAPID MOLECULAR) Routine 01/15/2025 11:05 AM EST Acute cough POC BLUNT ID NOW STREP A Routine 01/15/2025 11:04 AM EST Acute cough POCT EUGENIA-14 URINE DRUG SCREEN Routine 12/03/2024 10:54 AM EDT Alcohol use disorder, severe, dependence (CMS/HCC) HEPATITIS C VIRAL RNA, QUANTITATIVE, REAL-TIME PCR Routine 11/17/2024 11:54 AM EDT Chronic hepatitis C without hepatic coma (CMS/HCC) VITAMIN D,25-OH,TOTAL,IA Routine 11/17/2024 11:54 AM EDT Vitamin D deficiency Age-related osteoporosis without current pathological fracture BASIC METABOLIC PANEL Routine 11/17/2024 11:54 AM EDT Vitamin D deficiency Age-related osteoporosis without current pathological fracture CALCIUM, IONIZED Routine 11/17/2024 11:5 4 AM EDT Vitamin D deficiency Age-related osteoporosis [...] 2 diabetes mellitus with hyperglycemia, unspecified whether half-way insulin use (CMS/HCC) HM COLONOSCOPY Routine 08/23/2021 HPV MRNA E6/E7 Routine 12/21/2020 10:32 AM EDT THINPREP IMAGING SYSTEM PAP Routine 12/21/2020 10:32 AM EDT from Last 3 Months or Most Recently Relevant to Health Maintenance Results * POCT Rapid Covid-19 BinaxNOW (01/15/2025 11:06 AM EST) Pathologist [facility] Rapid COVID Ag Negative QC Media Lot # [id number] Lot# Expiration Date [id number] Swab 01/15/2025 11:0 6 AM EST [facility] POINT OF CARE TEST ENTER/ EDIT ORDERABLES Final Result * POCT Rapid Influenza B BLUNT ID NOW (01/15/2025 11:05 AM EST) [facility] Influenza B Negative Negative, Indeterminate [facility] QC Media Lot # [id number] [facility] Lot# Expiration Date [facility] Swab 01/15/2025 11:0 5 AM EST Result [facility] POINT OF CARE TEST ENTER/ EDIT ORDERABLES Final Result Performing Organization Address [facility]/ZIP Co de Phone Number [facility] [address] [place] [phone] * POCT Rapid Influenza A BLUNT ID NOW (01/15/2025 11:05 AM EST) [facility] Influenza A Negative Negative, Indeterminate [facility] QC Media Lot # [id number] [facility] Lot# Expiration Date [facility] Swab 01/15/2025 11:0 5 AM EST Result [facility] POINT OF CARE TEST ENTER/ EDIT ORDERABLES Final Result Performing Organization Address [facility] Co de Phone Number [facility] [address] [place] [phone] * POCT Rapid Strep A BLUNT ID NOW (01/15/2025 11:04 AM EST) [facility] Rapid Strep A Screen Negative Negative, None Detected QC Media Lot # [id number] Lot# Expiration Date Swab 01/15/2025 11:0 4 AM EST Result [facility] POINT OF CARE TEST ENTER/ EDIT ORDERABLES Final Result * (ABNORMAL) POCT EUGENIA-14 Urine Drug Screen (12/03/2024 10:54 AM EDT) THC Positive(A) Negative Cocaine Screen, Urine Positive(A) Negative Opiate Screen, Urine Negative Negative Methamphetamine Screen Urine Negative Negative Amphetamine Screen, Urine Negative Negative Benzodiazepines Screen, Urine Negative Negative Barbiturate Screen, Urine Negative Negative Methadone Screen, Urine Negative Negative Buprenophine Screen, Urine Negative Negative TCA, Urine Negative Negative MDMA Urine Negative Negative ng/mL Oxycodone Screen, Urine Negative Negative Phencyclidine (PCP), Urine Negative Negative Fentanyl, Urine Negative Negative Urine Urine specimen obtained by clean catch procedure / Unknown 12/03/2024 10:54 AM EDT us Wilmar Norton MD POINT OF CARE TEST ENTER/EDIT ORDERABLES Edited Result - Final * (ABNORMAL) Vitamin D, 25-Hydroxy, Total, Immunoassay (11/17/2024 11:54 AM EDT) Only the most recent of2 resultswithin the time period is included. Pathologist [facility] Vitamin D 25-OH Total 25.3(L) >30 ng/mL [facility] Comment: Health Based Reference Values*< 20 ng/mL Qbyuvabre13-12 ng/mL Insufficient> 30 ng/mL Sufficient*Farzana MOLINA. N [...] Resul t Performing Organization Address [facility] de Phone Number [facility] [address] [place] [phone] * Hepatitis C Viral RNA, Quantitative, Real-Time PCR (11/17/2024 11:54 AM EDT) Hepatitis C Viral Load <15 NOT DETECTED NOT DETECTED IU/mL [facility] HCV Log PCR <1.18 NOT DETECTED NOT DETECTED Log IU/mL [facility] Comment:For additional infor mation, please refer [email or web address](This link is being provided for informational/educational purposes only.)THIS TEST WAS PERFORMED AT:[facility] [place] [phone] VANG MD 11/17/2024 11:5 4 AM EDT 11/17/2024 1:47 PM EDT Wilmar Norton MD LAB BLOOD ORDERABLES Final Res ult Performing Organization Address [facility] Phone Number [facility] [address] [place] [phone] * (ABNORMAL) PTH, Intact Without Calcium (11/17/2024 11:54 AM EDT) Only the most recent of2 resultswithin the time period is included. Parathyroid Hormone, Intact 152.4(H) 8.7 - 77.1 pg/mL [facility] Blood Venous blood specimen / Unknown 11/17/2024 11:54 AM EDT 11/17/2024 1:47 PM EDT Rafia Mary ANP LAB BLOOD ORDERABLES Final Resul t Performing Organization Address [facility] de Phone Number [facility] [address] [place] [phone] * Calcium, Ionized (11/17/2024 11:54 AM EDT) Calcium, Ionized 5.2 4.7 - 5.5 mg/dL [facility] Comment:THIS TEST WAS PERFOR MED AT:[employer] [place] [phone] VANG MD Blood Venous blood specimen / Unknown 11/17/2024 11:54 AM EDT 11/17/2024 1:47 PM EDT Rafia [facility] LAB BLOOD ORDERABLES Final Resul t [facility] [address] [place] [phone] [phone] * (ABNORMAL) Basic Metabolic Panel (11/17/2024 11:54 AM EDT) Only the most recent of2 resultswithin the time period is included. Sodium 143 135 - 145 mmol/L [facility] Potassium 4.1 3.3 - 5.1 mmol/L [facility] Chloride 109(H) 96 - 108 mmol/L [facility] Carbon Dioxide 27 22 - 29 mmol/L [facility] Anion Gap 11(L) 12 - 20 [facility] Urea Nitrogen (BUN) 16 9 - 16 mg/dL [facility] Creatinine, Serum 0.75 0.5 - 1.4 mg/dL [facility] Estimated Glomerular Filt Rate >60 [facility] Comment:Chronic Kidney Disea se: Estimated GFR < 60 mL/min/[id number] Kidney Disease: Estimated GFR < 15 mL/min/1.73m2 Glucose 114 60 - 115 mg/dL [facility] Calcium 9.2 8.4 - 10.2 mg/dL [facility] Blood Venous blood specimen / Unknown 11/17/2024 11:54 AM EDT 11/17/2024 1:47 PM EDT Rafia Mary ANP LAB BLOOD ORDERABLES Final Resul t Performing Organization Address [facility] Co de Phone Number [facility] [address] [place] [phone] * (ABNORMAL) Hepatic Function Panel (11/15/2024 9:40 AM EDT) Bilirubin, Total 0.3 0.0 - 1.0 mg/dL [facility] Bilirubin, Direct 0.1 0.0 - 0.5 mg/dL [facility] Aspartate Amino Transferase 54(H) 5 - 31 U/L [facility] Alanine Aminotransferase 24 0 - 31 U/L [facility] Total Protein 8.2(H) 6.5 - 8.0 g/dL [facility] Albumin Level 4.4 3.5 - 5.0 g/dL [facility] Alkaline Phosphatase 115 39 - 117 U/L [facility] Blood Venous blood specimen / Unknown 11/15/2024 9:40 AM EDT 11/15/2024 11:21 AM EDT Rafia Mary [facility] LAB BLOOD ORDERABLES Final Resul t Performing Organization Address [facility] de Phone Number [facility] [address] [place] [phone] * Lipid Panel, Standard (11/15/2024 9:40 AM EDT) Triglycerides 63 <150 mg/dL [facility] Comment:Desirable Triglyceri de: less than 150 mg/dLBorderline High Triglyceride 150-199 mg/dLHigh Triglyceride: 200-499 mg/dLVery High Triglyceride: greater than or equal to 5OO mg/dL Cholesterol 132 <200 mg/dL [facility] Comment:Desirable Cholestero l: less than 200 mg/dLBorderline High Cholesterol: 200-239 mg/dLHigh Cholesterol: greater than 239 mg/dL LDL Cholesterol Calculated 60 <100 mg/dL [facility] Comment:Desirable LDL: less than 100 mg/dLNear Optimal/Above Optimal LDL: 110- 129 mg/dLBorderline High LDL: 130-159 mg/dLHigh LDL: 160-189 mg/dLVery High LDL: greater than or equal to 190 mg/dL HDL Cholesterol 60 >40 mg/dL [facility] Comment:Desirable HDL: great er than 40 mg/dL Note: This HDL assay may give artificially low results in patients with liver disease. Blood Venous blood specimen / Unknown 11/15/2024 9:40 AM EDT 11/15/2024 11:21 AM EDT Rafia Mary ANP LAB BLOOD ORDERABLES Final Resul t [facility] [address] [place] [address] [place] [phone] * (ABNORMAL) POCT HGB A1C (08/10/2024 [...] AM EDT Narrative 07/19/2024 3:20 PM EDT [address] [place] [address] Mammography Report Signed Patient: Cora Smith MR#: [id number] : 1955 Acct:[id number] Age/Sex: 68 / F ADM Date: 07/14/24 Loc: [facility] Attending Dr: Rafia Mary BATH SOLUTION MAKER Ordering Physician: RAFIA MARY NP Results: 2Benign Reginaldo izquierdo Date of Service: 07/14/24 Follow Up: 1 Year From Orig inal Mammogram Procedure(s): MM tomosynthesis screening BI Accession Number(s): [id number] cc: Meagan Brewer MD; RAFIA MARY NP [...] 07/19/24 1517 DD/ 0855 TD/TT: 07/14/24 0930 Station Mechanic: Procedure Note Donotuseinterpreter, Image - 07/19/2024 [facility] [address] [place] [address] Mammography Report Signed Patient: Kevan SmithR#: [id number] : 5Acct:[id number] Age/Sex: 68 / FADM Date: 07/14/24 Loc: HO.MAMMO Attending Dr: Rafia Mary NP Ordering Physician: RAFIA MARY NPResults: 2Benign Reginaldo izquierdo Date of Service: 07/14/24Follow Up: 1 Year From Orig inal Mammogram Procedure(s): MM tomosynthesis screening BI Accession Number(s): [id number] cc: Meagan Brewer MD; RAFIA MARY NP [...] 07/19/2024 03:17 PM EDT Dictated By: Sita Bkaer DO Signed By: <Electronically signed by Sita Baker DO in OV> 07/19/24 1517 DD/ 0855 TD/TT: 07/14/24 0930 Station Mechanic: us Rafia [facility]ENLEY IMG BI PROCEDURES Final Result * Albumin, Random Urine W/Creatinine (06/04/2024 1:15 PM EDT) Creatinine, Urine 207.63 mg/dL [facility] Microalbumin Urine 35.0 mg/L [facility] Microalbum Creatinine Ratio Ur 16.8 <30 ug/mg cr [facility] Comment:Albumin/Creatinine R atio Reference Ranges: Normal: < 30 ug/mg creatinine Microalbuminuria: 30 - 300 ug/mg creatinineClinical Albuminuria: > 300 ug/mg creatinine Urine (Urine, Random) 06/04/2024 1:15 PM EDT 06/04/2024 4:09 PM EDT us Meagan Bello MD LAB URINE ORDERABLES Final Result [facility] [address] [place] [address] [phone] * (ABNORMAL) Colonoscopy (08/23/2021) Colonoscopy Abnormal(A ) Normal [facility] Final Result * THINPREP TIS PAP (12/21/2020 [...] has been evaluated with computer assisted technology. [facility] Sustainable Agriculture Specialist: SEE COMMENT [facility] Comment: MXD, CT (ASCP) CT screening location: [place] [address] Interpretation/Res ult: SEE COMMENT [facility] Comment: Negative for intraepithelial lesion or malignancy. Atrophic pattern; predominantly parabasal cells LMP: 11/2015 [facility] Prev. BX: NONE GIVEN [facility] Prev. PAP: NIL NEG [facility] SOURCE: None given [facility] Statement Of Adequacy: SATISFACTORY FOR EVALUATION [facility] 12/21/2020 10:3 2 AM EDT us Ni Curran CNM LAB PATHOLOGY ORDERABLES Final Result Performing Organization Address City/[facility]/ZIP Co de Phone Number [facility] [address] * HPV mRNA E6/E7 (12/21/2020 10:32 AM EDT) HPV nRNA E6/E7 Not Detected Not Detected [facility] Comment: Methodology: Document Control Specialist-Mediated Amplification This assay detects E6/E7 viral messenger RNA (mRNA) from 14 high-risk HPV types (16,18,31,33,35,39,45,51,52,56,58,59,66,68). The analytical performance characteristics of this assay have been determined by [employer]. The modifications have not been cleared or approved by the FDA. This assay has been validated pursuant to the CLIA regulations and is used for clinical purposes. For additional information, please refer to http://education.[employer]/faq/LJZ807q3 (This link if provided for information/ educational purposes only.) 12/21/2020 10:3 2 AM EDT us Ni Curran [facility] LAB BLOOD ORDERABLES Xena joe Result [facility] [address] from Last 3 Months or Most Recently Relevant to Health Maintenance Additional Health Concerns Active Problems Noted Date [...] 01/28/2025 Patient has chronic kidney disease 01/28/2025 Insurance [facility] [employer] (O D-SNP) JASON CAMEJO [id number] Care Teams District Superintendent Relationship Specialty Start Date End Date Rafia Mary ANP [address] [place] [phone] PCP - General Family Medicine 03/29/22
--- OUTSIDE RECORDS SUMMARY | 2025-02-05 05:07 | XMS_ITS | Encounter Summary ---
Author Organization [facility] Address [address] [place] [phone] Phone Care Team Providers Care Cascade Operator Name Role Phone Pcp, Unknown Primary Care Provider Unavailabl e Pcp, Not Required Primary Care Provider Deana Cherry NP Primary Care Provider [phone] Encounter Details Date Type Department Care Team (Late st Contact Info) Description 01/06/2023 Procedure Pass [facility], Ct Scan - [address] [address] Social History Tobacco Use Types Packs/Day Years [...] 5:00 PM EDT Roland Garber, [place] * [place] Suicide Severity Rating Scale (Screener/Recent Self-Report) Question [...] documented as of this encounter Care Teams Cascade Operator Relationship Specialty Start Date End Date Pcp, Unknown PCP - General 08/01/22 01/10/23 Pcp, Not Required [address] [place] [address] PCP - General 01/11/23 01/13/23 Deana Warren NP [address] [place] [address] PCP - General Nurse Practitioner 01/14/23 documented as of this encounter Additional Source Comments The information contained in this document represents components of the legal health record. It is not the complete legal health record.[facility]
--- OUTSIDE RECORDS SUMMARY | 2025-02-05 05:07 | XMS_ITS | Encounter Summary ---
Author Organization [facility] Address [address] [place] [address] Phone Care Team Providers Care Eradicator Name Role Phone Deana Warren NP Primary Care Provider [phone] Encounter Details Date Type Department Care Team (Late st Contact Info) Description 07/14/2023 Procedure Pass [place] Admitting Dept - Virtual Department [address] [place] [address] Social History Tobacco Use Types Packs/Day Years [...] on filedocumented in this encounter Care Teams Eradicator Relationship Specialty Start Date End Date Deana Warren NP [address] [place] [address] PCP - General Nurse Practitioner 01/14/23 documented as of this encounter Additional Source Comments The information contained in this document represents components of the legal health record. It is not the complete legal health record.[facility]
--- OUTSIDE RECORDS SUMMARY | 2025-02-05 05:07 | XMS_ITS | Encounter Summary ---
Author Organization [facility] Address [address] [place] [address] Phone Care Team Providers Care Outsole Molder Name Role Phone Pcp, Unknown Primary Care Provider Unavailabl e Pcp, Not Required Primary Care Provider Deana Cherry NP Primary Care Provider [phone] Encounter Details Date Type Department Care Team (Late st Contact Info) Description 01/07/2023 Procedure Pass [facility], Ct Scan - [address] [address] Social History Tobacco Use Types Packs/Day Years [...] 5:00 PM EDT Roland Garber, [place] * [place] Suicide Severity Rating Scale (Screener/Recent Self-Report) Question [...] documented as of this encounter Care Teams Outsole Molder Relationship Specialty Start Date End Date Pcp, Unknown PCP - General 08/01/22 01/10/23 Pcp, Not Required [address] [place] [address] PCP - General 01/11/23 01/13/23 Deana Warren NP [address] [place] [address] PCP - General Nurse Practitioner 01/14/23 documented as of this encounter Additional Source Comments The information contained in this document represents components of the legal health record. It is not the complete legal health record.[facility]
--- OUTSIDE RECORDS SUMMARY | 2025-02-05 05:07 | XMS_ITS | Encounter Summary ---
Author Organization [employer] Address [address] [facility] 7t [place] [address] Care Team Providers Care Percussion Instrument Repairer Name Role Phone Deana Warren Primary Care Provider [phone] Encounter Details Date Type Department Care Team ([facility] st Contact Info) Description 11/17/2024 Orders Only [facility] [address] [place] [address] [place], [place] [address] [place] [address] Chronic hepatitis C without hepatic coma (CMS/HCC) [...] Description 03/31/2025 10:30 AM EST Office Visit [facility] [address] [place] [address] Deana Warren, ANP [address] [place] [address] 05/30/2025 10:30 AM EDT Office Visit [facility] [address] [place] [address] Katt Lazcano, OD [address] [place] [address] Scheduled Orders Name Type Priority Associated Diagnoses Orde r Schedule Hepatitis C Viral RNA, Quantitative, Real-Time PCR Lab Routine Chronic hepatitis C without hepatic coma (CMS/HCC) Expected: 11/17/2024 (Approximate), Expires: 11/17/2025 documented as of this encounter Procedures Procedure Name Priority Date/Time Associated Diagnosis Comments HEPATITIS C VIRAL RNA, QUANTITATIVE, REAL-TIME PCR Routine 11/17/2024 11:54 AM EDT Chronic hepatitis C without hepatic coma (CMS/HCC) documented in this encounter Results * Hepatitis C Viral RNA, Quantitative, Real-Time PCR (11/17/2024 11:54 AM EDT) Hepatitis C Viral Load <15 NOT DETECTED NOT DETECTED IU/mL [facility] HCV Log PCR <1.18 NOT DETECTED NOT DETECTED Log IU/mL [facility] Comment:For additional infor bhavin, please refer tohttp://education.[employer]/faq/GXV43z8(This link is being provided for informational/educational purposes only.)THIS TEST WAS PERFORMED AT:[employer] [place] [phone] VANG MD 11/17/2024 11:5 4 AM EDT 11/17/2024 1:47 PM EDT us Wilmar Norton MD LAB BLOOD ORDERABLES Final Res ult [facility] [address] [place] [address] [phone] documented in this encounter Visit Diagnoses Diagnosis Chronic hepatitis C without hepatic coma (HCC) documented in this encounter Additional Health Concerns Assessment Noted Time PHQ-9 Depression Total Score: 12 025 1:15 PM EDT documented as of this encounter Care Teams Percussion Instrument Repairer Relationship Specialty Start Date End Date Deana Warren ANP [address] [place] [address] PCP - General Family Medicine 03/29/22 documented as of this encounter
--- OUTSIDE RECORDS SUMMARY | 2025-02-05 05:07 | XMS_ITS | Encounter Summary ---
Author Organization [facility] Address [address] [facility] [place] [address] Phone Care Team Providers Care Raftsman Name Role Phone Pcp, Unknown Primary Care Provider Unavailabl e Pcp, Not Required Primary Care Provider Deana Cherry NP Primary Care Provider [phone] Encounter Details Date Type Department Care Team (Late st Contact Info) Description 01/09/2022 Procedure Pass [facility], Ct Scan - [facility] [address] [place] [address] Social History Tobacco Use Types Packs/Day Years [...] 8:00 AM EDT Mariam Jordan RN * [place] Suicide Severity Rating Scale (Screener/Recent Self-Report) Question [...] documented as of this encounter Care Teams Raftsman Relationship Specialty Start Date End Date Pcp, Unknown PCP - General 08/01/22 01/10/23 Pcp, Not Required [address] [place] [address] PCP - General 01/11/23 01/13/23 Deana Warren NP [address] [place] [address] PCP - General Nurse Practitioner 01/14/23 documented as of this encounter Additional Source Comments The information contained in this document represents components of the legal health record. It is not the complete legal health record.[facility]
--- OUTSIDE RECORDS SUMMARY | 2025-02-05 05:07 | XMS_ITS | Encounter Summary ---
Author Organization [facility] Address [address] [facility] [address] [place] [address] Phone Care Team Providers Care Fixed Income Analyst Name Role Phone Pcp, Unknown Primary Care Provider Unavailabl e Pcp, Not Required Primary Care Provider Deana Cherry NP Primary Care Provider [phone] Encounter Details Date Type Department Care Team (Late st Contact Info) Description 01/10/2022 Procedure Pass [facility], Ct Scan - [facility] [address] [place] [address] Social History Tobacco Use Types Packs/Day Years [...] 8:00 AM EDT Mariam Jordan RN * [place] Suicide Severity Rating Scale (Screener/Recent Self-Report) Question [...] documented as of this encounter Care Teams Fixed Income Analyst Relationship Specialty Start Date End Date Pcp, Unknown PCP - General 08/01/22 01/10/23 Pcp, Not Required [address] [place] [address] PCP - General 01/11/23 01/13/23 Deana Warren NP [address] [place] [address] PCP - General Nurse Practitioner 01/14/23 documented as of this encounter Additional Source Comments The information contained in this document represents components of the legal health record. It is not the complete legal health record.[facility]
--- OUTSIDE RECORDS SUMMARY | 2025-02-05 05:07 | XMS_ITS | Encounter Summary ---
Author Organization [facility] Address [address] [place] [address] Phone Care Team Providers Care Customer Leader Name Role Phone Pcp, Unknown Primary Care Provider Unavailabl e Pcp, Not Required Primary Care Provider Deana Cherry NP Primary Care Provider [phone] Encounter Details Date Type Department Care Team (Late st Contact Info) Description 01/10/2023 Procedure Pass [facility] [address] [facility] 2nd [place] [address] Social History Tobacco Use Types Packs/Day Years [...] 4:41 PM EST Terrie Echavarria RN * [place] Suicide Severity Rating Scale (Screener/Recent Self-Report) Question [...] documented as of this encounter Care Teams Customer Leader Relationship Specialty Start Date End Date Pcp, Unknown PCP - General 08/01/22 01/10/23 Pcp, Not Required [address] [place] [address] PCP - General 01/11/23 01/13/23 Deana Warren NP [address] [place] [address] PCP - General Nurse Practitioner 01/14/23 documented as of this encounter Additional Source Comments The information contained in this document represents components of the legal health record. It is not the complete legal health record.[facility]
--- OUTSIDE RECORDS SUMMARY | 2025-02-05 05:07 | XMS_ITS | Encounter Summary ---
Author Organization [facility] Address [address] [facility] [address] [place] [address] Phone Care Team Providers Care Product Consultant Name Role Phone Pcp, Unknown Primary Care Provider Unavailabl e Pcp, Not Required Primary Care Provider Deana Cherry NP Primary Care Provider [phone] Encounter Details Date Type Department Care Team (Late st Contact Info) Description 01/23/2022 Transcribe Orders [facility] Specimen Processing [address] [place] [address] Pcp, Unknown Social History Tobacco Use Types [...] documented as of this encounter Care Teams Product Consultant Relationship Specialty Start Date End Date Pcp, Unknown PCP - General 08/01/22 01/10/23 Pcp, Not Required [address] [place] [address] PCP - General 01/11/23 01/13/23 Deana Warren NP [address] [place] [address] PCP - General Nurse Practitioner 01/14/23 documented as of this encounter Additional Source Comments The information contained in this document represents components of the legal health record. It is not the complete legal health record.[facility]
--- OUTSIDE RECORDS SUMMARY | 2025-02-05 05:07 | XMS_ITS | Encounter Summary ---
Author Organization [employer] Address [address] [place] [address] 7[address] [place] [address] Care Team Providers Care Crimp Setter Name Role Phone Deana Warren Primary Care Provider [phone] Reason for Visit * Reason Onset Date Comments Med Refill 03/29/2022 Encounter Details Date Type Department Care Team (Late st Contact Info) Description 03/29/2022 Telephone [facility] [address] [place], [place] [phone] Deana Warren ANP [address] [place], [place] [phone] Med Refill Social History Tobacco Use Types [...] Patient was hospitalized in December 2021 at [facility] and was discharged on 12/18/21. Meds [...] Description 03/31/2025 10:30 AM EST Office Visit [facility] [address] [place] [address] Deana Warren ANP [address] [place] [address] 05/30/2025 10:30 AM EDT Office Visit [facility] [address] [place] [address] Katt Lazcano, OD [address] [place] [address] documented as of this encounter Visit Diagnoses Not on filedocumented in this encounter Care Teams Crimp Setter Relationship Specialty Start Date End Date Deana Warren ANP [address] [place] [address] PCP - General Family Medicine 03/29/22 documented as of this encounter
--- OUTSIDE RECORDS SUMMARY | 2025-02-05 05:07 | XMS_ITS | Data Portability ---
Author Organization [employer] [facility] Address [address] [place] [address] Care Team Providers Care Lime Hide Inspector Name Role Phone HIM CCA OTHER Assessment Encounter Date Assessment Date Assessment LastModified by Organization Details LastModified Time 12/08/2023 12/08/2023 I provided real -time medical direction via phone for this encounter and was available for additional phone-based assistance as needed. I have reviewed and agree with the Assessment and Plan as documented by the Retail Coverage Merchandiser. Patient given the opportunity to ask questions. Our service contacted for an assessment of: Urinary symptom As per above, patient developed urinary symptoms of frequency dysuria last week. Things got better without treatment. Calls the service today for evaluation. Denies fever chills. Denies flank pain or abdominal pain. Resolved lower tract symptoms. Per receptionist airline lounge on the scene, five hundred stable the patient is afebrile. UA as noted in receptionist airline lounge evaluation is overall negative. Impression: Resolved urinary [...] Lab urinalysis , dipstick [address] [facility], [address] [place], [address] 21:17:32 Referral None recorded. Procedures None recorded. [...] temperature Respiratory rate Heart rate Oxygen saturation Systolic And Diastolic Provider Name and Address Organization Details Last Updated DateTime 4 97.9 [degF] 16 /min 92 /min 99 % 130/72 mm[Hg] Not Available [employer] - production 4 [...] Diagnosis SNOMED-CT Code Diagnosis ICD10 Code Diagnosis IMO Codes Diagnosis Note [id number] Anjana Obando MD Main - [facility] [address] [place] [id number] 12/08/2023 21:16:16 12/09/2023 12:54:16 Urinary symptoms 449329404 R39.9 Health Concerns Section Related Observation LastModified by Organization Detai ls LastModified Time None Recorded Concern Status LastModified by Organization Details LastModified Time None Recorded Advance Directives Directive None Recorded Payers Insurance Date Sequence Insurance Name Policy Number Policy Blanca Covered Member ID Blanca Member ID Guarantor Name 12/10/2023 1 [facility] - DOS ON OR AFTER 2022 - DUAL ELIGIBLE - CORRECTION OPTIONS AND ONE CARE (MEDICARE REPLACEMENT/ADV ANTAGE - HMO) Cora Smith [id number] Cora Thomas MoranSarah Notes Date Note Type Note Provider Name and Address Organization Details Recorded Time 12/08/2023 text/html HPI: PMHx: Chronic hep c, RANJIT, Call returned to Cora Smith to triage below. Reports having pain [...] exam. As not able to come into [facility]. Confirmed address and phone number. .................. .................. .................. .................. .................. .................. .................. ............... CRC Nurse Triage Notes (Saleem Sears): Chief Complaints: UTI/Pyelonephritis PMH: COPD/Asthma, Hypertension, Diabetes Comments: Reviewed HPI Retail Coverage Merchandiser Organization Information for Anjel Gracia [employer]RISTOPHER [employer] Name: [employer]. Address: [address] [place] [address], Sustainable Agriculture Specialist: Luis Galloway MD [place] No.: [id number] Retail Coverage Merchandiser POC Test Results from Anjel Gracia Urine Dipstick (19:54:02) Urine leukocytes: - MARIAM Urine nitrites: - NIT Urine urobilinogen: - URO Urine protein: - PRO Urine pH: - pH Urine blood: - BLO Urine specific gravity: 1.005 SG Urine ketones: + KET Urine bilirubin: - INOCENCIA Urine glucose: - GLU .................. .................. .................. .................. .................. .................. .................. ............... Retail Coverage Merchandiser Note From Anjel Gracia: Dispatched to the [...] ............... Disposition: Fulfilled Anjana Obando MD [address] [facility],[address], [place], [address], KILLIAN - [employer] 12/08/2023 21:18:40 OBGyn Episode No OBEpisode recorded.
--- OUTSIDE RECORDS SUMMARY | 2025-02-05 05:07 | XMS_ITS | Encounter Summary ---
Author Organization [facility] Address [address] [place] [address] Phone Care Team Providers Care News Anchor Name Role Phone Pcp, Unknown Primary Care Provider Unavailabl e Pcp, Not Required Primary Care Provider Deana Cherry NP Primary Care Provider [phone] Encounter Details Date Type Department Care Team (Late st Contact Info) Description 01/10/2022 Procedure Pass [facility], Ct Scan - [facility] [address] [place] [address] Social History Tobacco Use Types Packs/Day Years [...] 8:00 AM EDT Mariam Jordan RN * [place] Suicide Severity Rating Scale (Screener/Recent Self-Report) Question [...] as of this encounter Care Teams News Anchor Relationship Specialty Start Date End Date Pcp, Unknown PCP - General 08/01/22 01/10/23 Pcp, Not Required [address] [place] [address] PCP - General 01/11/23 01/13/23 Deana Warren NP [address] [place] [address] PCP - General Nurse Practitioner 01/14/23 documented as of this encounter Additional Source Comments The information contained in this document represents components of the legal health record. It is not the complete legal health record.[facility]
--- OUTSIDE RECORDS SUMMARY | 2025-02-05 05:07 | XMS_ITS | Encounter Summary ---
Author Organization [facility] Address [address] [place] [address] Phone Care Team Providers Care Rug Receiving Clerk Name Role Phone Pcp, Unknown Primary Care Provider Unavailabl e Pcp, Not Required Primary Care Provider Deana Cherry NP Primary Care Provider [phone] Encounter Details Date Type Department Care Team (Late st Contact Info) Description 01/10/2022 Procedure Pass [facility] [address] [place] [address] Social History Tobacco Use Types Packs/Day Years [...] 8:00 AM EDT Mariam Jordan RN * [place] Suicide Severity Rating Scale (Screener/Recent Self-Report) Question [...] documented as of this encounter Care Teams Rug Receiving Clerk Relationship Specialty Start Date End Date Pcp, Unknown PCP - General 08/01/22 01/10/23 Pcp, Not Required [address] [place] [address] PCP - General 01/11/23 01/13/23 Deana Warren NP [address] [place] [address] PCP - General Nurse Practitioner 01/14/23 documented as of this encounter Additional Source Comments The information contained in this document represents components of the legal health record. It is not the complete legal health record.[facility]
--- OUTSIDE RECORDS SUMMARY | 2025-02-05 05:07 | XMS_ITS | Encounter Summary ---
Author Organization [facility] Address [address] [facility] [address] [place] [address] Phone Care Team Providers Care Supervisor Newspaper Deliveries Name Role Phone Pcp, Unknown Primary Care Provider Unavailabl e Pcp, Not Required Primary Care Provider Deana Cherry NP Primary Care Provider [phone] Encounter Details Date Type Department Care Team (Late st Contact Info) Description 01/23/2022 Procedure Pass [facility], Ct Scan - [address] [address] Social History Tobacco Use Types Packs/Day Years [...] as of this encounter Care Teams Supervisor Newspaper Deliveries Relationship Specialty Start Date End Date Pcp, Unknown PCP - General 08/01/22 01/10/23 Pcp, Not Required [address] [address] PCP - General 01/11/23 01/13/23 Deana Warren NP [address] [place] [address] PCP - General Nurse Practitioner 01/14/23 documented as of this encounter Additional Source Comments The information contained in this document represents components of the legal health record. It is not the complete legal health record.[facility]
--- OUTSIDE RECORDS SUMMARY | 2025-02-05 05:07 | XMS_ITS | Encounter Summary ---
Author Organization [facility] Address [address] [place] [address] Phone Care Team Providers Care Spinner Iron Name Role Phone Pcp, Unknown Primary Care Provider Unavailabl e Pcp, Not Required Primary Care Provider Deana Cherry NP Primary Care Provider [phone] Encounter Details Date Type Department Care Team (Late st Contact Info) Description 01/15/2022 Procedure Pass [facility] [address] [place] [address] Social History Tobacco Use Types Packs/Day Years [...] documented as of this encounter Care Teams Spinner Iron Relationship Specialty Start Date End Date Pcp, Unknown PCP - General 08/01/22 01/10/23 Pcp, Not Required [address] [place] [address] PCP - General 01/11/23 01/13/23 Deana Warren NP [address] [place] [address] PCP - General Nurse Practitioner 01/14/23 documented as of this encounter Additional Source Comments The information contained in this document represents components of the legal health record. It is not the complete legal health record.[facility]
--- OUTSIDE RECORDS SUMMARY | 2025-02-05 05:07 | XMS_ITS | Encounter Summary ---
Author Organization [facility] Address [address] [address] [facility] [address] [place] [address] Phone Care Team Providers Care Cruise Staff Member Name Role Phone Pcp, Unknown Primary Care Provider Unavailabl e Pcp, Not Required Primary Care Provider Deana Cherry NP Primary Care Provider Encounter Details Date Type Department Care Team (Late st Contact Info) Description 01/22/2022 Procedure Pass [facility], Ct Scan - [address] [address] Social History Tobacco Use Types Packs/Day Years [...] documented as of this encounter Care Teams Cruise Staff Member Relationship Specialty Start Date End Date Pcp, Unknown PCP - General 08/01/22 01/10/23 Pcp, Not Required [address] [place] [address] PCP - General 01/11/23 01/13/23 Deana Warren NP [address] [place] [address] PCP - General Nurse Practitioner 01/14/23 documented as of this encounter Additional Source Comments The information contained in this document represents components of the legal health record. It is not the complete legal health record.[facility]
--- OUTSIDE RECORDS SUMMARY | 2025-02-05 05:07 | XMS_ITS | Encounter Summary ---
Author Organization [facility] Address [address] [place] [address] Phone Care Team Providers Care Street Roller Engineer Name Role Phone Pcp, Unknown Primary Care Provider Unavailabl e Pcp, Not Required Primary Care Provider Deana Cherry NP Primary Care Provider [phone] Encounter Details Date Type Department Care Team (Late st Contact Info) Description 01/15/2022 Procedure Pass [facility] [address] [place] [address] Social History Tobacco Use Types Packs/Day Years [...] documented as of this encounter Care Teams Street Roller Engineer Relationship Specialty Start Date End Date Pcp, Unknown PCP - General 08/01/22 01/10/23 Pcp, Not Required [address] [place] [address] PCP - General 01/11/23 01/13/23 Deana Warren NP [address] [place] [address] PCP - General Nurse Practitioner 01/14/23 documented as of this encounter Additional Source Comments The information contained in this document represents components of the legal health record. It is not the complete legal health record.[facility]
--- OUTSIDE RECORDS SUMMARY | 2025-02-05 05:07 | XMS_ITS | Encounter Summary ---
Author Organization [employer] Address [address] [facility] 7t [place] [address] Care Team Providers Care Cut Off Worker Name Role Phone Deana Warren Primary Care Provider [phone] Reason for Visit * Reason Comments Med Refill Encounter Details Date Type Department Care Team ([facility] st Contact Info) Description 01/04/2023 Refill [facility] MED[facility]INE [address] [place], [place] [phone] Sonia Chase MD [address] [place], [place] [phone] Type 2 diabetes mellitus with hyperglycemia, with long-term current use of insulin ([facility]) Social History Tobacco Use Types Packs/Day Years [...] Description 03/31/2025 10:30 AM EST Office Visit [facility] MEDICINE [address] [place] [address] Deana Warren ANP [address] [place] [address] 05/30/2025 10:30 AM EDT Office Visit [facility] OPTOMETRY [address] [place] [address] Katt Lazcano, OD [address] [place] [address] documented as of this encounter Visit Diagnoses Diagnosis Type 2 diabetes mellitus with hyperglycemia, with long-term current use of insulin (HCC) documented in this encounter Care Teams Cut Off Worker Relationship Specialty Start Date End Date Deana Warren ANP [address] [place] [address] PCP - General Family Medicine 03/29/22 documented as of this encounter
--- OUTSIDE RECORDS SUMMARY | 2025-02-05 05:07 | XMS_ITS | Encounter Summary ---
Author Organization [employer] Address [address] [place] [address] 7t [place] [address] Care Team Providers Care Agricultural Extension Officer Name Role Phone Deana Warren Primary Care Provider [phone] Encounter Details Date Type Department Care Team (Late st Contact Info) Description 04/04/2022 Telephone [facility] MEDICINE [address] [place] [address] Deana Warren ANP [address] [place] [address] Social History Tobacco Use Types Packs/Day Years [...] Description 03/31/2025 10:30 AM EST Office Visit [facility] [address] [place] [address] Deana Warren ANP [address] [place] [address] 05/30/2025 10:30 AM EDT Office Visit [facility] OPTOMETRY [address] [place] [address] [phone] Katt Lazcano, OD [address] [place] [address] documented as of this encounter Visit Diagnoses Not on filedocumented in this encounter Care Teams Agricultural Extension Officer Relationship Specialty Start Date End Date Deana Warren ANP [address] [place] [address] PCP - General Family Medicine 03/29/22 documented as of this encounter
--- OUTSIDE RECORDS SUMMARY | 2025-02-05 05:07 | XMS_ITS | Encounter Summary ---
Author Organization [facility] Address [address] [place] [address] Phone Care Team Providers Care Production Mechanic Tin Cans Name Role Phone Pcp, Unknown Primary Care Provider Unavailabl e Pcp, Not Required Primary Care Provider Deana Cherry NP Primary Care Provider [phone] Encounter Details Date Type Department Care Team (Late st Contact Info) Description 01/10/2022 Procedure Pass [facility] [address] [place] [address] Social History Tobacco Use Types Packs/Day Years [...] 8:00 AM EDT Mariam Jordan RN * [place] Suicide Severity Rating Scale (Screener/Recent Self-Report) Question Answer Date of Assessment Author 1. Wish to be (Past 1 Month) No 01/10/2022 8:00 AM EDT Natalia Jordan RN 2. Non-Specific Active Suicidal Thoughts (Past 1 Month) No 01/10/2022 8:00 AM EDT Natalia Jordan RN 6. Suicidal Behavior (Lifetime) No 01/10/2022 8:00 AM EDT Natalai Jordan RN documented as of this encounter Plan of Treatment Not on file documented as of this encounter Visit Diagnoses Not on filedocumented in this encounter Additional Health Concerns Infection Onset Date Last Indicated Resolved Time CoV-Risk Comment:2 Neg covid 01/06/2023 01/06/2023 01/08/2023 11:21 AM EDT CoV-Risk 03/15/2023 03/15/2023 03/26/2023 1:22 AM EST documented as of this encounter Care Teams Production Mechanic Tin Cans Relationship Specialty Start Date End Date Pcp, Unknown PCP - General 08/01/22 01/10/23 Pcp, Not Required [address] [place] [address] PCP - General 01/11/23 01/13/23 Deana Warren NP [address] [place] [address] PCP - General Nurse Practitioner 01/14/23 documented as of this encounter Additional Source Comments The information contained in this document represents components of the legal health record. It is not the complete legal health record.[facility]
--- OUTSIDE RECORDS SUMMARY | 2025-02-05 05:07 | XMS_ITS | Encounter Summary ---
Author Organization [facility] Address [address] [place] [address] Phone Care Team Providers Care Windshield Repair Technician Name Role Phone Pcp, Unknown Primary Care Provider Unavailabl e Pcp, Not Required Primary Care Provider Deana Cherry NP Primary Care Provider [phone] Encounter Details Date Type Department Care Team (Late st Contact Info) Description 08/01/2022 Procedure Pass [facility], Ct Scan - [address] [address] Social History Tobacco Use Types Packs/Day Years [...] 8:49 PM EDT Brandi Ordoñez RN * [place] Suicide Severity Rating Scale (Screener/Recent Self-Report) Question [...] documented as of this encounter Care Teams Windshield Repair Technician Relationship Specialty Start Date End Date Pcp, Unknown PCP - General 08/01/22 01/10/23 Pcp, Not Required [address] [place] [address] PCP - General 01/11/23 01/13/23 Deana Warren NP [address] [place] [address] PCP - General Nurse Practitioner 01/14/23 documented as of this encounter Additional Source Comments The information contained in this document represents components of the legal health record. It is not the complete legal health record.[facility]
--- OUTSIDE RECORDS SUMMARY | 2025-02-05 05:07 | XMS_ITS | Encounter Summary ---
Author Organization [employer] Address [address] [facility] 7t [place] [address] Care Team Providers Care Men'S Garment Fitter Name Role Phone Deana Warren Primary Care Provider [phone] Reason for Visit * Reason Comments Med Refill Encounter Details Date Type Department Care Team ([facility] st Contact Info) Description 01/25/2025 Refill [facility] MED[facility]INE [address] [place], [place] [phone] Deana Warren ANP [address] [place], [place] [phone] Type 2 diabetes mellitus with hyperglycemia, unspecified whether terminal gauger insulin use (HCC) Social History Tobacco Use Types Packs/Day Years [...] t he electric, gas, oil or water [employer] threatened to shut off services in your [...] Description 03/31/2025 10:30 AM EST Office Visit [facility] MED[facility]INE [address] [place] [address] Deana Warren ANP [address] [place] [address] 05/30/2025 10:30 AM EDT Office Visit [facility] OPTOMETRY [address] [place] [address] Katt Lazcano, OD [address] [place] [address] documented as of this encounter Goals Goal [...] has chronic kidney disease No Isadora Guptalee Weekly blood pressure task Care Plan Weekly blood pressure task No Kristy Han Weekly blood pressure task Care Plan Weekly blood pressure task No Kristy Han Patient has chronic kidney disease Care Plan Patient has chronic kidney disease No Kristy aHn Patient has chronic kidney disease Care Plan [...] has chronic kidney disease No Celeste Aaron documented as of this encounter Visit Diagnoses Diagnosis Type 2 diabetes mellitus with hyperglycemia, unspecified whether chcf insulin use (HCC) documented in this encounter [...] 01/21/2025 Patient has chronic kidney disease 01/21/2025 Assessment Noted Time PHQ-9 Depression Total Score: 11 025 10:32 AM EDT documented as of this encounter Care Teams Men'S Garment Fitter Relationship Specialty Start Date End Date Deana Warren ANP [address] [place] [address] PCP - General Family Medicine 03/29/22 documented as of this encounter
--- OUTSIDE RECORDS SUMMARY | 2025-02-05 05:07 | XMS_ITS | Encounter Summary ---
Author Organization [employer] Address [address] [facility] 7t [place] [address] Care Team Providers Care Assisted Living Care Manager Name Role Phone Deana Warren Primary Care Provider [phone] Encounter Details Date Type Department Care Team ([facility] st Contact Info) Description 04/20/2024 Orders Only [facility] MEDICINE [address] [place], [place] [phone] Deana Warren ANP [address] [place], [place] [phone] Social History Tobacco Use Types Packs/Day Years [...] Description 03/31/2025 10:30 AM EST Office Visit [facility] [address] [place] [address] Deana Warren ANP [address] [place] [address] 05/30/2025 10:30 AM EDT Office Visit [facility] OPTOMETRY [address] [place] [address] Katt Lazcano, OD [address] [place] [address] documented as of this encounter Visit Diagnoses Not on filedocumented in this encounter Additional Health Concerns Assessment Noted Time PHQ-9 Depression Total Score: 24 025 9:43 AM EST documented as of this encounter Care Teams Assisted Living Care Manager Relationship Specialty Start Date End Date Deana Warren ANP [address] [place] [address] PCP - General Family Medicine 03/29/22 documented as of this encounter
--- OUTSIDE RECORDS SUMMARY | 2025-02-05 05:07 | XMS_ITS | Encounter Summary ---
Author Organization [employer] Address [address] [facility] 7t [place] [address] Care Team Providers Care Food Safety Manager Name Role Phone Deana Warren Primary Care Provider [phone] Reason for Visit * Reason Onset Date Comments FYI 02/12/2023 Encounter Details Date Type Department Care Team (Late st Contact Info) Description 02/12/2023 Telephone [facility] MED[facility]INE [address] [place], [place] [phone] Deana Warren ANP [address] [place], [place] [phone] FYI Social History Tobacco Use Types Packs/Day [...] - 02/12/2023 2:36 PM EST Tc from [place] [facility] stating that pt missed her second appt today due to clinician being out and will be seeing pt today or tomorrow. If any questions please contact at [phone] documented in this encounter Plan of Treatment Upcoming Encounters Date Type Department Care Team (Late st Contact Info) Description 03/31/2025 10:30 AM EST Office Visit [facility] MED[facility]INE [address] [place] [address] Deana Warren ANP [address] [place] [address] 05/30/2025 10:30 AM EDT Office Visit [facility] OPTOMETRY [address] [place] [address] Tarka, Katt, OD [address] [place] [address] documented as of this encounter Visit Diagnoses Not on filedocumented in this encounter Care Teams Food Safety Manager Relationship Specialty Start Date End Date Deana Warren ANP [address] [place] [address] PCP - General Family Medicine 03/29/22 documented as of this encounter
--- OUTSIDE RECORDS SUMMARY | 2025-02-05 05:07 | XMS_ITS | Encounter Summary ---
Author Organization [facility] Address [address] [facility] [address] [place] [address] Phone Care Team Providers Care Insulation Estimator Name Role Phone Pcp, Unknown Primary Care Provider Unavailabl e Pcp, Not Required Primary Care Provider Deana Cherry NP Primary Care Provider [phone] Encounter Details Date Type Department Care Team (Late st Contact Info) Description 01/14/2022 Procedure Pass [facility] [address] [place] [address] Social History Tobacco Use Types Packs/Day Years [...] documented as of this encounter Care Teams Insulation Estimator Relationship Specialty Start Date End Date Pcp, Unknown PCP - General 08/01/22 01/10/23 Pcp, Not Required [address] [place] [address] PCP - General 01/11/23 01/13/23 Deana Warren NP [address] [place] [address] PCP - General Nurse Practitioner 01/14/23 documented as of this encounter Additional Source Comments The information contained in this document represents components of the legal health record. It is not the complete legal health record.[facility]
[2025-02-05 05:16] LABS: Alanine Aminotransferase 25 U/L (0-31); Albumin Level 4.3 g/dL (3.5-5.0); Alkaline Phosphatase 104 U/L (39-117); Anion Gap 14 (12-20); Aspartate Amino Transferase 32 U/L (5-31); Blood Urea Nitrogen 17 mg/dL (9-16); Calcium 9.8 mg/dL (8.4-10.2); Carbon Dioxide 24 mmol/L (22-29); Chloride 111 mmol/L (96-108); Creatinine Clr Calc Pharmacy 56.7; Estimated Glomerular Filt Rate > 60; Potassium 4.0 mmol/L (3.3-5.1); Sodium 145 mmol/L (135-145); Total Protein 7.9 g/dL (6.5-8.0)
[2025-02-05 05:25] LABS: Troponin-I High Sensitivity < 2.7 ng/L (<3.5-17.0)
[2025-02-05 05:26] LABS: NT Pro B Type Natriuretic Pept 147.4 pg/mL (<300)
[2025-02-05 05:38] LABS: Resp Syncy Virus RNA Qual PCR NEGATIVE (Negative); SARS COV2 PCR INHOUSE NEGATIVE (Negative)
[2025-02-05 06:12] VITALS: BP 177/82; PULSE 60; RESP 22; TEMP 36.6; O2SAT 96
[2025-02-05 06:40] VITALS: BP 177/82; PULSE 60; RESP 22; TEMP 36.6; O2SAT 96
== END 2025-02-05 06:41 | disposition home or self-care (01) ==
PROVIDERS: Emergency Provider Emergency Medicine; PCP Nurse Practitioner Primary Care
DX: J40 Bronchitis, not specified as acute or chronic (principal); R05.9 Cough, unspecified; R06.02 Shortness of breath; Z79.899 Other long term (current) drug therapy; Z03.818 Encounter for observation for suspected exposure to other biological agents ruled out
CPT/HCPCS: 71045; 80048; 80076; 82803; 83880; 84484; 85025; 87637; 99283

== ENCOUNTER → 2025-02-05 04:21 | Outpatient (BNV) | payer OTHER, SELFPAY | PROVIDERS: Emergency Provider Emergency Medicine; PCP Nurse Practitioner Primary Care; Visit Provider Radiology Diagnostic Radiology | DX: R05.9 Cough, unspecified (principal) | CPT/HCPCS: 71045 ==

== ENCOUNTER 2025-02-09 08:41 | Outpatient (REF) | payer OTHER, SELFPAY ==
--- OUTSIDE RECORDS SUMMARY | 2025-02-09 08:57 | XMS_ITS | Encounter Summary ---
Author Organization [facility] Address [address] [place] [address] Phone Care Team Providers Care Inspector Precision Assembly Name Role Phone Deana Warren NP Primary Care Provider [phone] Encounter Details Date Type Department Care Team (Late st Contact Info) Description 06/17/2023 Procedure Pass OR Admitting Dept - Virtual Department 30 [place] [address] Social History Tobacco Use Types Packs/Day Years [...] on filedocumented in this encounter Care Teams Inspector Precision Assembly Relationship Specialty Start Date End Date Deana Warren NP 230 [place] [address] PCP - General Nurse Practitioner 01/14/23 documented as of this encounter Additional Source Comments The information contained in this document represents components of the legal health record. It is not the complete legal health record.[facility]
--- OUTSIDE RECORDS SUMMARY | 2025-02-09 08:57 | XMS_ITS | Encounter Summary ---
Author Organization [employer] Address 75 [facility] 7t [place] [address] Care Team Providers Care Head Bander And Liner Operator Name Role Phone Deana Warren Primary Care Provider [phone] Reason for Visit * Reason Onset Date Comments Nurse Triage 12/30/2023 Encounter Details Date Type Department Care Team (Late st Contact Info) Description 12/30/2023 Telephone [facility] 230 [place], [place] [phone] Deana Warren ANP 230 [place], [place] [phone] Nurse Triage Social History Tobacco Use Types [...] 915am. Pt is offered to come to [facility] today but, declines due to lack [...] Care Team (Late st Contact Info) Description 02/09/2025 9:00 AM EST Office Visit [facility] [address] [place] [address] Robin Farah MD 230 [place] [address] 03/31/2025 10:30 AM EST Office Visit [facility] 230 [place] [address] Deana Warren ANP [address] [place] [address] 05/30/2025 10:30 AM EDT Office Visit [facility] [address] [place] [address] Katt Lazcano, OD [address] [place] [address] documented as of this encounter Visit Diagnoses Not on filedocumented in this encounter Care Teams Head Bander And Liner Operator Relationship Specialty Start Date End Date Deana Warren ANP [address] [place] [address] PCP - General Family Medicine 03/29/22 documented as of this encounter
--- OUTSIDE RECORDS SUMMARY | 2025-02-09 08:57 | XMS_ITS | Encounter Summary ---
Author Organization [employer] Address 75 [facility] 7t [place] [address] Care Team Providers Care Supervisor Braiding Name Role Phone Deana Warren Primary Care Provider [phone] Reason for Visit * Reason Onset Date Comments Appointment Request 09/02/2023 Encounter Details Date Type Department Care Team (Late st Contact Info) Description 09/02/2023 Telephone [facility] 230 [place], [place] [phone] Deana Warren ANP 230 [place], [place] [phone] Appointment Request Social History Tobacco Use Types [...] pt requesting to reschedule OV ext 07/16. [employer] Power Plant Superintendent offered 12/03 but pt refused and is requesting a sooner appt if possible. Please contact pt at [phone]. documented in this encounter Plan of Treatment Upcoming Encounters Date Type Department Care Team (Late st Contact Info) Description 02/09/2025 9:00 AM EST Office Visit [facility] [address] [place] [address] Robin Farah MD 230 [place] [address] 03/31/2025 10:30 AM EST Office Visit [facility] [address] [place] [address] Deana Warren ANP [address] [place] [address] 05/30/2025 10:30 AM EDT Office Visit [facility] OPTOMETRY [address] [place] [address] Katt Lazcano OD 267 [place] [address] documented as of this encounter Visit Diagnoses Not on filedocumented in this encounter Care Teams Supervisor Braiding Relationship Specialty Start Date End Date Deana Warren ANP 230 [place] [address] PCP - General Family Medicine 03/29/22 documented as of this encounter
--- OUTSIDE RECORDS SUMMARY | 2025-02-09 08:57 | XMS_ITS | Encounter Summary ---
Author Organization [facility] Address [address] [place] [address] Phone Care Team Providers Care Char Conveyor Tender Name Role Phone Briana Deana DAVIS Primary Care Provider [phone] Encounter Details Date Type Department Care Team (Latest Contact Info) Description 07/08/2023 Ancillary Orders [facility] Orthopedics & Sports Medicine [address] [place] [address] Shelli Billy PA-C [address] [place] [address] Orthopedics & Sports Medicine, [facility] [place] [address] [email or web address] Closed displaced comminuted fracture of [...] Primary documented in this encounter Care Teams Char Conveyor Tender Relationship Specialty Start Date End Date Deana Warren NP [address] [place] [address] PCP - General Nurse Practitioner 01/14/23 documented as of this encounter Additional Source Comments The information contained in this document represents components of the legal health record. It is not the complete legal health record.[facility]
--- OUTSIDE RECORDS SUMMARY | 2025-02-09 08:57 | XMS_ITS | Encounter Summary ---
Author Organization [facility] Address [address] [place] [address] Phone Care Team Providers Care Multicultural Manager Name Role Phone Denaa Warren NP Primary Care Provider [phone] Encounter Details Date Type Department Care Team (Late st Contact Info) Description 06/15/2023 Procedure Pass [facility], Ct Scan - [facility] 30 [place] [address] Social History Tobacco Use Types Packs/Day Years [...] 12:48 PM EDT Addison Angulo RN * [place] Suicide Severity Rating Scale (Screener/Recent Self-Report) Question [...] on filedocumented in this encounter Care Teams Multicultural Manager Relationship Specialty Start Date End Date Deana Warren NP 230 [place] [address] PCP - General Nurse Practitioner 01/14/23 documented as of this encounter Additional Source Comments The information contained in this document represents components of the legal health record. It is not the complete legal health record.[facility]
--- OUTSIDE RECORDS SUMMARY | 2025-02-09 08:57 | XMS_ITS | Encounter Summary ---
Author Organization [facility] Address [address] [place] [address] Phone Care Team Providers Care Equipment Oiler Name Role Phone Deana Warren NP Primary Care Provider [phone] Encounter Details Date Type Department Care Team (Late st Contact Info) Description 11/16/2023 Procedure Pass [facility], Ct Scan - [facility] 30 [place] [address] Social History Tobacco Use Types Packs/Day Years [...] 5:19 PM EDT Maribell Olguin RN * [place] Suicide Severity Rating Scale (Screener/Recent Self-Report) Question [...] on filedocumented in this encounter Care Teams Equipment Oiler Relationship Specialty Start Date End Date Deana Warren NP [address] [place] [address] PCP - General Nurse Practitioner 01/14/23 documented as of this encounter Additional Source Comments The information contained in this document represents components of the legal health record. It is not the complete legal health record.[facility]
--- OUTSIDE RECORDS SUMMARY | 2025-02-09 08:57 | XMS_ITS | Clinical Summary ---
Author Organization [facility] Address [address] [facility] [address] [place] [address] Phone Care Team Providers Care Application Assistant Name Role Phone Deana Warren NP Primary Care Provider [phone] Allergies No known active allergies Medications OLANZapine [...] = 10 401+ = 12 and call MD/CONTACT CENTER ENGINEER 4 Active zolpidem (AMBIEN) 5 MG tablet [...] (01/12/2023 7:15 PM EST): -Patient presented to [facility] with AMS thought to be due to hypoglycemia, had a seizure in the ED and EEG the following day was concerning for status epilepticus therefore she was transferred to [facility] -Repeat EEG shows slowing, no epileptiform discharges [...] place on low-dose insulin sign scale with lobfh-sm-nakv testing -Continue to hold long-acting as patient is encephalopathic and not taking in much PO Assessment & Plan (02/07/2022 10:00 AM EST): DKA at time of presentation, resolved. Hemoglobin A1c 14.1. BG now in 100-200 range. -Continue Lantus insulin 24 units qd - POC/ISS Assessment & Plan (01/20/2022 8:42 AM EST): Continue with insulin. Continue with [id number]'s. Patient has had her diabetic ketoacidosis resolved. We will likely transition off of dextrose as the patient's oral intake improves. She still on some aspirations precautions. Dysphagia 01/20/2022 Assessment & Plan (01/13/2023 10:02 AM EST): -[facility] consulted, cleared for reg diet Assessment & Plan (02/07/2022 9:54 AM EST): ERIKA Izquierdo From [facility] 02/01, well with solids. Needs moderately thick [...] Pt has been on geripsych unit at [place] recently but then back home after. MS [...] 10:04 AM EST): Evaluated by ophthalmology at [facility] Recommended erythromycin ointment, will continue Pneumonia due [...] ecorded Are you denied basic needs [facility] as food, clothing, or medical care? No 10/19/2024 In the past 12 months have y ou been in a relationship with a person who hurts, threatens, or tries to control you? No 10/19/2024 Are you denied basic needs [facility] as food, clothing, or medical care? No [...] this topic Medical Devices Implanted Type Area Casting House Laborer Device Identifier Shelf Expiration Date Model / Serial / Lot Nail Bone [id number] 125deg Tfn Advanced Ti Cannulated Left - [id number] Implanted:Qty : 1 on 06/17/2023 by Mal Reyes MD at [facility] Left: Acetabulum [employer] [id number] 11/07/2032 04.037.12 5S / / [id number] Blade Bone 10.5x85mm Helical Tfn Advanced - [id number] Implanted:Qty : 1 on 06/17/2023 by Mal Reyes MD at [facility] Left: Acetabulum [employer] [id number] 10/07/2032 04.038.38 5S / / [id number] Screw Bone 5x46mm Locking Im Nail - [id number] Implanted:Qty : 1 on 06/17/2023 by Mal Reyes MD at [facility] Left: Femur [employer] [id number] 03/09/2032 04.045.04 6S / / [id number] Screw Bone 5x44mm Locking Im Nail - [id number] Implanted:Qty : 1 on 07/21/2023 by Mal Reyes MD at [facility] Left: Hip [employer] [id number] 01/07/2033 04.045.04 4S / / [id number] Screw Bone 5x42mm Locking Xl25 Recess Medullary Nail Compatible - [id number] Implanted:Qty : 1 on 07/21/2023 by Mal Reyes MD at [facility] Left: Hip [employer] [id number] 07/07/2032 04.045.04 2S / / [id number] Procedures Procedure Name Priority Date/Time Associated Diagnosis Comments BASIC METABOLIC PANEL (BMP) STAT 10/19/2024 5:58 PM EDT HEMOGLOBIN A1C Routine 01/13/2023 5:45 AM EST LIPID PANEL Routine 01/13/2023 5:45 AM EST from Last 3 Months or Most Recently Relevant to Health Maintenance Results * (ABNORMAL) Basic metabolic panel (10/19/2024 5:58 PM EDT) SODIUM 144 133 - 146 mmol/L CHLORIDE 107 96 - 108 mmol/L POTASSIUM 3.4 3.3 - 5.1 mmol/L CO2 20(L) 21 - 35 mmol/L BUN 13 6 - 19 mg/dL CREATININE 0.50 0.5 - 1.5 mg/dL GLUCOSE 119(H) 70 - 99 mg/dL CALCIUM 9.7 8.4 - 10.3 mg/dL EGFR 101 >59 mL/min/1.7 3m2 Comment:Estimated glomerular filtration rate calculated using the CKD-EPI refit equation. ANION GAP 20 10 - 20 mmol/L Blood 10/19/2024 5:58 PM EDT 10/19/2024 6:09 PM EDT us Thierno Howard MD LAB BLOOD BKR ORDERABLES Final Result Performing Organization Address City/[facility]/ZIP Co de Phone Number [address] [address] * (ABNORMAL) Hemoglobin A1c (01/13/2023 5:45 AM EST) HEMOGLOBIN A1C 6.2(H) 4.3 - 5.8 % Blood 01/13/2023 5:45 AM EST 01/13/2023 6:01 AM EST us Sue Bhatt DO LAB BLOOD BKR ORDERABLES Xena l Result Performing Organization Address City/[facility] Co de Phone Number [address] [address] * Lipid panel (01/13/2023 5:45 AM EST) HDL 36 mg/dL Comment: Interpretation <40 mg/dL: Low HDL cholesterol (major risk factor for CHD) Greater than or equal to 60 mg/dL: High HDL cholesterol ( negative risk factor for CHD) HDL - cholesterol is affected by a number of factors, e.g. smoking, excerise, hormones, sex and age. CHOLESTEROL 149 0 - 240 mg/dL TRIGLYCERIDES 74 30 - 160 mg/dL LDL 98 50 - 129 mg/dL Comment: LDL levels in terms of risk for coronary heart disease: <100 mg/dL: Optimal 100-129 mg/dL: Near or above optimal 130-159 mg/dL: Borderline high 160-189 mg/dL: High >190 mg/dL: Very High CARDIAC RISK RATIO 4.1 3.3 - 4.4 C [facility] Blood 01/13/2023 5:45 AM EST 01/13/2023 6:00 AM EST us Sue Bhatt DO LAB BLOOD BKR ORDERABLES Xena tatyana Result [address] [place] [address] from Last 3 Months or Most Recently Relevant to Health Maintenance Insurance MEDICARE REPLACEMENT MEDICARE [place] [address] [place] [address] [place] [address] MEDICARE REPLACEMENT MEDICARE REPLACEMENT MEDICARE REPLACEMENT MEDICARE REPLACEMENT Advance Directives For more information, please contact: [phone] (9AM - 5PM [facility], Friday-Friday) Documents on File Type Date Recorded Patient Sorority Mother Expl anation Healthcare Proxy 01/24/2022 10:49 AM [...] Agent (Proxy form on file) Care Teams Application Assistant Relationship Specialty Start Date End Date eDana Warren NP [address] [place] [address] PCP - General Nurse Practitioner 01/14/23 Additional Source Comments The information contained in this document represents components of the legal health record. It is not the complete legal health record.[facility]
--- OUTSIDE RECORDS SUMMARY | 2025-02-09 08:57 | XMS_ITS | Encounter Summary ---
Author Organization [facility] Address [address] [place] [address] Phone Care Team Providers Care Foundry Worker General Name Role Phone Deana Warren NP Primary Care Provider [phone] Encounter Details Date Type Department Care Team (Late st Contact Info) Description 11/16/2023 Procedure Pass [facility], Ct Scan - [facility] 30 [place] [address] Social History Tobacco Use Types Packs/Day Years [...] 5:19 PM EDT Maribell Olguin RN * [place] Suicide Severity Rating Scale (Screener/Recent Self-Report) Question [...] on filedocumented in this encounter Care Teams Foundry Worker General Relationship Specialty Start Date End Date Deana Warren NP [address] [place] [address] PCP - General Nurse Practitioner 01/14/23 documented as of this encounter Additional Source Comments The information contained in this document represents components of the legal health record. It is not the complete legal health record.[facility]
--- OUTSIDE RECORDS SUMMARY | 2025-02-09 08:57 | XMS_ITS | Encounter Summary ---
Author Organization [facility] Address [address] [place] [address] Phone Care Team Providers Care Um Rn Name Role Phone Deana Warren NP Primary Care Provider [phone] Encounter Details Date Type Department Care Team (Late st Contact Info) Description 06/15/2023 Procedure Pass [facility], Ct Scan - [facility] 30 [place] [address] Social History Tobacco Use Types Packs/Day Years [...] 12:48 PM EDT Addison Angulo RN * [place] Suicide Severity Rating Scale (Screener/Recent Self-Report) Question [...] on filedocumented in this encounter Care Teams Um Rn Relationship Specialty Start Date End Date Deana Warren NP 230 [place] [address] PCP - General Nurse Practitioner 01/14/23 documented as of this encounter Additional Source Comments The information contained in this document represents components of the legal health record. It is not the complete legal health record.[facility]
--- OUTSIDE RECORDS SUMMARY | 2025-02-09 08:58 | XMS_ITS | Encounter Summary ---
Author Organization [employer] Address [address] [facility] 7t [place] [address] Care Team Providers Care Fox Raiser Name Role Phone Deana Warren Primary Care Provider [phone] Reason for Visit * Reason Onset Date Comments Med Refill 05/22/2022 Encounter Details Date Type Department Care Team (Late st Contact Info) Description 05/22/2022 Telephone [facility] 230 [place], [place] [phone] Deana Warren ANP 230 [place], [place] [phone] Med Refill Social History Tobacco Use Types [...] 11:35 AM EDT Medications were sent to [id number] on 03/30/22 with 11 refills on Lantus and 3 refills on Lispro. * Telephone Encounter - Nicho Cahloun - 05/22/2022 11:18 AM EDT Tc from pt requesting med refill Insulin lispro Insulin glargine documented in this encounter Plan of Treatment Upcoming Encounters Date Type Department Care Team (Late st Contact Info) Description 02/09/2025 9:00 AM EST Office Visit [facility] 230 [place] [address] Robin Farah MD [address] [place] [address] 03/31/2025 10:30 AM EST Office Visit [facility] 230 [place] [address] Deana Warren ANP 230 [place] [address] 05/30/2025 10:30 AM EDT Office Visit [facility] OPTOMETRY [address] [place] [address] Katt Lazcano OD [address] [place] [address] documented as of this encounter Visit Diagnoses Not on filedocumented in this encounter Care Teams Fox Raiser Relationship Specialty Start Date End Date Deana Warren ANP [address] [place] [address] PCP - General Family Medicine 03/29/22 documented as of this encounter
--- OUTSIDE RECORDS SUMMARY | 2025-02-09 08:58 | XMS_ITS | Encounter Summary ---
Author Organization [employer] Address [address] [facility] 7t [place] [address] Care Team Providers Care Bingo Attendant Name Role Phone Deana Warren Primary Care Provider [phone] Encounter Details Date Type Department Care Team ([facility] st Contact Info) Description 04/20/2024 Orders Only [facility] 230 [place], [place] [phone] Deana Warren ANP 230 [place], [place] [phone] Social History Tobacco Use Types Packs/Day Years [...] Description 02/09/2025 9:00 AM EST Office Visit [facility] [address] [place] [address] Robin Farah MD 230 [place] [address] 03/31/2025 10:30 AM EST Office Visit [facility] [address] [place] [address] Deana Warren ANP 230 [place] [address] 05/30/2025 10:30 AM EDT Office Visit [facility] [address] [place] [address] Katt Lazcano OD 267 [place] [address] documented as of this encounter Visit Diagnoses Not on filedocumented in this encounter Additional Health Concerns Assessment Noted Time PHQ-9 Depression Total Score: 24 025 9:43 AM EST documented as of this encounter Care Teams Bingo Attendant Relationship Specialty Start Date End Date Deana Warren ANP [address] [place] [address] PCP - General Family Medicine 03/29/22 documented as of this encounter
--- OUTSIDE RECORDS SUMMARY | 2025-02-09 08:58 | XMS_ITS | Encounter Summary ---
Author Organization [employer] Address [address] [facility] 7t [place] [address] Care Team Providers Care Counter Sales Representative Name Role Phone Deana Warren Primary Care Provider [phone] Reason for Visit * Reason Onset Date Comments Appointment Request 07/28/2023 Encounter Details Date Type Department Care Team (Late st Contact Info) Description 07/28/2023 Telephone [facility] 230 [place], [place] [phone] Deana Warrne ANP 230 [place], [place] [phone] Appointment Request Social History Tobacco Use Types [...] stated had a procedure done on 07/20 [facility] patient had a Hip surgery and would like to follow up with the provider documented in this encounter Plan of Treatment Upcoming Encounters Date Type Department Care Team (Late st Contact Info) Description 02/09/2025 9:00 AM EST Office Visit [facility] [address] [place] [address] Robni Farah MD 230 [place] [address] 03/31/2025 10:30 AM EST Office Visit [facility] [address] [place] [address] Deana Warren ANP 230 [place] [address] 05/30/2025 10:30 AM EDT Office Visit [facility] OPTOM[facility]RY [address] [place] [address] Katt Lazcano OD [address] [place] [address] documented as of this encounter Visit Diagnoses Not on filedocumented in this encounter Care Teams Counter Sales Representative Relationship Specialty Start Date End Date Deana Warren ANP [address] [place] [address] PCP - General Family Medicine 03/29/22 documented as of this encounter
--- OUTSIDE RECORDS SUMMARY | 2025-02-09 08:58 | XMS_ITS | Encounter Summary ---
Author Organization [employer] Address [address] [place] [address] 7t [place] [address] Care Team Providers Care Mis Director Name Role Phone Deana Warren Primary Care Provider [phone] Reason for Visit * Reason Onset Date Comments new script 06/21/2022 Encounter Details Date Type Department Care Team (Late st Contact Info) Description 06/21/[address] [facility] 230 [place], [place] [phone] Deana Warren ANP 230 [place] [address] new script Social History Tobacco Use Types [...] Description 02/09/2025 9:00 AM EST Office [facility] 230 [place] [address] Robin Farah MD 230 [place] [address] 03/31/2025 10:30 AM EST Office Visit [facility] 230 [place] [address] Deana Warren ANP [address] [place] [address] 05/30/2025 10:30 AM EDT Office Visit [facility] OPTOMETRY [address] [place] [address] Katt Lazcano, OD [address] [place] [address] documented as of this encounter Visit Diagnoses Not on filedocumented in this encounter Care Teams Mis Director Relationship Specialty Start Date End Date Deana Warrne ANP [address] [place] [address] PCP - General Family Medicine 03/29/22 documented as of this encounter
--- OUTSIDE RECORDS SUMMARY | 2025-02-09 08:58 | XMS_ITS | Encounter Summary ---
Author Organization [facility] Address [address] [place] [address] Phone Care Team Providers Care Visual Developer Name Role Phone Deana Warren NP Primary Care Provider [phone] Encounter Details Date Type Department Care Team (Late st Contact Info) Description 10/19/2024 Procedure Pass [facility], Ct Scan - [facility] [address] [place] [address] Social History Tobacco Use Types Packs/Day Years [...] 5:28 PM EDT Gely Lubin, [place] * Cardinal Suicide Severity Rating Scale (Screener/Recent Self-Report) Question [...] on filedocumented in this encounter Care Teams Visual Developer Relationship Specialty Start Date End Date Deana Warren NP [address] [place] [id number] PCP - General Nurse Practitioner 01/14/23 documented as of this encounter Additional Source Comments The information contained in this document represents components of the legal health record. It is not the complete legal health record.[facility]
--- OUTSIDE RECORDS SUMMARY | 2025-02-09 08:58 | XMS_ITS | Encounter Summary ---
Author Organization [facility] Address [address] [place] [address] Phone Care Team Providers Care Youth Teacher Name Role Phone Deana Warren NP Primary Care Provider [phone] Encounter Details Date Type Department Care Team (Late st Contact Info) Description 07/21/2023 Procedure Pass [place] Admitting Dept - Virtual Department [address] [place] [address] Social History Tobacco Use Types Packs/Day Years [...] on filedocumented in this encounter Care Teams Youth Teacher Relationship Specialty Start Date End Date eDana Warren NP [address] [place] [address] PCP - General Nurse Practitioner 01/14/23 documented as of this encounter Additional Source Comments The information contained in this document represents components of the legal health record. It is not the complete legal health record.[facility]
--- OUTSIDE RECORDS SUMMARY | 2025-02-09 08:58 | XMS_ITS | Encounter Summary ---
Author Organization [employer] Address [address] [facility] 7t [place] [address] Care Team Providers Care High School Drafting Teacher Name Role Phone Deana Warren Primary Care Provider [phone] Reason for Visit * Reason Onset Date Comments Nurse Triage 10/13/2023 Encounter Details Date Type Department Care Team (Late st Contact Info) Description 10/13/2023 Telephone [facility] [address] [place], [place] [phone] Deana Warren ANP [address] [place], [place] [phone] Nurse Triage Social History Tobacco Use Types [...] Description 02/09/2025 9:00 AM EST Office Visit [facility] [address] [place] [address] Robin Farah MD [address] [place] [address] 03/31/2025 10:30 AM EST Office Visit [facility] [address] [place] [address] Deana Warren ANP [address] [place] [address] 05/30/2025 10:30 AM EDT Office Visit [facility] [address] [place] [address] Ktat Lazcano OD [address] [place] [address] documented as of this encounter Visit Diagnoses Not on filedocumented in this encounter Care Teams High School Drafting Teacher Relationship Specialty Start Date End Date Deana Warren ANP [address] [place] [address] PCP - General Family Medicine 03/29/22 documented as of this encounter
--- OUTSIDE RECORDS SUMMARY | 2025-02-09 08:58 | XMS_ITS | Encounter Summary ---
Author Organization [employer] Address [address] [facility] 7t [place] [address] Care Team Providers Care Middle School History Teacher Name Role Phone Deana Warren Primary Care Provider [phone] Encounter Details Date Type Department Care Team ([facility] st Contact Info) Description 02/07/2025 Telephone [facility] [address] [place], [place] [phone] Deana Warren ANP [address] [place], [place] [phone] Social History Tobacco Use Types Packs/Day Years [...] encounter Miscellaneous Notes * Telephone Encounter - Stephanie Segura MA - 02/07/2025 10:24 AM EST Called patient regarding lab work, non fasting. Patient will come in on Friday to get it done * Telephone Encounter - Stephanie Segura MA - 02/07/2025 10:24 AM EST ----- Message from Deana Warren sent at 02/06/2025 11:50 PM EST ----- Please ask pt to get labs repeated when she has a chance. Not fasting. Thank you! ----- Message ----- From: KALE Goins Sent: 01/04/2025 12:00 AM EST To: KALE Goins Repeat PTH back yet? documented in this encounter Plan of Treatment Upcoming Encounters Date Type Department Care Team (Late st Contact Info) Description 02/09/2025 9:00 AM EST Office Visit [facility] [address] [place] [address] Robin Farah MD [address] [place] [address] 03/31/2025 10:30 AM EST Office Visit [facility] [address] [place] [address] Deana Warren ANP [address] [place] [address] 05/30/2025 10:30 AM EDT Office Visit [facility] OPTOM[facility] [address] [place] [address] Katt Lazcano, OD [address] [place] [address] documented as of this encounter Goals Goal Patient Goal Type Associated Problems Recent Progress Patient-Stated? Author Help patients manage their type 2 diabetes Care Plan Help patients manage their type 2 diabetes Marie Lou MA Weekly blood pressure task Care Plan Weekly blood pressure task No Marie Yousif MA Help patients manage their type 2 [...] task Care Plan Weekly blood pressure task Wilmar Hardy MD Weekly blood pressure task Care Plan Weekly blood pressure task No Wilmar Norton MD Patient has chronic kidney disease Care Plan Patient has chronic kidney disease No Wilmar Norton MD Patient has chronic kidney disease Care Plan Patient has chronic kidney disease No Wilmar Norton MD Weekly blood pressure task Care Plan Weekly blood pressure task No Gupta, Zorylee Weekly blood pressure task Care Plan Weekly blood pressure task No Gupta, Zorylee Patient has chronic kidney disease Care Plan Patient has chronic kidney disease No Gupta, Zorylee Patient has chronic kidney disease Care Plan Patient has chronic kidney disease No Gupta, Zorylee Weekly blood pressure task Care Plan Weekly blood pressure task No Guille Cathiria Weekly blood pressure task Care Plan Weekly blood pressure task No Guille Cathiria Patient has chronic kidney disease Care Plan Patient has chronic kidney disease No Guille Cathiria Patient has chronic kidney disease Care Plan Patient has chronic kidney disease No Guille Cathiria Weekly blood pressure task Care Plan Weekly [...] Care Plan Weekly blood pressure task No Aaron, Celeste Weekly blood pressure task Care Plan Weekly blood pressure task No Aaron, Celeste Patient has chronic kidney disease Care Plan Patient has chronic kidney disease No Aaron, Celeste Patient has chronic kidney disease Care Plan Patient has chronic kidney disease No Aaron, Celeste Weekly blood pressure task Care Plan Weekly blood pressure task No Guilherme Bradys Weekly blood pressure task Care Plan Weekly blood pressure task No Brady Morgan Patient has chronic kidney disease Care Plan Patient has chronic kidney disease No Brady Morgan Patient has chronic kidney disease Care Plan Patient has chronic kidney disease No Brady Morgan Weekly blood pressure task Care Plan Weekly [...] Care Plan Weekly blood pressure task No Brittany Crow RN Weekly blood pressure task Care Plan Weekly blood pressure task No Brittany Crow, [place] Patient has chronic kidney disease Care Plan Patient has chronic kidney disease No Brittany Crow RN Patient has chronic kidney disease Care Plan Patient has chronic kidney disease No Brittany Crow RN Weekly blood pressure task Care Plan Weekly blood pressure task No Stephanie Segura MA Weekly blood pressure task Care Plan Weekly blood pressure task No Stephanie Segura MA Patient has chronic kidney disease Care Plan Patient has chronic kidney disease No Stephanie Segura MA Patient has chronic kidney disease Care Plan Patient has chronic kidney disease No Stephanie Segura MA documented as of this encounter Visit Diagnoses Not on filedocumented in this encounter Additional Health Concerns Active [...] 01/28/2025 Patient has chronic kidney disease 01/28/2025 Weekly blood pressure task 02/06/2025 Weekly blood pressure task 02/06/2025 Patient has chronic kidney disease 02/06/2025 Patient has chronic kidney disease 02/06/2025 Weekly blood pressure task 02/07/2025 Weekly blood pressure task 02/07/2025 Patient has chronic kidney disease 02/07/2025 Patient has chronic kidney disease 02/07/2025 Weekly blood pressure task 02/07/2025 Weekly blood pressure task 02/07/2025 Patient has chronic kidney disease 02/07/2025 Patient has chronic kidney disease 02/07/2025 Assessment Noted Time PHQ-9 Depression Total Score: 11 025 10:32 AM EDT documented as of this encounter Care Teams Middle School History Teacher Relationship Specialty Start Date End Date Deana Warren ANP [address] [place] [address] PCP - General Family Medicine 03/29/22 documented as of this encounter
--- OUTSIDE RECORDS SUMMARY | 2025-02-09 08:58 | XMS_ITS | Encounter Summary ---
Author Organization [employer] Address [address] [place] [address] 7 [place] [address] Care Team Providers Care Laborer Drying Department Name Role Phone Deana Warren Primary Care Provider [phone] Reason for Visit * Reason Onset Date Comments triage 05/22/2022 Encounter Details Date Type Department Care Team (Late st Contact Info) Description 05/22/[address] [facility] [address] [place] [address] [phone] Deana Warren ANP [address] [place] [phone] triage Social History Tobacco Use Types Packs/Day [...] Description 02/09/2025 9:00 AM EST Office Visit [address] [address] Robin Farah MD 230 [place] [address] 03/31/2025 10:30 AM EST Office Visit [facility] [address] [place] [address] Deana Warren ANP [address] [place] [address] 05/30/2025 10:30 AM EDT Office Visit [facility] [address] [place] [address] Katt Lazcano, OD [address] [place] [address] documented as of this encounter Visit Diagnoses Not on filedocumented in this encounter Care Teams Laborer Drying Department Relationship Specialty Start Date End Date Deana Warren ANP [address] [place] [address] PCP - General Family Medicine 03/29/22 documented as of this encounter
--- OUTSIDE RECORDS SUMMARY | 2025-02-09 08:58 | XMS_ITS | Encounter Summary ---
Author Organization [employer] Address [address] [facility] 7t [place] [address] Care Team Providers Care Talent Acquisition Operations Manager Name Role Phone Deana Warren Primary Care Provider [phone] Encounter Details Date Type Department Care Team ([facility] st Contact Info) Description 02/06/2025 Orders Only [facility] [address] [place], [place] [phone] Deana Warren ANP [address] [place], [place] [phone] High serum parathyroid hormone (PTH) (Primary Dx) Social History Tobacco Use Types [...] the past 12 months, has t he [employer] threatened to shut off services in your [...] as of this encounter Progress Notes * KALE Goins - 02/06/2025 11:49 PM EST Repeat labs due documented in this encounter Plan of Treatment Upcoming Encounters Date Type Department Care Team (Late st Contact Info) Description 02/09/2025 9:00 AM EST Office Visit [facility] [address] [place] [address] Robin Farah MD [address] [place] [address] 03/31/2025 10:30 AM EST Office Visit [facility] [address] [place] [address] Deana Warren ANP [address] [place] [address] 05/30/2025 10:30 AM EDT Office Visit [facility] OPTOMET[facility] [address] [place] [address] Katt Lazcano, OD [address] [place] [address] Scheduled Orders Name Type Priority Associated Diagnoses Orde r Schedule PTH, Intact Without Calcium Lab Routine High serum parathyroid hormone (PTH) Expected: 02/06/2025, Expires: 02/06/2026 Basic Metabolic Panel Lab Routine High serum parathyroid hormone (PTH) Expected: 02/06/2025 (Approximate), Expires: 02/06/2026 Vitamin D, 25-Hydroxy, Total, Immunoassay Lab Routine High serum parathyroid hormone (PTH) Expected: 02/06/2025 (Approximate), Expires: 02/06/2026 documented as of this encounter Goals Goal Patient Goal Type Associated Problems Recent Progress Patient-Stated? Author Help patients manage their type 2 diabetes Care Plan Help patients manage their type 2 diabetes No Marie Yousif MA Weekly blood pressure [...] Care Plan Patient has chronic kidney disease Wilmar aHrdy MD Patient has chronic kidney disease Care Plan Patient has chronic kidney disease No Wilmar Norton MD Weekly blood pressure task Care Plan Weekly blood pressure task No Wilmar Norton MD Weekly blood pressure task Care Plan Weekly blood pressure task No Wlimar Norton MD Patient has chronic kidney disease Care Plan Patient has chronic kidney disease Wilmar Hardy MD Patient has chronic kidney disease Care [...] Plan Patient has chronic kidney disease No Gupta Zorylee Weekly blood pressure task Care Plan Weekly blood pressure task No Lissette Haniria Weekly blood pressure task Care Plan Weekly blood pressure task No Guille Cathiria Patient has chronic kidney disease Care Plan Patient has chronic kidney disease No Lissette Haniria Patient has chronic kidney disease Care Plan Patient has chronic kidney disease No Kassie Hana Weekly blood pressure task Care Plan Weekly blood pressure task No Deana Warren ANP Weekly blood pressure task Care Plan Weekly blood pressure task No Deana Warren ANP Patient has chronic kidney disease Care Plan Patient has chronic kidney disease No Deana Warren ANP Patient has chronic kidney disease Care Plan Patient has chronic kidney disease No Deana aWrren ANP Weekly blood pressure task Care Plan Weekly blood pressure task No Aaron, Sheila Weekly blood pressure task Care Plan Weekly blood pressure task No Aaron, Celeste Patient has chronic kidney disease Care Plan Patient has chronic kidney disease No Galen Celeste Patient has chronic kidney disease Care Plan Patient has chronic kidney disease No Aaron, Celeste Weekly blood pressure task Care Plan Weekly blood pressure task No Brady Morgan Weekly blood pressure task [...] chronic kidney disease No Deana Warren ANP documented as of this encounter Visit Diagnoses Diagnosis High serum parathyroid hormone (PTH)- Primary documented in this encounter Additional Health [...] 02/06/2025 Patient has chronic kidney disease 02/06/2025 Assessment Noted Time PHQ-9 Depression Total Score: 11 025 10:32 AM EDT documented as of this encounter Care Teams Talent Acquisition Operations Manager Relationship Specialty Start Date End Date Deana Warren ANP [address] [place] [address] PCP - General Family Medicine 03/29/22 documented as of this encounter
--- OUTSIDE RECORDS SUMMARY | 2025-02-09 08:58 | XMS_ITS | Encounter Summary ---
Author Organization [employer] Address [address] [place] [address] 7t [place] [address] Care Team Providers Care Coil Strapper Name Role Phone Deana Warren Primary Care Provider Encounter Details Date Type Department Care Team (Late st Contact Info) Description 04/04/[address] [address] Deana Warren ANP [address] [place] [address] Social History Tobacco Use Types Packs/Day Years [...] Description 02/09/2025 9:00 AM EST Office Visit [address] [address] Robin Farha MD [address] [place] [address] 03/31/2025 10:30 AM EST Office Visit [address] [phone] Deana Warren ANP [address] [place] [address] 05/30/2025 10:30 AM EDT Office Visit [facility] [address] [place] [address] Katt Lazcano, OD [address] [place] [address] documented as of this encounter Visit Diagnoses Not on filedocumented in this encounter Care Teams Coil Strapper Relationship Specialty Start Date End Date Deana Warren ANP [address] [place] [address] PCP - General Family Medicine 03/29/22 documented as of this encounter
--- OUTSIDE RECORDS SUMMARY | 2025-02-09 08:58 | XMS_ITS | Encounter Summary ---
Author Organization [employer] Address [address] [place] [address] 7t [place] [address] Care Team Providers Care Supervisor Steel Division Name Role Phone Deana Warren Primary Care Provider [phone] Reason for Visit * Reason Onset Date Comments Med Refill 03/29/2022 Encounter Details Date Type Department Care Team (Late st Contact Info) Description 03/29/2022 Telephone [facility] [address] [place], [place] [phone] Deana Warern ANP [address] [place], [place] [phone] Med Refill Social History Tobacco Use Types [...] Patient was hospitalized in December 2021 at [facility] and was discharged on 12/18/21. Meds requested [...] Description 02/09/2025 9:00 AM EST Office Visit [facility] [address] [place] [address] Robin Farah MD [address] [place] [address] 03/31/2025 10:30 AM EST Office Visit [facility] [address] [place] [address] Deana Warren ANP [address] [place] [address] 05/30/2025 10:30 AM EDT Office Visit [facility] OPT[facility] [address] [place] [address] Tarka, Katt, OD [address] [place] [address] documented as of this encounter Visit Diagnoses Not on filedocumented in this encounter Care Teams Supervisor Steel Division Relationship Specialty Start Date End Date Deana Warren ANP [address] [place] [address] PCP - General Family Medicine 03/29/22 documented as of this encounter
--- OUTSIDE RECORDS SUMMARY | 2025-02-09 08:58 | XMS_ITS | Clinical Summary ---
Author Organization [email or web address] Address [address] [facility] [address] [place] [address] Care Team Providers Care Substation Operator Transforming Name Role Phone Rafia Mary Primary Care Provider [phone] Allergies No known active allergies Medications * [...] 300 MG capsuleIndicati ons:Seizure (CMS/HCC) ([facility]) Take 1 capsule (300 mg) by mouth 2 times daily. 60 capsule 2 025 Active Continuous Glucose Open Source Developer (FreeStyle Nivia 2 Jber) deviceIndicatio ns:Hypertension associated with diabetes ([facility]) Scan sensor every 8 hours 1 each 025 Active glucose blood (FreeStyle Precision Shin Test) test stripIndication s:Hypertension associated with diabetes ([facility]) Use to test blood sugar 3 [...] for sleep. 30 tablet Active glucose blood (Photofyuch Ultra) test stripIndication s:Type 2 diabetes mellitus with hyperglycemia, unspecified whether terminal computer operator insulin use (HCC) TEST BLOOD SUGAR THREE TIMES A DAY 300 strip 1 Active Blood Glucose Monitoring Suppl (ONE TOUCH ULTRA MINI) w/Device kitIndications: Type 2 diabetes mellitus with hyperglycemia, unspecified whether penitentiary insulin use (HCC) Test 3 times daily [...] with hyperglycemia, unspecified whether penitentiary insulin use (HCC) 1 each every 15 days. Apply 1 every 15 days as directed for CGM 2 each 025 Active Continuous Glucose Open Source Developer (FreeStyle Nivia 3 Jber) deviceIndicatio ns:Type 2 diabetes mellitus with hyperglycemia, unspecified whether penitentiary insulin use (HCC) 1 each Once per [...] long-term current use of insulin ([facility]) INJECT 32 UNITS UNDER THE SKIN [...] inhalerIndicati ons:COPD with exacerbation (CMS/HCC) ([facility]) Inhale 2 puffs every 6 (six) hours if needed for wheezing or shortness of breath. 18 g 1 Active albuterol (2.5 MG/3ML) 0.083% nebulizer solutionIndicat ions:COPD with exacerbation (CMS/HCC) ([facility]) Take 3 mL (2.5 mg) by [...] (Deltasone) 20 MG tabletIndicatio ns:COPD with exacerbation ([facility]) ([facility]) Take 2 tablets (40 mg) by mouth Once per day for 5 days. 10 tablet 025 2024 Hospital, Clinic, or Other Facility Administered Medication Ordered Dose Route Frequency Start Date End Date Status ipratropium-albutero l (Duo-Neb) 0.5-2.5 mg/3 mL nebulizer solution 3 mgIndications:COPD with exacerbation ([facility]) ([facility]) 3 mg NEBULIZATION Once 01/15/2025 01/15/2025 Ended Active Problems Problem Noted Date Diagnosed Date Anxiety 10/27/2024 Cannabis use disorder 10/27/2024 Age-related osteoporosis wit hout current pathological fracture 07/29/2024 Asymptomatic menopausal state 05/24/2024 Onycholysis 05/24/2024 Seizure ([facility]) 05/15/2023 Type 2 diabetes mellitus with [...] of unknown insulin dose/formulation this am. Alcoholism ([facility]) 03/29/2022 Bipolar disorder 03/29/2022 Chronic hepatitis C ([facility]) 03/29/2022 Hypertension associated with diabetes 03/29/2022 Overview (08/10/2024): Assessment & Plan (03/29/2022 11:27 AM EST): On lisinopril which she reports compliance to BP elevated today as did not take her pills continue current regimen Readings at home have been WNL. 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 Date Type Department Care Team Description 02/09/2025 Travel 02/07/2025 Telephone [facility] [address] [place] [phone] Rafia Mary ANP 02/07/2025 Telephone [facility] [address] [place] [phone] Rafia Mary ANP Medication Question 02/06/2025 Orders Only [address] [address] Rafia Mary ANP High serum parathyroid hormone (PTH) (Primary Dx) 02/02/2025 Refill [facility] [address] [place] [address] Rafia Mary ANP Bipolar affective disorder, remission status unspecified (CMS/HCC) (HCC) 01/28/2025 Patient Outreach [address] [address] Morgan Brady Recovery Supports 01/25/2025 Refill [facility] [address] [place] [phone] Rafia Mary ANP Type 2 diabetes mellitus with hyperglycemia, unspecified whether penitentiary insulin use (HCC) 01/20/2025 Orders Only [address] [address] Rafia Mary ANP Alcoholism (CMS/HCC) (HCC) (Primary Dx); Type 2 diabetes mellitus with hyperglycemia, unspecified whether penitentiary insulin use (HCC) 01/19/2025 9:00 AM EST Office Visit [address] [address] Robin Farah MD Alcohol use disorder, severe, dependence (CMS/HCC) (HCC) (Primary Dx); Encounter for immunization 01/19/2025 Patient Outreach [address] [address] Kristy Han Recovery Supports 01/19/2025 Telephone [facility] [address] [facility] [place] [address] Wilmar Norton MD 01/19/2025 Telephone [facility] [address] [facility] [place] [address] Wilmar Norton MD 01/19/2025 Travel 01/17/2025 Patient Outreach [facility] [address] [place] [address] Randy Patel Recovery Supports 01/17/2025 Patient Outreach [facility] [address] [place] [address] Kristy Han Recovery Supports 01/15/2025 10:40 AM EST Office Visit [facility] [place] [address] Eder Loera CNP Dog bite, initial encounter (Primary Dx); Acute cough; COPD with exacerbation (CMS/HCC) (HCC) 01/15/2025 Travel 01/14/2025 Patient Outreach [facility] [address] [place] [address] Randy Patel Recovery Supports 01/14/2025 Telephone [facility] [address] [place] [phone] Rafia Mary ANP Nurse Triage 01/14/2025 Patient Outreach [facility] [address] [place] [address] Kristy Han Recovery Supports 01/13/2025 Patient Outreach [facility] [address] [place] [address] Jose Keller Recovery Supports 01/12/2025 9:00 AM EST Office Visit [facility] [address] [place] [address] Robin Farah MD Alcohol use disorder, severe, dependence (CMS/HCC) (HCC) (Primary Dx) 01/12/2025 Travel 01/10/2025 Refill [facility] [address] [place] [address] Rafia Mary ANP Hypertension associated with diabetes (HCC) 01/03/2025 Refill [facility] [address] [place] [address] Rafia Mary ANP Bipolar affective disorder, remission status unspecified (CMS/HCC) (HCC) 12/28/2024 Patient Outreach [address] [address] Jose Keller RC Recovery Supports 12/28/2024 Patient Outreach [address] [address] Pipo Moreno RC Recovery Supports 12/28/2024 Patient Outreach [address] [address] Morgan Brady RC Recovery Supports 12/27/2024 Patient Outreach [address] [address] Kristy Han RC Recovery Supports 12/27/2024 Patient Outreach [address] [address] Randy Patel RC Recovery Supports 12/22/2024 9:00 AM EDT Office Visit [address] [address] Robin Farah MD Alcohol use disorder, severe, dependence (CMS/HCC) (HCC) (Primary Dx) 12/22/[address] [address] Julisa Restrepo, computer operations manager Question 12/22/2024 Travel 12/15/2024 9:00 AM EDT Office Visit [address] [address] Robin Farah MD Alcohol use disorder, severe, dependence (CMS/HCC) (HCC) (Primary Dx) 12/15/2024 Travel 12/10/2024 Patient Outreach [address] [address] Randy Patel Recovery Supports 12/08/2024 9:00 AM EDT Office Visit [address] [address] Robin Farah MD Alcohol use disorder, severe, dependence (CMS/HCC) (HCC) (Primary Dx) 12/08/2024 Travel 12/06/2024 Patient Outreach [address] [place] [address] Randy Patel Recovery Supports 12/03/2024 10:30 AM EDT Office Visit [facility] [address] [facility] [place] [address] Wilmar Norton MD Alcohol use disorder, severe, dependence (CMS/HCC) (Primary Dx); Cocaine abuse (CMS/HCC) 12/03/2024 Patient Outreach [facility] [address] [place] [address] Morgan Brady Recovery Supports 12/03/2024 Travel 12/01/2024 9:00 AM EDT Office Visit [facility] [address] [place] [address] Robin Farah MD Alcohol use disorder, severe, dependence (CMS/HCC) (Primary Dx) 12/01/2024 Travel 11/29/2024 Patient Outreach [address] [address] Pipo Moreno Recovery Supports 11/26/2024 Patient Outreach [address] [address] Randy Patel Recovery Supports 11/23/2024 Patient Outreach [address] [address] Jose Keller Recovery Supports 11/23/2024 Patient Outreach [address] [address] Morgan Brady Recovery Supports 11/23/2024 Patient Outreach [address] [address] Morgan Brady Recovery Supports 11/23/2024 Travel 11/22/2024 Patient Outreach [facility] [address] [place] [address] Randy Patel Recovery Supports 11/19/2024 Refill [facility] [address] [place] [address] Rafia Mary ANP Hypertension associated with diabetes (CMS/HCC) 11/17/2024 9:00 AM EDT Office Visit [address] [address] Robin Farah MD Alcohol use disorder, severe, dependence (CMS/HCC) (Primary Dx) 11/17/2024 Orders Only [address] [address] Eulalia East RN Chronic hepatitis C without hepatic coma (CMS/HCC) 11/17/2024 Travel 11/16/2024 Results Follow-Up [address] [address] Rafia Mary, ANP Vitamin D, 25-Hydroxy, Total, Immunoassay, PTH, Intact Without Calcium, Basic Metabolic Panel, Additional followed-up results: 3 11/15/2024 Patient Outreach [facility] [address] [place] [address] Randy Patel RC Recovery Supports 11/15/2024 Patient Outreach [address] [address] Kristy Han RC Recovery Supports 11/15/2024 Results Follow-Up [address] [address] Rafia Mary, KALE Lipid Panel, Standard, Hepatic Function Panel 11/12/2024 Patient Outreach [facility] [address] [place] [address] Morgan Brady RC Recovery Supports from Last 3 Months Immunizations [...] Description 02/09/2025 9:00 AM EST Office Visit [facility] [address] [place] [address] Robin Farah MD [address] [place] [address] 03/31/2025 10:30 AM EST Office Visit [facility] [address] [place] [address] Rafia Mary ANP [address] [place] [address] 05/30/2025 10:30 AM EDT Office Visit [facility] OPTOMETRY [address] [place] [address] Katt Lazcano, OD [address] [place] [address] Health Maintenance Due Date Last Done Comments [...] 07/14/2024, 042 , 06/01/2020, Additional history exists Tobacco Screening 09/17/2025 [...] Weekly blood pressure task Wilmar Hardy MD Patient has chronic kidney disease Care Plan Patient has chronic kidney disease No Wilmar Norton MD Patient has chronic kidney disease Care Plan Patient has chronic kidney disease Wilmar Hardy MD Weekly blood pressure task [...] has chronic kidney disease No Freedom Gupta Weekly blood pressure task Care Plan Weekly blood pressure task No Kassie Hana Weekly blood pressure task [...] Care Plan Weekly blood pressure task No AaronCeleste sahu Weekly blood pressure task Care Plan Weekly blood pressure task No Galen Celeste Patient has chronic kidney [...] Plan Patient has chronic kidney disease No Guilherme Bradys Weekly blood pressure task [...] blood pressure task No Brittany Crow RN Patient has chronic [...] Care Plan Patient has chronic kidney disease Stephanie Corona MA Procedures Procedure Name Priority Date/Time Associated Diagnosis Comments XR CHEST 1 VIEW Routine 02/05/2025 6:09 AM EST POCT RAPID COVID ANTIGEN Routine 01/15/2025 11:06 [...] diabetes mellitus with hyperglycemia, unspecified whether terminal computer operator insulin use (CMS/HCC) HM COLONOSCOPY Routine 08/23/2021 HPV MRNA E6/E7 Routine 12/21/2020 10:32 AM EDT THINPREP IMAGING SYSTEM PAP Routine 12/21/2020 10:32 AM EDT from Last 3 Months or Most Recently Relevant to Health Maintenance Results * XR Chest 1 View (02/05/2025 6:09 AM EST) Anatomical Region Laterality Modality Chest Radiographic Yecenia ging 02/05/2025 6:09 AM EST Narrative 02/05/2025 6:11 AM EST [address] [address] XRay Report Signed Patient: Cora Smith MR#: [id number] : 1955 Acct:[id number] Age/Sex: 69 / F ADM Date: 02/05/25 Loc: HO.ED Attending Dr: Ordering Physician: Ursula Bustos MD Date of Service: 02/05/25 Procedure(s): XR chest 1V Accession Number(s): [id number] cc: Ursula Bustos MD; RAFIA MARY NP Reason for Exam: cough, r/o pna CLINICAL HISTORY: cough, r o pna 1 view chest x-ray Comparison: None provided Findings: No dense consolidation to suggest pneumonia. No effusion. Mild interstitial prominence bilaterally which could indicate mild edema or viral infection. Heart size is normal. No acute osseous findings. IMPRESSION: 1. No dense consolidation to suggest pneumonia. This document has been electronically signed by: Juli Levy MD on 02/05/2025 06:09:31 Dictated By: Juli Levy MD Signed By: <Electronically signed by Juli Levy MD in OV> 02/05/25609 DD/ 8 TD/TT: 02/05/25608 Principal Solutions Architect: Procedure Note Donotuseinterpreter, Image - 02/05/2025 [place] [address] XRay Report Signed Patient: Di Smith#: [id number] : 5Acct:[id number] Age/Sex: 69 / FADM Date: 02/05/25 Loc: .ED Attending Dr: Ordering Physician: Ursula Bustos MD Date of Service: 02/05/25 Procedure(s): XR chest 1V Accession Number(s): [id number] cc: Ursula Bustos MD; RAFIA MARY NP Reason for Exam: cough, r/o pna CLINICAL HISTORY: cough, r o pna 1 view chest x-ray Comparison: None provided Findings: No dense consolidation to suggest pneumonia. No effusion. Mild interstitial prominence bilaterally which could indicate mild edema or viral infection. Heart size is normal. No acute osseous findings. IMPRESSION: 1. No dense consolidation to suggest pneumonia. This document has been electronically signed by: Juli Levy MD on 02/05/2025 06:09:31 Dictated By: Juli Levy MD Signed By: <Electronically signed by Juli Levy MD in OV> 02/05/25609 DD/ 8 TD/TT: 11/29/25 0609 Principal Solutions Architect: [facility] External Provider IMG XR PROCEDURES Final Result * POCT Rapid Covid-19 BinaxNOW (01/15/2025 11:06 AM EST) Rapid COVID Ag Negative QC Media Lot # [id number] Lot# Expiration Date [id number] Swab 01/15/2025 11:0 6 AM EST [facility] POINT OF CARE TEST ENTER/ EDIT ORDERABLES Final Result * POCT Rapid Influenza B BLUNT ID NOW (01/15/2025 11:05 AM EST) [facility] Influenza B Negative Negative, Indeterminate [facility] QC Media Lot # [id number] [facility] Lot# Expiration Date [facility] Swab 01/15/2025 11:0 5 AM EST [facility] POINT OF CARE TEST ENTER/ EDIT ORDERABLES Final Result Performing Organization Address City/[facility]/ZIP Co de Phone Number [facility] [address] [place] [phone] * POCT Rapid Influenza A BLUNT ID NOW (01/15/2025 11:05 AM EST) [facility] Influenza A Negative Negative, Indeterminate [facility] QC Media Lot # [id number] [facility] Lot# Expiration Date [facility] Swab 01/15/2025 11:0 5 AM EST [facility] POINT OF CARE TEST ENTER/ EDIT ORDERABLES Final Result Performing Organization Address City/[facility]/ZIP Co de Phone Number [facility] [address] [place] [phone] * POCT Rapid Strep A BLUNT ID NOW (01/15/2025 11:04 AM EST) Pathologist [facility] Rapid Strep A Screen Negative Negative, None Detected QC Media Lot # [id number] Lot# Expiration Date Swab 01/15/2025 11:0 4 AM EST Eder Loera [facility] POINT OF CARE TEST ENTER/ EDIT ORDERABLES Final Result * (ABNORMAL) POCT EUGENIA-14 Urine Drug Screen (12/03/2024 10:54 AM EDT) Pathologist [facility] THC Positive(A) Negative Cocaine Screen, Urine Positive(A) [...] procedure / Unknown 12/03/2024 10:54 AM EDT Wilmar Norton MD POINT OF CARE TEST ENTER/EDIT ORDERABLES Edited Result - Final * (ABNORMAL) Vitamin D, 25-Hydroxy, Total, Immunoassay (11/17/2024 11:54 AM EDT) Only the most recent of2 resultswithin the time period is included. Pathologist [facility] Vitamin D 25-OH Total 25.3(L) >30 ng/mL [facility] Comment: Health Based Reference Values*< 20 ng/mL [id number] ng/mL Insufficient> 30 ng/mL Sufficient*Farzana MOLINA. N [...] AM EDT 11/17/2024 1:47 PM EDT Rafia HENLEY LAB BLOOD ORDERABLES Final Resul t Performing Organization Address [facility] de Phone Number [facility] [address] [place] [address] [phone] * Hepatitis C Viral RNA, Quantitative, Real-Time PCR (11/17/2024 11:54 AM EDT) Hepatitis C Viral Load <15 NOT DETECTED NOT DETECTED IU/mL [facility] HCV Log PCR <1.18 NOT DETECTED NOT DETECTED Log IU/mL [facility] Comment:For additional infor mation, please refer [email or web address]/faq/[email or web address](This link is being provided for informational/educational purposes only.)THIS TEST WAS PERFORMED AT:[employer] [place] [phone] VANG MD 11/17/2024 11:5 4 AM EDT 11/17/2024 1:47 PM EDT us Wilmar Norton MD LAB BLOOD ORDERABLES Final Res ult Performing Organization Address [facility] Co de Phone Number [facility] [address] [place] [address] [phone] * (ABNORMAL) PTH, Intact Without Calcium (11/17/2024 11:54 AM EDT) Only the most recent of2 resultswithin the time period is included. Parathyroid Hormone, Intact 152.4(H) 8.7 - 77.1 pg/mL [facility] Blood Venous blood specimen / Unknown 11/17/2024 11:54 AM EDT 11/17/2024 1:47 PM EDT Rafia Mary [facility] LAB BLOOD ORDERABLES Final Resul t Performing Organization Address [facility] de Phone Number [facility] [address] [place] [phone] * Calcium, Ionized (11/17/2024 11:54 AM EDT) Calcium, Ionized 5.2 4.7 - 5.5 mg/dL [facility] Comment:THIS TEST WAS PERFOR MED AT:[employer] [place] [phone] VANG MD Blood Venous blood specimen / Unknown 11/17/2024 11:54 AM EDT 11/17/2024 1:47 PM EDT Rafia Mary [facility] LAB BLOOD ORDERABLES Final Resul t Performing Organization Address [facility] Phone Number [facility] [address] [place] [phone] * (ABNORMAL) Basic Metabolic Panel (11/17/2024 11:54 AM EDT) Only the most recent of2 resultswithin the time period is included. Sodium 143 135 - 145 mmol/L [facility] Potassium 4.1 3.3 - 5.1 mmol/L [facility] Chloride 109(H) 96 - 108 mmol/L [facility] Carbon Dioxide 27 22 - 29 mmol/L [facility] Anion Gap 11(L) 12 - 20 [facility] Urea Nitrogen (BUN) 16 9 - 16 mg/dL [facility] Creatinine, Serum 0.75 0.5 - 1.4 mg/dL [facility] Estimated Glomerular Filt Rate >60 [facility] Comment:Chronic Kidney Disea se: Estimated GFR < 60 mL/min/1.64q6Arunha Kidney Disease: Estimated GFR < 15 mL/min/1.73m2 Glucose 114 60 - 115 mg/dL [facility] Calcium 9.2 8.4 - 10.2 mg/dL [facility] Blood Venous blood specimen / Unknown 11/17/2024 11:54 AM EDT 11/17/2024 1:47 PM EDT Rafia Mary [facility] LAB BLOOD ORDERABLES Final Resul t Performing Organization Address [facility] de Phone Number [facility] [address] [place] [phone] * (ABNORMAL) Hepatic Function Panel (11/15/2024 9:40 AM EDT) Bilirubin, Total 0.3 0.0 - 1.0 mg/dL [facility] Bilirubin, Direct 0.1 0.0 - 0.5 mg/dL [facility] Aspartate Amino Transferase 54(H) 5 - 31 U/L [facility] Alanine Aminotransferase 24 0 - 31 U/L [facility] Total Protein 8.2(H) 6.5 - 8.0 g/dL [facility] Albumin Level 4.4 3.5 - 5.0 g/dL [facility] Alkaline Phosphatase 115 39 - 117 U/L [facility] Blood Venous blood specimen / Unknown 11/15/2024 9:40 AM EDT 11/15/2024 11:21 AM EDT Rafia Mary [facility] LAB BLOOD ORDERABLES Final Resul t Performing Organization Address [facility] de Phone Number [facility] [address] [place] [phone] * Lipid Panel, Standard (11/15/2024 9:40 AM EDT) Triglycerides 63 <150 mg/dL [facility] Comment:Desirable Triglyceri de: less than 150 mg/dLBorderline High Triglyceride 150-199 mg/dLHigh Triglyceride: 200-499 mg/dLVery High Triglyceride: greater than or equal to 5OO mg/dL Cholesterol 132 <200 mg/dL [facility] Comment:Desirable Cholestero l: less than 200 mg/dLBorderline High Cholesterol: 200-239 mg/dLHigh Cholesterol: greater than 239 mg/dL LDL Cholesterol Calculated 60 <100 mg/dL [facility] Comment:Desirable LDL: less than [...] 9:40 AM EDT 11/15/2024 11:21 AM EDT us Rafia Mary ANP LAB BLOOD ORDERABLES Final Resul t [facility] [address] [place] [phone] * (ABNORMAL) POCT HGB A1C (08/10/2024 11:43 AM EDT) Hemoglobin A1C 6.4(A) 4.0 - 6.0 % QC Media Lot # [id number] Lot# Expiration Date Blood 08/10/2024 11:4 3 AM EDT us Rafia Mary ANP POINT OF CARE TEST ENTER/EDIT OR DERABLES Final Result * BI Mammogram Screening Tomosynthesis Bilateral (07/14/2024 8:55 AM EDT) Anatomical Region Laterality Modality Breast Bilateral Mammography 07/14/2024 8:55 AM EDT Narrative 07/19/2024 3:20 PM EDT [address] [place] [address] Mammography Report Signed Patient: Cora Smith MR#: [id number] : 1955 Acct:[id number] Age/Sex: 68 / F ADM Date: 07/14/24 Loc: HO.MAMMO Attending Dr: Rafia Mary NP Ordering Physician: RFAIA MARY NP Results: 2Benign Reginaldo dingprasanna Date of Service: 07/14/24 Follow Up: 1 Year From Orig inal Mammogram Procedure(s): MM tomosynthesis screening BI Accession Number(s): [id number] cc: Meagan Brewer MD; RAFIA MARY NP [...] 07/19/24 1517 DD/ 0855 TD/TT: 07/14/24 0930 Principal Solutions Architect: Procedure Note Donotuseinterpreter, Image - 07/19/[address] [place], [place] [address] Mammography Report Signed Patient: Di Smith#: [id number] : 5Acct:[id number] Age/Sex: 68 / FADM Date: 07/14/24 Loc: HO.MAMMO Attending Dr: Rafia Mary NP Ordering Physician: RAFIA MARY NPResults: 2Benign Reginaldo izquierdo Date of Service: 07/14/24Follow Up: 1 Year From Orig inal Mammogram Procedure(s): MM tomosynthesis screening BI Accession Number(s): [id number] cc: Meagan Brewer MD; RAFIA MARY NP [...] 07/19/24 1517 DD/ 0855 TD/TT: 07/14/24 0930 Principal Solutions Architect: Rafia HENLEY IMG BI PROCEDURES Final Result * Albumin, Random Urine W/Creatinine (06/04/2024 1:15 PM EDT) Creatinine, Urine 207.63 mg/dL [facility] Microalbumin Urine 35.0 mg/L [facility] Microalbum Creatinine Ratio Ur 16.8 <30 ug/mg cr [facility] Comment:Albumin/Creatinine R atio Reference Ranges: Normal: < 30 ug/mg creatinine Microalbuminuria: 30 - 300 ug/mg creatinineClinical Albuminuria: > 300 ug/mg creatinine Urine (Urine, Random) 06/04/2024 1:15 PM EDT 06/04/2024 4:09 PM EDT Meagan Bello MD LAB URINE ORDERABLES Final Result [facility] [address] [place] [phone] * (ABNORMAL) Colonoscopy (08/23/2021) Colonoscopy Abnormal(A ) Normal [facility] Final Result * THINPREP [...] along with historic and current clinical information. Comment: This Pap test has been evaluated with computer assisted technology. [facility] Filter Tank Operator: SEE COMMENT [facility] Comment: MXD, CT (ASCP) CT screening location: [place] [address] Interpretation/Res ult: SEE COMMENT [facility] [...] PATHOLOGY ORDERABLES Final Result Performing Organization Address [facility] de Phone Number [facility] [address] * HPV mRNA E6/E7 (12/21/2020 10:32 AM EDT) HPV nRNA E6/E7 Not Detected Not Detected [facility] Comment: Methodology: Percussion Instrument Tuner-Mediated Amplification This assay detects E6/E7 viral messenger RNA (mRNA) from 14 high-risk HPV types (16,18,31,33,35,39,45,51,52,56,58,59,66,68). The analytical performance characteristics of this assay have been determined by [employer] The modifications have not been cleared or approved by the FDA. This assay has been validated pursuant to the CLIA regulations and is used for clinical purposes. For additional information, please refer to http://education.Cityvox/faq/WDJ090s5 (This link if provided for information/ educational purposes only.) 12/21/2020 10:3 2 AM EDT Ni BILL LAB BLOOD ORDERABLES Xena l Result Performing Organization Address [facility] de Phone Number [facility] [address] from Last 3 Months or Most [...] 02/07/2025 Patient has chronic kidney disease 02/07/2025 Insurance [facility] OPTIONS (O D-SNP) Care Teams Substation Operator Transforming Relationship Specialty Start Date End Date Rafia Mary ANP [address] [place] [address] PCP - General Family Medicine 03/29/22
--- OUTSIDE RECORDS SUMMARY | 2025-02-09 08:58 | XMS_ITS | Encounter Summary ---
Author Organization [facility] Address [address] [place] [address] Phone Care Team Providers Care Exterminator Helper Termite Name Role Phone Deana Warren NP Primary Care Provider [phone] Encounter Details Date Type Department Care Team (Late st Contact Info) Description 10/19/2024 Procedure Pass [facility], Ct Scan - [facility] [address] [place] [address] Social History Tobacco Use Types Packs/Day Years [...] 5:28 PM EDT Gely Lubin, [place] * [place] Suicide Severity Rating Scale (Screener/Recent Self-Report) Question [...] on filedocumented in this encounter Care Teams Exterminator Helper Termite Relationship Specialty Start Date End Date Deana Warren NP [address] [place] [address] PCP - General Nurse Practitioner 01/14/23 documented as of this encounter Additional Source Comments The information contained in this document represents components of the legal health record. It is not the complete legal health record.[facility]
--- OUTSIDE RECORDS SUMMARY | 2025-02-09 08:58 | XMS_ITS | Encounter Summary ---
Author Organization [employer] Address [address] [facility] 7t [place] [address] Care Team Providers Care Arson Investigator Name Role Phone Deana Warren Primary Care Provider [phone] Reason for Visit * Reason Comments Med Refill Encounter Details Date Type Department Care Team ([facility] st Contact Info) Description 01/25/2025 Refill [facility] MED[facility] [address] [place], [place] [phone] Deana Warren ANP [address] [place], [place] [phone] Type 2 diabetes mellitus with hyperglycemia, unspecified whether chcf insulin use (HCC) Social History Tobacco Use [...] Description 02/09/2025 9:00 AM EST Office Visit [facility] [address] [place] [address] Robin Farah MD [address] [place] [address] 03/31/2025 10:30 AM EST Office Visit [facility] [address] [place] [address] Deana Warren ANP [address] [place] [address] 05/30/2025 10:30 AM EDT Office Visit [facility] OPTOM[facility] [address] [place] [address] Katt Lazcano, OD [address] [place] [address] documented as of this encounter Goals Goal [...] Care Plan Weekly blood pressure task No Brenna Guptarylee Patient has chronic kidney disease Care Plan Patient has chronic kidney disease No Brenna Guptarylee Patient has chronic kidney disease Care Plan [...] has chronic kidney disease No Galen Celeste documented as of this encounter Visit Diagnoses [...] documented as of this encounter Care Teams Arson Investigator Relationship Specialty Start Date End Date Deana Warren ANP [address] [place] [address] PCP - General Family Medicine 03/29/22 documented as of this encounter
--- OUTSIDE RECORDS SUMMARY | 2025-02-09 08:58 | XMS_ITS | Encounter Summary ---
Author Organization [employer] Address [address] [facility] 7t [place] [address] Care Team Providers Care Under Ground Miner Name Role Phone Deana Warren Primary Care Provider [phone] Reason for Visit * Reason Onset Date Comments FYI 07/25/2023 Encounter Details Date Type Department Care Team (Late st Contact Info) Description 07/25/2023 Telephone [facility] [address] [place], [place] [phone] Deana Warren ANP [address] [place], [place] [phone] FYI Social History Tobacco Use Types Packs/Day [...] he deems these calls necessary but requested marine underwriter forward as KAITLYNN. If any questions you can contact Bethany at [phone]. documented in this encounter Plan of Treatment Upcoming Encounters Date Type Department Care Team (Late st Contact Info) Description 02/09/2025 9:00 AM EST Office Visit [facility] [address] [place] [address] Robin Farah MD [address] [place] [address] 03/31/2025 10:30 AM EST Office Visit [facility] [address] [place] [address] Deana Warren, KALE [address] [place] [address] 05/30/2025 10:30 AM EDT Office Visit [facility] [address] [place] [address] Katt Lazcano, OD [address] [place] [address] documented as of this encounter Visit Diagnoses Not on filedocumented in this encounter Care Teams Under Ground Miner Relationship Specialty Start Date End Date Deana Warren ANP [address] [place] [address] PCP - General Family Medicine 03/29/22 documented as of this encounter
--- OUTSIDE RECORDS SUMMARY | 2025-02-09 08:58 | XMS_ITS | Encounter Summary ---
Author Organization [employer] Address [address] [facility] 7t [place] [address] Care Team Providers Care Secondary School Registrar Name Role Phone Deana Warren Primary Care Provider [phone] Reason for Visit * Reason Onset Date Comments Medication Question 02/07/2025 Encounter Details Date Type Department Care Team (Late st Contact Info) Description 02/07/2025 Telephone [facility] MEDICINE [address] [place], [place] [phone] Deana Warren ANP [address] [place], [place] [phone] Medication Question Social History Tobacco Use Types Packs/Day Years [...] encounter Miscellaneous Notes * Telephone Encounter - Brittany Crow RN - 02/07/2025 12:19 PM EST Pt seen at [facility] 02/05/25, discharge diagnosis bronchitis. Called pt today who reports feeling good. She is trying to figure out where the cough syrup (guaifenesin 100 mg/5 mL liquid) prescribed by the ER was sent. Denies asking about antibiotics. RN called [facility] on [facility] and [facility] pharmacy, they donot have this. Informed pt who states that she thinks the medication is at [facility] in [place] where sheis currently staying. Family/friend with her will help call to confirm and fruit picker machine operator. RN advised pt to call back in a few days if not feeling better, gave [facility] hours and NTT[employer] sponsorship coordinator. Pt verbalized understanding, no further questions. * Telephone Encounter - Brittany Crow RN - 02/07/2025 9:15 AM EST Received call from [facility] pharmacy that pt is today looking to fruit picker machine operator antibiotics from 01/15/25 visit with Eder Loera, PCP is Deana Warren. They are not sure if they should fill it or not. documented in this encounter Plan of Treatment Upcoming Encounters Date Type Department Care Team (Late st Contact Info) Description 02/09/2025 9:00 AM EST Office Visit [facility] MEDICINE [address] [place] [address] Robin Farah MD [address] [place] [address] 03/31/2025 10:30 AM EST Office Visit [facility] MEDICINE [address] [place] [address] Deana Warren ANP [address] [place] [address] 05/30/2025 10:30 AM EDT Office Visit [facility] OPTOMETRY [address] [place] [address] TarkaKatt, OD [address] [place] [address] documented as of this encounter Goals Goal [...] Care Plan Patient has chronic kidney disease Marie Lou MA Weekly blood pressure task Care Plan Weekly blood pressure task Marie Lou MA Patient has chronic kidney disease Care Plan Patient has chronic kidney disease Marie Lou MA Weekly blood pressure task [...] Care Plan Weekly blood pressure task No GuptaBrennarylemarcel Weekly blood pressure task Care Plan Weekly blood pressure task No Gupta Zorylee Patient has chronic kidney disease Care Plan Patient has chronic kidney disease No Gupta Zorylee Patient has chronic kidney disease Care [...] Care Plan Weekly blood pressure task No BradyGuilherme galarzas Patient has chronic kidney disease Care Plan Patient has chronic kidney disease No Caitlyn Morgan Patient has chronic kidney disease Care [...] documented as of this encounter Care Teams Secondary School Registrar Relationship Specialty Start Date End Date Deana Warren ANP [address] [place] [address] PCP - General Family Medicine 03/29/22 documented as of this encounter
--- OUTSIDE RECORDS SUMMARY | 2025-02-09 08:58 | XMS_ITS | Encounter Summary ---
Author Organization [employer] Address [address] [facility] 7t [place] [address] Care Team Providers Care Furniture Repair Technician Name Role Phone Deana Warren Primary Care Provider [phone] Reason for Visit * Reason Onset Date Comments FYI 02/12/2023 Encounter Details Date Type Department Care Team (Late st Contact Info) Description 02/12/2023 Telephone [facility] MEDICINE [address] [place], [place] [phone] Deana Warren ANP 230 [place], [place] [phone] FYI Social History Tobacco Use Types Packs/Day [...] - 02/12/2023 2:36 PM EST Tc from [place] [facility] stating that pt missed her second appt today due to clinician being out and will be seeing pt today or tomorrow. If any questions please contact at [phone] documented in this encounter Plan of Treatment Upcoming Encounters Date Type Department Care Team (Late st Contact Info) Description 02/09/2025 9:00 AM EST Office Visit [facility] MEDICINE [address] [place] [address] Robin Farah MD 230 [place] [address] 03/31/2025 10:30 AM EST Office Visit [facility] MED[facility]INE [address] [place] [address] Deana Warren ANP 230 [place] [address] 05/30/2025 10:30 AM EDT Office Visit [facility] OPT[facility] [address] [place] [address] Katt Lazcano OD 267 [place] [address] documented as of this encounter Visit Diagnoses Not on filedocumented in this encounter Care Teams Furniture Repair Technician Relationship Specialty Start Date End Date Deana Warren ANP [address] [place] [address] PCP - General Family Medicine 03/29/22 documented as of this encounter
--- OUTSIDE RECORDS SUMMARY | 2025-02-09 08:59 | XMS_ITS | Encounter Summary ---
Author Organization [employer] Address [address] [facility] 7t [place] [address] Care Team Providers Care Senior Treasury Analyst Name Role Phone Deana Warren Primary Care Provider [phone] Reason for Visit * Reason Comments Med Refill Encounter Details Date Type Department Care Team ([facility] st Contact Info) Description 09/27/[address] [facility] MEDICINE [address] [place], [place] [phone] Deana Warren ANP 230 [place], [place] [phone] Type 2 diabetes mellitus with hyperglycemia, unspecified whether intermediate insulin use ([facility]) Social History Tobacco Use Types [...] Description 02/09/2025 9:00 AM EST Office Visit [facility] MEDICINE [address] [place] [address] Robin Farah MD 230 [place] [address] Arrived 03/31/2025 10:30 AM EST Office Visit [facility] MEDICINE [address] [place] [address] Deana Warren ANP 230 [place] [address] 05/30/2025 10:30 AM EDT Office Visit [facility] OPTOMETRY [address] [place] [address] Katt Lazcano OD 267 [place] [address] documented as of this encounter Visit Diagnoses Diagnosis Type 2 diabetes mellitus with hyperglycemia, unspecified whether intermediate insulin use (HCC) documented in this encounter Additional Health Concerns Assessment Noted Time PHQ-9 Depression Total Score: 24 025 9:43 AM EST documented as of this encounter Care Teams Senior Treasury Analyst Relationship Specialty Start Date End Date Deana Warren ANP 230 [place] [address] PCP - General Family Medicine 03/29/22 documented as of this encounter
--- OUTSIDE RECORDS SUMMARY | 2025-02-09 08:59 | XMS_ITS | Encounter Summary ---
Author Organization [facility] Address [address] [place] [address] Phone Care Team Providers Care Spar Finisher Name Role Phone Pcp, Unknown Primary Care Provider Unavailabl e Pcp, Not Required Primary Care Provider Deana Cherry NP Primary Care Provider [phone] Encounter Details Date Type Department Care Team (Late st Contact Info) Description 01/06/2023 Procedure Pass [facility], Ct Scan - [address] [address] Social History Tobacco Use Types Packs/Day Years [...] 5:00 PM EDT Roland Garber, [place] * [place] Suicide Severity Rating Scale (Screener/Recent Self-Report) Question [...] documented as of this encounter Care Teams Spar Finisher Relationship Specialty Start Date End Date Pcp, Unknown PCP - General 08/01/22 01/10/23 Pcp, Not Required [address] [place] [address] PCP - General 01/11/23 01/13/23 Deana Warren NP [address] [place] [address] PCP - General Nurse Practitioner 01/14/23 documented as of this encounter Additional Source Comments The information contained in this document represents components of the legal health record. It is not the complete legal health record.[facility]
--- OUTSIDE RECORDS SUMMARY | 2025-02-09 08:59 | XMS_ITS | Encounter Summary ---
Author Organization [facility] Address [address] [facility] [address] [place] [phone] Phone Care Team Providers Care Head Of Ethics And Compliance Name Role Phone Pcp, Unknown Primary Care Provider Unavailabl e Pcp, Not Required Primary Care Provider Deana Cherry NP Primary Care Provider [phone] Encounter Details Date Type Department Care Team (Late st Contact Info) Description 01/23/2022 Transcribe Orders [facility] Specimen Processing [address] [place] [address] Pcp, Unknown Social History Tobacco Use Types [...] documented as of this encounter Care Teams Head Of Ethics And Compliance Relationship Specialty Start Date End Date Pcp, Unknown PCP - General 08/01/22 01/10/23 Pcp, Not Required [address] [place] [address] PCP - General 01/11/23 01/13/23 Deana Warren NP [address] [place] [address] PCP - General Nurse Practitioner 01/14/23 documented as of this encounter Additional Source Comments The information contained in this document represents components of the legal health record. It is not the complete legal health record.[facility]
--- OUTSIDE RECORDS SUMMARY | 2025-02-09 08:59 | XMS_ITS | Encounter Summary ---
Author Organization [employer] Address [address] [facility] 7t [place] [address] Care Team Providers Care Case Making Machine Operator Name Role Phone Deana Warren Primary Care Provider [phone] Reason for Visit * Reason Comments Med Refill Encounter Details Date Type Department Care Team ([facility] st Contact Info) Description 01/04/2023 Refill [facility] MEDICINE 230 [place], [place] [phone] Sonia Chase MD 230 [place], [place] [phone] Type 2 diabetes mellitus with hyperglycemia, with long-term current use of insulin ([facility]) Social History Tobacco Use Types Packs/Day [...] Description 02/09/2025 9:00 AM EST Office Visit [facility] MEDICINE [address] [place] [address] Robin Farah MD 230 [place] [address] 03/31/2025 10:30 AM EST Office Visit [facility] MEDICINE [address] [place] [address] Deana Warren ANP 230 [place] [address] 05/30/2025 10:30 AM EDT Office Visit [facility] OPTOMETRY [address] [place] [address] Katt Lazcano OD 267 [place] [address] documented as of this encounter Visit Diagnoses Diagnosis Type 2 diabetes mellitus with hyperglycemia, with long-term current use of insulin (HCC) documented in this encounter Care Teams Case Making Machine Operator Relationship Specialty Start Date End Date Deana Warren ANP [address] [place] [address] PCP - General Family Medicine 03/29/22 documented as of this encounter
--- OUTSIDE RECORDS SUMMARY | 2025-02-09 08:59 | XMS_ITS | Encounter Summary ---
Author Organization [facility] Address [address] [facility] [address] [place] [address] Phone Care Team Providers Care Central Station Operator Name Role Phone Pcp, Unknown Primary Care Provider Unavailabl e Pcp, Not Required Primary Care Provider Deana Cherry NP Primary Care Provider [phone] Encounter Details Date Type Department Care Team (Late st Contact Info) Description 01/23/2022 Procedure Pass [facility], Ct Scan - [address] [address] Social History Tobacco Use Types Packs/Day Years [...] documented as of this encounter Care Teams Central Station Operator Relationship Specialty Start Date End Date Pcp, Unknown PCP - General 08/01/22 01/10/23 Pcp, Not Required [address] [place] [address] PCP - General 01/11/23 01/13/23 Deana Warren NP [address] [place] [address] PCP - General Nurse Practitioner 01/14/23 documented as of this encounter Additional Source Comments The information contained in this document represents components of the legal health record. It is not the complete legal health record.[facility]
--- OUTSIDE RECORDS SUMMARY | 2025-02-09 08:59 | XMS_ITS | Encounter Summary ---
Author Organization [employer] Address [address] [facility] 7t [place] [address] Care Team Providers Care Architectural Inspector Name Role Phone Deana Warren Primary Care Provider [phone] Reason for Visit * Reason Comments Med Change Request Encounter Details Date Type Department Care Team ([facility] st Contact Info) Description 02/02/2025 Refill [facility] PEDS [address] [place], [place] [phone] Deana Warren ANP [address] [place] [address] Bipolar affective disorder, remission status unspecified (CMS/HCC) ([facility]) Social History Tobacco Use Types [...] Description 02/09/2025 9:00 AM EST Office Visit [facility] MEDICINE [address] [place] [address] Robin Farah MD [address] [place] [address] 03/31/2025 10:30 AM EST Office Visit [facility] MEDICINE [address] [place] [address] Deana Warren ANP [address] [place] [address] 05/30/2025 10:30 AM EDT Office Visit [facility] OPTOMETRY [address] [place] [address] Katt Lazcano, OD [address] [place] [address] documented as of this encounter Goals Goal [...] Plan Patient has chronic kidney disease No Alonso Zorylee Weekly blood pressure task Care Plan [...] Weekly blood pressure task No BradyGuilherme galarzas Weekly blood pressure task Care Plan Weekly blood pressure task No Brady Morgan Patient has chronic kidney disease Care Plan Patient has chronic kidney disease No Brady Morgan Patient has chronic kidney disease Care Plan Patient has chronic kidney disease No Guilherme Bradys documented as of this encounter Visit Diagnoses Diagnosis Bipolar affective disorder, remission status unspecified (CMS/HCC) (HCC) documented in this encounter Additional Health [...] documented as of this encounter Care Teams Architectural Inspector Relationship Specialty Start Date End Date Deana Warren ANP [address] [place] [address] PCP - General Family Medicine 03/29/22 documented as of this encounter
--- OUTSIDE RECORDS SUMMARY | 2025-02-09 08:59 | XMS_ITS | Encounter Summary ---
Author Organization [facility] Address [address] [facility] [address] [facility] [address] [place] [address] Phone Care Team Providers Care Wool Spotter Name Role Phone Pcp, Unknown Primary Care Provider Unavailabl e Pcp, Not Required Primary Care Provider Deana Cherry NP Primary Care Provider Encounter Details Date Type Department Care Team (Late st Contact Info) Description 01/09/2022 Procedure Pass [facility], Ct Scan - [facility] [address] [place] [address] Social History Tobacco Use Types Packs/Day Years [...] 8:00 AM EDT Mariam Jordan RN * [place] Suicide Severity Rating Scale (Screener/Recent Self-Report) Question [...] documented as of this encounter Care Teams Wool Spotter Relationship Specialty Start Date End Date Pcp, Unknown PCP - General 08/01/22 01/10/23 Pcp, Not Required [address] [place] [address] PCP - General 01/11/23 01/13/23 Deana Warren NP [address] [place] [address] PCP - General Nurse Practitioner 01/14/23 documented as of this encounter Additional Source Comments The information contained in this document represents components of the legal health record. It is not the complete legal health record.[facility]
--- OUTSIDE RECORDS SUMMARY | 2025-02-09 08:59 | XMS_ITS | Encounter Summary ---
Author Organization [facility] Address [address] [place] [address] Phone Care Team Providers Care Fruit Harvester Machine Operator Name Role Phone Pcp, Unknown Primary Care Provider Unavailabl e Pcp, Not Required Primary Care Provider Deana Cherry NP Primary Care Provider [phone] Encounter Details Date Type Department Care Team (Late st Contact Info) Description 01/10/2022 Procedure Pass [facility] [address] [place] [address] Social History Tobacco Use Types Packs/Day Years [...] 8:00 AM EDT Mariam Jordan RN * [place] Suicide Severity Rating Scale (Screener/Recent Self-Report) Question [...] documented as of this encounter Care Teams Fruit Harvester Machine Operator Relationship Specialty Start Date End Date Pcp, Unknown PCP - General 08/01/22 01/10/23 Pcp, Not Required [address] [place] [address] PCP - General 01/11/23 01/13/23 Deana Warren NP [address] [place] [address] PCP - General Nurse Practitioner 01/14/23 documented as of this encounter Additional Source Comments The information contained in this document represents components of the legal health record. It is not the complete legal health record.[facility]
--- OUTSIDE RECORDS SUMMARY | 2025-02-09 08:59 | XMS_ITS | Encounter Summary ---
Author Organization [employer] Address [address] [facility] 7t [place] [address] Care Team Providers Care Part Time Name Role Phone Deana Warren Primary Care Provider [phone] Encounter Details Date Type Department Care Team ([facility] st Contact Info) Description 11/17/2024 Orders Only [facility] MEDICINE [address] [place] [address] [place], [place] [address] [place] [address] Chronic hepatitis C without hepatic coma (CMS/HCC) [...] Description 02/09/2025 9:00 AM EST Office Visit [facility] MED[facility]INE [address] [place] [address] Robin Farah MD 230 [place] [address] 03/31/2025 10:30 AM EST Office Visit [facility] MED[facility] [address] [place] [address] Deana Warren ANP 230 [place] [address] 05/30/2025 10:30 AM EDT Office Visit [facility] OPTOMETRY [address] [place] [address] Katt Lazcano OD [address] [place] [address] Scheduled Orders Name Type Priority Associated Diagnoses [...] Load <15 NOT DETECTED NOT DETECTED IU/mL [facility] HCV Log PCR <1.18 NOT DETECTED NOT DETECTED Log IU/mL [facility] Comment:For additional infor mation, please refer tohttp://education.Virtusize/faq/UVU18a1(This link is being provided for informational/educational purposes only.)THIS TEST WAS PERFORMED AT:[facility] [place] [id number] VANG MD 11/17/2024 11:5 4 AM EDT 11/17/2024 1:47 PM EDT us Wilmar [place] MD LAB BLOOD ORDERABLES Final Res ult [facility] [address] [place] [address] [phone] documented in this encounter Visit Diagnoses Diagnosis Chronic hepatitis C without hepatic coma (HCC) documented in this encounter Additional Health Concerns Assessment Noted Time PHQ-9 Depression Total Score: 12 025 1:15 PM EDT documented as of this encounter Care Teams Part Time Relationship Specialty Start Date End Date Deana Warren ANP [address] [place] [address] PCP - General Family Medicine 03/29/22 documented as of this encounter
--- OUTSIDE RECORDS SUMMARY | 2025-02-09 08:59 | XMS_ITS | Encounter Summary ---
Author Organization [facility] Address [address] [facility] [address] [place] [address] Phone Care Team Providers Care Salesperson Automobiles Name Role Phone Pcp, Unknown Primary Care Provider Unavailabl e Pcp, Not Required Primary Care Provider Deana Cherry NP Primary Care Provider [phone] Encounter Details Date Type Department Care Team (Late st Contact Info) Description 01/15/2022 Procedure Pass [facility] [address] [place] [address] Social History Tobacco Use Types Packs/Day Years [...] documented as of this encounter Care Teams Salesperson Automobiles Relationship Specialty Start Date End Date Pcp, Unknown PCP - General 08/01/22 01/10/23 Pcp, Not Required [address] [place] [address] PCP - General 01/11/23 01/13/23 Deana Warren NP [address] [place] [address] PCP - General Nurse Practitioner 01/14/23 documented as of this encounter Additional Source Comments The information contained in this document represents components of the legal health record. It is not the complete legal health record.[facility]
--- OUTSIDE RECORDS SUMMARY | 2025-02-09 08:59 | XMS_ITS | Encounter Summary ---
Author Organization [facility] Address [address] [place] [address] Phone Care Team Providers Care Welder Production Line Gas Name Role Phone Pcp, Unknown Primary Care Provider Unavailabl e Pcp, Not Required Primary Care Provider Deana Cherry NP Primary Care Provider [phone] Encounter Details Date Type Department Care Team (Late st Contact Info) Description 01/10/2022 Procedure Pass [facility] [address] [place] [address] Social History Tobacco Use Types Packs/Day Years [...] 8:00 AM EDT Mariam Jordan RN * [place] Suicide Severity Rating Scale (Screener/Recent Self-Report) Question [...] documented as of this encounter Care Teams Welder Production Line Gas Relationship Specialty Start Date End Date Pcp, Unknown PCP - General 08/01/22 01/10/23 Pcp, Not Required [address] [place] [address] PCP - General 01/11/23 01/13/23 Deana Warren NP [address] [place] [address] PCP - General Nurse Practitioner 01/14/23 documented as of this encounter Additional Source Comments The information contained in this document represents components of the legal health record. It is not the complete legal health record.[facility]
--- OUTSIDE RECORDS SUMMARY | 2025-02-09 08:59 | XMS_ITS | Encounter Summary ---
Author Organization [facility] Address [address] [place] [address] Phone Care Team Providers Care Director Marketing Analytics Name Role Phone Pcp, Unknown Primary Care Provider Unavailabl e Pcp, Not Required Primary Care Provider Deana Cherry NP Primary Care Provider [phone] Encounter Details Date Type Department Care Team (Late st Contact Info) Description 01/10/2022 Procedure Pass [facility], Ct Scan - [facility] [address] [place] [address] Social History Tobacco Use Types Packs/Day Years [...] 8:00 AM EDT Mariam Jordan RN * [place] Suicide Severity Rating Scale (Screener/Recent Self-Report) Question [...] documented as of this encounter Care Teams Director Marketing Analytics Relationship Specialty Start Date End Date Pcp, Unknown PCP - General 08/01/22 01/10/23 Pcp, Not Required [address] [place] [address] PCP - General 01/11/23 01/13/23 Deana Warren NP [address] [place] [address] PCP - General Nurse Practitioner 01/14/23 documented as of this encounter Additional Source Comments The information contained in this document represents components of the legal health record. It is not the complete legal health record.[facility]
--- OUTSIDE RECORDS SUMMARY | 2025-02-09 08:59 | XMS_ITS | Encounter Summary ---
Author Organization [facility] Address [address] [facility] [address] [place] [address] Phone Care Team Providers Care Research Epidemiologist Name Role Phone Pcp, Unknown Primary Care Provider Unavailabl e Pcp, Not Required Primary Care Provider Deana Cherry NP Primary Care Provider [phone] Encounter Details Date Type Department Care Team (Late st Contact Info) Description 01/14/2022 Procedure Pass [facility] [address] [place] [address] Social History Tobacco Use Types Packs/Day Years [...] documented as of this encounter Care Teams Research Epidemiologist Relationship Specialty Start Date End Date Pcp, Unknown PCP - General 08/01/22 01/10/23 Pcp, Not Required [address] [place] [address] PCP - General 01/11/23 01/13/23 Deana Warren NP [address] [place] [address] PCP - General Nurse Practitioner 01/14/23 documented as of this encounter Additional Source Comments The information contained in this document represents components of the legal health record. It is not the complete legal health record.[facility]
--- OUTSIDE RECORDS SUMMARY | 2025-02-09 08:59 | XMS_ITS | Encounter Summary ---
Author Organization [facility] Address [address] [facility] [address] [place] [address] Phone Care Team Providers Care Electric Container Tester Name Role Phone Pcp, Unknown Primary Care Provider Unavailabl e Pcp, Not Required Primary Care Provider Deana Cherry NP Primary Care Provider [phone] Encounter Details Date Type Department Care Team (Late st Contact Info) Description 01/15/2022 Procedure Pass [facility] 30 [place] [address] Social History Tobacco Use Types Packs/Day Years [...] documented as of this encounter Care Teams Electric Container Tester Relationship Specialty Start Date End Date Pcp, Unknown PCP - General 08/01/22 01/10/23 Pcp, Not Required [address] [place] [address] PCP - General 01/11/23 01/13/23 Deana Warren NP [address] [place] [address] PCP - General Nurse Practitioner 01/14/23 documented as of this encounter Additional Source Comments The information contained in this document represents components of the legal health record. It is not the complete legal health record.[facility]
--- OUTSIDE RECORDS SUMMARY | 2025-02-09 08:59 | XMS_ITS | Encounter Summary ---
Author Organization [employer] Address [address] [facility] 7t [place] [address] Care Team Providers Care Progressive Assembler And Fitter Name Role Phone Deana Warren Primary Care Provider [phone] Encounter Details Date Type Department Care Team ([facility] st Contact Info) Description 08/04/2024 Orders Only [facility] MEDICINE [address] [place], [place] [phone] Deana Warren ANP [address] [place], [place] [phone] Dyspnea on exertion (Primary Dx) Social History [...] Upcoming Encounters Date Type Department Care Team ([facility] st Contact Info) Description 02/09/2025 9:00 AM EST Office Visit [facility] MEDICINE [address] [place] [address] Robin Farah MD [address] [place] [address] 03/31/2025 10:30 AM EST Office Visit [facility] MEDICINE [address] [place] [address] Deana Warren ANP [address] [place] [address] 05/30/2025 10:30 AM EDT Office Visit [facility] OPTOMETRY [address] [place] [address] Katt Lazcano, OD [address] [place] [address] documented as of this encounter Visit Diagnoses Diagnosis Dyspnea on exertion- Primary Other dyspnea and respiratory abnormality documented in this encounter Additional Health Concerns Assessment Noted Time PHQ-9 Depression Total Score: 24 025 9:43 AM EST documented as of this encounter Care Teams Progressive Assembler And Fitter Relationship Specialty Start Date End Date Deana Warren ANP [address] [place] [address] PCP - General Family Medicine 03/29/22 documented as of this encounter
--- OUTSIDE RECORDS SUMMARY | 2025-02-09 08:59 | XMS_ITS | Encounter Summary ---
Author Organization [facility] Address [address] [place] [address] Phone Care Team Providers Care Healthcare Risk Control Consultant Name Role Phone Pcp, Unknown Primary Care Provider Unavailabl e Pcp, Not Required Primary Care Provider Deana Cherry NP Primary Care Provider [phone] Encounter Details Date Type Department Care Team (Late st Contact Info) Description 01/10/2023 Procedure Pass [facility], [facility] [address] [facility], 2nd [place] [address] Social History Tobacco Use Types Packs/Day Years [...] 4:41 PM EST Terrie Echavarria RN * [place] Suicide Severity Rating Scale (Screener/Recent Self-Report) Question [...] documented as of this encounter Care Teams Healthcare Risk Control Consultant Relationship Specialty Start Date End Date Pcp, Unknown PCP - General 08/01/22 01/10/23 Pcp, Not Required [address] [place] [address] PCP - General 01/11/23 01/13/23 Deana Warren NP [address] [place] [address] PCP - General Nurse Practitioner 01/14/23 documented as of this encounter Additional Source Comments The information contained in this document represents components of the legal health record. It is not the complete legal health record.[facility]
--- OUTSIDE RECORDS SUMMARY | 2025-02-09 08:59 | XMS_ITS | Encounter Summary ---
Author Organization [facility] Address [address] [place] [address] Phone Care Team Providers Care Physical Therapist Clinic Director Name Role Phone Pcp, Unknown Primary Care Provider Unavailabl e Pcp, Not Required Primary Care Provider Deana Cherry NP Primary Care Provider [phone] Encounter Details Date Type Department Care Team (Late st Contact Info) Description 08/01/2022 Procedure Pass [facility], Ct Scan - [address] [address] Social History Tobacco Use Types Packs/Day Years [...] 8:49 PM EDT Brandi Ordoñez RN * [place] Suicide Severity Rating Scale (Screener/Recent Self-Report) Question [...] documented as of this encounter Care Teams Physical Therapist Clinic Director Relationship Specialty Start Date End Date Pcp, Unknown PCP - General 08/01/22 01/10/23 Pcp, Not Required [address] [place] [address] PCP - General 01/11/23 01/13/23 Deana Warren NP [address] [place] [address] PCP - General Nurse Practitioner 01/14/23 documented as of this encounter Additional Source Comments The information contained in this document represents components of the legal health record. It is not the complete legal health record.[facility]
--- OUTSIDE RECORDS SUMMARY | 2025-02-09 08:59 | XMS_ITS | Encounter Summary ---
Author Organization [facility] Address [address] [place] [address] Phone Care Team Providers Care Adjunct Writing Instructor Name Role Phone Pcp, Unknown Primary Care Provider Unavailabl e Pcp, Not Required Primary Care Provider Deana Cherry NP Primary Care Provider [phone] Encounter Details Date Type Department Care Team (Late st Contact Info) Description 01/10/2022 Procedure Pass [facility], Ct Scan - [facility] 30 [place] [address] Social History Tobacco Use Types Packs/Day Years [...] 8:00 AM EDT Mariam Jordan RN * [place] Suicide Severity Rating Scale (Screener/Recent Self-Report) Question [...] documented as of this encounter Care Teams Adjunct Writing Instructor Relationship Specialty Start Date End Date Pcp, Unknown PCP - General 08/01/22 01/10/23 Pcp, Not Required [address] [place] [address] PCP - General 01/11/23 01/13/23 Deana Warren NP [address] [place] [address] PCP - General Nurse Practitioner 01/14/23 documented as of this encounter Additional Source Comments The information contained in this document represents components of the legal health record. It is not the complete legal health record.[facility]
--- OUTSIDE RECORDS SUMMARY | 2025-02-09 08:59 | XMS_ITS | Encounter Summary ---
Author Organization [facility] Address [address] [place] [address] Phone Care Team Providers Care Injection Molding Process Technician Name Role Phone Pcp, Unknown Primary Care Provider Unavailabl e Pcp, Not Required Primary Care Provider Deana Cherry NP Primary Care Provider [phone] Encounter Details Date Type Department Care Team (Late st Contact Info) Description 01/07/2023 Procedure Pass [facility], Ct Scan - [address] [address] Social History Tobacco Use Types Packs/Day Years [...] 5:00 PM EDT Roland Garber, [place] * [place] Suicide Severity Rating Scale (Screener/Recent Self-Report) Question [...] documented as of this encounter Care Teams Injection Molding Process Technician Relationship Specialty Start Date End Date Pcp, Unknown PCP - General 08/01/22 01/10/23 Pcp, Not Required [address] [place] [address] PCP - General 01/11/23 01/13/23 Deana Warren NP [address] [place] [address] PCP - General Nurse Practitioner 01/14/23 documented as of this encounter Additional Source Comments The information contained in this document represents components of the legal health record. It is not the complete legal health record.[facility]
--- OUTSIDE RECORDS SUMMARY | 2025-02-09 08:59 | XMS_ITS | Encounter Summary ---
Author Organization [facility] Address [address] [facility] [address] [place] [address] Phone Care Team Providers Care Hair Machine Operator Name Role Phone Pcp, Unknown Primary Care Provider Unavailabl e Pcp, Not Required Primary Care Provider Deana Cherry NP Primary Care Provider [phone] Encounter Details Date Type Department Care Team (Late st Contact Info) Description 01/22/2022 Procedure Pass [facility], Ct Scan - [address] [address] Social History Tobacco Use Types Packs/Day Years [...] documented as of this encounter Care Teams Hair Machine Operator Relationship Specialty Start Date End Date Pcp, Unknown PCP - General 08/01/22 01/10/23 Pcp, Not Required [address] [place] [address] PCP - General 01/11/23 01/13/23 Deana Warren NP [address] [place] [address] PCP - General Nurse Practitioner 01/14/23 documented as of this encounter Additional Source Comments The information contained in this document represents components of the legal health record. It is not the complete legal health record.[facility]
[2025-02-09 11:52] LABS: Anion Gap 11 (12-20); Blood Urea Nitrogen 14 mg/dL (9-16); Calcium 9.5 mg/dL (8.4-10.2); Carbon Dioxide 25 mmol/L (22-29); Chloride 110 mmol/L (96-108); Estimated Glomerular Filt Rate > 60; Potassium 4.0 mmol/L (3.3-5.1); Sodium 142 mmol/L (135-145)
[2025-02-09 12:10] LABS: Parathyroid Hormone Intact 106.3 pg/mL (8.7-77.1)
== END 2025-02-09 08:42 | disposition home or self-care (01) ==
LOC: HO.HHCL 08:41
PROVIDERS: PCP Nurse Practitioner Primary Care; Visit Provider Nurse Practitioner Primary Care
DX: R79.89 Other specified abnormal findings of blood chemistry (principal)
CPT/HCPCS: 36415; 80048; 82306; 83970

== ENCOUNTER 2025-02-17 19:25 | Emergency (ER) | payer OTHER, SELFPAY ==
--- OUTSIDE RECORDS SUMMARY | 2025-02-16 09:00 | XMS_ITS | Encounter Summary ---
Author Organization [employer] Address [address] [facility] 7t [place] [address] Care Team Providers Care Etl Informatica Architect Name Role Phone Deana Warren Primary Care Provider [phone] Reason for Visit * Reason Comments GBAT Encounter Details Date Type Department Care Team ([facility] st Contact Info) Description 02/16/2025 9:00 AM EST Office Visit [facility] [address] [place], [place] [phone] Robin Farah MD [address] [place] [address] Alcohol use disorder, severe, dependence (CMS/HCC) (HCC) (Primary Dx) Social History Tobacco Use Types [...] Progress Notes * Robin Farah MD - 02/16/2025 9:00 AM EST LAST GBAT VISIT 02/09/2025 Patient presents for Group-Based Addiction Treatment for AUD Reviewed the group goals, expectations and policies Consented to the group treatment options Actively participated in the group discussion with the topic of: Colors Following staff present at the visit: Physician, [employer] Medical Sergeant, Team RN, Clinician, and MedicalAssistant Opportunities provided to address individual medical/medication/BH concerns TODAY GBAT VISIT 02/16/2025 Patient presents for Group-Based Addiction Treatment for AUD Reviewed the group goals, expectations and policies Consented to the group treatment options Actively participated in the group discussion with the topic of: Reflection During the Holidays Following staff present at the visit: Physician, [employer] Medical Sergeant, Team RN, Clinician, and MedicalAssistant Opportunities provided to address individual medical/medication/BH concerns Review of Systems Psychiatric/Behavioral: Negative for behavioral problems and dysphoric mood. The patient is not nervous/anxious. Physical Exam Constitutional: Appearance: Normal appearance. Pulmonary: Effort: Pulmonary effort is normal. Neurological: Mental Status: She is alert. Psychiatric: Mood and Affect: Mood normal. Behavior: Behavior normal. Cora was seen today for gbat. Diagnoses and all orders for this visit: Alcohol use disorder, severe, dependence (CMS/HCC) (HCC) (Primary) Patient presents for Group-Based Addiction Treatment of AUD Reviewed the group goals, expectations and policies Consented to the group treatment options Actively participated in the group discussion States she is planning to pursue detox Reviewed behavioral modification and accessing services Group counseling provided with a focus on support system, tools for achieving/maintaining recovery Reviewed barriers for these goals Discussed strategies to address when faced situations that may trigger use Following staff present at the visit: Physician, Team RN, [employer] Medical Sergeant, Clinician, and MedicalAssistant Follow up in GBAT clinic This information has been disclosed to you [...] disorder, except as provided at 2.12??(5) and 2.65.) and 2.65. documented in this encounter Plan of Treatment Upcoming Encounters Date Type Department Care Team (Late st Contact Info) Description 03/31/2025 10:30 AM EST Office Visit [facility] [address] [place], [place] [phone] Deana Warren ANP [address] [place] [address] 05/30/2025 10:30 AM EDT Office Visit [facility] [address] [place] [address] Katt Lazcano, OD [address] [place] [address] documented as of this encounter Goals Goal [...] Care Plan Weekly blood pressure task No Wimlar Norton MD Patient has chronic kidney disease Care Plan Patient has chronic kidney disease No Wilmar Norton MD Patient has chronic kidney disease Care Plan Patient has chronic kidney disease No Wilmar Norton MD Weekly blood pressure task Care Plan Weekly blood pressure task No Freedom Gupta Weekly blood pressure task Care Plan Weekly blood pressure task No Brenna Guptarylemarcel Patient has chronic kidney disease Care Plan [...] Plan Patient has chronic kidney disease No BradyGuilherme galarzas Weekly blood pressure task [...] chronic kidney disease No Stephanie Segura [place] Weekly blood pressure task Care Plan Weekly blood pressure task No Marie Yousif [place] Weekly blood pressure task Care Plan Weekly blood pressure task No Marie Yousif [place] Patient has chronic kidney disease Care Plan Patient has chronic kidney disease No Marie Yousif [place] Patient has chronic kidney disease Care Plan Patient has chronic kidney disease No Marie Yousif [place] Weekly blood pressure task Care Plan Weekly blood pressure task No Rhiannon Gracia RN Weekly blood pressure task Care Plan Weekly blood pressure task No Rhiannon Gracia, RN Patient has chronic kidney disease Care Plan Patient has chronic kidney disease No Rhiannon Gracia, RN Patient has chronic kidney disease Care Plan Patient has chronic kidney disease No Rhiannon Gracia, [place] Weekly blood pressure task Care Plan Weekly [...] Care Plan Weekly blood pressure task No Gputa, Zorylee Patient has chronic kidney disease Care [...] blood pressure task No Marie Yousif [place] Weekly blood pressure task Care Plan Weekly blood pressure task No Marie Yousif [place] Patient has chronic kidney disease Care Plan Patient has chronic kidney disease No Marie Yousif [place] Patient has chronic kidney disease Care Plan Patient has chronic kidney disease No Marie Yousif [place] Weekly blood pressure task Care Plan Weekly blood pressure task No Gupta, Zorylemarcel Weekly blood pressure task Care Plan Weekly blood pressure task No Gupta, Zorylee Patient has chronic kidney disease Care Plan Patient has chronic kidney disease No Freedom Gupta Patient has chronic kidney disease Care Plan Patient has chronic kidney disease No Freedom Gupta documented as of this encounter Visit Diagnoses Diagnosis Alcohol use disorder, severe, dependence (CMS/HCC) (HCC)- Primary documented in this encounter Additional Health [...] kidney disease 02/07/2025 Weekly blood pressure task 02/09/2025 Weekly blood pressure task 02/09/2025 Patient has chronic kidney disease 02/09/2025 Patient has chronic kidney disease 02/09/2025 Weekly blood pressure task 02/09/2025 Weekly blood pressure task 02/09/2025 Patient has chronic kidney disease 02/09/2025 Patient has chronic kidney disease 02/09/2025 Weekly blood pressure task 02/09/2025 Weekly blood pressure task 02/09/2025 Patient has chronic kidney disease 02/09/2025 Patient has chronic kidney disease 02/09/2025 Weekly blood pressure task 02/09/2025 Weekly blood pressure task 02/09/2025 Patient has chronic kidney disease 02/09/2025 Patient has chronic kidney disease 02/09/2025 Weekly blood pressure task 02/09/2025 Weekly blood pressure task 02/09/2025 Patient has chronic kidney disease 02/09/2025 Patient has chronic kidney disease 02/09/2025 Weekly blood pressure task 02/14/2025 Weekly blood pressure task 02/14/2025 Patient has chronic kidney disease 02/14/2025 Patient has chronic kidney disease 02/14/2025 Weekly blood pressure task 02/16/2025 Weekly blood pressure task 02/16/2025 Patient has chronic kidney disease 02/16/2025 Patient has chronic kidney disease 02/16/2025 Weekly blood pressure task 02/16/2025 Weekly blood pressure task 02/16/2025 Patient has chronic kidney disease 02/16/2025 Patient has chronic kidney disease 02/16/2025 Assessment Noted Time PHQ-9 Depression Total Score: 11 11/22/2 025 10:32 AM EDT documented as of this encounter Care Teams Etl Informatica Architect Relationship Specialty Start Date End Date Deana Warren ANP [address] [place] [phone] PCP - General Family Medicine 03/29/22 documented as of this encounter
[2025-02-17 19:31] VITALS: BP 153/75; PULSE 60; O2SAT 96
[2025-02-17 19:40] VITALS: BP 132/74; PULSE 61; RESP 20; TEMP 36.4; O2SAT 94
[2025-02-17 20:10] VITALS: BP 132/74; PULSE 61; RESP 16; TEMP 36.4; O2SAT 94; BMI 26.5
[2025-02-17 20:31] LABS: VBG HCO3 23 mmol/L (22-26); VBG O2 % Saturation 99.0 %
[2025-02-17 20:31] LABS: Venous Blood Gas Refer to POC result
[2025-02-17 20:32] LABS: Appearance Urine Clear; Glucose Urine UA >=1000 mg/dL (Negative); PH 7.5 (5.0-9.0); Specific Gravity - Urine >= 1.030 (1.005-1.025); UMIC TRIGGER UA YES
[2025-02-17 20:47] LABS: Anion Gap 14 (12-20)
[2025-02-17 20:53] LABS: Glucose, Whole Blood 388 mg/dL (60-115)
[2025-02-17 20:54] LABS: Alanine Aminotransferase 24 U/L (0-31); Albumin Level 4.0 g/dL (3.5-5.0); Alkaline Phosphatase 85 U/L (39-117); Aspartate Amino Transferase 33 U/L (5-31); Blood Urea Nitrogen 16 mg/dL (9-16); Calcium 8.9 mg/dL (8.4-10.2); Carbon Dioxide 23 mmol/L (22-29); Chloride 105 mmol/L (96-108); Creatinine Clr Calc Pharmacy 52.9; Estimated Glomerular Filt Rate > 60; Magnesium 2.4 mg/dL (1.6-2.6); Potassium 4.7 mmol/L (3.3-5.1); Sodium 137 mmol/L (135-145); Total Protein 7.8 g/dL (6.5-8.0)
[2025-02-17] MEDS: Lactated Ringers 1,000 ML 999 ML IV (21:04)
[2025-02-17 22:00] VITALS: BP 184/86; PULSE 58; RESP 20; TEMP 36.3; O2SAT 94
[2025-02-17 22:01] LABS: Hematocrit 24.6 % (37.0-47.0); Hemoglobin 8.1 g/dl (12.0-16.0); Imm Gran Abs Auto 0.06 X10*3/uL (0.00-0.03); Imm Gran Pct Auto 0.7 % (0.0-0.4); Lymphocytes Absolute Auto 1.7 X10*3/uL (1.2-4.9); Mean Corpuscular HGB Conc 32.9 g/dl (31.0-35.0); Mean Corpuscular Hemoglobin 28.6 pg (27.0-33.0); Mean Corpuscular Volume 86.9 fL (80.0-98.0); NRBC Abs Auto 0.000 X10*3/uL (0.0-0.012); NRBC Pct Auto 0.0 /100WBC (0.0-0.2); Platelet Count 142 X10*3/uL (160-400); Red Blood Count 2.83 X10*6/uL (4.20-5.50); White Blood Count 8.4 X10*3/uL (4.8-10.8)
[2025-02-17 22:58] LABS: Glucose, Whole Blood 310 mg/dL (60-115)
--- OUTSIDE RECORDS SUMMARY | 2025-02-17 23:38 | XMS_ITS | Encounter Summary ---
Author Organization [employer] Address [address] [facility] 7t [place] [address] Care Team Providers Care Craniologist Name Role Phone Deana Warren Primary Care Provider [phone] Encounter Details Date Type Department Care Team ([facility] Contact Info) Description 02/17/2025 Orders Only GENERIC EXTERNAL DATA DEPARTMENT Provider, Generic External Data Social History Tobacco Use Types Packs/Day Years [...] housing situation today? I have adeline sing 03/16/[address] you li [...] Description 03/31/2025 10:30 AM EST Office Visit [facility] [address] [place] [address] Deana Warren, ANP [address] [place] [address] 05/30/2025 10:30 AM EDT Office Visit [facility] [address] [place] [address] TarKatt hamilton, OD [address] [place] [address] documented as of this encounter Goals Goal [...] their type 2 diabetes Marie Lou [place] Patient has chronic kidney [...] Patient has chronic kidney disease No Isadora Guptalemarcel Weekly blood pressure task Care Plan Weekly [...] has chronic kidney disease No Morgan Brady Weekly blood pressure task [...] has chronic kidney disease No Marie Yousif [place] Patient has chronic kidney disease Care Plan Patient has chronic kidney disease No Marie Yousif [place] Weekly blood pressure task Care Plan Weekly blood pressure task No Rhiannon Gracia RN Weekly blood pressure task Care Plan Weekly blood pressure task No Rhiannon Gracia RN Patient has chronic kidney disease Care Plan Patient has chronic kidney disease No Rhiannon Gracia RN Patient has chronic kidney disease Care Plan Patient has chronic kidney disease No Rhiannon Gracia RN Weekly blood pressure [...] has chronic kidney disease No Marie Yousif [place] Patient has chronic kidney disease Care Plan Patient has chronic kidney disease No NicaMarie bañuelos [place] Weekly blood pressure task Care Plan Weekly blood pressure task No Brenna Guptarylee Weekly blood pressure task Care Plan Weekly blood pressure task No Gupta, Zorylee Patient has chronic kidney disease Care Plan Patient has chronic kidney disease No Brenna Guptarylee Patient has chronic kidney disease Care Plan Patient has chronic kidney disease No Brenna Guptarylee documented as of this encounter Procedures Procedure Name Priority Date/Time Associated Diagnosis Comments GLUCOSE, WHOLE BLOOD Routine 02/17/2025 10:54 PM EST CBC WITH AUTO DIFFERENTIAL Routine 02/17/2025 9:56 PM EST GLUCOSE, WHOLE BLOOD Routine 02/17/2025 8:47 PM EST VENOUS BLOOD GAS Routine 02/17/2025 8:27 PM EST URINALYSIS, COMPLETE (INCLUDES MACRO AND MICRO) Routine 02/17/2025 8:26 PM EST BETA-HYDROXYBUTYRATE Routine 02/17/2025 8:23 PM EST MAGNESIUM Routine 02/17/2025 8:23 PM EST COMPREHENSIVE METABOLIC PANEL Routine 02/17/2025 8:23 PM EST documented in this encounter Results * (ABNORMAL) Glucose, Whole Blood (02/17/2025 10:54 PM EST) Pathologist [facility] Glucose, Whole Blood 310(H) 60 - 115 mg/dL [facility] Comment:METER #: [id number] 02/17/2025 10:5 4 PM EST 02/17/2025 10:57 PM EST us Generic External Data Provider LAB BLOOD ORDERAB LES Final Result Performing Organization Address City/State/[facility] Co de Phone Number [facility] [address] [place] [phone] * (ABNORMAL) CBC auto differential (02/17/2025 9:56 PM EST) [facility] White Blood Count 8.4 4.8 - 10.8 X10*3/uL [facility] Red Blood Count 2.83(L) 4.20 - 5.50 X10*6/uL [facility] Hemoglobin 8.1(L) 12.0 - 16.0 g/dl [facility] Hematocrit 24.6(L) 37.0 - 47.0 % [facility] Mean Corpuscular Volume 86.9 80.0 - 98.0 fL [facility] Mean Corpuscular Hemoglobin 28.6 27.0 - 33.0 pg [facility] Mean Corpuscular HGB Conc 32.9 31.0 - 35.0 g/dl [facility] Red Cell Distribution Width 14.2 11.0 - 16.0 % [facility] Platelet Count 142(L) 160 - 400 X10*3/uL [facility] Mean Platelet Volume 10.3 9.4 - 12.3 fL [facility] Neutrophils Percent Auto 70.7 45 - 73 % [facility] Imm Gran Pct Auto 0.7(H) 0.0 - 0.4 % [facility] Lymphocytes Percent Auto 19.6(L) 20 - 40 % [facility] Monocytes Percent Auto 8.7 2 - 11 % [facility] Eosinophils Percent Auto 0.1 0 - 4 % [facility] Basophils Percent Auto 0.2 0 - 2 % [facility] NRBC Pct Auto 0.0 0.0 - 0.2 /100WBC [facility] Neutrophils Absolute Auto 5.9 2.0 - 8.3 x10*3/uL [facility] Imm Gran Abs Auto 0.06(H) 0.00 - 0.03 X10*3/uL [facility] Lymphocytes Absolute Auto 1.7 1.2 - 4.9 X10*3/uL [facility] Monocytes Absolute Auto 0.7 0.1 - 1.2 X10*3/uL [facility] Eosinophils Absolute Auto 0.0 0.0 - 0.4 X10*3/uL [facility] Basophils Absolute Auto 0.0 0.0 - 0.2 X10*3/uL [facility] NRBC Abs Auto 0.000 0.0 - 0.012 X10*3/uL [facility] 02/17/2025 9:56 PM EST 02/17/2025 9:58 PM EST us Generic External Data Provider LAB BLOOD ORDERAB LES Edited Result - Final [facility] [address] [place] [address] [phone] * (ABNORMAL) Glucose, Whole Blood (02/17/2025 8:47 PM EST) Glucose, Whole Blood 388(HH) 60 - 115 mg/dL [facility] Comment:METER #: [id number] 02/17/2025 8:47 PM EST 02/17/2025 8:53 PM EST Generic External Data Provider LAB BLOOD ORDERAB LES Final Result Performing Organization Address [facility] de Phone Number [facility] [address] [place] [phone] * (ABNORMAL) VENOUS BLOOD GAS (02/17/2025 8:27 PM EST) VBG pH 7.52(H) 7.32 - 7.43 [facility] Comment:METER #: [id number] additional_comment: Cb nievea VBG PCO2 29 mmHg [facility] Comment:METER #: [id number] additional_comment: Cb nievea VBG PO2 107 mmHg [facility] Comment:METER #: [id number] additional_comment: Cb nievea VBG Base Excess 1.9 mmol/L [facility] Comment:METER #: [id number] additional_comment: Cb nievea VBG HCO3 23 22 - 26 mmol/L [facility] Comment:METER #: [id number] additional_comment: Cb marcellea O2 Sat, Volodymyr 99.0 % [facility] Comment:METER #: [id number] additional_comment: Cb kae 02/17/2025 8:27 PM EST 02/17/2025 8:31 PM EST us Generic External Data Provider LAB BLOOD ORDERAB LES Final Result Performing Organization Address [facility] Co de Phone Number [facility] [address] [place] [phone] * (ABNORMAL) Urinalysis Complete (02/17/2025 8:26 PM EST) Color Urine Yellow [facility] Appearance Urine Clear [facility] PH 7.5 5.0 - 9.0 [facility] Glucose Urine UA >=1000(A) Negative mg/dL [facility] Urine Blood Negative Negative [facility] Specific Herod - Urine >=1.030(H) 1.005 - 1.025 [facility] Urine Protein Negative Neg-Trace mg/dL [facility] Urine Ketones Negative Negative mg/dL [facility] Nitrite Urine Negative Negative [facility] Leukocyte Esterase Urine Negative Negative [facility] RBC Urine 0-2 0 - 2 /HPF [facility] Urine WBC 0-5 0 - 5 /HPF [facility] Urine Squamous Epithelial Cell 0-2 0 - 2 /HPF [facility] Urine Bacteria None Seen None Seen [facility] Hyaline Casts, Urine 0-2 0 - 2 /LPF [facility] 02/17/2025 8:26 PM EST 02/17/2025 8:28 PM EST Generic External Data Provider LAB URINE ORDERAB LES Final Result Performing Organization Address City/[facility]/ZIP Co de Phone Number [facility] [address] [place] [address] [phone] * Beta-Hydroxybutyrate (02/17/2025 8:23 PM EST) Beta-Hydroxybut yrate 0.06 0.02 - 0.27 mmol/L [facility] 02/17/2025 8:23 PM EST 02/17/2025 8:25 PM EST Generic External Data Provider LAB BLOOD ORDERAB LES Final Result Performing Organization Address City/[facility]/ZIP Co de Phone Number [facility] [address] [place] [phone] [phone] * Magnesium (02/17/2025 8:23 PM EST) Magnesium 2.4 1.6 - 2.6 mg/dL [facility] 02/17/2025 8:23 PM EST 02/17/2025 8:25 PM EST us Generic External Data Provider LAB BLOOD ORDERAB LES Final Result [facility] [address] [place], [place] [phone] * (ABNORMAL) Comprehensive Metabolic Panel (02/17/2025 8:23 PM EST) Sodium 137 135 - 145 mmol/L [facility] Potassium 4.7 3.3 - 5.1 mmol/L [facility] Comment:Mild Hemolysis.Inter pret result with caution Chloride 105 96 - 108 mmol/L [facility] Carbon Dioxide 23 22 - 29 mmol/L [facility] Anion Gap 14 12 - 20 [facility] Urea Nitrogen (BUN) 16 9 - 16 mg/dL [facility] Creatinine, Serum 0.88 0.5 - 1.4 mg/dL [facility] Creatinine Clr Calc Pharmacy 52.9 [facility] Comment:Provided height and weight: 157.48 cm,65.771 kg.eGFR (calculated from the MDRD study equation) and eCrCl(calculated from the Cockcroft-Gault equation) are based ondifferent parameters and may not yield comparable results.If eCrCl result is absurd, please check patient'sheight/weight. Estimated Glomerular Filt Rate >60 [facility] Comment:Chronic Kidney Disea se: Estimated GFR < 60 mL/min/1.63x3Nhmxtu Kidney Disease: Estimated GFR < 15 mL/min/1.73m2 Glucose 438(HH) 60 - 115 mg/dL [facility] Comment:Critical value for t est(s): GLUCOSE Results called to akua back by: VICKY Person calling: [email or web address] Date: 02/17/25Time:2052 Calcium 8.9 8.4 - 10.2 mg/dL [facility] Bilirubin, Total 0.2 0.0 - 1.0 mg/dL [facility] Aspartate Amino Transferase 33(H) 5 - 31 U/L [facility] Comment:Mild Hemolysis.Inter pret result with caution Alanine Aminotransferase 24 0 - 31 U/L [facility] Total Protein 7.8 6.5 - 8.0 g/dL [facility] Comment:Mild Hemolysis.Inter pret result with caution Albumin Level 4.0 3.5 - 5.0 g/dL [facility] Alkaline Phosphatase 85 39 - 117 U/L [facility] 02/17/2025 8:23 PM EST 02/17/2025 8:25 PM EST us Generic External Data Provider LAB BLOOD ORDERAB LES Final Result [facility] [address] [place] [phone] [phone] documented in this encounter Visit Diagnoses Not on filedocumented [...] Noted Time PHQ-9 Depression Total Score: 11 11/22/ 025 10:32 AM EDT documented as of this encounter Care Teams Craniologist Relationship Specialty Start Date End Date Deana Warren ANP [address] [place] [address] PCP - General Family Medicine 03/29/22 documented as of this encounter
--- OUTSIDE RECORDS SUMMARY | 2025-02-17 23:38 | XMS_ITS | Encounter Summary ---
Author Organization [facility] Address [address] [place] [address] Phone Care Team Providers Care Fac Engineer Name Role Phone Deana Warren NP Primary Care Provider [phone] Encounter Details Date Type Department Care Team (Late st Contact Info) Description 06/15/2023 Procedure Pass [facility], Ct Scan - [facility] [address] [place] [address] Social History Tobacco Use Types Packs/Day Years [...] 12:48 PM EDT Addison Angulo RN * [place] Suicide Severity Rating Scale (Screener/Recent Self-Report) Question [...] on filedocumented in this encounter Care Teams Fac Engineer Relationship Specialty Start Date End Date Deana Warren NP [address] [place] [address] PCP - General Nurse Practitioner 01/14/23 documented as of this encounter Additional Source Comments The information contained in this document represents components of the legal health record. It is not the complete legal health record.[facility]
--- OUTSIDE RECORDS SUMMARY | 2025-02-17 23:38 | XMS_ITS | Encounter Summary ---
Author Organization [facility] Address [address] [place] [address] Phone Care Team Providers Care Weighing Station Operator Name Role Phone Deana Warren NP Primary Care Provider [phone] Encounter Details Date Type Department Care Team (Late st Contact Info) Description 11/16/2023 Procedure Pass [facility], Ct Scan - [facility] [address] [place] [address] Social History Tobacco Use Types Packs/Day Years [...] 5:19 PM EDT Maribell Olguin RN * [place] Suicide Severity Rating Scale (Screener/Recent Self-Report) Question [...] on filedocumented in this encounter Care Teams Weighing Station Operator Relationship Specialty Start Date End Date Deana Warren NP [address] [place] [phone] PCP - General Nurse Practitioner 01/14/23 documented as of this encounter Additional Source Comments The information contained in this document represents components of the legal health record. It is not the complete legal health record.[facility]
--- OUTSIDE RECORDS SUMMARY | 2025-02-17 23:38 | XMS_ITS | Encounter Summary ---
Author Organization [facility] Address [address] [place] [address] Phone Care Team Providers Care Music Producer Name Role Phone Briana Deana DAVIS Primary Care Provider [phone] Encounter Details Date Type Department Care Team (Latest Contact Info) Description 07/08/2023 Ancillary Orders [facility] [address] [place] [phone] Shelli Billy PA-C [address] [place] [address] Orthopedics & Sports Medicine, [facility] [place] [address] [email or web address] Closed displaced comminuted fracture of [...] Primary documented in this encounter Care Teams Music Producer Relationship Specialty Start Date End Date Deana Warren NP [address] [place] [phone] PCP - General Nurse Practitioner 01/14/23 documented as of this encounter Additional Source Comments The information contained in this document represents components of the legal health record. It is not the complete legal health record.[facility]
--- OUTSIDE RECORDS SUMMARY | 2025-02-17 23:38 | XMS_ITS | Encounter Summary ---
Author Organization [facility] Address [address] [place] [address] Phone Care Team Providers Care Inspector Final Assembly Electrical Name Role Phone Deana Warren NP Primary Care Provider [phone] Encounter Details Date Type Department Care Team (Late st Contact Info) Description 11/16/2023 Procedure Pass [facility], Ct Scan - [facility] [address] [place] [address] Social History Tobacco Use Types Packs/Day Years [...] 5:19 PM EDT Maribell Olguin RN * [place] Suicide Severity Rating Scale (Screener/Recent Self-Report) Question [...] filedocumented in this encounter Care Teams Inspector Final Assembly Electrical Relationship Specialty Start Date End Date Deana Warren NP [address] [place] [phone] PCP - General Nurse Practitioner 01/14/23 documented as of this encounter Additional Source Comments The information contained in this document represents components of the legal health record. It is not the complete legal health record.[facility]
--- OUTSIDE RECORDS SUMMARY | 2025-02-17 23:38 | XMS_ITS | Encounter Summary ---
Author Organization [employer] Address [address] [facility] 7t [place] [address] Care Team Providers Care Twister Tender Name Role Phone Deana Warren Primary Care Provider [phone] Reason for Visit * Reason Onset Date Comments Nurse Triage 12/30/2023 Encounter Details Date Type Department Care Team ([facility] st Contact Info) Description 12/30/2023 Telephone [facility] MEDICINE [address] [place] [address] Deana Warren ANP [address] [place] [address] Nurse Triage Social History Tobacco Use Types [...] pain at all. ASK apt with SUSAN [place] 01/02/24 @ 915am. Pt is offered to come to [facility] today but, declines due to lack [...] Description 03/31/2025 10:30 AM EST Office Visit [facility] MEDICINE [address] [place] [address] Deana Warren ANP [address] [place] [address] 05/30/2025 10:30 AM EDT Office Visit [facility] OPTOMETRY [address] [place], [place] [phone] TarKatt hamilton, OD [address] [place] [address] documented as of this encounter Visit Diagnoses Not on filedocumented in this encounter Care Teams Twister Tender Relationship Specialty Start Date End Date Deana Warren ANP [address] [place], [place] [id number] PCP - General Family Medicine 03/29/22 documented as of this encounter
--- OUTSIDE RECORDS SUMMARY | 2025-02-17 23:38 | XMS_ITS | Encounter Summary ---
Author Organization [employer] Address [address] [facility] 7t [place] [address] Care Team Providers Care Building Construction Inspector Name Role Phone Deana Warren Primary Care Provider [phone] Encounter Details Date Type Department Care Team (Latest Contact Info) Description 02/16/2025 Travel Social History Tobacco Use Types Packs/Day [...] Description 03/31/2025 10:30 AM EST Office Visit [facility] MEDICINE [address] [place] [address] Deana Warren, ANP 230 [place] [address] 05/30/2025 10:30 AM EDT Office Visit [facility] OPTOMETRY [address] [place] [address] Katt Lazcano, OD [address] [place] [address] documented as of this encounter Goals Goal [...] Plan Patient has chronic kidney disease No GputaBrennarylee Patient has chronic kidney disease Care Plan Patient has chronic kidney disease No Gupta, Zorylee Weekly blood pressure task Care Plan Weekly blood pressure task No Kristy Han Weekly blood pressure task Care Plan Weekly blood pressure task No Kassie Hana Patient has chronic kidney disease Care Plan [...] Care Plan Weekly blood pressure task No Brittnay Crow RN Weekly blood pressure task Care Plan Weekly blood pressure task No Brittany Crow RN Patient has chronic kidney disease Care Plan Patient has chronic kidney disease No Brittayn Crow RN Patient has chronic kidney disease [...] Plan Patient has chronic kidney disease No Denaa Warren ANP Weekly blood pressure task Care [...] documented as of this encounter Care Teams Building Construction Inspector Relationship Specialty Start Date End Date Deana Warren ANP [address] [place] [address] PCP - General Family Medicine 03/29/22 documented as of this encounter
--- OUTSIDE RECORDS SUMMARY | 2025-02-17 23:38 | XMS_ITS | Encounter Summary ---
Author Organization [facility] Address [address] [place] [address] Phone Care Team Providers Care Cost Estimator Name Role Phone Deana Warren NP Primary Care Provider [phone] Encounter Details Date Type Department Care Team (Late st Contact Info) Description 06/17/2023 Procedure Pass OR Admitting Dept - Virtual Department 30 [place] [address] Social History Tobacco Use Types Packs/Day Years [...] on filedocumented in this encounter Care Teams Cost Estimator Relationship Specialty Start Date End Date Deana Warren NP 230 [place] [address] PCP - General Nurse Practitioner 01/14/23 documented as of this encounter Additional Source Comments The information contained in this document represents components of the legal health record. It is not the complete legal health record.[facility]
--- OUTSIDE RECORDS SUMMARY | 2025-02-17 23:38 | XMS_ITS | Encounter Summary ---
Author Organization [employer] Address [address] [facility] 7t [place] [address] Care Team Providers Care Pipe Washer Name Role Phone Deana Warren Primary Care Provider [phone] Encounter Details Date Type Department Care Team ([facility] st Contact Info) Description 02/09/2025 Results Follow-Up [facility] MEDICINE 230 [place] [address] Deana Warren, ANP [address] [place] [address] PTH, Intact Without Calcium, Basic Metabolic Panel, Vitamin D, 25-Hydroxy, Total, Immunoassay Social History Tobacco Use Types Packs/Day Years [...] Description 03/31/2025 10:30 AM EST Office Visit [facility] MED[facility]INE [address] [place] [address] Deana Warren ANP [address] [place] [address] 05/30/2025 10:30 AM EDT Office Visit [facility] OPTOMETRY [address] [place] [address] Katt Lazcano, OD 267 [place] [address] documented as of this encounter Goals Goal [...] Care Plan Weekly blood pressure task No hRiannon Gracia RN Weekly blood pressure task Care Plan Weekly blood pressure task No Rhiannon Gracia, [place] Patient has chronic kidney disease Care [...] 02/09/2025 Patient has chronic kidney disease 02/09/2025 Assessment Noted Time PHQ-9 Depression Total Score: 11 11/22/ 025 10:32 AM EDT documented as of this encounter Care Teams Pipe Washer Relationship Specialty Start Date End Date Deana Warren ANP [address] [place] [address] PCP - General Family Medicine 03/29/22 documented as of this encounter
--- OUTSIDE RECORDS SUMMARY | 2025-02-17 23:38 | XMS_ITS | Encounter Summary ---
Author Organization [facility] Address [address] [place] [address] Phone Care Team Providers Care Electric Sign Assembler Name Role Phone Deana Warren NP Primary Care Provider [phone] Encounter Details Date Type Department Care Team (Late st Contact Info) Description 06/15/2023 Procedure Pass [facility], Ct Scan - [facility] [address] [place] [address] Social History Tobacco Use Types Packs/Day Years [...] 12:48 PM EDT Addison Angulo RN * [place] Suicide Severity Rating Scale (Screener/Recent Self-Report) Question [...] on filedocumented in this encounter Care Teams Electric Sign Assembler Relationship Specialty Start Date End Date Deana Warren NP 230 [place] [address] PCP - General Nurse Practitioner 01/14/23 documented as of this encounter Additional Source Comments The information contained in this document represents components of the legal health record. It is not the complete legal health record.[facility]
--- OUTSIDE RECORDS SUMMARY | 2025-02-17 23:38 | XMS_ITS | Encounter Summary ---
Author Organization [employer] Address [address] [facility] 7t [place] [address] Care Team Providers Care Cutter Operator Brick Name Role Phone Deana Warren Primary Care Provider [phone] Reason for Visit * Reason Onset Date Comments Appointment Request 09/02/2023 Encounter Details Date Type Department Care Team ([facility] Contact Info) Description 09/02/2023 Telephone [facility] MEDICINE [address] [place], [place] [phone] Deana Warren ANP 230 [place] [address] Appointment Request Social History Tobacco Use Types [...] pt requesting to reschedule OV ext 07/16. Lumber Checker offered 12/03 but pt refused and is requesting a sooner appt if possible. Please contact pt at [phone]. documented in this encounter Plan of Treatment Upcoming Encounters Date Type Department Care Team (Late st Contact Info) Description 03/31/2025 10:30 AM EST Office Visit [facility] MEDICINE [address] [place] [address] Deana Warren ANP [address] [place] [address] 05/30/2025 10:30 AM EDT Office Visit [facility] OPTOMETRY [address] [place] [address] TarKatt hamilton, OD [address] [place] [address] documented as of this encounter Visit Diagnoses Not on filedocumented in this encounter Care Teams Cutter Operator Brick Relationship Specialty Start Date End Date Deana Warren ANP 230 [place] [address] PCP - General Family Medicine 03/29/22 documented as of this encounter
--- OUTSIDE RECORDS SUMMARY | 2025-02-17 23:38 | XMS_ITS | Clinical Summary ---
Author Organization [facility] Address [address] [facility] [address] [place] [address] Phone Care Team Providers Care Respiratory Therapy Manager Name Role Phone Deana Warren NP Primary Care Provider [phone] Allergies No known active allergies Medications OLANZapine [...] = 10 401+ = 12 and call MD/FOOD BEVERAGE MANAGER 4 Active zolpidem (AMBIEN) 5 MG tablet [...] (01/12/2023 7:15 PM EST): -Patient presented to [facility] with AMS thought to be due to hypoglycemia, had a seizure in the ED and EEG the following day was concerning for status epilepticus therefore she was transferred to [place] -Repeat EEG shows slowing, no epileptiform discharges [...] place on low-dose insulin sign scale with twspf-uz-yqta testing -Continue to hold long-acting as patient is encephalopathic and not taking in much PO Assessment & Plan (02/07/2022 10:00 AM EST): DKA at time of presentation, resolved. Hemoglobin A1c 14.1. BG now in 100-200 range. -Continue Lantus insulin 24 units qd - POC/ISS Assessment & Plan (01/20/2022 8:42 AM EST): Continue with insulin. Continue with uznql-ze-evxb's. Patient has had her diabetic ketoacidosis resolved. We will likely transition off of dextrose as the patient's oral intake improves. She still on some aspirations precautions. Dysphagia 01/20/2022 Assessment & Plan (01/13/2023 10:02 AM EST): -[facility] consulted, cleared for reg diet Assessment & Plan (02/07/2022 9:54 AM EST): ERIKA Izquierdo From [facility] 02/01, well with solids. Needs moderately thick [...] Pt has been on geripsych unit at [place] recently but then back home after. MS [...] 10:04 AM EST): Evaluated by ophthalmology at [place] Recommended erythromycin ointment, will continue Pneumonia due [...] ecorded Are you denied basic needs s [facility] as food, clothing, or medical care? No 10/19/2024 In the past 12 months have y ou been in a relationship with a person who hurts, threatens, or tries to control you? No 10/19/2024 Are you denied basic needs s [facility] as food, clothing, or medical care? No [...] this topic Medical Devices Implanted Type Area Math Instructor Device Identifier Shelf Expiration Date Model / Serial / Lot Nail Bone [id number] 125deg Tfn Advanced Ti Cannulated Left - [id number] Implanted:Qty : 1 on 06/17/2023 by Mal Reyes MD at [facility] Left: Acetabulum [employer] [id number] 11/07/2032 04.037.12 5S / / [id number] Blade Bone 10.5x85mm Helical Tfn Advanced - [id number] Implanted:Qty : 1 on 06/17/2023 by Mal Reyes MD at [facility] Left: Acetabulum [employer] [id number] 10/07/2032 04.038.38 5S / / [id number] Screw Bone 5x46mm Locking Im Nail - [id number] Implanted:Qty : 1 on 06/17/2023 by Mal Reyes MD at [facility] Left: Femur [employer] [id number] 03/09/2032 04.045.04 6S / / [id number] Screw Bone 5x44mm Locking Im Nail - [id number] Implanted:Qty : 1 on 07/21/2023 by Mal Reyes MD at [facility] Left: Hip [employer] [id number] 01/07/2033 04.045.04 4S / / [id number] Screw Bone 5x42mm Locking Xl25 Recess Medullary Nail Compatible - [id number] Implanted:Qty : 1 on 07/21/2023 by Mal Reyes MD at [facility] Left: Hip [employer] [id number] 07/07/2032 04.045.04 2S / / [id number] Procedures Procedure Name Priority Date/Time Associated Diagnosis Comments BASIC METABOLIC PANEL (BMP) STAT 10/19/2024 5:58 PM EDT HEMOGLOBIN A1C Routine 01/13/2023 5:45 AM EST LIPID PANEL Routine 01/13/2023 5:45 AM EST from Last 3 Months or Most Recently Relevant to Health Maintenance Results * (ABNORMAL) Basic metabolic panel (10/19/2024 5:58 PM EDT) SODIUM 144 133 - 146 mmol/L [facility] CHLORIDE 107 96 - 108 mmol/L [facility] POTASSIUM 3.4 3.3 - 5.1 mmol/L [facility] CO2 20(L) 21 - 35 mmol/L [facility] BUN 13 6 - 19 mg/dL [facility] CREATININE 0.50 0.5 - 1.5 mg/dL [facility] GLUCOSE 119(H) 70 - 99 mg/dL [facility] CALCIUM 9.7 8.4 - 10.3 mg/dL [facility] EGFR 101 >59 mL/min/1.7 3m2 [facility] Comment:Estimated glomerular filtration rate calculated using the CKD-EPI refit equation. ANION GAP 20 10 - 20 mmol/L [facility] Blood 10/19/2024 5:58 PM EDT 10/19/2024 6:09 PM EDT us Thierno Howard MD LAB BLOOD BKR ORDERABLES Final Result Performing Organization Address City/[facility]/ZIP Co de Phone Number [address] [address] * (ABNORMAL) Hemoglobin A1c (01/13/2023 5:45 AM EST) HEMOGLOBIN A1C 6.2(H) 4.3 - 5.8 % [facility] Blood 01/13/2023 5:45 AM EST 01/13/2023 6:01 AM EST us Sue Bhatt DO LAB BLOOD BKR ORDERABLES Xena l Result Performing Organization Address City/[facility] Co de Phone Number [address] [address] * Lipid panel (01/13/2023 5:45 AM EST) HDL 36 mg/dL [facility] Comment: Interpretation <40 mg/dL: Low HDL cholesterol (major risk factor for CHD) Greater than or equal to 60 mg/dL: High HDL cholesterol ( negative risk factor for CHD) HDL - cholesterol is affected by a number of factors, e.g. smoking, excerise, hormones, sex and age. CHOLESTEROL 149 0 - 240 mg/dL [facility] TRIGLYCERIDES 74 30 - 160 mg/dL [facility] LDL 98 50 - 129 mg/dL [facility] Comment: LDL levels in terms of risk for coronary heart disease: <100 mg/dL: Optimal 100-129 mg/dL: Near or above optimal 130-159 mg/dL: Borderline high 160-189 mg/dL: High >190 mg/dL: Very High CARDIAC RISK RATIO 4.1 3.3 - 4.4 [facility] Blood 01/13/2023 5:45 AM EST 01/13/2023 6:00 AM EST us Sue Bhatt DO LAB BLOOD BKR ORDERABLES Xena tatyana Result [facility] [address] [place] [address] from Last 3 Months or Most Recently Relevant to Health Maintenance Insurance MEDICARE REPLACEMENT MEDIC[place] [address] [place] [address] [place] [address] MEDICARE REPLACEMENT MEDICARE REPLACEMENT MEDICARE REPLACEMENT MEDICARE REPLACEMENT Advance Directives For more information, please contact: [phone] (9AM - 5PM [facility], Friday-Friday) Documents on File Type Date Recorded Patient Rehabilitator Expl anation Healthcare Proxy 01/24/2022 10:49 AM [...] Agent (Proxy form on file) Care Teams Respiratory Therapy Manager Relationship Specialty Start Date End Date Deana Warren NP [address] [place] [address] PCP - General Nurse Practitioner 01/14/23 Additional Source Comments The information contained in this document represents components of the legal health record. It is not the complete legal health record.[facility]
--- OUTSIDE RECORDS SUMMARY | 2025-02-17 23:39 | XMS_ITS | Encounter Summary ---
Author Organization [facility] Address [address] [place] [address] Phone Care Team Providers Care Hydrodynamics Professor Name Role Phone Deana Warren NP Primary Care Provider [phone] Encounter Details Date Type Department Care Team (Late st Contact Info) Description 07/21/2023 Procedure Pass OR Admitting Dept - Virtual Department [address] [place] [address] Social History Tobacco Use Types Packs/Day Years [...] on filedocumented in this encounter Care Teams Hydrodynamics Professor Relationship Specialty Start Date End Date Deana Warren NP [address] [place] [address] PCP - General Nurse Practitioner 01/14/23 documented as of this encounter Additional Source Comments The information contained in this document represents components of the legal health record. It is not the complete legal health record.[facility]
--- OUTSIDE RECORDS SUMMARY | 2025-02-17 23:39 | XMS_ITS | Encounter Summary ---
Author Organization [facility] Address [address] [facility] [address] [place] [address] Phone Care Team Providers Care Promotion Officer Name Role Phone Pcp, Unknown Primary Care Provider Unavailabl e Pcp, Not Required Primary Care Provider Deana Cherry NP Primary Care Provider [phone] Encounter Details Date Type Department Care Team (Late st Contact Info) Description 01/15/2022 Procedure Pass [facility] [address] [place] [address] Social History Tobacco Use Types Packs/Day Years [...] documented as of this encounter Care Teams Promotion Officer Relationship Specialty Start Date End Date Pcp, Unknown PCP - General 08/01/22 01/10/23 Pcp, Not Required PCP - General 01/11/23 01/13/23 Deana Warren NP [address] [place] [address] PCP - General Nurse Practitioner 01/14/23 documented as of this encounter Additional Source Comments The information contained in this document represents components of the legal health record. It is not the complete legal health record.[facility]
--- OUTSIDE RECORDS SUMMARY | 2025-02-17 23:39 | XMS_ITS | Encounter Summary ---
Author Organization [facility] Address [address] [facility] [address] [place] [address] Phone Care Team Providers Care Heat Pump Installer Name Role Phone Pcp, Unknown Primary Care Provider Unavailabl e Pcp, Not Required Primary Care Provider Deana Cherry NP Primary Care Provider [phone] Encounter Details Date Type Department Care Team (Late st Contact Info) Description 01/15/2022 Procedure Pass [facility] [address] [place] [address] Social History Tobacco Use Types Packs/Day Years [...] documented as of this encounter Care Teams Heat Pump Installer Relationship Specialty Start Date End Date Pcp, Unknown PCP - General 08/01/22 01/10/23 Pcp, Not Required PCP - General 01/11/23 01/13/23 Deana Warren NP [address] [place] [address] PCP - General Nurse Practitioner 01/14/23 documented as of this encounter Additional Source Comments The information contained in this document represents components of the legal health record. It is not the complete legal health record.[facility]
--- OUTSIDE RECORDS SUMMARY | 2025-02-17 23:39 | XMS_ITS | Encounter Summary ---
Author Organization [facility] Address [address] [place] [address] Phone Care Team Providers Care Partner Marketing Manager Name Role Phone Deana Warren NP Primary Care Provider [phone] Encounter Details Date Type Department Care Team (Late st Contact Info) Description 10/19/2024 Procedure Pass [facility], Ct Scan - [facility] [address] [place] [address] Social History Tobacco Use Types Packs/Day Years [...] 5:28 PM EDT Gely Lubin, [place] * [place] Suicide Severity Rating Scale (Screener/Recent Self-Report) Question [...] on filedocumented in this encounter Care Teams Partner Marketing Manager Relationship Specialty Start Date End Date Deana Warren NP [address] [place] [address] PCP - General Nurse Practitioner 01/14/23 documented as of this encounter Additional Source Comments The information contained in this document represents components of the legal health record. It is not the complete legal health record.[facility]
--- OUTSIDE RECORDS SUMMARY | 2025-02-17 23:39 | XMS_ITS | Encounter Summary ---
Author Organization [facility] Address [address] [place] [address] Phone Care Team Providers Care Salvage Determiner Name Role Phone Pcp, Unknown Primary Care Provider Unavailabl e Pcp, Not Required Primary Care Provider Deana Cherry NP Primary Care Provider [phone] Encounter Details Date Type Department Care Team (Late st Contact Info) Description 01/10/2022 Procedure Pass [facility], Ct Scan - [facility] [address] [place] [address] Social History Tobacco Use Types Packs/Day Years [...] 8:00 AM EDT Mariam Jordan RN * [place] Suicide Severity Rating Scale (Screener/Recent Self-Report) Question [...] documented as of this encounter Care Teams Salvage Determiner Relationship Specialty Start Date End Date Pcp, Unknown PCP - General 08/01/22 01/10/23 Pcp, Not Required PCP - General 01/11/23 01/13/23 Deana Warren NP [address] [place] [address] PCP - General Nurse Practitioner 01/14/23 documented as of this encounter Additional Source Comments The information contained in this document represents components of the legal health record. It is not the complete legal health record.[facility]
--- OUTSIDE RECORDS SUMMARY | 2025-02-17 23:39 | XMS_ITS | Encounter Summary ---
Author Organization [employer] Address [address] 7[address] [place] [address] Care Team Providers Care Dispute Coordinator Name Role Phone Deana Warren KALE Primary Care Provider [phone] Encounter Details Date Type Department Care Team ([facility] st Contact Info) Description 11/17/2024 Orders Only [facility] MEDICINE [address] [place] [address] [place], [place] [address] [place] [address] Chronic hepatitis C without hepatic coma (CMS/HCC) [...] Description 03/31/2025 10:30 AM EST Office Visit [facility] MEDICINE [address] [place] [address] Deana Warren, ANP [address] [place] [address] 05/30/2025 10:30 AM EDT Office Visit [facility] OPTOMETRY [address] [place] [address] Katt Lazcano, OD [address] [place] [address] Scheduled Orders Name Type Priority Associated Diagnoses [...] Load <15 NOT DETECTED NOT DETECTED IU/mL [facility] HCV Log PCR <1.18 NOT DETECTED NOT DETECTED Log IU/mL [facility] Comment:For additional infor bhavin, please refer [email or web address].[employer]/faq/[email or web address](This link is being provided for informational/educational purposes only.)THIS TEST WAS PERFORMED AT:[employer] [place] [phone] VANG MD 11/17/2024 11:5 4 AM EDT 11/17/2024 1:47 PM EDT us Wilmar Norton MD LAB BLOOD ORDERABLES Final Res ult [facility] [address] [place] [address] [phone] documented in this encounter Visit Diagnoses Diagnosis Chronic hepatitis C without hepatic coma (HCC) documented in this encounter Additional Health Concerns Assessment Noted Time PHQ-9 Depression Total Score: 12 025 1:15 PM EDT documented as of this encounter Care Teams Dispute Coordinator Relationship Specialty Start Date End Date Deana Warren ANP [address] [place] [address] PCP - General Family Medicine 03/29/22 documented as of this encounter
--- OUTSIDE RECORDS SUMMARY | 2025-02-17 23:39 | XMS_ITS | Encounter Summary ---
Author Organization [employer] Address [address] [facility] 7t [place] [address] Care Team Providers Care Lime Kiln Worker Helper Name Role Phone Deana Warren KALE Primary Care Provider [phone] Reason for Visit * Reason Comments Med Refill Encounter Details Date Type Department Care Team ([facility] st Contact Info) Description 01/04/2023 Refill [facility] [address] [place], [place] [phone] Sonia Chase MD [address] [place], [place] [phone] Type 2 diabetes mellitus with hyperglycemia, with long-term current use of insulin ([facility]) Social History Tobacco Use Types Packs/Day [...] Description 03/31/2025 10:30 AM EST Office Visit [facility] [address] [place] [address] Deana Warren ANP [address] [place] [address] 05/30/2025 10:30 AM EDT Office Visit [facility] [address] [place] [address] Katt Lazcano, OD [address] [place] [address] documented as of this encounter Visit Diagnoses Diagnosis Type 2 diabetes mellitus with hyperglycemia, with long-term current use of insulin (HCC) documented in this encounter Care Teams Lime Kiln Worker Helper Relationship Specialty Start Date End Date Deana Warren ANP [address] [place] [address] PCP - General Family Medicine 03/29/22 documented as of this encounter
--- OUTSIDE RECORDS SUMMARY | 2025-02-17 23:39 | XMS_ITS | Encounter Summary ---
Author Organization [facility] Address [address] [facility] [address] [place] [address] Phone Care Team Providers Care Medical Assistant Float Name Role Phone Pcp, Unknown Primary Care Provider Unavailabl e Pcp, Not Required Primary Care Provider Deana Cherry NP Primary Care Provider [phone] Encounter Details Date Type Department Care Team (Late st Contact Info) Description 01/14/2022 Procedure Pass [facility] [address] [place] [address] Social History Tobacco Use Types Packs/Day Years [...] documented as of this encounter Care Teams Medical Assistant Float Relationship Specialty Start Date End Date Pcp, Unknown PCP - General 08/01/22 01/10/23 Pcp, Not Required PCP - General 01/11/23 01/13/23 Deana Warren NP [address] [place] [address] PCP - General Nurse Practitioner 01/14/23 documented as of this encounter Additional Source Comments The information contained in this document represents components of the legal health record. It is not the complete legal health record.[facility]
--- OUTSIDE RECORDS SUMMARY | 2025-02-17 23:39 | XMS_ITS | Encounter Summary ---
Author Organization [employer] Address [address] [facility] 7t [place] [address] Care Team Providers Care Billet Bed Operator Name Role Phone Deana Warren Primary Care Provider [phone] Encounter Details Date Type Department Care Team (Late st Contact Info) Description 04/04/2022 Telephone [facility] [address] [place] [phone] Deana Warren ANP [address] [place] [address] Social History Tobacco Use Types Packs/Day Years [...] AM EST Office Visit [facility] [address] [place] [address] Deana Warren ANP [address] [place] [address] 05/30/2025 10:30 AM EDT Office Visit [facility] [address] [place] [address] Emiliojoy Katt, OD [address] [place] [address] documented as of this encounter Visit Diagnoses Not on filedocumented in this encounter Care Teams Billet Bed Operator Relationship Specialty Start Date End Date Deana Warren ANP [address] [place] [address] PCP - General Family Medicine 03/29/22 documented as of this encounter
--- OUTSIDE RECORDS SUMMARY | 2025-02-17 23:39 | XMS_ITS | Encounter Summary ---
Author Organization [facility] Address [address] [facility] [address] [place] [phone] Phone Care Team Providers Care Product Developer Name Role Phone Pcp, Unknown Primary Care Provider Unavailabl e Pcp, Not Required Primary Care Provider Deana Cherry NP Primary Care Provider [phone] Encounter Details Date Type Department Care Team (Late st Contact Info) Description 01/10/2022 Procedure Pass [facility] [address] [place] [address] Social History Tobacco Use Types Packs/Day Years [...] 8:00 AM EDT Mariam Jordan RN * [place] Suicide Severity Rating Scale (Screener/Recent Self-Report) Question [...] as of this encounter Care Teams Product Developer Relationship Specialty Start Date End Date Pcp, Unknown PCP - General 08/01/22 01/10/23 Pcp, Not Required PCP - General 01/11/23 01/13/23 Deana Warren NP [address] [place] [address] PCP - General Nurse Practitioner 01/14/23 documented as of this encounter Additional Source Comments The information contained in this document represents components of the legal health record. It is not the complete legal health record.[facility]
--- OUTSIDE RECORDS SUMMARY | 2025-02-17 23:39 | XMS_ITS | Encounter Summary ---
Author Organization [employer] Address [address] [facility] 7t [place] [address] Care Team Providers Care Inoculator Name Role Phone Deana Warren Primary Care Provider [phone] Encounter Details Date Type Department Care Team (Late st Contact Info) Description 04/20/2024 Orders Only [facility] [address] [place] [address] Deana Warren ANP [address] [place] [address] Social History Tobacco Use Types Packs/Day Years [...] [facility] [address] [place] [address] Deana Warren ANP [address] [place] [address] 05/30/2025 10:30 AM EDT Office Visit [facility] [address] [place] [address] Katt Lazcano, OD [address] [place] [address] documented as of this encounter Visit Diagnoses Not on filedocumented in this encounter Additional Health Concerns Assessment Noted Time PHQ-9 Depression Total Score: 24 025 9:43 AM EST documented as of this encounter Care Teams Inoculator Relationship Specialty Start Date End Date Deana Warren ANP [address] [place] [address] PCP - General Family Medicine 03/29/22 documented as of this encounter
--- OUTSIDE RECORDS SUMMARY | 2025-02-17 23:39 | XMS_ITS | Encounter Summary ---
Author Organization [employer] Address [address] [facility] 7t [place] [address] Care Team Providers Care Finger Grip Machine Operator Name Role Phone Deana Warren Primary Care Provider [phone] Reason for Visit * Reason Onset Date Comments Med Refill 05/22/2022 Encounter Details Date Type Department Care Team ([facility] st Contact Info) Description 05/22/2022 Telephone [facility] [address] [place], [place] [phone] Deana Warren ANP [address] [place] [address] Med Refill Social History Tobacco Use Types [...] 11:35 AM EDT Medications were sent to [id number] on 03/30/22 with 11 refills on Lantus and 3 refills on Lispro. * Telephone Encounter - Nicho Calhoun - 05/22/2022 11:18 AM EDT Tc from pt requesting med refill Insulin lispro Insulin glargine documented in this encounter Plan of Treatment Upcoming Encounters Date Type Department Care Team (Late st Contact Info) Description 03/31/2025 10:30 AM EST Office Visit [facility] [address] [place] [address] Deana Warren ANP [address] [place] [address] 05/30/2025 10:30 AM EDT Office Visit [facility] [address] [place] [address] Katt Lazcano, OD [address] [place] [address] documented as of this encounter Visit Diagnoses Not on filedocumented in this encounter Care Teams Finger Grip Machine Operator Relationship Specialty Start Date End Date Deana Warren ANP [address] [place] [address] PCP - General Family Medicine 03/29/22 documented as of this encounter
--- OUTSIDE RECORDS SUMMARY | 2025-02-17 23:39 | XMS_ITS | Encounter Summary ---
Author Organization [employer] Address [address] [facility] 7t [place] [address] Care Team Providers Care Mill Feeder Name Role Phone Deana Warren Primary Care Provider [phone] Reason for Visit * Reason Onset Date Comments Appointment Request 07/28/2023 Encounter Details Date Type Department Care Team ([facility] Contact Info) Description 07/28/2023 Telephone [facility] [address] [place], [place] [phone] Deana Warren ANP [address] [place] [address] Appointment Request Social History Tobacco Use Types [...] stated had a procedure done on 07/20 [facility] patient had a Hip surgery and would like to follow up with the provider documented in this encounter Plan of Treatment Upcoming Encounters Date Type Department Care Team (Late st Contact Info) Description 03/31/2025 10:30 AM EST Office Visit [facility] [address] [place] [address] Deana Warren ANP [address] [place] [address] 05/30/2025 10:30 AM EDT Office Visit [facility] [address] [place] [address] TarkaKatt, OD [address] [place] [address] documented as of this encounter Visit Diagnoses Not on filedocumented in this encounter Care Teams Mill Feeder Relationship Specialty Start Date End Date Deana Warren ANP [address] [place] [address] PCP - General Family Medicine 03/29/22 documented as of this encounter
--- OUTSIDE RECORDS SUMMARY | 2025-02-17 23:39 | XMS_ITS | Encounter Summary ---
Author Organization [employer] Address [address] [facility] 7t [place] [address] Care Team Providers Care Underground Mining Section Foreman Name Role Phone Deana Warren Primary Care Provider [phone] Reason for Visit * Reason Onset Date Comments FYI 02/12/2023 Encounter Details Date Type Department Care Team ([facility] Contact Info) Description 02/12/[address] [facility] [address] [place], [place] [phone] Deana Warren ANP [address] [place] [address] FYI Social History Tobacco Use Types Packs/Day [...] - 02/12/2023 2:36 PM EST Tc from [place] [facility] stating that pt missed her second appt today due to clinician being out and will be seeing pt today or tomorrow. If any questions please contact at [phone] documented in this encounter Plan of Treatment Upcoming Encounters Date Type Department Care Team (Late st Contact Info) Description 03/31/2025 10:30 AM EST Office Visit [facility] [address] [place] [address] Deana Warren ANP [address] [place] [address] 05/30/2025 10:30 AM EDT Office Visit [facility] [address] [place] [address] Tarka, Katt, OD [address] [place] [address] documented as of this encounter Visit Diagnoses Not on filedocumented in this encounter Care Teams Underground Mining Section Foreman Relationship Specialty Start Date End Date Deana Warren ANP [address] [place] [address] PCP - General Family Medicine 03/29/22 documented as of this encounter
--- OUTSIDE RECORDS SUMMARY | 2025-02-17 23:39 | XMS_ITS | Encounter Summary ---
Author Organization [facility] Address [address] [facility] [address] [place] [address] Phone Care Team Providers Care Back Up Worker Name Role Phone Pcp, Unknown Primary Care Provider Unavailabl e Pcp, Not Required Primary Care Provider Deana Cherry NP Primary Care Provider [phone] Encounter Details Date Type Department Care Team (Late st Contact Info) Description 01/10/2022 Procedure Pass [facility] [address] [place] [address] Social History Tobacco Use Types Packs/Day Years [...] 8:00 AM EDT Mariam Jordan RN * [place] Suicide Severity Rating Scale (Screener/Recent Self-Report) Question [...] documented as of this encounter Care Teams Back Up Worker Relationship Specialty Start Date End Date Pcp, Unknown PCP - General 08/01/22 01/10/23 Pcp, Not Required PCP - General 01/11/23 01/13/23 Deana Warren NP [address] [place] [address] PCP - General Nurse Practitioner 01/14/23 documented as of this encounter Additional Source Comments The information contained in this document represents components of the legal health record. It is not the complete legal health record.[facility]
--- OUTSIDE RECORDS SUMMARY | 2025-02-17 23:39 | XMS_ITS | Encounter Summary ---
Author Organization [facility] Address [address] [facility] [address] [place] [address] Phone Care Team Providers Care Precast Concrete Ironworker Name Role Phone Pcp, Unknown Primary Care Provider Unavailabl e Pcp, Not Required Primary Care Provider Deana Cherry NP Primary Care Provider [phone] Encounter Details Date Type Department Care Team (Late st Contact Info) Description 01/22/2022 Procedure Pass [facility], Ct Scan - [address] [address] Social History Tobacco Use Types Packs/Day Years [...] documented as of this encounter Care Teams Precast Concrete Ironworker Relationship Specialty Start Date End Date Pcp, Unknown PCP - General 08/01/22 01/10/23 Pcp, Not Required PCP - General 01/11/23 01/13/23 Deana Warren NP [address] [place] [address] PCP - General Nurse Practitioner 01/14/23 documented as of this encounter Additional Source Comments The information contained in this document represents components of the legal health record. It is not the complete legal health record.[facility]
--- OUTSIDE RECORDS SUMMARY | 2025-02-17 23:39 | XMS_ITS | Encounter Summary ---
Author Organization [facility] Address [address] [place] [address] Phone Care Team Providers Care Machine Setter And Repairer Name Role Phone Pcp, Unknown Primary Care Provider Unavailabl e Pcp, Not Required Primary Care Provider Deana Cherry NP Primary Care Provider [phone] Encounter Details Date Type Department Care Team (Late st Contact Info) Description 01/06/2023 Procedure Pass [facility], Ct Scan - [address] [address] Social History Tobacco Use Types Packs/Day Years [...] 5:00 PM EDT Roland Garber, [place] * [place] Suicide Severity Rating Scale (Screener/Recent Self-Report) Question [...] documented as of this encounter Care Teams Machine Setter And Repairer Relationship Specialty Start Date End Date Pcp, Unknown PCP - General 08/01/22 01/10/23 Pcp, Not Required PCP - General 01/11/23 01/13/23 Deana Warrne NP [address] [place] [address] PCP - General Nurse Practitioner 01/14/23 documented as of this encounter Additional Source Comments The information contained in this document represents components of the legal health record. It is not the complete legal health record.[facility]
--- OUTSIDE RECORDS SUMMARY | 2025-02-17 23:39 | XMS_ITS | Clinical Summary ---
Author Organization [employer] Address [address] [facility] [address] [place] [address] Care Team Providers Care [employer] Name Role Phone Rafia Mary Primary Care Provider [phone] Allergies No known active allergies Medications * This document contains information received from the source organization and may not represent a complete record from that organization. acetaminophen (Tylenol) 325 MG tablet 12/08/19 22 Active glucagon (Gvoke HypoPen) 1 MG/0.2ML injectionIndicat ions:Type 2 diabetes mellitus with hyperglycemia, with long-term current use of insulin (HCC) Administer 1 mg subcutaneously when pt has low blood glucose and cannot swallow or is unresponsive. May repeat in 15 min. Call emergency service if pt is unresponsive or lethargic. 2 each 3 03/30/19 23 Active Blood Glucose Monitoring Suppl (ONE TOUCH ULTRA 2) w/Device kit 03/30/19 23 Active lidocaine (Lidoderm) 5 % patchIndications :Acute pain of right shoulder Apply 1 patch topically in the morning. Remove & discard patch within 12 hours or as directed by . 30 patch 2 11/05/19 23 Active gabapentin (Neurontin) 300 MG capsuleIndicatio ns:Seizure (CMS/HCC) ([facility]) Take 1 capsule (300 mg) by mouth 2 times daily. 60 capsule 2 03/16/19 25 Active Continuous Glucose Hospital Carrier (FreeStyle Nivia 2 [place]) deviceIndication s:Hypertension associated with diabetes ([facility]) Scan sensor every 8 hours 1 each 03/16/19 25 Active glucose blood (FreeStyle Precision Shin Test) test stripIndications :Hypertension associated with diabetes ([facility]) Use to test blood sugar 3 times daily 100 each 12 03/16/19 25 026 Active insulin pen needle (B-D UF III MINI PEN NEEDLES) 31G x 5 mm miscIndications: Type 2 diabetes mellitus with hyperglycemia, with long-term current use of insulin (HCC) USE THREE TIMES DAILY WITH INSULIN 100 each 3 03/16/19 25 Active rosuvastatin (Crestor) 20 MG tabletIndication s:Dyslipidemia Take 1 tablet (20 mg) by mouth Once per day. 90 tablet 3 03/16/19 25 026 Active ciclopirox (Penlac) 8 % solutionIndicati ons:Onycholysis Apply topically at bedtime. 6 mL 05/25/19 25 Active zolpidem (Ambien) 5 MG tabletIndication s:Insomnia, unspecified type Take 1 tablet (5 mg) by mouth if needed at bedtime for sleep. 30 tablet 06/01/19 25 Active glucose blood (Sientrauch Ultra) test stripIndications :Type 2 diabetes mellitus with hyperglycemia, unspecified whether prison insulin use (HCC) TEST BLOOD SUGAR THREE TIMES A DAY 300 strip 1 07/27/19 25 Active Blood Glucose Monitoring Suppl (ONE TOUCH ULTRA MINI) w/Device kitIndications:T ype 2 diabetes mellitus with hyperglycemia, unspecified whether prison insulin use (HCC) Test 3 times daily 1 kit 07/27/19 25 Active alendronate (Fosamax) 70 MG tabletIndication s:Osteoporosis, unspecified osteoporosis type, unspecified pathological fracture presence Take 1 tablet (70 mg) by mouth every 7 (seven) days. Take in the morning with a full glass of water, on an empty stomach, and do not take anything else by mouth or lie down for the next 30 min. 4 tablet 07/30/19 25 026 Active glucose 4 g chewable tabletIndication s:Type 2 diabetes mellitus with hyperglycemia, with long-term current use of insulin (HCC) Chew 4 tabs if needed for low blood sugar 60 or less. Check BG in 15 min, if remains low, repeat. If remains low, call clinic or go to ED. 50 tablet 12 08/11/19 25 Active nicotine polacrilex (Nicorette) 4 MG gumIndications:S moking trying to quit Chew 1 each (4 mg) if needed for smoking cessation. 100 each 08/11/19 25 Active aspirin 81 MG EC tabletIndication s:Type 2 diabetes mellitus with hyperglycemia, with long-term current use of insulin (HCC),Cardiovasc ular event risk Take 1 tablet (81 mg) by mouth Once per day. 90 tablet 3 08/11/19 25 026 Active amLODIPine (Norvasc) 2.5 MG tabletIndication s:Hypertension associated with diabetes (HCC) TAKE 1 TABLET BY MOUTH EVERY DAY 90 tablet 1 09/02/19 25 Active Continuous Glucose Sensor (FreeStyle Nivia 3 Sensor) miscIndications: Hypertension associated with diabetes (HCC) 1 each every 14 (fourteen) days. 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 Apply 1 every 15 days as directed for CGM 2 each 09/03/19 25 Active Continuous Glucose Hospital Carrier (FreeStyle Nivia 3 [place]) deviceIndication s:Type 2 diabetes mellitus with hyperglycemia, unspecified whether terminal worker insulin use (HCC) 1 each Once per day. Use as directed for CGM 1 each 09/03/19 25 Active omeprazole (PriLOSEC) [address] capsuleIndicatio ns:Gastroesophag eal reflux disease, unspecified whether esophagitis present TAKE 1 CAPSULE BY MOUTH EVERY DAY BEFORE A MEAL 90 capsule 09/14/19 25 Active nicotine (Nicoderm, Step 1) 21 MG/24HR patchIndications :Nicotine Dependence Place 1 patch on the skin 1 (one) time each day at the same time. 28 patch 1 09/18/19 25 Active Tresiba FlexTouch 100 UNIT/ML injectionIndicat ions:Type 2 diabetes mellitus with hyperglycemia, with long-term current use of insulin ([facility]) INJECT 32 UNITS UNDER THE SKIN ONCE DAILY. 15 mL 3 10/29/19 25 Active cholecalciferol (Vitamin D-3) 25 MCG (1000 UT) capsuleIndicatio ns:Vitamin D deficiency Take 1 capsule (25 mcg) by mouth Once per day. 90 capsule 1 11/17/19 25 026 Active lisinopril 30 MG tabletIndication s:Hypertension associated with diabetes ([facility]) TAKE 1 TABLET BY MOUTH EVERY DAY 90 tablet 1 11/20/19 25 Active OLANZapine (ZyPREXA) 10 MG tabletIndication s:Bipolar affective disorder, remission status unspecified (CMS/HCC) ([facility]) Take 1 tablet (10 mg) by mouth at bedtime. 30 tablet 1 01/04/20 25 025 Active albuterol 108 (90 Base) MCG/ACT inhalerIndicatio ns:COPD with exacerbation (CMS/HCC) ([facility]) Inhale 2 puffs every 6 (six) hours if needed for wheezing or shortness of breath. 18 g 1 01/16/20 25 Active albuterol (2.5 MG/3ML) 0.083% nebulizer solutionIndicati ons:COPD with exacerbation (CMS/HCC) ([facility]) Take 3 mL (2.5 mg) by nebulization every 6 (six) hours if needed for wheezing. 75 mL 01/16/20 026 Active amoxicillin-clav ulanate (Augmentin) 875-125 MG tabletIndication s:Dog bite, initial encounter Take 1 tablet by mouth 2 times daily for 5 days. 10 tablet 01/16/20 25 025 acetaminophen (Tylenol Extra Strength) 500 MG tabletIndication s:Dog bite, initial encounter Take 1 tablet (500 mg) by mouth every 6 (six) hours if needed for mild pain for up to 10 days. 30 tablet 01/16/20 25 025 mupirocin (Bactroban) 2 % ointmentIndicati ons:Dog bite, initial encounter Apply topically in the morning, at noon, and at bedtime for 10 days. 30 g 01/16/20 25 025 predniSONE (Deltasone) 20 MG tabletIndication s:COPD with exacerbation (CMS/HCC) ([facility]) Take 2 tablets (40 mg) by mouth Once per day for 5 days. 10 tablet 01/16/20 25 025 Active Problems Problem Noted Date Diagnosed Date Anxiety 10/27/2024 Cannabis use disorder 10/27/2024 Age-related osteoporosis wit naima current pathological fracture 07/29/2024 Asymptomatic menopausal state 05/24/2024 Onycholysis 05/24/2024 Seizure ([facility]) 05/15/2023 Type 2 diabetes mellitus with [...] of unknown insulin dose/formulation this am. Alcoholism ([facility]) 03/29/2022 Bipolar disorder 03/29/2022 Chronic hepatitis C ([facility]) 03/29/2022 Hypertension associated with diabetes 03/29/2022 Overview (08/10/2024): Assessment & Plan (03/29/2022 11:27 AM EST): On lisinopril which she reports compliance to BP elevated today as did not take her pills continue current regimen Readings at home have been WNL. Will f/u in 6 months Functional gait abnormality 03/29/2022 Hepatitis A immune 03/29/2022 Hepatitis B immune 03/29/2022 Hx of drug abuse ([facility]) 03/29/2022 Psychoactive substance use disorder 03/29/2022 Tobacco dependence 03/29/2022 COPD without exacerbation ([facility]) 03/29/2022 Assessment & Plan (03/29/2022 11:26 [...] ma jason depressive disorder without psychotic features ([facility]) 03/16/2024 10/27/2024 Assessment & Plan (03/16/2024 11:00 AM EST): During IBH Consult Croa presenting with depressed mood, Tearful, crying spells [...] organization. Date Type Department Care Team Description 02/17/2025 Orders Only GENERIC EXTERNAL DATA DEPARTMENT Provider, Generic External Data 02/16/2025 9:00 AM EST Office Visit [facility] [address] [place] [phone] Robin Farah MD Alcohol use disorder, severe, dependence (CMS/HCC) (HCC) (Primary Dx) 02/16/2025 Travel 02/09/2025 9:00 AM EST Office Visit [facility] [address] [place] [address] Robin Farah MD Alcohol use disorder, severe, dependence (CMS/HCC) (HCC) (Primary Dx) 02/09/2025 Results Follow-Up [address] [address] Rafia Mary ANP PTH, Intact Without Calcium, Basic Metabolic Panel, Vitamin D, 25-Hydroxy, Total, Immunoassay 02/09/2025 Orders Only [address] [address] Rafia Mary ANP Age-related osteoporosis without current pathological fracture (Primary Dx); Hyperparathyroidism (CMS/HCC) 02/09/2025 Telephone [facility] [address] [place] [phone] Rafia Mary ANP CRITICAL LAB 02/09/2025 Travel 02/07/[address] [address] Rafia Mary ANP 02/07/[address] [address] Rafia Mary ANP Medication Question 02/06/2025 Orders Only [address] [address] Rafia Mary ANP High serum parathyroid hormone (PTH) (Primary Dx) 02/02/2025 Refill [facility] [address] [place] [address] Rafia Mary ANP Bipolar affective disorder, remission status unspecified (CMS/HCC) (HCC) 01/28/2025 Patient Outreach [address] [address] Morgan Brady Recovery Supports 01/25/[address] [address] Rafia Mary ANP Type 2 diabetes mellitus with hyperglycemia, unspecified whether prison insulin use (HCC) 01/20/2025 Orders Only [address] [address] Rafia Mary ANP Alcoholism (CMS/HCC) (HCC) (Primary Dx); Type 2 diabetes mellitus with hyperglycemia, unspecified whether prison insulin use (HCC) 01/19/2025 9:00 AM EST Office Visit [address] [address] Robin Farah MD Alcohol use disorder, severe, dependence (CMS/HCC) (HCC) (Primary Dx); Encounter for immunization 01/19/2025 Patient Outreach [facility] [address] [place] [phone] Kristy Han [facility] 01/19/[address] [address] Wilmar Norton MD 01/19/[address] [address] Wilmar Norton MD 01/19/2025 Travel 01/17/2025 Patient Outreach [address] [address] Randy Patel Recovery Supports 01/17/2025 Patient Outreach [address] [address] Kristy Han Recovery Supports 01/15/2025 10:40 AM EST Office Visit [facility] [address] [place] [phone] Eder Loera CNP Dog bite, initial encounter (Primary Dx); Acute cough; COPD with exacerbation (CMS/HCC) (HCC) 01/15/2025 Travel 01/14/2025 Patient Outreach [address] [address] Randy Patel [facility] Supp[facility] 01/14/[address] [address] Rafia Mary ANP Nurse Triage 01/14/2025 Patient Outreach [address] [address] Kristy Han Recovery Supports 01/13/2025 Patient Outreach [address] [address] Jose Keller Recovery Supports 01/12/2025 9:00 AM EST Office Visit [facility] [address] [place] [address] Robin Farah MD Alcohol use disorder, severe, dependence (CMS/HCC) (HCC) (Primary Dx) 01/12/2025 Travel 01/10/2025 Refill [facility] [address] [place] [address] Rafia Mary ANP Hypertension associated with diabetes (HCC) 01/03/2025 Refill [facility] [address] [facility] [place] [address] Rafia Mary ANP Bipolar affective disorder, remission status unspecified (CMS/HCC) (HCC) 12/28/2024 Patient Outreach [address] [address] Jose Keller RC Recovery Supports 12/28/2024 Patient Outreach [address] [address] Pipo Moreno RC Recovery Supports 12/28/2024 Patient Outreach [address] [address] Morgan Brady RC Recovery Supports 12/27/2024 Patient Outreach [address] [address] Kristy Han RC Recovery Supports 12/27/2024 Patient Outreach [address] [address] Randy Patel Recovery Supports 12/22/2024 9:00 AM EDT Office Visit [address] [address] Robin Farah MD Alcohol use disorder, severe, dependence (CMS/HCC) (HCC) (Primary Dx) 12/22/[address] [address] Julisa Restrepo, delivery manager Question 12/22/2024 Travel 12/15/2024 9:00 AM EDT Office Visit [address] [address] Robin Farah MD Alcohol use disorder, severe, dependence (CMS/HCC) (HCC) (Primary Dx) 12/15/2024 Travel 12/10/2024 Patient Outreach [address] [address] Randy Patel Recovery Supports 12/08/2024 9:00 AM EDT Office Visit [address] [address] Robin Farah MD Alcohol use disorder, severe, dependence (CMS/HCC) (HCC) (Primary Dx) 12/08/2024 Travel 12/06/2024 Patient Outreach [facility] [address] [facility] [place] [address] Randy Patel Recovery Supports 12/03/2024 10:30 AM EDT Office Visit [facility] [address] [facility] [place] [address] Wilmar Norton MD Alcohol use disorder, severe, dependence (CMS/HCC) (Primary Dx); Cocaine abuse (CMS/HCC) 12/03/2024 Patient Outreach [facility] [address] [place], [place] [address] [address] Morgan Brady [facility] Supp[facility] 12/03/2024 Travel 12/01/2024 9:00 AM EDT Office Visit [address] [address] Robin Farah MD Alcohol use disorder, severe, dependence (CMS/HCC) (Primary Dx) 12/01/2024 Travel 11/29/2024 Patient Outreach [address] [address] Pipo Moreno Recovery Supports 11/26/2024 Patient Outreach [address] [address] Randy Patel Recovery Supports 11/23/2024 Patient Outreach [address] [address] Jose Keller Recovery Supports 11/23/2024 Patient Outreach [facility] [address] [place] [address] Morgan Brady Recovery Supp[facility] 11/23/2024 Patient Outreach [facility] [address] [place] [address] Morgan Brady Recovery Supp[facility] 11/23/2024 Travel 11/22/2024 Patient Outreach [facility] [address] [place] [address] Randy Patel Recovery Supports 11/19/2024 Refill [facility] [address] [place] [address] Rafia Mary ANP Hypertension associated with diabetes (CMS/HCC) from Last 3 Months Immunizations Immunization Administration [...] Description 03/31/2025 10:30 AM EST Office Visit [facility] [address] [place] [address] Rafia Mary ANP [address] [place] [address] 05/30/2025 10:30 AM EDT Office Visit [facility] [address] [place] [address] Katt Lazcano, OD [address] [place] [address] Health Maintenance Due Date Last Done Comments [...] Plan Patient has chronic kidney disease No BradyGuilhermes Weekly blood pressure task Care Plan Weekly [...] Care Plan Weekly blood pressure task No Lois Gracia RN Weekly blood pressure task Care Plan Weekly blood pressure task No Lois Gracia RN Patient has chronic kidney disease Care Plan Patient has chronic kidney disease No Lois Gracia RN Patient has chronic kidney disease Care Plan Patient has chronic kidney disease No Lois Gracia RN Weekly blood pressure task Care [...] Weekly blood pressure task No Brenna Guptarylemarcel Weekly blood pressure task Care Plan Weekly [...] Patient has chronic kidney disease No Brenna Guptarylemarcel Patient has chronic kidney disease Care Plan Patient has chronic kidney disease No Freedom Gupta Procedures Procedure Name Priority Date/Time Associated Diagnosis [...] METABOLIC PANEL Routine 02/17/2025 8:23 PM EST VITAMIN D,25-OH,TOTAL,IA Routine 02/09/2025 8:45 AM EST High serum parathyroid hormone (PTH) BASIC METABOLIC PANEL Routine 02/09/2025 8:45 AM EST High serum parathyroid hormone (PTH) PTH, INTACT WITHOUT CALCIUM Routine 02/09/2025 8:45 AM EST High serum parathyroid hormone (PTH) XR CHEST 1 VIEW Routine 02/05/2025 6:09 [...] EDT Alcohol use disorder, severe, dependence (CMS/HCC) LIPID PANEL, STANDARD Routine 11/15/2024 9:40 AM EDT Dyslipidemia POCT GLYCATED HEMOGLOBIN, TOTAL Routine 08/10/2024 11:43 AM EDT Hypertension associated with diabetes (CMS/HCC) BI MAMMOGRAM SCREENING TOMOSYNTHESIS BILATERAL Routine 07/14/2024 8:55 AM EDT ALBUMIN, RANDOM URINE W/CREATININE Routine 06/04/2024 1:15 PM EDT Type 2 diabetes mellitus with hyperglycemia, unspecified whether terminal worker insulin use (CMS/HCC) HM COLONOSCOPY Routine 08/23/2021 HPV MRNA E6/E7 Routine 12/21/2020 10:32 AM EDT THINPREP IMAGING SYSTEM PAP Routine 12/21/2020 10:32 AM EDT from Last 3 Months or Most Recently Relevant to Health Maintenance Results * (ABNORMAL) Glucose, Whole Blood (02/17/2025 10:54 PM EST) Only the most recent of2 resultswithin the time period is included. Pathologist [facility] Glucose, Whole Blood 310(H) 60 - 115 mg/dL [facility] Comment:METER #: [id number] 02/17/2025 10:5 4 PM EST 02/17/2025 10:57 PM EST us Generic External Data Provider LAB BLOOD ORDERAB LES Final Result [facility] [address] [place] [phone] * (ABNORMAL) CBC auto differential (02/17/2025 9:56 PM EST) [facility] White Blood Count 8.4 4.8 - 10.8 X10*3/uL [facility] Red Blood Count 2.83(L) 4.20 - 5.50 X10*6/uL [facility] Hemoglobin 8.1(L) 12.0 - 16.0 g/dl [facility] Hematocrit 24.6(L) 37.0 - 47.0 % [facility] Mean Corpuscular Volume 86.9 80.0 - 98.0 fL [facility] Mean Corpuscular Hemoglobin 28.6 27.0 - 33.0 pg [facility] Mean Corpuscular HGB Conc 32.9 31.0 - 35.0 g/dl [facility] Red Cell Distribution Width 14.2 11.0 - 16.0 % [facility] Platelet Count 142(L) 160 - 400 X10*3/uL [facility] Mean Platelet Volume 10.3 9.4 - 12.3 fL [facility] Neutrophils Percent Auto 70.7 45 - 73 % [facility] Imm Gran Pct Auto 0.7(H) 0.0 - 0.4 % [facility] Lymphocytes Percent Auto 19.6(L) 20 - 40 % [facility] Monocytes Percent Auto 8.7 2 - 11 % [facility] Eosinophils Percent Auto 0.1 0 - 4 % [facility] Basophils Percent Auto 0.2 0 - 2 % [facility] NRBC Pct Auto 0.0 0.0 - 0.2 /100WBC [facility] Neutrophils Absolute Auto 5.9 2.0 - 8.3 x10*3/uL [facility] Imm Gran Abs Auto 0.06(H) 0.00 - 0.03 X10*3/uL [facility] Lymphocytes Absolute Auto 1.7 1.2 - 4.9 X10*3/uL [facility] Monocytes Absolute Auto 0.7 0.1 - 1.2 X10*3/uL [facility] Eosinophils Absolute Auto 0.0 0.0 - 0.4 X10*3/uL [facility] Basophils Absolute Auto 0.0 0.0 - 0.2 X10*3/uL [facility] NRBC Abs Auto 0.000 0.0 - 0.012 X10*3/uL [facility] 02/17/2025 9:56 PM EST 02/17/2025 9:58 PM EST us Generic External Data Provider LAB BLOOD ORDERAB LES Edited Result - Final [facility] [address] [place] [phone] * (ABNORMAL) VENOUS BLOOD GAS (02/17/2025 8:27 PM EST) VBG pH 7.52(H) 7.32 - 7.43 [facility] Comment:METER #: [id number] additional_comment: Cb nievea VBG PCO2 29 mmHg [facility] Comment:METER #: [id number] additional_comment: Cb nievea VBG PO2 107 mmHg [facility] Comment:METER #: [id number] additional_comment: Aj pal VBG Base Excess 1.9 mmol/L [facility] Comment:METER #: [id number] additional_comment: Aj pal VBG HCO3 23 22 - 26 mmol/L [facility] Comment:METER #: [id number] additional_comment: Aj pal O2 Sat, Volodymyr 99.0 % [facility] Comment:METER #: [id number] additional_comment: jA pal 02/17/2025 8:27 PM EST 02/17/2025 8:31 PM EST us Generic External Data Provider LAB BLOOD ORDERAB LES Final Result [facility] [address] [place] [phone] * (ABNORMAL) Urinalysis Complete (02/17/2025 8:26 PM EST) Color Urine Yellow [facility] Appearance Urine Clear [facility] PH 7.5 5.0 - 9.0 [facility] Glucose Urine UA >=1000(A) Negative mg/dL [facility] Urine Blood Negative Negative [facility] Specific [place] - Urine >=1.030(H) 1.005 - 1.025 [facility] Urine Protein Negative Neg-Trace mg/dL [facility] Urine Ketones Negative Negative mg/dL [facility] Nitrite Urine Negative Negative [facility] Leukocyte Esterase Urine Negative Negative [facility] RBC Urine 0-2 0 - 2 /HPF [facility] Urine WBC 0-5 0 - 5 /HPF [facility] Urine Squamous Epithelial Cell 0-2 0 - 2 /HPF [facility] Urine Bacteria None Seen None Seen [facility] Hyaline Casts, Urine 0-2 0 - 2 /LPF [facility] 02/17/2025 8:26 PM EST 02/17/2025 8:28 PM EST Generic External Data Provider LAB URINE ORDERAB LES Final Result Performing Organization Address [facility] de Phone Number [facility] [address] [place] [phone] * Beta-Hydroxybutyrate (02/17/2025 8:23 PM EST) Beta-Hydroxybut yrate 0.06 0.02 - 0.27 mmol/L [facility] 02/17/2025 8:23 PM EST 02/17/2025 8:25 PM EST Generic External Data Provider LAB BLOOD ORDERAB LES Final Result Performing Organization Address [facility] Phone Number [facility] [address] [place] [phone] * Magnesium (02/17/2025 8:23 PM EST) Pathologist [facility] Magnesium 2.4 1.6 - 2.6 mg/dL [facility] 02/17/2025 8:23 PM EST 02/17/2025 8:25 PM EST Generic External Data Provider LAB BLOOD ORDERAB LES Final Result Performing Organization Address [facility] Phone Number [facility] [address] [place] [phone] * (ABNORMAL) Comprehensive Metabolic Panel (02/17/2025 8:23 PM EST) Sodium 137 135 - 145 mmol/L [facility] Potassium 4.7 3.3 - 5.1 mmol/L [facility] Comment:Mild Hemolysis.Inter pret result with caution Chloride 105 96 - 108 mmol/L [facility] [place] Dioxide 23 22 - 29 mmol/L [facility] Anion Gap 14 12 - 20 [facility] Urea Nitrogen (BUN) 16 9 - 16 mg/dL [facility] Creatinine, Serum 0.88 0.5 - 1.4 mg/dL [facility] Creatinine Clr Calc Pharmacy 52.9 [facility] Comment:Provided height and weight: 157.48 cm,65.771 kg.eGFR (calculated from the MDRD study equation) and eCrCl(calculated from the Cockcroft-Gault equation) are based ondifferent parameters and may not yield comparable results.If eCrCl result is absurd, please check patient'sheight/weight. Estimated Glomerular Filt Rate >60 [facility] Comment:Chronic Kidney Disea se: Estimated GFR < 60 mL/min/[id number] Kidney Disease: Estimated GFR < 15 mL/min/1.73m2 Glucose 438(HH) 60 - 115 mg/dL [facility] Comment:Critical value for t est(s): GLUCOSE Results called to akua back by: VICKY Person calling: NGUYENQ Date: 02/17/25Time:2052 Calcium 8.9 8.4 - 10.2 mg/dL [facility] Bilirubin, Total 0.2 0.0 - 1.0 mg/dL [facility] Aspartate Amino Transferase 33(H) 5 - 31 U/L [facility] Comment:Mild Hemolysis.Inter pret result with caution Alanine Aminotransferase 24 0 - 31 U/L [facility] Total Protein 7.8 6.5 - 8.0 g/dL [facility] Comment:Mild Hemolysis.Inter pret result with caution Albumin Level 4.0 3.5 - 5.0 g/dL [facility] Alkaline Phosphatase 85 39 - 117 U/L [facility] 02/17/2025 8:23 PM EST 02/17/2025 8:25 PM EST us Generic External Data Provider LAB BLOOD ORDERAB LES Final Result [facility] [address] [place] [address] [phone] * (ABNORMAL) Vitamin D, 25-Hydroxy, Total, Immunoassay (02/09/2025 8:45 AM EST) Vitamin D 25-OH Total 28.6(L) >30 ng/mL [facility] Comment: Health Based Reference Values*< 20 ng/mL Abdhxllts61-12 ng/mL Insufficient> 30 ng/mL Sufficient*Farzana MOLINA. N [...] LC-MS/MS. Blood Venous blood specimen / Unknown 02/09/2025 8:45 AM EST 02/09/2025 11:20 AM EST us Rafia HENLEY LAB BLOOD ORDERABLES Final Resul t Performing Organization Address [facility]/ZIP Co de Phone Number [facility] [address] [place] [phone] * (ABNORMAL) PTH, Intact Without Calcium (02/09/2025 8:45 AM EST) Parathyroid Hormone, Intact 106.3(H) 8.7 - 77.1 pg/mL [facility] Blood Venous blood specimen / Unknown 02/09/2025 8:45 AM EST 02/09/2025 11:20 AM EST us Rafia Mary ANP LAB BLOOD ORDERABLES Final Resul t [facility] [address] [place] [phone] [phone] * (ABNORMAL) Basic Metabolic Panel (02/09/2025 8:45 AM EST) Sodium 142 135 - 145 mmol/L [facility] Potassium 4.0 3.3 - 5.1 mmol/L [facility] Chloride 110(H) 96 - 108 mmol/L [facility] Carbon Dioxide 25 22 - 29 mmol/L [facility] Anion Gap 11(L) 12 - 20 [facility] Urea Nitrogen (BUN) 14 9 - 16 mg/dL [facility] Creatinine, Serum 0.67 0.5 - 1.4 mg/dL [facility] Estimated Glomerular Filt Rate >60 [facility] Comment:Chronic Kidney Disea se: Estimated GFR < 60 mL/min/1.10t7Lxpdxz Kidney Disease: Estimated GFR < 15 mL/min/1.73m2 Glucose 57(LL) 60 - 115 mg/dL [facility] Comment:Critical value for t est(s): GLUC Results called to akua back by: LOIS Gates Person calling: ROCHEYaima Date:02/09/25 Time: 1151 Calcium 9.5 8.4 - 10.2 mg/dL [facility] Blood Venous blood specimen / Unknown 02/09/2025 8:45 AM EST 02/09/2025 11:20 AM EST [facility] LAB BLOOD ORDERABLES Final Resul t [facility] [address] [place] [address] [phone] * XR Chest 1 View (02/05/2025 6:09 AM EST) Anatomical Region Laterality Modality Chest Radiographic Yecenia ging 02/05/2025 6:09 AM EST Narrative 02/05/2025 6:11 AM EST [address] [address] XRay Report Signed Patient: Cora Smith MR#: [id number] : 1955 Acct:[id number] Age/Sex: 69 / F ADM Date: 02/05/25 Loc: .ED Attending Dr: Ordering Physician: Ursula Bustos MD Date of Service: 02/05/25 Procedure(s): XR chest 1V Accession Number(s): [id number] cc: Ursula Bustos MD; RAFIA MARY NP [...] in OV> 02/05/25609 DD/ 8 TD/TT: 02/05/25608 Ambulance Dispatcher: Procedure Note Donotuseinterpreter, Image - 02/05/2025 [place] [address] XRay Report Signed Patient: Kevan SmithR#: [id number] : 5Acct:[id number] Age/Sex: 69 / FADM Date: 02/05/25 Loc: .ED Attending Dr: Ordering Physician: Ursula Bustos MD Date of Service: 02/05/25 Procedure(s): XR chest 1V Accession Number(s): [id number] cc: Ursula Bustos MD; RAFIA MARY NP [...] in OV> 02/05/25609 DD/ 8 TD/TT: 02/05/25608 Ambulance Dispatcher: Result [facility] External Provider IMG XR PROCEDURES Final Result * POCT Rapid Covid-19 BinaxNOW (01/15/2025 11:06 AM EST) [facility] Rapid COVID Ag Negative QC Media Lot # [id number] Lot# Expiration Date [id number] Swab 01/15/2025 11:0 6 AM EST Result [facility] POINT OF CARE TEST ENTER/ EDIT ORDERABLES Final Result * POCT Rapid Influenza B BLUNT ID NOW (01/15/2025 11:05 AM EST) [facility] Influenza B Negative Negative, Indeterminate [facility] QC Media Lot # [id number] [facility] Lot# Expiration Date [facility] Swab 01/15/2025 11:0 5 AM EST Result [facility] POINT OF CARE TEST ENTER/ EDIT ORDERABLES Final Result Performing Organization Address City/State/[facility] Co de Phone Number [facility] [address] [place] [phone] * POCT Rapid Influenza A BLUNT ID NOW (01/15/2025 11:05 AM EST) [facility] Influenza A Negative Negative, Indeterminate [facility] QC Media Lot # [id number] [facility] Lot# Expiration Date [facility] Swab 01/15/2025 11:0 5 AM EST Result [facility] POINT OF CARE TEST ENTER/ EDIT ORDERABLES Final Result [facility] [address] [place] [phone] [phone] * POCT Rapid Strep A BLUNT ID NOW (01/15/2025 11:04 AM EST) Pathologist [facility] Rapid Strep A Screen Negative Negative, None Detected QC Media Lot # [id number] Lot# Expiration Date Swab 01/15/2025 11:0 4 AM EST Dimitriprasanna Loera [facility] POINT OF CARE TEST ENTER/ EDIT ORDERABLES Final Result * (ABNORMAL) POCT EUGENIA-14 Urine Drug Screen (12/03/2024 10:54 AM EDT) Pathologist [facility] THC Positive(A) Negative Cocaine Screen, Urine Positive(A) [...] ENTER/EDIT ORDERABLES Edited Result - Final * Lipid Panel, Standard (11/15/2024 9:40 AM EDT) Pathologist [facility] Triglycerides 63 <150 mg/dL [facility] Comment:Desirable Triglyceri de: less than 150 mg/dLBorderline High Triglyceride 150-199 mg/dLHigh Triglyceride: 200-499 mg/dLVery High Triglyceride: greater than or equal to 5OO mg/dL Cholesterol 132 <200 mg/dL [facility] Comment:Desirable Cholestero l: less than 200 mg/dLBorderline High Cholesterol: 200-239 mg/dLHigh Cholesterol: greater than 239 mg/dL LDL Cholesterol Calculated 60 <100 mg/dL [facility] Comment:Desirable LDL: less than 100 mg/dLNear Optimal/Above Optimal LDL: 110- 129 mg/dLBorderline High LDL: 130-159 mg/dLHigh LDL: 160-189 mg/dLVery High LDL: greater than or equal to 190 mg/dL HDL Cholesterol 60 >40 mg/dL [facility] Comment:Desirable HDL: great er than 40 mg/dL Note: This HDL assay may give artificially low results in patients with liver disease. Blood Venous blood specimen / Unknown 11/15/2024 9:40 AM EDT 11/15/2024 11:21 AM EDT Rafia HENLEY LAB BLOOD ORDERABLES Final Resul t [facility] [address] [place] [address] [phone] * (ABNORMAL) POCT HGB A1C (08/10/2024 11:43 AM EDT) Hemoglobin A1C 6.4(A) 4.0 - 6.0 % QC Media Lot # [id number] Lot# Expiration Date Blood 08/10/2024 11:4 3 AM EDT Rafia HENLEY POINT OF CARE TEST ENTER/EDIT OR DERABLES Final Result * BI Mammogram Screening Tomosynthesis Bilateral (07/14/2024 8:55 AM EDT) Anatomical Region Laterality Modality Breast Bilateral Mammography 07/14/2024 8:55 AM EDT Narrative 07/19/2024 3:20 PM EDT [address] [place] [address] Mammography Report Signed Patient: Cora Smith MR#: [id number] : 1955 Acct:[id number] Age/Sex: 68 / F ADM Date: 07/14/24 Loc: HO.MAMMO Attending Dr: Rafia Mary NP Ordering Physician: RAFIA MARY NP Results: sourav izquierdo Date of Service: 07/14/24 Follow Up: 1 Year From Orig inal Mammogram Procedure(s): MM tomosynthesis screening BI Accession Number(s): [id number] cc: Meagan Brewer MD; RAFIA AMRY NP EXAMINATION: MM SCREENING DIGITAL BREAST TOMOSYNTHESIS, [...] 07/19/24 1517 DD/ 0855 TD/TT: 07/14/24 0930 Ambulance Dispatcher: Procedure Note Donotuseinterpreter, Image - 07/19/2024 [place] [facility] [address] [place], [place] [id number] Mammography Report Signed Patient: Di Smith#: [id number] : 5Acct:[id number] Age/Sex: 68 / FADM Date: 07/14/24 Loc: MAMMO Attending Dr: Rafia Mary NP Ordering Physician: RAFIA MARY NPResults: 2Benisourav izquierdo Date of Service: 07/14/24Follow Up: 1 Year From Orig ina Mammogram Procedure(s): MM tomosynthesis screening BI Accession Number(s): [id number] cc: Meagan Brewer MD; RAFIA MARY NP [...] 07/19/24 1517 DD/ 0855 TD/TT: 07/14/24 0930 Ambulance Dispatcher: Rafia Mary ANP [facility] BI PROCEDURES Final Result * Albumin, Random Urine W/Creatinine (06/04/2024 1:15 PM EDT) Creatinine, Urine 207.63 mg/dL [facility] Microalbumin Urine 35.0 mg/L [facility] Microalbum Creatinine Ratio Ur 16.8 <30 ug/mg cr [facility] Comment:Albumin/Creatinine R atio Reference Ranges: Normal: < 30 ug/mg creatinine Microalbuminuria: 30 - 300 ug/mg creatinineClinical Albuminuria: > 300 ug/mg creatinine Urine (Urine, Random) 06/04/2024 1:15 PM EDT 06/04/2024 4:09 PM EDT us Meagan Bello MD LAB URINE ORDERABLES Final Result [facility] [address] [place] [phone] * (ABNORMAL) Hm Colonoscopy (08/23/2021) Colonoscopy Abnormal(A ) Normal [facility] Final Result * THINPREP TIS PAP (12/21/2020 [...] has been evaluated with computer assisted technology. [facility] Precision Agronomist: SEE COMMENT [facility] Comment: MXD, CT (ASCP) CT screening location: [place] [address] Interpretation/Res ult: SEE COMMENT [facility] Comment: Negative for intraepithelial lesion or malignancy. Atrophic pattern; predominantly parabasal cells LMP: 11/2015 [facility] Prev. BX: NONE GIVEN [facility] Prev. PAP: NIL NEG [facility] SOURCE: None given [facility] Statement Of Adequacy: SATISFACTORY FOR EVALUATION [facility] 12/21/2020 10:3 2 AM EDT us Ni Curran CNM LAB PATHOLOGY ORDERABLES Final Result Performing Organization Address City/[facility]/ZIP Co de Phone Number [facility] [address] * HPV mRNA E6/E7 (12/21/2020 10:32 AM EDT) HPV nRNA E6/E7 Not Detected Not Detected [facility] Comment: Methodology: Rehab Care Assistant-Mediated Amplification This assay detects E6/E7 viral messenger RNA (mRNA) from 14 high-risk HPV types (16,18,31,33,35,39,45,51,52,56,58,59,66,68). The analytical performance characteristics of this assay have been determined by [employer]. The modifications have not been cleared or approved by the FDA. This assay has been validated pursuant to the CLIA regulations and is used for clinical purposes. For additional information, please refer to http://education.[employer]/faq/YUZ296n4 (This link if provided for information/ educational purposes only.) 12/21/2020 10:3 2 AM EDT us Ni Curran [facility] LAB BLOOD ORDERABLES Xena joe Result [facility] [address] from Last 3 Months or Most [...] 02/16/2025 Patient has chronic kidney disease 02/16/2025 Insurance [facility] (O D-SNP) JASON CAMEJO [id number] Care Teams [employer] Relationship Specialty Start Date End Date Rafia Mary ANP [address] [place] [address] [phone] PCP - General Family Medicine 03/29/22
--- OUTSIDE RECORDS SUMMARY | 2025-02-17 23:39 | XMS_ITS | Data Portability ---
Author Organization [employer] [facility] [employer] [facility] Address [address] [place] [address] Care Team Providers Care Pharmacy Operations Manager Name Role Phone HIM CCA OTHER Assessment Encounter Date Assessment Date Assessment LastModified by Organization Details LastModified Time 12/08/2023 12/08/2023 I provided real -time medical direction via phone for this encounter and was available for additional phone-based assistance as needed. I have reviewed and agree with the Assessment and Plan as documented by the Lotus Notes Administrator. Patient given the opportunity to ask questions. Our service contacted for an assessment of: Urinary symptom As per above, patient developed urinary symptoms of frequency dysuria last week. Things got better without treatment. Calls the service today for evaluation. Denies fever chills. Denies flank pain or abdominal pain. Resolved lower tract symptoms. Per crime laboratory analyst on the scene, five hundred stable the patient is afebrile. UA as noted in crime laboratory analyst evaluation is overall negative. Impression: Resolved urinary [...] Lab urinalysis , dipstick 2023 024 [facility], [address] [place], [address] 21:17:32 Referral None recorded. Procedures None recorded. [...] ICD10 Code Diagnosis IMO Codes Diagnosis Note 28879 Anjana Obando MD Main - instED [address] [place] [phone] 12/08/2023 21:16:16 12/09/2023 12:54:16 Urinary symptoms [id number] R39.9 Health Concerns Section Related Observation LastModified by Organization Detai ls LastModified Time None Recorded Concern Status LastModified by Organization Details LastModified Time None Recorded Advance Directives Directive None Recorded Payers Insurance Date Sequence Insurance Name Policy Number Policy Blanca Covered Member ID Blanca Member ID Guarantor Name 12/10/2023 1 [facility] - DOS ON OR AFTER 2022 - DUAL ELIGIBLE - CARE HOME OPTIONS AND ONE CARE (MEDICARE REPLACEMENT/ADV ANTAGE - HMO) Cora Smtih [id number] Cora Thomas MoranSarah Notes Date Note Type [...] exam. As not able to come into [facility]. Confirmed address and phone number. .................. .................. .................. .................. .................. .................. .................. ............... CRC Nurse Triage Notes (Saleem Sears): Chief Complaints: UTI/Pyelonephritis PMH: COPD/Asthma, Hypertension, Diabetes Comments: Reviewed HPI Lotus Notes Administrator Organization Information for Anjel Gracia [employer]RI[employer] Legal Name: [employer]. Address: [address] [place] [address], Buckle Sorter: Luis Galloway MD IA No.: [id number] Lotus Notes Administrator POC Test Results from Anjel Gracia Urine Dipstick (19:54:02) Urine leukocytes: - MARIAM Urine nitrites: - NIT Urine urobilinogen: - URO Urine protein: - PRO Urine pH: - pH Urine blood: - BLO Urine specific gravity: 1.005 SG Urine ketones: + KET Urine bilirubin: - INOCENCIA Urine glucose: - GLU .................. .................. .................. .................. .................. .................. .................. ............... Lotus Notes Administrator Note From Anjel Gracia: Dispatched to the [...] ............... Disposition: Fulfilled Anjana Obando MD [address] [facility],[address], [place], [address], KILLIAN - Legal RiverLOUIE 12/08/2023 21:18:40 OBGyn Episode No OBEpisode recorded.
--- OUTSIDE RECORDS SUMMARY | 2025-02-17 23:39 | XMS_ITS | Encounter Summary ---
Author Organization [facility] Address [address] [place] [address] Phone Care Team Providers Care Drug Coordinator Name Role Phone Deana Warren NP Primary Care Provider [phone] Encounter Details Date Type Department Care Team (Late st Contact Info) Description 07/14/2023 Procedure Pass OR Admitting Dept - Virtual Department [address] [place] [address] Social History Tobacco Use Types Packs/Day Years [...] on filedocumented in this encounter Care Teams Drug Coordinator Relationship Specialty Start Date End Date Deana Warren NP [address] [place] [address] PCP - General Nurse Practitioner 01/14/23 documented as of this encounter Additional Source Comments The information contained in this document represents components of the legal health record. It is not the complete legal health record.[facility]
--- OUTSIDE RECORDS SUMMARY | 2025-02-17 23:39 | XMS_ITS | Encounter Summary ---
Author Organization [facility] Address [address] [facility] [place] [phone] Phone Care Team Providers Care Floor Covering Layer Name Role Phone Pcp, Unknown Primary Care Provider Unavailabl e Pcp, Not Required Primary Care Provider Deana Cherry NP Primary Care Provider [phone] Encounter Details Date Type Department Care Team (Late st Contact Info) Description 01/10/2022 Procedure Pass [facility], Ct Scan - [facility] [address] [place] [address] Social History Tobacco Use Types Packs/Day Years [...] 8:00 AM EDT Mariam Jordan RN * Thompson Suicide Severity Rating Scale (Screener/Recent Self-Report) Question [...] documented as of this encounter Care Teams Floor Covering Layer Relationship Specialty Start Date End Date Pcp, Unknown PCP - General 08/01/22 01/10/23 Pcp, Not Required PCP - General 01/11/23 01/13/23 Deana Warren NP [address] [place] [phone] PCP - General Nurse Practitioner 01/14/23 documented as of this encounter Additional Source Comments The information contained in this document represents components of the legal health record. It is not the complete legal health record.[facility]
--- OUTSIDE RECORDS SUMMARY | 2025-02-17 23:39 | XMS_ITS | Encounter Summary ---
Author Organization [employer] Address [address] [facility] [address] [place] [address] Care Team Providers Care Heavy Equipment Operator Name Role Phone Deana Warren Primary Care Provider [phone] Reason for Visit * Reason Comments Med Change Request Encounter Details Date Type Department Care Team ([facility] st Contact Info) Description 02/02/2025 Refill [facility] [address] [place], [place] [phone] Deana Warren ANP [address] [place] [address] Bipolar affective disorder, remission status unspecified (CMS/HCC) ([facility]) Social History Tobacco Use [...] Description 03/31/2025 10:30 AM EST Office Visit [facility] [address] [place] [address] Deana Warren ANP [address] [place] [address] 05/30/2025 10:30 AM EDT Office Visit [facility] [address] [place] [address] Katt Lazcano, OD [address] [place] [address] documented as of this encounter Goals Goal [...] Bipolar affective disorder, remission status unspecified (CMS/HCC) ([facility]) documented in this encounter [...] documented as of this encounter Care Teams Heavy Equipment Operator Relationship Specialty Start Date End Date Deana Warren ANP [address] [place] [address] PCP - General Family Medicine 03/29/22 documented as of this encounter
--- OUTSIDE RECORDS SUMMARY | 2025-02-17 23:39 | XMS_ITS | Encounter Summary ---
Author Organization [employer] Address [address] [facility] 7t [place] [address] Care Team Providers Care Social Work Administrator Name Role Phone Deana Warren Primary Care Provider [phone] Reason for Visit * Reason Onset Date Comments new script 06/21/2022 Encounter Details Date Type Department Care Team ([facility] st Contact Info) Description 06/21/2022 Telephone [facility] [address] [place] [address] Deana Warren ANP [address] [place] [address] new script Social History Tobacco Use Types [...] - 06/21/2022 11:18 AM EDT TC from [facility] stated insurance do not covered admelog insulin but insurance will be cover Novolog flexpen. Pt without insulin. PCP DR. Warren documented in this encounter Plan of Treatment Upcoming Encounters Date Type Department Care Team (Late st Contact Info) Description 03/31/2025 10:30 AM EST Office Visit [facility] [address] [place] [address] Deana Warren ANP [address] [place] [address] 05/30/2025 10:30 AM EDT Office Visit [facility] [address] [place] [address] Katt Lazcano, OD [address] [place] [address] documented as of this encounter Visit Diagnoses Not on filedocumented in this encounter Care Teams Social Work Administrator Relationship Specialty Start Date End Date Deana Warren ANP [address] [place] [phone] PCP - General Family Medicine 03/29/22 documented as of this encounter
--- OUTSIDE RECORDS SUMMARY | 2025-02-17 23:39 | XMS_ITS | Encounter Summary ---
Author Organization [employer] Address [address] [facility] [address]t [place] [address] Care Team Providers Care Gear Grinder Name Role Phone Deana Warren Primary Care Provider [phone] Reason for Visit * Reason Onset Date Comments FYI 07/25/2023 Encounter Details Date Type Department Care Team ([facility] Contact Info) Description 07/25/2023 Telephone [facility] [address] [place], [place] [phone] Deana Warren ANP [address] [place] [address] FYI Social History Tobacco Use Types Packs/Day [...] 07/25/2023 2:04 PM EDT Tc form Bethany, JULIETAA with [facility] want to let pcp know pt's blood pressure Is 154/94 sittingup. Bethany stated per protocol they will call when pt's blood pressure is higher than 140/90. Bethany is unsure on pcps parameters or if he deems these calls necessary but requested policy writer forward as KAITLYNN. If any questions you can contact Bethany at [phone]. documented in this encounter Plan of Treatment Upcoming Encounters Date Type Department Care Team (Late st Contact Info) Description 03/31/2025 10:30 AM EST Office Visit [facility] [address] [place] [address] Deana Warren ANP [address] [place] [address] 05/30/2025 10:30 AM EDT Office Visit [facility] [address] [place] [address] Katt Lazcano, OD [address] [place] [address] documented as of this encounter Visit Diagnoses Not on filedocumented in this encounter Care Teams Gear Grinder Relationship Specialty Start Date End Date Deana Warren ANP [address] [place] [address] PCP - General Family Medicine 03/29/22 documented as of this encounter
--- OUTSIDE RECORDS SUMMARY | 2025-02-17 23:39 | XMS_ITS | Encounter Summary ---
Author Organization [facility] Address [address] [place] [address] Phone Care Team Providers Care Veneer Drier Tailer Name Role Phone Deana Warren NP Primary Care Provider [phone] Encounter Details Date Type Department Care Team (Late st Contact Info) Description 10/19/2024 Procedure Pass [facility], Ct Scan - [facility] [address] [place] [address] Social History Tobacco Use Types Packs/Day Years [...] 5:28 PM EDT Gely Lubin, [place] * [place] Suicide Severity Rating Scale (Screener/Recent Self-Report) Question [...] on filedocumented in this encounter Care Teams Veneer Drier Tailer Relationship Specialty Start Date End Date Deana Warren NP [address] [place] [phone] PCP - General Nurse Practitioner 01/14/23 documented as of this encounter Additional Source Comments The information contained in this document represents components of the legal health record. It is not the complete legal health record.[facility]
--- OUTSIDE RECORDS SUMMARY | 2025-02-17 23:39 | XMS_ITS | Encounter Summary ---
Author Organization [employer] Address [address] [facility] 7t [place] [address] Care Team Providers Care Oncology Pharmacist Name Role Phone Deana Warren Primary Care Provider [phone] Encounter Details Date Type Department Care Team ([facility] st Contact Info) Description 08/04/2024 Orders Only [facility] MEDICINE [address] [place] [address] Deana Warren ANP [address] [place] [address] Dyspnea on exertion (Primary Dx) Social History [...] your housing situation today? I have adeline ocles 03/16/[address] you li [...] 10:30 AM EST Office Visit [facility] MEDICINE [address] [place] [address] Deana Warren ANP [address] [place] [address] 05/30/2025 10:30 AM EDT Office Visit [facility] OPTOMETRY [address] [place] [address] Katt Lazcano, OD [address] [place] [address] documented as of this encounter Visit Diagnoses Diagnosis Dyspnea on exertion- Primary Other dyspnea and respiratory abnormality documented in this encounter Additional Health Concerns Assessment Noted Time PHQ-9 Depression Total Score: 24 025 9:43 AM EST documented as of this encounter Care Teams Oncology Pharmacist Relationship Specialty Start Date End Date Deana Warren ANP [address] [place] [address] PCP - General Family Medicine 03/29/22 documented as of this encounter
--- OUTSIDE RECORDS SUMMARY | 2025-02-17 23:39 | XMS_ITS | Encounter Summary ---
Author Organization [facility] Address [address] [facility] [address] [place] [address] Phone Care Team Providers Care Telephone Maintenance Mechanic Name Role Phone Pcp, Unknown Primary Care Provider Unavailabl e Pcp, Not Required Primary Care Provider Deana Cherry NP Primary Care Provider [phone] Encounter Details Date Type Department Care Team (Late st Contact Info) Description 01/23/2022 Transcribe Orders [facility] [address] [place] [address] Pcp, Unknown Social History Tobacco Use Types [...] documented as of this encounter Care Teams Telephone Maintenance Mechanic Relationship Specialty Start Date End Date Pcp, Unknown PCP - General 08/01/22 01/10/23 Pcp, Not Required PCP - General 01/11/23 01/13/23 Deana Warren NP [address] [place] [address] PCP - General Nurse Practitioner 01/14/23 documented as of this encounter Additional Source Comments The information contained in this document represents components of the legal health record. It is not the complete legal health record.[facility]
--- OUTSIDE RECORDS SUMMARY | 2025-02-17 23:39 | XMS_ITS | Encounter Summary ---
Author Organization [employer] Address [address] [place] [address] 7 [place] [address] Care Team Providers Care Air Conditioning Mechanic Industrial Name Role Phone Deana Warren Primary Care Provider [phone] Reason for Visit * Reason Onset Date Comments triage 05/22/2022 Encounter Details Date Type Department Care Team (Late st Contact Info) Description 05/22/2022 Telephone [facility] MEDICINE [address] [place] [phone] Deana Warren ANP [address] [place] [address] triage Social History Tobacco Use Types Packs/Day [...] Description 03/31/2025 10:30 AM EST Office Visit [facility] MEDICINE [address] [place] [address] [phone] Deana Warren ANP [address] [place] [address] 05/30/2025 10:30 AM EDT Office Visit [facility] OPTOMETRY [address] [place], [place] [phone] Katt Lazcano, OD [address] [place] [address] documented as of this encounter Visit Diagnoses Not on filedocumented in this encounter Care Teams Air Conditioning Mechanic Industrial Relationship Specialty Start Date End Date Deana Warren ANP [address] [place] [address] PCP - General Family Medicine 03/29/22 documented as of this encounter
--- OUTSIDE RECORDS SUMMARY | 2025-02-17 23:39 | XMS_ITS | Encounter Summary ---
Author Organization [facility] Address [address] [place] [address] Phone Care Team Providers Care Food Technologist Name Role Phone Pcp, Unknown Primary Care Provider Unavailabl e Pcp, Not Required Primary Care Provider Deana Cherry NP Primary Care Provider [phone] Encounter Details Date Type Department Care Team (Late st Contact Info) Description 01/09/2022 Procedure Pass [facility], Ct Scan - [facility] [address] [place] [address] Social History Tobacco Use Types Packs/Day Years [...] 8:00 AM EDT Mariam Jordan RN * [place] Suicide Severity Rating Scale (Screener/Recent Self-Report) Question [...] documented as of this encounter Care Teams Food Technologist Relationship Specialty Start Date End Date Pcp, Unknown PCP - General 08/01/22 01/10/23 Pcp, Not Required PCP - General 01/11/23 01/13/23 Deana Warren NP [address] [place] [address] PCP - General Nurse Practitioner 01/14/23 documented as of this encounter Additional Source Comments The information contained in this document represents components of the legal health record. It is not the complete legal health record.[facility]
--- OUTSIDE RECORDS SUMMARY | 2025-02-17 23:39 | XMS_ITS | Encounter Summary ---
Author Organization [employer] Address [address] [facility] 7t [place] [address] Care Team Providers Care Foreign Languages Department Chair Name Role Phone Deana Warren Primary Care Provider [phone] Reason for Visit * Reason Onset Date Comments Nurse Triage 10/13/2023 Encounter Details Date Type Department Care Team ([facility] st Contact Info) Description 10/13/2023 Telephone [facility] MEDICINE [address] [place] [address] Deana Warren ANP [address] [place] [address] Nurse Triage Social History Tobacco Use Types [...] Description 03/31/2025 10:30 AM EST Office Visit [facility] MEDICINE [address] [place] [address] Deana Warren ANP [address] [place] [address] 05/30/2025 10:30 AM EDT Office Visit [facility] OPTOMETRY [address] [place] [address] Tarka, Katt, OD [address] [place] [address] documented as of this encounter Visit Diagnoses Not on filedocumented in this encounter Care Teams Foreign Languages Department Chair Relationship Specialty Start Date End Date Deana Warren ANP [address] [place] [address] PCP - General Family Medicine 03/29/22 documented as of this encounter
--- OUTSIDE RECORDS SUMMARY | 2025-02-17 23:39 | XMS_ITS | Encounter Summary ---
Author Organization [employer] Address [address] [facility] 7t [place] [address] Care Team Providers Care Cake Cutter Machine Name Role Phone Deana Warren Primary Care Provider [phone] Reason for Visit * Reason Comments Med Refill Encounter Details Date Type Department Care Team ([facility] st Contact Info) Description 09/27/2024 Refill [facility] MEDICINE [address] [place], [place] [phone] Deana Warren ANP [address] [place] [address] Type 2 diabetes mellitus with hyperglycemia, unspecified whether detention insulin use ([facility]) Social History Tobacco Use Types Packs/Day Years [...] 03/31/2025 10:30 AM EST Office Visit [facility] MEDICINE [address] [place] [address] Deana Warren ANP [address] [place] [address] 05/30/2025 10:30 AM EDT Office Visit [facility] OPTOMETRY [address] [place] [address] Katt Lazcano, OD [address] [place] [address] documented as of this encounter Visit Diagnoses Diagnosis Type 2 diabetes mellitus with hyperglycemia, 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
--- OUTSIDE RECORDS SUMMARY | 2025-02-17 23:39 | XMS_ITS | Encounter Summary ---
Author Organization [employer] Address [address] [facility] 7t [place] [address] Care Team Providers Care Talent Acquisition Consultant Name Role Phone Deana Warren Primary Care Provider [phone] Reason for Visit * Reason Onset Date Comments Med Refill 03/29/2022 Encounter Details Date Type Department Care Team ([facility] st Contact Info) Description 03/29/2022 Telephone [facility] MEDICINE [address] [place], [place] [phone] Deana Warren ANP [address] [place] [address] Med Refill Social History Tobacco Use Types [...] Patient was hospitalized in December 2021 at [facility] and was discharged on 12/18/21. Meds [...] Description 03/31/2025 10:30 AM EST Office Visit [facility] MEDICINE [address] [place] [address] Deana Warren ANP [address] [place] [address] 05/30/2025 10:30 AM EDT Office Visit [facility] OPTOMETRY [address] [place] [address] Katt Lazcano, OD [address] [place] [address] documented as of this encounter Visit Diagnoses Not on filedocumented in this encounter Care Teams Talent Acquisition Consultant Relationship Specialty Start Date End Date Deana Warren ANP [address] [place] [address] PCP - General Family Medicine 03/29/22 documented as of this encounter
--- OUTSIDE RECORDS SUMMARY | 2025-02-17 23:39 | XMS_ITS | Encounter Summary ---
Author Organization [facility] Address [address] [place] [address] Phone Care Team Providers Care Supervisor Yard Name Role Phone Pcp, Unknown Primary Care Provider Unavailabl e Pcp, Not Required Primary Care Provider Deana Cherry NP Primary Care Provider [phone] Encounter Details Date Type Department Care Team (Late st Contact Info) Description 08/01/2022 Procedure Pass [facility], Ct Scan - [address] [address] Social History Tobacco Use Types Packs/Day Years [...] 8:49 PM EDT Brandi Ordoñez RN * [place] Suicide Severity Rating Scale (Screener/Recent Self-Report) Question [...] as of this encounter Care Teams Supervisor Yard Relationship Specialty Start Date End Date Pcp, Unknown PCP - General 08/01/22 01/10/23 Pcp, Not Required PCP - General 01/11/23 01/13/23 Deana Warren NP [address] [place] [address] PCP - General Nurse Practitioner 01/14/23 documented as of this encounter Additional Source Comments The information contained in this document represents components of the legal health record. It is not the complete legal health record.[facility]
--- OUTSIDE RECORDS SUMMARY | 2025-02-17 23:39 | XMS_ITS | Encounter Summary ---
Author Organization [facility] Address [address] [facility] [address] [place] [address] Phone Care Team Providers Care Design Technology Teacher Name Role Phone Pcp, Unknown Primary Care Provider Unavailabl e Pcp, Not Required Primary Care Provider Deana Cherry NP Primary Care Provider [phone] Encounter Details Date Type Department Care Team (Late st Contact Info) Description 01/23/2022 Procedure Pass [facility], Ct Scan - [address] [address] Social History Tobacco Use Types Packs/Day Years [...] documented as of this encounter Care Teams Design Technology Teacher Relationship Specialty Start Date End Date Pcp, Unknown PCP - General 08/01/22 01/10/23 Pcp, Not Required PCP - General 01/11/23 01/13/23 Deana Warren NP [address] [place] [address] PCP - General Nurse Practitioner 01/14/23 documented as of this encounter Additional Source Comments The information contained in this document represents components of the legal health record. It is not the complete legal health record.[facility]
--- OUTSIDE RECORDS SUMMARY | 2025-02-17 23:39 | XMS_ITS | Encounter Summary ---
Author Organization [employer] Address [address] [facility] 7t [place] [address] Care Team Providers Care Thread Winder Name Role Phone Deana Warren Primary Care Provider [phone] Reason for Visit * Reason Comments Med Refill Encounter Details Date Type Department Care Team ([facility] st Contact Info) Description 01/25/2025 Refill [facility] MEDICINE [address] [place], [place] [phone] Deana Warren ANP [address] [place] [address] Type 2 diabetes mellitus with hyperglycemia, unspecified whether senior living insulin use (HCC) Social History Tobacco Use [...] Office Visit [facility] MEDICINE [address] [place] [address] Deana Warren ANP [address] [place] [address] 05/30/2025 10:30 AM EDT Office Visit [facility] OPTOMETRY [address] [place] [address] Katt Lazcano, OD [address] [place] [address] documented as of this encounter Goals Goal [...] diabetes mellitus with hyperglycemia, unspecified whether senior living insulin use (HCC) documented in this encounter [...] documented as of this encounter Care Teams Thread Winder Relationship Specialty Start Date End Date Deana Warren ANP [address] [place] [address] PCP - General Family Medicine 03/29/22 documented as of this encounter
--- OUTSIDE RECORDS SUMMARY | 2025-02-17 23:40 | XMS_ITS | Encounter Summary ---
Author Organization [facility] Address [address] [place] [address] Phone Care Team Providers Care Silver Cleaner Name Role Phone Pcp, Unknown Primary Care Provider Unavailabl e Pcp, Not Required Primary Care Provider Deana Cherry NP Primary Care Provider [phone] Encounter Details Date Type Department Care Team (Late st Contact Info) Description 01/10/2023 Procedure Pass [facility], [facility] [address] [facility] 2nd [place] [address] Social History Tobacco Use Types Packs/Day Years [...] 4:41 PM EST Terrie Echavarria RN * [place] Suicide Severity Rating Scale (Screener/Recent Self-Report) Question [...] documented as of this encounter Care Teams Silver Cleaner Relationship Specialty Start Date End Date Pcp, Unknown PCP - General 08/01/22 01/10/23 Pcp, Not Required PCP - General 01/11/23 01/13/23 Deana Warren NP [address] [place] [address] PCP - General Nurse Practitioner 01/14/23 documented as of this encounter Additional Source Comments The information contained in this document represents components of the legal health record. It is not the complete legal health record.[facility]
--- OUTSIDE RECORDS SUMMARY | 2025-02-17 23:40 | XMS_ITS | Encounter Summary ---
Author Organization [facility] Address [address] [place] [address] Phone Care Team Providers Care Metal Welder Name Role Phone Pcp, Unknown Primary Care Provider Unavailabl e Pcp, Not Required Primary Care Provider Deana Cherry NP Primary Care Provider [phone] Encounter Details Date Type Department Care Team (Late st Contact Info) Description 01/07/2023 Procedure Pass [facility], Ct Scan - [address] [address] Social History Tobacco Use Types Packs/Day Years [...] 5:00 PM EDT Roland Garber, [place] * [place] Suicide Severity Rating Scale (Screener/Recent Self-Report) Question [...] documented as of this encounter Care Teams Metal Welder Relationship Specialty Start Date End Date Pcp, Unknown PCP - General 08/01/22 01/10/23 Pcp, Not Required PCP - General 01/11/23 01/13/23 Deana Warren NP [address] [place] [address] PCP - General Nurse Practitioner 01/14/23 documented as of this encounter Additional Source Comments The information contained in this document represents components of the legal health record. It is not the complete legal health record.[facility]
[2025-02-18] VITALS: BP 171/74; PULSE 53; RESP 18; TEMP 36.8; O2SAT 95
[2025-02-18 00:07] LABS: OBS Int Ctl Valid YES; OBS1 NEGATIVE (NEGATIVE)
[2025-02-18 02:00] VITALS: BP 161/74; PULSE 56; RESP 18; TEMP 36.8; O2SAT 94
--- NOTE | 2025-02-18 02:27 | ED.GENADULT ---
HPI - General Adult General Chief complaint: General Medical Stated complaint: FROM LONGTERM HYPERGLYCEMIC Time Seen by Provider: 02/17/25 20:06 Source: patient Limitations: no limitations History of Present Illness ED Provider: Yocasta Amador PA-C HPI narrative: 69-year-old female with a history of opiate use disorder now on Suboxone, bipolar disorder, hepatitis-C, chronic pain, COPD, hypertension, GERD who presents from rehab with hyperglycemia. It was noted that the patient's blood sugar was 534. The patient denies any source of infection. History limited as patient prefers to sleep and does not want to engage in conversation so as to obtain detailed history. Related Data Home Medications ?Medication ?Instructions ?Recorded ?Confirmed buprenorphine 8 mg-naloxone 2 mg 1 film buccal DAILY 05/17/20 10/10/20 sublingual film (Suboxone) lisinopril 20 1 tab PO DAILY 05/17/20 10/10/20 mg-hydrochlorothiazide 25 mg tablet albuterol sulfate 90 mcg/actuation 2 puff PO Q4-6H PRN 08/31/20 10/10/20 aerosol inhaler clonazepam 1 mg tablet 0 mg PO 08/31/20 10/10/20 cyclobenzaprine 5 mg tablet 5 mg PO TID PRN muscle spasm 08/31/20 10/10/20 fluoxetine 20 mg capsule 20 mg PO QAM 08/31/20 10/10/20 fluticasone propionate 50 1 spray intranasal DAILY PRN 08/31/20 10/10/20 mcg/actuation nasal allergies spray,suspension ibuprofen 400 mg tablet 400 mg PO Q6-8H PRN 08/31/20 10/10/20 oxcarbazepine 300 mg tablet 300 mg PO TID 08/31/20 10/10/20 zolpidem 5 mg tablet 5 mg PO BEDTIME PRN 08/31/20 10/10/20 omeprazole magnesium 20 mg 20 mg PO DAILY PRN heartburn 10/10/20 10/10/20 tablet,delayed release (Prilosec OTC) Previous Rx's ?Medication ?Instructions ?Recorded sofosbuvir 400 mg-velpatasvir 100 1 tab PO DAILY 28 days #28 tabs 10/11/20 mg-voxilaprevir 100 mg tablet (Vosevi) guaifenesin 100 mg/5 mL oral liquid 200 mg (10 mL) PO Q4H PRN cough 02/05/25 #473 mL Allergies Allergy/AdvReac Type Severity Reaction Status Date / Time No Known Allergies (No Known Allergy Verified 02/17/25 20:13 Allergies*) Review of Systems Review of Systems: Unable to obtain Yes all other systems are reviewed and are negative [facility] Past Medical History Attestation statement: The following information was validated with the patient. Medical History Bipolar disorder Chronic pain Cigarette smoker Hx of substance abuse Bipolar 1 disorder Hypertension Chronic hepatitis C virus infection No known health problems Surgical History H/O colonoscopy History of esophagogastroduodenoscopy (EGD) Social History Social History Household Members: Other Household Members Other:: homeless, stays with someone Alcohol intake: current Alcohol intake frequency: does not drink Smoked in Last 30 Days: Yes Use of substances other than those prescribed or required for medical reasons: No Advance Directives: Yes Advance Directives Information Provided: Yes Advance Directives on File: No Do you have a plan to hurt others: No Plan Physical Exam ED Vital Signs: Vital Signs - 24 hr 02/17/25 19:40 02/17/25 20:10 02/17/25 22:00 Temperature 97.6 F 97.5 F 97.4 F Pulse Rate 61 61 58 Respiratory Rate 20 16 20 Blood Pressure 132/74 132/74 184/86 H Pulse Oximetry 94 94 94 Oxygen Delivery Method Room Air Room Air Room Air 02/18/25 00:00 02/18/25 02:00 Temperature 98.3 F 98.3 F Pulse Rate 53 56 Respiratory Rate 18 18 Blood Pressure 171/74 H 161/74 H Pulse Oximetry 95 94 Oxygen Delivery Method Room Air Room Air BMI result Body Mass Index 26.5 Const Other: Sleeping, easily woken with verbal stimuli Orientation/consciousness: patient oriented x3 Resp Effort & Inspection: normal respiratory effort Cardio Other: Normal peripheral perfusion Skin Other: Warm dry no rash Neuro General: patient oriented x3, gait normal, no focal motor deficits and CN's II-XI intact bilaterally Psych Other: Somewhat uncooperative Medications Administered Discontinued Medications Generic Name Dose Route Start Last Admin Trade Name Freq PRN Reason Stop Dose Admin Lactated Ringer's 1,000 mls @ 999 mls/hr 02/17/25 20:45 02/18/25 00:01 Lr IV 02/17/25 21:45 Infused .Q1H1M SHAHANA Infusion Medical Decision Making Medical Decision Making MDM Narrative: 69-year-old female with a history of diabetes, opiate use disorder now on Suboxone, bipolar disorder, hepatitis-C, chronic pain, COPD, hypertension, GERD who presents from rehab with hyperglycemia. It was noted that the patient's blood sugar was 534. The patient denies any source of infection. History limited as patient prefers to sleep and does not want to engage in conversation so as to obtain detailed history. Patient did take 32 units of insulin prior to arrival Problem: Substance abuse, psychiatric illness, diabetes History: Per patient which is limited I have considered the following differential diagnoses: GI bleed, hyperglycemia, HHS, DKA, UTI, subsequent insulin reaction Plan: The patient is hyperglycemic, without evidence of DKA, we will be giving IV fluid therapy. We will continue to track her blood sugar over the next several hours given the insulin she took. I have independently reviewed the following tests: Labs: no leukocytosis, is anemic will screen guaiac....no elyte abnormality, gluc 438, POC 388, POC 310, POC 166, urine not infected Differential Diagnosis Differential Diagnoses: The differential diagnosis associated with the presentation includes see MDM Admission/Observation Consideration of admission/observation: Escalation of care including admission/observation considered not applicable Lab Data [facility] Lab Attestation statement: I reviewed the patient's lab results. 02/17/25 21:56 02/17/25 20:23 Labs: Lab Results 02/17/25 02/17/25 02/17/25 Range/Units 20:23 20:26 20:27 WBC (4.8-10.8) X10*3/uL RBC (4.20-5.50) X10*6/uL Hgb (12.0-16.0) g/dl Hct (37.0-47.0) % MCV (80.0-98.0) fL MCH (27.0-33.0) pg MCHC (31.0-35.0) g/dl RDW (11.0-16.0) % Plt Count (160-400) X10*3/uL MPV (9.4-12.3) fL Immature Gran % (Auto) (0.0-0.4) % Neut % (Auto) (45-73) % Lymph % (Auto) (20-40) % Door % (Auto) (2-11) % Eos % (Auto) (0-4) % Baso % (Auto) (0-2) % Lymph # (Auto) (1.2-4.9) X10*3/uL Door # (Auto) (0.1-1.2) X10*3/uL Eos # (Auto) (0.0-0.4) X10*3/uL Baso # (Auto) (0.0-0.2) X10*3/uL Abs Immat Gran (auto) (0.00-0.03) X10*3/uL Absolute Neuts (auto) (2.0-8.3) x10*3/uL Absolute Nucleated RBC (0.0-0.012) X10*3/uL Nucleated RBC % (auto) (0.0-0.2) /100WBC VBG pH 7.52 H (7.32-7.43) VBG pCO2 29 mmHg VBG pO2 107 mmHg VBG HCO3 23 (22-26) mmol/L VBG O2 Saturation 99.0 % VBG Base Excess 1.9 mmol/L Sodium 137 (135-145) mmol/L Potassium 4.7 (3.3-5.1) mmol/L Chloride 105 (96-108) mmol/L Carbon Dioxide 23 (22-29) mmol/L Anion Gap 14 (12-20) BUN 16 (9-16) mg/dL Creatinine 0.88 (0.5-1.4) mg/dL Estim Creat Clear Calc 52.9 Estimated GFR > 60 POC Glucose (60-115) mg/dL Random Glucose 438 H* (60-115) mg/dL Calcium 8.9 D (8.4-10.2) mg/dL Magnesium 2.4 (1.6-2.6) mg/dL Total Bilirubin 0.2 (0.0-1.0) mg/dL AST 33 H (5-31) U/L ALT 24 (0-31) U/L Alkaline Phosphatase 85 (39-117) U/L Total Protein 7.8 (6.5-8.0) g/dL Albumin 4.0 (3.5-5.0) g/dL Beta-Hydroxybutyrate 0.06 (0.02-0.27) mmol/L Urine Color Yellow Urine Appearance Clear Urine pH 7.5 (5.0-9.0) Ur Specific [place] >= 1.030 H (1.005-1.025) Urine Protein Negative (Neg-Trace) mg/dL Urine Glucose (UA) >=1000 H (Negative) mg/dL Urine Ketones Negative (Negative) mg/dL Urine Blood Negative (Negative) Urine Nitrite Negative (Negative) Ur Leukocyte Esterase Negative (Negative) Urine RBC 0-2 (0-2) /HPF Urine WBC 0-5 (0-5) /HPF Ur Squamous Epith Cells 0-2 (0-2) /HPF Urine Bacteria None Seen (None Seen) Hyaline Casts 0-2 (0-2) /LPF Stool Occult Blood (NEGATIVE) 02/17/25 02/17/25 02/17/25 Range/Units 20:47 21:56 22:54 WBC 8.4 (4.8-10.8) X10*3/uL RBC 2.83 L D (4.20-5.50) X10*6/uL Hgb 8.1 L D (12.0-16.0) g/dl Hct 24.6 L D (37.0-47.0) % MCV 86.9 (80.0-98.0) fL MCH 28.6 (27.0-33.0) pg MCHC 32.9 (31.0-35.0) g/dl RDW 14.2 (11.0-16.0) % Plt Count 142 L (160-400) X10*3/uL MPV 10.3 (9.4-12.3) fL Immature Gran % (Auto) 0.7 H (0.0-0.4) % Neut % (Auto) 70.7 (45-73) % Lymph % (Auto) 19.6 L (20-40) % Door % (Auto) 8.7 (2-11) % Eos % (Auto) 0.1 (0-4) % Baso % (Auto) 0.2 (0-2) % Lymph # (Auto) 1.7 (1.2-4.9) X10*3/uL Door # (Auto) 0.7 (0.1-1.2) X10*3/uL Eos # (Auto) 0.0 (0.0-0.4) X10*3/uL Baso # (Auto) 0.0 (0.0-0.2) X10*3/uL Abs Immat Gran (auto) 0.06 H (0.00-0.03) X10*3/uL Absolute Neuts (auto) 5.9 (2.0-8.3) x10*3/uL Absolute Nucleated RBC 0.000 (0.0-0.012) X10*3/uL Nucleated RBC % (auto) 0.0 (0.0-0.2) /100WBC VBG pH (7.32-7.43) VBG pCO2 mmHg VBG pO2 mmHg VBG HCO3 (22-26) mmol/L VBG O2 Saturation % VBG Base Excess mmol/L Sodium (135-145) mmol/L Potassium (3.3-5.1) mmol/L Chloride (96-108) mmol/L Carbon Dioxide (22-29) mmol/L Anion Gap (12-20) BUN (9-16) mg/dL Creatinine (0.5-1.4) mg/dL Estim Creat Clear Calc Estimated GFR POC Glucose 388 H* 310 H (60-115) mg/dL Random Glucose (60-115) mg/dL Calcium (8.4-10.2) mg/dL Magnesium (1.6-2.6) mg/dL Total Bilirubin (0.0-1.0) mg/dL AST (5-31) U/L ALT (0-31) U/L Alkaline Phosphatase (39-117) U/L Total Protein (6.5-8.0) g/dL Albumin (3.5-5.0) g/dL Beta-Hydroxybutyrate (0.02-0.27) mmol/L Urine Color Urine Appearance Urine pH (5.0-9.0) Ur Specific [place] (1.005-1.025) Urine Protein (Neg-Trace) mg/dL Urine Glucose (UA) (Negative) mg/dL Urine Ketones (Negative) mg/dL Urine Blood (Negative) Urine Nitrite (Negative) Ur Leukocyte Esterase (Negative) Urine RBC (0-2) /HPF Urine WBC (0-5) /HPF Ur Squamous Epith Cells (0-2) /HPF Urine Bacteria (None Seen) Hyaline Casts (0-2) /LPF Stool Occult Blood (NEGATIVE) 02/18/25 02/18/25 Range/Units 00:01 02:12 WBC (4.8-10.8) X10*3/uL RBC (4.20-5.50) X10*6/uL Hgb (12.0-16.0) g/dl Hct (37.0-47.0) % MCV (80.0-98.0) fL MCH (27.0-33.0) pg MCHC (31.0-35.0) g/dl RDW (11.0-16.0) % Plt Count (160-400) X10*3/uL MPV (9.4-12.3) fL Immature Gran % (Auto) (0.0-0.4) % Neut % (Auto) (45-73) % Lymph % (Auto) (20-40) % Door % (Auto) (2-11) % Eos % (Auto) (0-4) % Baso % (Auto) (0-2) % Lymph # (Auto) (1.2-4.9) X10*3/uL Door # (Auto) (0.1-1.2) X10*3/uL Eos # (Auto) (0.0-0.4) X10*3/uL Baso # (Auto) (0.0-0.2) X10*3/uL Abs Immat Gran (auto) (0.00-0.03) X10*3/uL Absolute Neuts (auto) (2.0-8.3) x10*3/uL Absolute Nucleated RBC (0.0-0.012) X10*3/uL Nucleated RBC % (auto) (0.0-0.2) /100WBC VBG pH (7.32-7.43) VBG pCO2 mmHg VBG pO2 mmHg VBG HCO3 (22-26) mmol/L VBG O2 Saturation % VBG Base Excess mmol/L Sodium (135-145) mmol/L Potassium (3.3-5.1) mmol/L Chloride (96-108) mmol/L Carbon Dioxide (22-29) mmol/L Anion Gap (12-20) BUN (9-16) mg/dL Creatinine (0.5-1.4) mg/dL Estim Creat Clear Calc Estimated GFR POC Glucose 166 H (60-115) mg/dL Random Glucose (60-115) mg/dL Calcium (8.4-10.2) mg/dL Magnesium (1.6-2.6) mg/dL Total Bilirubin (0.0-1.0) mg/dL AST (5-31) U/L ALT (0-31) U/L Alkaline Phosphatase (39-117) U/L Total Protein (6.5-8.0) g/dL Albumin (3.5-5.0) g/dL Beta-Hydroxybutyrate (0.02-0.27) mmol/L Urine Color Urine Appearance Urine pH (5.0-9.0) Ur Specific [place] (1.005-1.025) Urine Protein (Neg-Trace) mg/dL Urine Glucose (UA) (Negative) mg/dL Urine Ketones (Negative) mg/dL Urine Blood (Negative) Urine Nitrite (Negative) Ur Leukocyte Esterase (Negative) Urine RBC (0-2) /HPF Urine WBC (0-5) /HPF Ur Squamous Epith Cells (0-2) /HPF Urine Bacteria (None Seen) Hyaline Casts (0-2) /LPF Stool Occult Blood NEGATIVE (NEGATIVE) Discharge Plan Discharge Clinical Impression: Hyperglycemia Patient Disposition: Home, Self-Care Instructions: Diabetic Hyperglycemia (ED) Additional Instructions: You had no lab abnormalities associated with your hyperglycemia, you were sugar normalized since the administration of the Lantus and IV fluid therapy. Upon return to your facility, you should be checking your POC blood glucose on a regular basis, specifically between meals. You should use your insulin as directed. Follow up with your primary care as needed. Prescriptions: No Action Vosevi 400-100-100 mg tablet 1 tab PO DAILY 28 Days Qty: 28 2RF Rx Instructions: must administer with a meal/food guaifenesin 100 mg/5 mL liquid 200 mg PO Q4H PRN (Reason: cough) Qty: 473 0RF albuterol sulfate 90 mcg/actuation HFA aerosol inhaler 2 puff PO Q4-6H PRN ibuprofen 400 mg tablet 400 mg PO Q6-8H PRN fluoxetine 20 mg capsule 20 mg PO QAM cyclobenzaprine 5 mg tablet 5 mg PO TID PRN (Reason: muscle spasm) fluticasone propionate 50 mcg/actuation spray,suspension 1 spray intranasal DAILY PRN (Reason: allergies) clonazepam 1 mg tablet 0 mg PO zolpidem 5 mg tablet 5 mg PO BEDTIME PRN oxcarbazepine 300 mg tablet 300 mg PO TID omeprazole magnesium [Prilosec OTC] 20 mg tablet,delayed release (DR/EC) 20 mg PO DAILY PRN (Reason: heartburn) Patient Comments: Patient buys OTC she was instructed to keep this far away from her hepatitis C medications because it can activate treatment. She should take this in the morning if she needs it and hep C medications at night before bed lisinopril-hydrochlorothiazide 20-25 mg tablet 1 tab PO DAILY buprenorphine-naloxone [Suboxone] 8-2 mg film 1 film buccal DAILY Interventions: ED Discharge Assessment Last Done: 02/18/25 03:25 Discharge Date/Time: 02/18/25 03:25 Print Language: Welsh
--- NOTE | 2025-02-18 02:57 | PC.NURSE ---
Resumed care of pt at 2300, pt resting throughout shift, pt brought into room to complete rectal exam by provider. Pt denies any complaints of pain at this time. Pt DC in, this RN called [facility] who is going to send a ride to come and pick her up at this time. IV removed, pt to wait in waiting room until ride is here.
[2025-02-18 03:25] VITALS: BP 161/74; PULSE 56; RESP 18; TEMP 36.8; O2SAT 94
[2025-02-18 06:51] LABS: Glucose, Whole Blood 166 mg/dL (60-115)
== END 2025-02-18 03:25 | disposition home or self-care (01) ==
PROVIDERS: Physician Assistant Medical; Emergency Provider Emergency Medicine; PCP Nurse Practitioner Primary Care
DX: R73.9 Hyperglycemia, unspecified (principal); R11.0 Nausea; I10 Essential (primary) hypertension; Z79.899 Other long term (current) drug therapy
CPT/HCPCS: 36415; 80053; 81001; 82010; 82272; 82803; 82947; 83735; 85025; 96360; 96361; 99284; J7120